=== PATIENT | male | born 1950 | race Caucasian/White ===

== ENCOUNTER 2021-02-04 13:52 | Outpatient (CLI) | payer MEDICARE, SELFPAY ==
[2021-02-04 14:10] VITALS: BP 128/56; PULSE 77; RESP 16; TEMP 36.6; O2SAT 92; BMI 32.1
[2021-02-04] MEDS: 0.9% Saline Lock 10 ML Syringe IV (14:32)
[2021-02-04 15:03] VITALS: BP 115/60; PULSE 69; RESP 16; TEMP 36.9; O2SAT 93
[2021-02-04 16:10] VITALS: BP 111/59; PULSE 69; RESP 16; TEMP 36.9; O2SAT 93
== END 2021-02-04 16:11 | disposition home or self-care (01) ==
LOC: MS3OUT 13:53 → MS3 13:53
PROVIDERS: Referring Provider Nurse Practitioner Adult Health; Visit Provider Nurse Practitioner Adult Health
DX: Z23 Encounter for immunization (principal); U07.1 COVID-19
CPT/HCPCS: J7050; M0243; A4216; Q0244

== ENCOUNTER 2021-02-04 20:10 | Inpatient (IN) | payer MEDICARE, OTHER, SELFPAY ==
[2021-02-04] VITALS (9 sets, daily range): BP systolic 118–137; BP diastolic 60–64; PULSE 68–93; RESP 18–23; TEMP 36.7–37.7; O2SAT 82–92; BMI 32.1; BMI 29.9
--- NOTE | 2021-02-04 20:38 | EKG12_ITS ---
Test Reason : GENERAL Blood Pressure : / mmHG Vent. Rate : 084 BPM Atrial Rate : 084 BPM P-R Int : 188 ms QRS Dur : 108 ms QT Int : 362 ms P-R-T Axes : 017 -25 004 degrees QTc Int : 427 ms Sinus rhythm with occasional Premature ventricular complexes Septal infarct , age undetermined Abnormal ECG Confirmed by BENJAMIN BAZAN, JOSE M ([id number]), assignment desk editor DAKSHA CARRERO ([id number]) on 02/09/2021 10:48:38 AM Referred By: MARY ANN Confirmed By:KATLYN ALEXANDER MD
--- NOTE | 2021-02-04 20:38 | CT_ITS ---
STUDY: CTA CHEST REASON FOR EXAM: Male, 71 years old. dyspnea -- Covid, hypoxia RADIATION DOSAGE (If Supplied By Facility): CTDIvol = ( 15.76 ) mGy, DLP = ( 532.31 ) mGycm TECHNIQUE: The examination was performed with the intravenous administration of IV 100mL Isovue-370. Post-processing of the angiographic images was performed, with multiplanar reformation and 3D reconstruction. Individualized dose optimization techniques were used for this CT. COMPARISON: None. FINDINGS: Adequate density of contrast the pulmonary arteries without significant motion; diagnostic exam. Normal enhancement of the main pulmonary artery and right and left pulmonary arteries. Normal enhancement of the bilateral peripheral pulmonary arteries. There is no demonstrated pulmonary embolism. Heart is normal size. No pericardial effusion. Note of some coronary artery intimal calcifications. Thoracic aorta has intimal calcifications but is normal diameter with no evidence of dissection. There are some mildly prominent right paratracheal lymph nodes measuring up to 1 cm in short axis. No hilar lymphadenopathy. Patchy groundglass attenuation scattered throughout much of the lungs with additional basilar atelectasis. Findings are nonspecific but commonly seen in Covid pneumonia. No pleural effusion. No pneumothorax. There is an exaggerated kyphotic curvature with wedge compression fracture of T9, of unknown acuity. Multilevel degenerative disc and endplate changes thoracic spine are present. No lytic or blastic bone lesion. CT/CTA Chest W/WO Contrast IMPRESSION: No pulmonary embolism. Multifocal ill-defined patchy groundglass attenuation is nonspecific but commonly seen with Covid pneumonia. Mildly prominent right paratracheal lymph nodes measuring up to 9 mm in short axis. These are likely reactive however follow-up CT chest in 3 months should be considered. Electronically Signed: Teo Brandon DO at 22:14 EDT Tel , Service support ,
[2021-02-04 21:06] LABS: Allen Test Positive; Base Excess 2 mmol/L (-2 to +2); Bicarbonate 25.2 mmol/L (22-26); Blood Gas Specimen Type ART; O2 Delivery Device Cannula; PO2 69 mmHG (75-100); SITE L Radial; SO2 95 % (95-99); Total Carbon Dioxide 26 mmol/L; pH 7.49 (7.35-7.45)
[2021-02-04 21:16] LABS: Basophil# 0.03 X10^3/uL; Eosinophil# 0.01 X10^3/uL; Hematocrit 40.9 % (40-54); Hemoglobin 12.8 g/dL (13.0-16.5); Lymphocyte % 90.8 % (19-41); Mean Corp Hgb Conc 31.3 g/dL (32-36); Mean Corpuscular Hgb 29.6 pg (27.0-32.0); Mean Corpuscular Volume 94.7 fL (80-94); Mean Platelet Vol. 10.1 fl (6.2-12.0); Monocyte# 3.93 X10^3/uL; Monocyte% 2.8 % (0-10); NRBC Flagged by Analyzer 0 % (0-5); Neutrophil # 7.98 X10^3/uL (2.7-7.7); Neutrophil % 5.9 % (47-70); POSITIVE COUNT YES; POSITIVE DIFFERENTIAL YES; POSITIVE MORPHOLOGY YES; Platelet Count 85 K/mm3 (150-450); RBC Distribution Width CV 15.7 % (11.6-14.6); RBC Distribution Width SD 53.1 fl (35.1-43.9); Red Blood Count 4.32 M/mm3 (4.6-6.2)
--- NOTE | 2021-02-04 21:26 | ED.RN ---
WBC OF 138.[address] LE[address] BAZAN VERBALIZES UNDERSTANDING
[2021-02-04 21:27] LABS: Differential Indicated SCAN CRITERIA MET
[2021-02-04 21:30] LABS: ALB/GLOB Ratio 0.8 RATIO (0.9-2.4); AST(SGOT) 86 U/L (15-37); Alanine Aminotransfer ALT/SGPT 47 U/L (16-61); Albumin, Serum 2.8 g/dL (3.2-5.0); Alkaline Phosphatase 80 U/L (45-117); Anion Gap 8 (5-15); BUN 21 mg/dL (7-18); BUN/Creat Ratio 16.4 RATIO (10-20); Calcium,Total 8.3 mg/dL (8.5-10.1); Chloride 98 mmol/L (98-107); Creatinine, Serum 1.28 mg/dL (0.70-1.30); EST Glomerular Filtration Rate 59 mL/min (>60); Est Glom Filt Rate - Afr Amer 71 mL/min (>60); Estimated Creatinine Clearance 57.19 ml/min; Globulin 3.6 g/dL (2.2-4.2); Glucose 124 mg/dL (74-106); Potassium 4.9 mmol/L (3.5-5.1); Protein, Total 6.4 g/dL (6.4-8.2); Sodium Level 132 mmol/L (136-145); Troponin-I HS 23 pg/mL (3.0-78.0)
[2021-02-04 21:31] LABS: White Blood Count 138.6 K/mm3 (4.4-11.0)
--- NOTE | 2021-02-04 21:34 | ED.VIS.DYS ---
HPI History of Present Illness Chief Complaint: Shortness of Breath Informant: patient Narrative Narrative: Patient sent down from monoclonal infusion center due to dyspnea with hypoxia. Diagnosed with Covid yesterday. History of asthma and CLL. Denies tobacco. Symptom onset 9 days ago with mild fever cough. Last few days diarrhea. There is slight changes in taste and smell. No Covid vaccination. No Covid infection in the past. Denies any sick contacts however states was diagnosed yesterday also symptoms all started at the same time together. Denies chest or abdominal pain. He reports his pulse ox was low prior to infusion however is able to breathe and bring the oxygen up. He was given the antibody, however afterwards his oxygen went back down to 82. He was sent down to the ED secondary to this. [facility] Medical History Asthma CLL (chronic lymphocytic leukemia) Home Medications NK 02/04/21 [History Last Taken Unknown] Allergy/AdvReac Type Severity Reaction Status Date / Time monosodium glutamate Allergy Severe lip Verified 02/04/21 20:11 swelling strawberry Allergy Severe lip Verified 02/04/21 20:11 swelling grass pollen Allergy Mild watery eyes Verified 02/04/21 20:11 tree and shrub pollen Allergy Mild watery eyes Verified 02/04/21 20:11 Family History (Updated 02/04/21 @ 23:[address] Chelsea Parker DO) Other Asthma Social History (Updated 02/04/21 @ 23:[address] Chelsea Parker DO) Smoking Status: Never smoker alcohol intake: never substance use type: does not use ROS ROS ED Constitutional Constitutional ED: Reports fever(s); Denies chills or sweats Eyes Eyes: Denies change in vision ENT ENT ED: Denies dysphagia or sore throat Cardiovascular Cardiovascular: Denies chest pain, leg edema, palpitations or racing heartbeat Respiratory/Chest Respiratory/Chest: Reports cough and dyspnea; Denies dyspnea on exertion Gastrointestinal Gastrointestinal: Denies abdominal pain, diarrhea, nausea or vomiting Genitourinary Genitourinary ED: Denies dysuria, hematuria or urinary frequency Musculoskeletal Musculoskeletal: Denies back pain, extremity pain or neck pain Integumentary Denies rash or wounds Neurologic Neurologic: Denies headache(s), paresthesias or weakness EXAM Physical Exam Const Vital Signs: 02/04/21 20:11 02/04/21 20:15 02/04/21 20:55 Temperature 98.1 F Temperature Source Temporal Pulse Rate 93 Respiratory Rate 22 H Respiratory Effort Short of Breath Respiratory Pattern Tachypnea Blood Pressure 137/64 H Blood Pressure Mean 88 Pulse Ox 82 92 Oxygen Delivery Method Room Air Nasal Cannula Oxygen Flow Rate (L/min) 6 02/04/21 21:13 02/04/21 22:06 Temperature 98.1 F 99.8 F H Temperature Source Temporal Oral Pulse Rate 77 73 Respiratory Rate 23 H 18 Respiratory Effort Respiratory Pattern Blood Pressure 137/64 H 118/60 Blood Pressure Mean 88 79 Pulse Ox 90 92 Oxygen Delivery Method Nasal Cannula Nasal Cannula Oxygen Flow Rate (L/min) 12 15 Positive well nourished and well developed Constitutional Narrative: Patient on 6 L of oxygen no respiratory distress. No tachypnea. General Appearance ED: well developed and NAD HEENT Reports moist mucous membranes normocephalic and atraumatic Eyes PERRL, EOMs intact bilaterally and conjunctivae normal General Eye ED: Yes normal appearance of both eyes Neck no lymphadenopathy and supple General: Negative for tenderness Chest Wall Chest: Negative for tenderness Resp normal respiratory effort and normal air movement Effort and Inspection: symmetric chest movement; Negative for respiratory distress Cardio regular rate, regular rhythm and no murmurs Peripheral Pulses: pulses 2+ throughout GI normal to inspection, nondistended, normoactive bowel sounds and non-tender Palpation: Negative for guarding or rebound tenderness present Back/Spine no CVA tenderness and no thoracic nor lumbar tenderness Extremity normal to inspection General Extremety ED: Negative for edema or tenderness General Extremity: Negative for edema Neuro oriented x3 and no sensory deficits noted Sensorium / Orientation: awake and alert Skin no rashes or lesions noted and no wounds MDM MDM MDM Narrative Medical decision making narrative: Patient 6 L with good waveforms noted pulse ox down to 85%. Work-up initiated to rule out PE with his Covid history. He was placed on high flow oxygen ABG obtained. ABG per respiratory obtain right when he switched him to 15 L of high flow oxygen noted PaO2 of 69. This likely not as accurate secondary to obtaining right when high flow was placed. However clinically I do feel he is hypoxic with Covid history. He is started on Decadron. Per patient and daughter on the phone they would not want the remdesivir antiviral treatment in the hospital. He understands that he will need to be admitted. Patient is white count 138 with history of CLL. Reports typically in the 50s. He is managed naturally per patient. Hemoglobin 12.8. Lactic acid 1.2. CT scan negative for PE however multilobar Covid pneumonia findings. He is on 15 L high flow oxygen pulse ox in the 90s he is in not in any current respiratory distress. Discussed with patient goals of care and plans if he decompensates. At this time he states he did not want ventilation however is okay with noninvasive pressure and would reevaluate if he gets worsen. He discussed this with his family over the phone. He stated he would like to try to avoid ventilation in hopes that the antibiotics will kick in. This was relayed to hospitalist team. I spoke with Dr. Parker, bedside. Due to limited bed availability in the region, he will be placed in PCU stepdown. For continued management. Lab Data Attestation: I reviewed the patient's lab results. Labs: Laboratory Results - last 24 hr 02/04/21 02/04/21 02/04/21 20:43 20:43 20:43 WBC 138.6 H* RBC 4.32 L Hgb 12.8 L Hct 40.9 MCV 94.7 H MCH 29.6 MCHC 31.3 L RDW Std Deviation 53.1 H RDW Coeff of Laila 15.7 H Plt Count 85 L MPV 10.1 Immature Gran % (Auto) 0.500 Neut % (Auto) 5.9 L Lymph % (Auto) 90.[address] [place] % (Auto) 2.8 Eos % (Auto) 0.0 Baso % (Auto) 0.0 Absolute Neuts (auto) 8.0 H Absolute Lymphs (auto) 125.90 H Nucleated RBC % 0 Differential Comment SCANNED Diff Path Review May foll D-Dimer Quant (PE/DVT) 1.70 H* Sodium 132 L Potassium 4.9 Chloride 98 Carbon Dioxide 26.0 Anion Gap 8 BUN 21 H Creatinine 1.28 Estim Creat Clear Calc 57.19 Est GFR (MDRD) Af Amer 71 Est GFR (MDRD) Non-Af 59 L BUN/Creatinine Ratio 16.4 Glucose 124 H Lactic Acid Calcium 8.3 L Total Bilirubin 0.80 AST 86 H ALT 47 Alkaline Phosphatase 80 Troponin I High Sens 23 C-React Prot Ext Range 84.70 H Total Protein 6.4 Albumin 2.8 L Globulin 3.6 Albumin/Globulin Ratio 0.8 L 02/04/21 20:43 WBC RBC Hgb Hct MCV MCH MCHC RDW Std Deviation RDW Coeff of Laila Plt Count MPV Immature Gran % (Auto) Neut % (Auto) Lymph % (Auto) [place] % (Auto) Eos % (Auto) Baso % (Auto) Absolute Neuts (auto) Absolute Lymphs (auto) Nucleated RBC % Differential Comment Diff Path Review D-Dimer Quant (PE/DVT) Sodium Potassium Chloride Carbon Dioxide Anion Gap BUN Creatinine Estim Creat Clear Calc Est GFR (MDRD) Af Amer Est GFR (MDRD) Non-Af BUN/Creatinine Ratio Glucose Lactic Acid 1.2 Calcium Total Bilirubin AST ALT Alkaline Phosphatase Troponin I High Sens C-React Prot Ext Range Total Protein Albumin Globulin Albumin/Globulin Ratio ABG Data ABG results: ABG 02/04/21 21:02 Specimen Type ART Sample Site L Radial pH 7.49 H Bicarbonate Actual 25.2 Total CO2 26 Base Excess 2 O2 Saturation 95 ABG pCO2 33.0 L ABG pO2 69 L Iain Test Positive O2 Delivery Device Cannula Liter Flow 15.0 Radiography Diagnostic Testing: Clinical Impression(s) from Imaging Studies Chest CTA 02/04/21 20:38 IMPRESSION: No pulmonary embolism. Multifocal ill-defined patchy groundglass attenuation is nonspecific but commonly seen with Covid pneumonia. Mildly prominent right paratracheal lymph nodes measuring up to 9 mm in short axis. These are likely reactive however follow-up CT chest in 3 months should be considered. Electronically Signed: Teo Brandon DO at 22:14 EDT Tel , Service support , Critical Care Time Critical Care Time: Yes Critical care time (excluding procedures): Discussing w/Patient &/or Family/Grill Associate, Discussing w/Consultants, Arranging Admission or Transfer, Performing Direct Patient Care at Bedside and - (45 minutes) Discharge Plan Dx/Rx/DC Orders Clinical Impression: COVID-19, Pneumonia due to COVID-19 virus, History of chronic lymphocytic leukemia Disposition Disposition: Acute Care Hospital [facility] Discharge Date/Time: 02/04/21 23:24
[2021-02-04 21:44] LABS: Lactic Acid 1.2 mmol/L (0.4-1.9)
[2021-02-04 21:47] LABS: Differential Comment SCANNED
--- NOTE | 2021-02-04 21:56 | PCM.HP.STD ---
HPI - General HPI Narrative DON MADERA, is a 71 WM who presented to the emergency department at [facility] on 02/04/2021 with a chief complaint of shortness of breath. The patient was diagnosed with COVID-19 on 02/03/2021 and symptoms started on 01/26/2021. He had been referred for monoclonal antibody infusion which was done earlier today but became hypoxic following his infusion was therefore sent to the emergency department. He has a past medical history of asthma and CLL. His symptoms at onset were mild fever, diarrhea, slight change in taste and smell. He denies any known sick contacts however reports that his was also diagnosed yesterday with Covid and his symptoms started at the same time as hers did. Evidently his pulse ox was low prior to infusion but he was able to breathe ambient air and obtain oxygen saturations greater than 92% therefore he was given monoclonal antibodies however his oxygen saturations decreased to 82% afterwards. In the emergency department he was afebrile with stable hemodynamics, slightly tachypneic and his pulse ox was 82% on room air and he required 12 L of heated high flow nasal cannula to obtain an oxygen saturation of 90% or greater. His CBC shows a markedly elevated white count that is consistent with CLL, mild anemia, and thrombocytopenia with a platelet count of 85,000. He had an elevated D-dimer at 1.7 and therefore a CTA was performed this showed no PE, multifocal patchy groundglass infiltrates and a mildly prominent right paratracheal lymph node that measures 9 mm. An ABG was obtained and showed a pH of 7.45 a PCO2 of 33 a PO2 of 69 with an oxygen saturation of 95% on 15 L heated high flow nasal cannula. His CMP showed mild hyponatremia at 132 and mild transaminitis with an AST elevation 86, his ALT was within normal limits, his CRP was markedly elevated at 84.7 and a troponin was obtained and was normal.He was given Decadron 6 mg times x 1 dose in the emergency department and we were requested to evaluate the patient for admission. He will be admitted to PCU stepdown given his tenuous oxygenation status. [facility] Medical History Asthma CLL (chronic lymphocytic leukemia) Home Medications NK 02/04/21 [History Last Taken Unknown] Allergy/AdvReac Type Severity Reaction Status Date / Time monosodium glutamate Allergy Severe lip Verified 02/04/21 20:11 swelling strawberry Allergy Severe lip Verified 02/04/21 20:11 swelling grass pollen Allergy Mild watery eyes Verified 02/04/21 20:11 tree and shrub pollen Allergy Mild watery eyes Verified 02/04/21 20:11 Family History (Updated 02/04/21 @ 23:[address] Chelsea Parker DO) Other Asthma Social History (Updated 02/04/21 @ 23:[address] Chelsea Parker DO) Smoking Status: Never smoker alcohol intake: never substance use type: does not use ROS Constitutional Constitutional: Reports anorexia, chills and fatigue; Denies change in weight, fever(s), malaise, night sweats, weakness or other Eyes Eyes: Denies blurry vision, change in eye color, change in vision, discharge from eye(s), double vision, erythema, eye pain, loss of vision or other ENT HEENT: Denies abnormal hearing, dysphagia, ear pain, epistaxis, headache(s), hearing loss, nasal congestion, nasal discharge, post nasal drip, sinus pressure, sore throat or other Cardiovascular Cardiovascular: Denies chest pain, claudication, dyspnea on exertion, edema, lightheadedness, orthopnea, palpitations, paroxysmal nocturnal dyspnea, rapid heart rate, syncope or other Respiratory/Chest Respiratory/Chest: Reports cough, dyspnea and shortness of breath with exertion; Denies excessive phlegm production, hemoptysis, productive cough, shortness of breath at rest, wheezing or other Gastrointestinal Gastrointestinal: Reports diarrhea; Denies abdominal pain, coffee ground emesis, constipation, dyspepsia, hematemesis, hematochezia, loose stools, melena, nausea, vomiting or other Genitourinary Genitourinary: Denies burning urination, difficulty urinating, dysuria, hematuria, nocturia, urinary frequency, urinary hesitancy, urinary incontinence, urinary urgency or other Musculoskeletal Musculoskeletal: Denies arthralgias, back pain, joint pain, joint stiffness, joint swelling, myalgias, neck pain or other Neurologic Neurologic: Denies abnormal gait, abnormal speech, confusion, disequilibrium, dizziness, focal weakness, headache(s), numbness, paresthesias, seizure-like activity, seizures, syncope, tingling, tremor(s) or other Psychiatric Psychiatric: Denies anxiety, depression, homicidal ideation, suicidal ideation or other Endocrine Endocrinology: Denies change in body appearance, cold intolerance, excessive sweating, heat intolerance, polydipsia, polyuria or other Hematologic/Lymphatic Hematologic/Lymphatic: Denies anemia, easy bleeding, easy bruising, lymphadenopathy or other Allergic/Immunologic Allergic/Immunologic: Denies rhinitis, hives, eczemia, asthma or other Vital Signs Vital Signs Vital Signs: 02/04/21 20:11 02/04/21 20:15 02/04/21 20:55 Temperature 98.1 F Temperature Source Temporal Pulse Rate 93 Respiratory Rate 22 H Respiratory Effort Short of Breath Respiratory Pattern Tachypnea Blood Pressure 137/64 H Blood Pressure Mean 88 Pulse Ox 82 92 Oxygen Delivery Method Room Air Nasal Cannula Oxygen Flow Rate (L/min) 6 02/04/21 21:13 Temperature 98.1 F Temperature Source Temporal Pulse Rate 77 Respiratory Rate 23 H Respiratory Effort Respiratory Pattern Blood Pressure 137/64 H Blood Pressure Mean 88 Pulse Ox 90 Oxygen Delivery Method Nasal Cannula Oxygen Flow Rate (L/min) 12 Weight Weight: 104.326 kg Body Mass Index (BMI) 32.1 Physical Exam Const alert, oriented x3 and no apparent distress Constitutional Narrative: Older white male sitting up in bed, appears comfortable, nontoxic, dyspnea with conversation and mildly diaphoretic General Appearance: cooperative HEENT normocephalic, head/scalp atraumatic, hearing grossly normal bilaterally and moist oral mucous membranes HEENT Narrative: Mallampati 2, no thrush, good dentition Eyes PERRL, EOMs intact bilaterally and conjunctivae normal Eyes Narrative: No scleral icterus Neck no lymphadenopathy, supple and no JVD Neck Narrative: Trachea midline, no thyroid enlargement noted Resp normal respiratory effort, no retractions and no use of accessory muscles Resp Narrative: Diminished with few scattered crackles, dyspneic with conversation Auscultation: Negative for crackles, rales, rhonchi or wheezes Cardio regular rate, regular rhythm, S1 normal heart sound, S2 normal heart sound, no murmurs, no rub, no gallops, no clicks and no JVD GI normal to inspection, nondistended, normoactive bowel sounds, soft to palpation, non-tender and non-distended Extremity normal to inspection and no clubbing, cyanosis or edema Peripheral Pulses: Yes pulses 2+ throughout Skin no rashes or lesions noted, no wounds, skin turgor normal, no jaundice, no petechiae and no mottling Neuro oriented x3, CN's II-XII intact bilaterally, moves all extremities and no focal motor deficits Sensorium / Orientation: awake, alert, oriented to person, oriented to place and oriented to time Speech: speech normal Motor Exam: strength 5/5 throughout Psych affect normal Results Lab / Micro Data Attestation: I reviewed the patient's lab results. Result Diagrams: 02/04/21 20:43 02/04/21 20:43 Labs: Laboratory Results - last 24 hr 02/04/21 20:43: WBC 138.6 H*, RBC 4.32 L, Hgb 12.8 L, Hct 40.9, MCV 94.7 H, MCH 29.6, MCHC 31.3 L, RDW Std Deviation 53.1 H, RDW Coeff of Laila 15.7 H, Plt Count 85 L, MPV 10.1, Immature Gran % (Auto) 0.500, Neut % (Auto) 5.9 L, Lymph % (Auto) 90.8 H, [place] % (Auto) 2.8, Eos % (Auto) 0.0, Baso % (Auto) 0.0, Absolute Neuts (auto) 8.0 H, Absolute Lymphs (auto) 125.90 H, Nucleated RBC % 0, Differential Comment SCANNED, Diff Path Review August02/04/21 20:43: D-Dimer Quant (PE/DVT) 1.70 H* 02/04/21 20:43: Sodium 132 L, Potassium 4.9, Chloride 98, Carbon Dioxide 26.0, Anion Gap 8, BUN 21 H, Creatinine 1.28, Estim Creat Clear Calc 57.19, Est GFR (MDRD) Af Amer 71, Est GFR (MDRD) Non-Af 59 L, BUN/Creatinine Ratio 16.4, Glucose 124 H, Calcium 8.3 L, Total Bilirubin 0.80, AST 86 H, ALT 47, Alkaline Phosphatase 80, Troponin I High Sens 23, C-React Prot Ext Range 84.70 H, Total Protein 6.4, Albumin 2.8 L, Globulin 3.6, Albumin/Globulin Ratio 0.8 L 02/04/21 20:43: Lactic Acid 1.2 ABG Data ABG results: ABG 02/04/21 21:02 Specimen Type ART Sample Site L Radial pH 7.49 H Bicarbonate Actual 25.2 Total CO2 26 Base Excess 2 O2 Saturation 95 ABG pCO2 33.0 L ABG pO2 69 L Iain Test Positive O2 Delivery Device Cannula Liter Flow 15.0 Assessment & Plan Assessment/Plan (1) Acute respiratory failure with hypoxia: (2) Hyponatremia: (3) COVID-19: (4) Transaminitis: (5) Elevated d-dimer: (6) Thrombocytopenia: PLAN: Acute hypoxic respiratory failure secondary to COVID-19 pneumonia -Symptom onset 01/26/2021 and therefore will need to be in quarantine until 02/15/2021 -Nonvaccinated -Received monoclonal antibody on 02/04/2021 prior to coming to the ED -Was on room air earlier today and now on 12 L heated high flow nasal cannula -Start Decadron 6 mg daily x10 days day 1 10 -Patient/family do not want remdesivir -may need infectious disease for consideration of dosing baricitinib if pt would like to pursue (he would like to discuss with his daughter first) -Patient currently on 8 heated high flow but I do anticipate he may decompensate and require air Vo/NIV/ET tube -Check sputum culture -Check strep pneumo and Legionella antigens -Pulmonary toilet -I-S/Pep therapy -Prone positioning is able -Lovenox 40 mg twice daily -As needed diuresis as needed/required/tolerated -Consult pulmonary Elevated D-dimer -CTA of the chest was performed and shows marked patchy bilateral infiltrates consistent with viral pneumonia but no pulmonary embolus -Likely related to COVID-19 infection Hyponatremia -Suspect related to Covid infection -Mild at this time -Monitor Mild transaminitis -AST is elevated this time with a normal ALT -Continue to monitor CLL -White count is markedly elevated at 138.6 thousand -Baseline is unknown but I suspect it is close to this -Patient follows with oncology -Current therapy is naturopathic Mild anemia -Baseline unknown -Currently 12.8 -Monitor daily Thrombocytopenia -Baseline unknown therefore it is unclear if this is acute or chronic -May be related to COVID-19 infection -Monitor daily DVT prophylaxis -Lovenox 40 mg twice daily -SCDs CODE STATUS -Full code at this time per discussion with patient in the emergency department and he would discuss further with family Charges/Coding Visit Charges Inpatient E&M: 81101 Init Hosp L3
[2021-02-04] MEDS: dexAMETHasone 4 MG Tablet 6 MG PO (22:06)
--- NOTE | 2021-02-04 23:51 | PCS.PANDOC ---
PANDEMIC DOCUMENTATION INITIATED: Date: 12/15/2020 Time: 190
[2021-02-05] VITALS (15 sets, daily range): BP systolic 106–130; BP diastolic 56–78; PULSE 55–73; RESP 14–23; TEMP 36.4–37.9; O2SAT 91–96
[2021-02-05 06:51] LABS: Hematocrit 39.9 % (40-54); Hemoglobin 12.7 g/dL (13.0-16.5); Mean Corp Hgb Conc 31.8 g/dL (32-36); Mean Corpuscular Hgb 30.2 pg (27.0-32.0); Mean Corpuscular Volume 94.8 fL (80-94); Mean Platelet Vol. 10.4 fl (6.2-12.0); POSITIVE COUNT YES; Platelet Count 82 K/mm3 (150-450); RBC Distribution Width CV 15.7 % (11.6-14.6); Red Blood Count 4.21 M/mm3 (4.6-6.2)
[2021-02-05 07:01] LABS: Scan Indicated on CBC? Y/N YES- FLAGS NOTED
[2021-02-05 07:22] LABS: Phosphorus 5.4 mg/dL (2.5-4.9)
[2021-02-05 07:32] LABS: ALB/GLOB Ratio 0.7 RATIO (0.9-2.4); AST(SGOT) 76 U/L (15-37); Alanine Aminotransfer ALT/SGPT 42 U/L (16-61); Albumin, Serum 2.5 g/dL (3.2-5.0); Alkaline Phosphatase 76 U/L (45-117); Anion Gap 6 (5-15); BUN 24 mg/dL (7-18); BUN/Creat Ratio 19.5 RATIO (10-20); Calcium,Total 8.1 mg/dL (8.5-10.1); Chloride 99 mmol/L (98-107); Creatinine, Serum 1.23 mg/dL (0.70-1.30); EST Glomerular Filtration Rate 62 mL/min (>60); Est Glom Filt Rate - Afr Amer 75 mL/min (>60); Estimated Creatinine Clearance 59.52 ml/min; Globulin 3.5 g/dL (2.2-4.2); Glucose 139 mg/dL (74-106); Magnesium 2.5 mg/dL (1.6-2.6); Potassium 4.7 mmol/L (3.5-5.1); Sodium Level 133 mmol/L (136-145); Thyroid Stim Hormone (TSH) 0.34 uIU/mL (0.358-3.74)
[2021-02-05] MEDS: Enoxaparin 40 MG/0.4 ML Syringe SC ×2 (09:01→21:14)
[2021-02-05] MEDS: dexAMETHasone 4 MG Tablet 6 MG PO (09:02)
--- NOTE | 2021-02-05 12:09 | PN.HOSP_ITS ---
Subjective Subjective Patient is a 71-year-old gentleman unvaccinated against COVID-19 who presented with progressive shortness of breath. Symptoms started on 01/26/2021. Had received monoclonal antibody on 02/04/2021 however due to worsening symptoms presented to the emergency department Objective Data Objective Data Vital Signs: Vital Signs Temp Pulse Resp BP Pulse Ox 100.2 F H 71 20 H 122/70 H 92 02/05/21 08:54 02/05/21 08:54 02/05/21 08:54 02/05/21 08:54 02/05/21 08:54 Oxygen Flow Rate (L/min) 15 Oxygen Delivery Method Nasal Cannula Weight: 97.6 kg Body Mass Index (BMI) 29.9 Intake & Output: Intake and Output for Last 24 Hours 02/03/21 02/04/21 02/05/21 23:59 23:59 23:59 Intake Total 300 / 300 Balance 300 / 300 Lab / Micro Data Result Diagrams: 02/05/21 06:06 02/05/21 06:06 Labs: Laboratory Results - last 24 hr 02/04/21 20:43: WBC 138.6 H*, RBC 4.32 L, Hgb 12.8 L, Hct 40.9, MCV 94.7 H, MCH 29.6, MCHC 31.3 L, RDW Std Deviation 53.1 H, RDW Coeff of Laila 15.7 H, Plt Count 85 L, MPV 10.1, Immature Gran % (Auto) 0.500, Neut % (Auto) 5.9 L, Lymph % (Auto) 90.8 H, [place] % (Auto) 2.8, Eos % (Auto) 0.0, Baso % (Auto) 0.0, Absolute Neuts (auto) 8.0 H, Absolute Lymphs (auto) 125.90 H, Nucleated RBC % 0, Differential Comment SCANNED, Diff Path Review August02/04/21 20:43: D-Dimer Quant (PE/DVT) 1.70 H* 02/04/21 20:43: Sodium 132 L, Potassium 4.9, Chloride 98, Carbon Dioxide 26.0, Anion Gap 8, BUN 21 H, Creatinine 1.28, Estim Creat Clear Calc 57.19, Est GFR (MDRD) Af Amer 71, Est GFR (MDRD) Non-Af 59 L, BUN/Creatinine Ratio 16.4, Glucose 124 H, Calcium 8.3 L, Total Bilirubin 0.80, AST 86 H, ALT 47, Alkaline Phosphatase 80, Troponin I High Sens 23, C-React Prot Ext Range 84.70 H, Total Protein 6.4, Albumin 2.8 L, Globulin 3.6, Albumin/Globulin Ratio 0.8 L 02/04/21 20:43: Lactic Acid 1.2 02/05/21 06:06: WBC 139.0 H*, RBC 4.21 L, Hgb 12.7 L, Hct 39.9 L, MCV 94.8 H, MCH 30.2, MCHC 31.8 L, RDW Std Deviation 54.0 H, RDW Coeff of Laila 15.7 H, Plt Count 82 L, MPV 10.4, Differential Comment COMMENT, Diff Path Review August02/05/21 06:06: Sodium 133 L, Potassium 4.7, Chloride 99, Carbon Dioxide 28.0, Anion Gap 6, BUN 24 H, Creatinine 1.23, Estim Creat Clear Calc 59.52, Est GFR (MDRD) Af Amer 75, Est GFR (MDRD) Non-Af 62, BUN/Creatinine Ratio 19.5, Glucose 139 H, Calcium 8.1 L, Magnesium 2.5, Total Bilirubin 0.70, AST 76 H, ALT 42, Alkaline Phosphatase 76, Total Protein 6.0 L, Albumin 2.5 L, Globulin 3.5, Albumin/Globulin Ratio 0.7 L, TSH 0.34 L 02/05/21 06:06: Phosphorus 5.4 H Micro: Microbiology 02/05/21 02:47 Urine, Clean Catch Legionella Antigen - Final 02/05/21 02:47 Urine, Clean Catch Streptococcus pneumoniae Antigen (M - F inal ABG Data ABG results: ABG 02/04/21 21:02 Specimen Type ART Sample Site L Radial pH 7.49 H Bicarbonate Actual 25.2 Total CO2 26 Base Excess 2 O2 Saturation 95 ABG pCO2 33.0 L ABG pO2 69 L Iain Test Positive O2 Delivery Device Cannula Liter Flow 15.0 Radiography Diagnostic Testing: Radiology Impression Chest CTA 02/04/21 20:38 IMPRESSION: No pulmonary embolism. Multifocal ill-defined patchy groundglass attenuation is nonspecific but commonly seen with Covid pneumonia. Mildly prominent right paratracheal lymph nodes measuring up to 9 mm in short axis. These are likely reactive however follow-up CT chest in 3 months should be considered. Electronically Signed: Teo Brandon, at 22:14 EDT Tel , Service support , Physical Exam Narrative GENERAL: cooperative dyspneic at rest HEENT: Atraumatic; EYES; Anicteric, Normal Conjunctiva NECK; supple, normal thyroid, RESPIRATORY: Diminished to auscultation CARDIOVASCULAR: Regular S1 S2, GI: soft, normoactive bowel sounds, : No Renal angle tenderness; EXTREMITIES: No edema, no clubbing, MUSCULOSKELETAL: no muscle waisting NEURO: Awake; no lateralizing signs. SKIN: No Rash PSYCH; Flat affect Assessment & Plan Assessment/Plan (1) Acute respiratory failure with hypoxia: (2) Hyponatremia: (3) COVID-19: (4) Transaminitis: (5) Elevated d-dimer: (6) Thrombocytopenia: PLAN: Patient is a 71-year-old gentleman unvaccinated against COVID-19 who presented with progressive shortness of breath. Symptoms started on 01/26/2021. Had received monoclonal antibody on 02/04/2021 however due to worsening symptoms presented to the emergency department 1. Acute hypoxic respiratory failure ?Secondary to SARS-CoV-2 pneumonia. Admitted to regular nursing follow-up placed on supplemental oxygen currently on high high flow oxygen 15 L. Patient was also started on Decadron. Offered remdesivir which patient did decline. 2. Elevated D-dimer ?Secondary to SARS-CoV-2 pneumonia CTA of the chest obtained was negative for PE 3. 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 Acute transaminitis ?Secondary to SARS-CoV-2 AST slightly elevated 5. Chronic lymphocytic leukemia ?WBC count on admission was 138. Plan is for patient to follow-up with oncology following discharge 6. Anemia - Secondary to chronic disorder monitoring H&H and transfuse if patient becomes symptomatic or hemoglobin falls below 7 7. Thrombocytopenia ?The appears to be some chronicity we will continue to monitor 8. Obesity with BMI of 30.0 ?Weight loss advised 9. DVT prophylaxis ?Lovenox 40 mg SC twice daily Advance planning; did discuss with the patient and family regarding advanced directives as well as CODE STATUS. Did explain the various scenarios involved ( FULL CODE, DNR CCA, DNR CCA with no intubation, and DNR CC and what each meant) patient elected full code with CPR and intubation if warranted. Order was placed. Time spent on discussion 18 minutes. Charges/Coding Visit Charges Inpatient E&M: 60146 Init Hosp L3 Procedures Hospitalists Procedures: 43578 Advncd Care Plan 30 Min
--- NOTE | 2021-02-05 13:37 | EX.PCM.CONCC ---
Assessment & Plan Assessment/Plan (1) Acute respiratory failure with hypoxia: (2) Pneumonia due to COVID-19 virus: PLAN: RECOMMENDATIONS: 1. Wean supplemental oxygen as tolerated to maintain saturations at or above 90%. 2. Continue Decadron to complete 10-day treatment course. 3. Patient refused remdesivir. 4. Obtain infectious diseases consultation. 5. Continue Lovenox twice daily as ordered. 6. Utilize Lasix as needed to maintain euvolemic state. 7. Given rapidity of decompensation, will start empiric antimicrobials. IMPRESSIONS: 1. Acute hypoxemic respiratory failure secondary to COVID-19 pneumonia The patient has noted worsening in his respiratory status after testing positive for COVID-19 pneumonia on February 03. Although offered to him, the patient subsequently refused remdesivir. Given further respiratory decompensation, recommended empiric initiation of antimicrobials. The patient will be continued on supplemental oxygen to maintain saturations at or above 90%. Decadron will be continued to complete a 10-day treatment course. Lovenox twice daily will also be continued. Infectious diseases consultation is pending. Awake prone positioning was encouraged. IV Lasix can be utilized as needed to maintain euvolemic state. 2. History of CLL/anemia/thrombocytopenia/obesity Complicates care, management, recovery and prognosis. Continue home medications as indicated. This note was generated with [employer] dictation software. It may contain incorrect words, spelling, and punctuation that were not noted in checking the note before signing. HPI Consult Data Date of Consult: 02/06/21 HPI Narrative Reason for Consultation: Acute hypoxemic respiratory failure secondary to COVID-19 pneumonia HPI Narrative: The patient is a 71-year-old male, with a history as outlined below, who presented to the emergency department on February 04 with worsening dyspnea. The patient reported that his symptoms initially began on January 26. He subsequently was diagnosed with COVID-19 pneumonia on February 03. The patient was referred for monoclonal antibody infusion, but became hypoxemic, despite having received the treatment. The patient is unvaccinated. On presentation to the emergency department, the patient was noted to have a low-grade fever but was otherwise hemodynamically stable. Laboratory evaluation revealed an elevated white blood cell count 238,000. Platelet count was low at 85,000. D-dimer was elevated at 1.7. Chemistry profile was notable for a sodium of 132 and BUN of 21. CRP was elevated at 84. CTA chest showed no evidence for pulmonary embolism. Bilateral groundglass changes were noted. The patient was started on twice daily Lovenox along with Decadron. He was admitted to the progressive care unit for further management. [facility] Medical History Asthma CLL (chronic lymphocytic leukemia) Home Medications NK 02/04/21 [History Last Taken Unknown] Allergy/AdvReac Type Severity Reaction Status Date / Time monosodium glutamate Allergy Severe lip Verified 02/04/21 20:11 swelling strawberry Allergy Severe lip Verified 02/04/21 20:11 swelling grass pollen Allergy Mild watery eyes Verified 02/04/21 20:11 tree and shrub pollen Allergy Mild watery eyes Verified 02/04/21 20:11 Family History (Updated 02/04/21 @ 23:[address] Chelsea Parker DO) Other Asthma Social History (Updated 02/04/21 @ 23:[address] Chelsea Parker DO) Smoking Status: Never smoker alcohol intake: never substance use type: does not use ROS Constitutional Constitutional: Reports chills and fatigue Eyes Eyes: Denies blurry vision or change in vision ENT HEENT: Denies dizziness, dysphagia, loss taste/smell or nasal congestion Cardiovascular Cardiovascular: Denies chest pain or dizziness Respiratory/Chest Respiratory/Chest: Reports cough and dyspnea Gastrointestinal Gastrointestinal: Reports diarrhea; Denies nausea or vomiting Genitourinary Genitourinary: Denies difficulty urinating Musculoskeletal Musculoskeletal: Denies arthralgias or back pain Integumentary Integumentary: Denies lesions, rash or skin ulcer Neurologic Neurologic: Denies abnormal gait or abnormal speech Psychiatric Psychiatric: Denies anxiety or depression Endocrine Endocrinology: Reports fatigue Hematologic/Lymphatic Hematologic/Lymphatic: Denies easy bleeding or easy bruising Physical Exam Const alert and no apparent distress General Appearance: cooperative HEENT normocephalic and head/scalp atraumatic Eyes PERRL, EOMs intact bilaterally and conjunctivae normal Neck supple General: trachea midline Chest inspection of chest normal Resp Effort and Inspection: tachypneic Auscultation: diminished lung sounds; Negative for rales, rhonchi or wheezes Cardio regular rate and regular rhythm GI normal to inspection, nondistended, normoactive bowel sounds Extremity no clubbing, cyanosis or edema Skin no rashes or lesions noted Neuro CN's II-XII intact bilaterally, moves all extremities and no focal motor deficits Psych cooperative and affect normal Lab / Micro Data Result Diagrams: 02/06/21 06:45 02/06/21 06:45 Labs: Laboratory Results - last 24 hr 02/04/21 20:43: WBC 138.6 H*, RBC 4.32 L, Hgb 12.8 L, Hct 40.9, MCV 94.7 H, MCH 29.6, MCHC 31.3 L, RDW Std Deviation 53.1 H, RDW Coeff of Laila 15.7 H, Plt Count 85 L, MPV 10.1, Immature Gran % (Auto) 0.500, Neut % (Auto) 5.9 L, Lymph % (Auto) 90.8 H, [place] % (Auto) 2.8, Eos % (Auto) 0.0, Baso % (Auto) 0.0, Absolute Neuts (auto) 8.0 H, Absolute Lymphs (auto) 125.90 H, Nucleated RBC % 0, Differential Comment SCANNED, Diff Path Review August02/04/21 20:43: D-Dimer Quant (PE/DVT) 1.70 H* 02/04/21 20:43: Sodium 132 L, Potassium 4.9, Chloride 98, Carbon Dioxide 26.0, Anion Gap 8, BUN 21 H, Creatinine 1.28, Estim Creat Clear Calc 57.19, Est GFR (MDRD) Af Amer 71, Est GFR (MDRD) Non-Af 59 L, BUN/Creatinine Ratio 16.4, Glucose 124 H, Calcium 8.3 L, Total Bilirubin 0.80, AST 86 H, ALT 47, Alkaline Phosphatase 80, Troponin I High Sens 23, C-React Prot Ext Range 84.70 H, Total Protein 6.4, Albumin 2.8 L, Globulin 3.6, Albumin/Globulin Ratio 0.8 L 02/04/21 20:43: Lactic Acid 1.2 02/05/21 06:06: WBC 139.0 H*, RBC 4.21 L, Hgb 12.7 L, Hct 39.9 L, MCV 94.8 H, MCH 30.2, MCHC 31.8 L, RDW Std Deviation 54.0 H, RDW Coeff of Laila 15.7 H, Plt Count 82 L, MPV 10.4, Differential Comment COMMENT, Diff Path Review August02/05/21 06:06: Sodium 133 L, Potassium 4.7, Chloride 99, Carbon Dioxide 28.0, Anion Gap 6, BUN 24 H, Creatinine 1.23, Estim Creat Clear Calc 59.52, Est GFR (MDRD) Af Amer 75, Est GFR (MDRD) Non-Af 62, BUN/Creatinine Ratio 19.5, Glucose 139 H, Calcium 8.1 L, Magnesium 2.5, Total Bilirubin 0.70, AST 76 H, ALT 42, Alkaline Phosphatase 76, Total Protein 6.0 L, Albumin 2.5 L, Globulin 3.5, Albumin/Globulin Ratio 0.7 L, TSH 0.34 L 02/05/21 06:06: Phosphorus 5.4 H Micro: Microbiology 02/05/21 02:47 Urine, Clean Catch Legionella Antigen - Final 02/05/21 02:47 Urine, Clean Catch Streptococcus pneumoniae Antigen (M - Final ABG Data ABG results: ABG 02/04/21 21:02 Specimen Type ART Sample Site L Radial pH 7.49 H Bicarbonate Actual 25.2 Total CO2 26 Base Excess 2 O2 Saturation 95 ABG pCO2 33.0 L ABG pO2 69 L Iain Test Positive O2 Delivery Device Cannula Liter Flow 15.0 Radiology Impression Chest CTA 02/04/21 20:38 IMPRESSION: No pulmonary embolism. Multifocal ill-defined patchy groundglass attenuation is nonspecific but commonly seen with Covid pneumonia. Mildly prominent right paratracheal lymph nodes measuring up to 9 mm in short axis. These are likely reactive however follow-up CT chest in 3 months should be considered. Electronically Signed: Teo Brandon DO at 22:14 EDT Tel , Service support , Charges/Coding Visit Charges Inpatient E&M: 12314 Init Hosp L3
--- NOTE | 2021-02-05 13:55 | CASEMGMT ---
SONIDO PETERS assessment: Initial transition planning/care coordination assessment. RN LORRAINE introduced self and role at [facility], pt voices understanding and consents to assessment. Pt is on 15L with no distress and speaks in full sentences. Pt is A/Ox4 and answers all questions appropriately. Pt states is COVID + and they both received monoclonal antibodies yesterday. Pt states both he and ended up in [facility] ED after infusions. Pt's was sent home on oxygen. Pt states no concerns getting groceries/resources once home. Pt was not vaccinated for COVID. Pt tested positive at [facility] in [place]. Care providers, pharmacy, and demographics verified. Presentation: Pt arrived to ED COVID + and with sat of 82%-pt w/ hx CLL Admitting dx: Acute hypoxic resp failure secondary to COVID 19 PCP: Ne[facility] Specialists: Pt states no current specialists. Preferred Pharmacy: [facility] [address] Insurance: [employer] A/B, [employer] Prescription Benefit: Yes Living Will/HPOA: Pt states does not have LW/HPOA and declines AD info. LNOK: Mary Grace Wilhelm, ; Taylor Wilhelm, daughter Living Arrangements: Pt states lives with in 2 story home and states no concerns at home. Pt is independent with ADL's. Transportation: Pt states drives self and states no transportation concerns. DME/HHC: Pt states no current DME or need for any DME. Pt states would like [employer] for DME company, if qualifies for home oxygen at discharge. Pt states no hx of HHC or SNF. Pt states no concerns with going home at time of discharge. Pt is retired. Pt states does not smoke cigarettes or drink ETOH. Pt voices no further concerns/needs. CM to follow for home oxygen need and any further discharge planning/needs. Advised pt to ask for CM if any further questions/concerns/needs arise, voices understanding. Pt Goal: Home Plan: Home, pending home O2 testing. [place] SONIDO PETERS
[2021-02-05 14:22] LABS: Pathologist Review Reviewed
--- NOTE | 2021-02-05 16:16 | CHAPLAIN ---
Type of Pastoral Visit ___ Initial Visit ___ Follow-up Visit ___ On-call Visit ___ General Patient Visit ___ Spiritual Assessment ___ Family Conference ___ Bereavement ___ Rapid Response ___ Code Blue _x__ Other (describe below) Pastoral Care Referral From _x__ Patient ___ Family ___ Nurse ___ Physician ___ Sas Clinical Programmer ___ Guardian Ad Litem ___ Other (describe below) Sacrament/Intervention _x__ Active listening ___ Anointing ___ Lutheran ___ Bereavement ___ Communion ___ Luana exploration ___ ___ Life review ___ Prayer ___ Reconciliation ___ Sacrament of Sick ___ Supportive presence ___ Wedding ___ Other (describe below) Pastoral Comments phone call made into this isolation room; pt is able to answer the phone and talk; pt is welcoming of spiritual care support but does have the RN in room at this time and is doing activity
[2021-02-05 17:50] LABS: M R Staph aureus DNA By PCR Negative (Negative); Probe Check PASS; Specimen Processing Control PASS
[2021-02-06] VITALS (17 sets, daily range): BP systolic 107–141; BP diastolic 55–85; PULSE 46–62; RESP 12–28; TEMP 36.4–36.8; O2SAT 90–97
[2021-02-06 07:31] LABS: Hematocrit 38.7 % (40-54); Hemoglobin 12.4 g/dL (13.0-16.5); Mean Corpuscular Hgb 30.2 pg (27.0-32.0); Mean Corpuscular Volume 94.2 fL (80-94); Mean Platelet Vol. 10.2 fl (6.2-12.0); POSITIVE COUNT YES; Platelet Count 93 K/mm3 (150-450); RBC Distribution Width CV 15.6 % (11.6-14.6); RBC Distribution Width SD 52.6 fl (35.1-43.9); Red Blood Count 4.11 M/mm3 (4.6-6.2); White Blood Count 144.2 K/mm3 (4.4-11.0)
[2021-02-06 07:32] LABS: Scan Indicated on CBC? Y/N YES- FLAGS NOTED
[2021-02-06 07:43] LABS: ALB/GLOB Ratio 0.7 RATIO (0.9-2.4); AST(SGOT) 65 U/L (15-37); Alanine Aminotransfer ALT/SGPT 38 U/L (16-61); Albumin, Serum 2.4 g/dL (3.2-5.0); Alkaline Phosphatase 77 U/L (45-117); Anion Gap 8 (5-15); BUN 32 mg/dL (7-18); BUN/Creat Ratio 25.2 RATIO (10-20); Chloride 100 mmol/L (98-107); Creatinine, Serum 1.27 mg/dL (0.70-1.30); EST Glomerular Filtration Rate 60 mL/min (>60); Est Glom Filt Rate - Afr Amer 72 mL/min (>60); Estimated Creatinine Clearance 57.64 ml/min; Globulin 3.4 g/dL (2.2-4.2); Glucose 117 mg/dL (74-106); Potassium 4.7 mmol/L (3.5-5.1); Protein, Total 5.8 g/dL (6.4-8.2); Sodium Level 133 mmol/L (136-145)
--- NOTE | 2021-02-06 07:46 | PN.HOSP_ITS ---
Subjective Subjective Patient oxygen requirement deteriorated resulting in patient being placed on BiPAP Objective Data Objective Data Vital Signs: Vital Signs Temp Pulse Resp BP Pulse Ox 98.3 F 52 L 18 127/72 H 93 02/06/21 06:27 02/06/21 06:53 02/06/21 06:27 02/06/21 06:27 02/06/21 06:27 Oxygen Flow Rate (L/min) 15 Oxygen Delivery Method Bi-pap Weight: 97.6 kg Body Mass Index (BMI) 29.9 Intake & Output: Intake and Output for Last 24 Hours 02/04/21 02/05/21 02/06/21 23:59 23:59 23:59 Intake Total 930 / 930 150 / 150 Output Total 300 / 300 750 / 750 Balance 630 / 630 -600 / -600 Lab / Micro Data Result Diagrams: 02/06/21 06:45 02/06/21 06:45 Labs: Laboratory Results - last 24 hr 02/04/21 20:43: Diff Path Review Reviewed 02/05/21 06:06: Differential Comment COMMENT, Diff Path Review May 02/05/21 16:20: MRSA (PCR) Negative 02/06/21 06:45: WBC 144.2 H*, RBC 4.11 L, Hgb 12.4 L, Hct 38.7 L, MCV 94.2 H, MCH 30.2, MCHC 32.0, RDW Std Deviation 52.6 H, RDW Coeff of Laila 15.6 H, Plt Count 93 L, MPV 10.2 02/06/21 06:45: Sodium 133 L, Potassium 4.7, Chloride 100, Carbon Dioxide 25.0, Anion Gap 8, BUN 32 H, Creatinine 1.27, Estim Creat Clear Calc 57.64, Est GFR (MDRD) Af Amer 72, Est GFR (MDRD) Non-Af 60, BUN/Creatinine Ratio 25.2 H, Gluc ose 117 H, Calcium 8.0 L, Total Bilirubin 0.90, AST 65 H, ALT 38, Alkaline Phosphatase 77, Total Protein 5.8 L, Albumin 2.4 L, Globulin 3.4, Albumin/Globulin Ratio 0.7 L Micro: Microbiology 02/05/21 02:47 Urine, Clean Catch Legionella Antigen - Final 02/05/21 02:47 Urine, Clean Catch Streptococcus pneumoniae Antigen (M - Final Physical Exam Narrative GENERAL: cooperative dyspneic at rest HEENT: Atraumatic; EYES; Anicteric, Normal Conjunctiva NECK; supple, normal thyroid, RESPIRATORY: Diminished to auscultation CARDIOVASCULAR: Regular S1 S2, GI: soft, normoactive bowel sounds, : No Renal angle tenderness; EXTREMITIES: No edema, no clubbing, MUSCULOSKELETAL: no muscle waisting NEURO: Awake; no lateralizing signs. SKIN: No Rash PSYCH; Flat affect Assessment & Plan Assessment/Plan (1) Acute respiratory failure with hypoxia: (2) Hyponatremia: (3) COVID-19: (4) Transaminitis: (5) Elevated d-dimer: (6) Thrombocytopenia: PLAN: Patient is a 71-year-old gentleman unvaccinated against COVID-19 who presented with progressive shortness of breath. Symptoms started on 01/26/2021. Had received monoclonal antibody on 02/04/2021 however due to worsening symptoms presented to the emergency department 1. Acute hypoxic respiratory failure ?Secondary to SARS-CoV-2 pneumonia. Admitted to regular nursing follow-up placed on supplemental oxygen currently on high high flow oxygen 15 L. Patient was also started on Decadron. Offered remdesivir which patient did decline. -02/06/2021;Patient oxygen requirement deteriorated resulting in patient being placed on BiPAP. Consult was also placed infectious disease patient may require baricitinib in view of rapidly deteriorating respiratory status 2. Elevated D-dimer ?Secondary to SARS-CoV-2 pneumonia CTA of the chest obtained was negative for PE 3. 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 Acute transaminitis ?Secondary to SARS-CoV-2 AST slightly elevated 5. Chronic lymphocytic leukemia ?WBC count on admission was 138. Plan is for patient to follow-up with oncology following discharge 6. Anemia - Secondary to chronic disorder monitoring H&H and transfuse if patient becomes symptomatic or hemoglobin falls below 7 7. Thrombocytopenia ?The appears to be some chronicity we will continue to monitor 8. Obesity with BMI of 30.0 ?Weight loss advised 9. DVT prophylaxis ?Lovenox 40 mg SC twice daily Charges/Coding Visit Charges Inpatient E&M: 21677 Subs Hosp L3
[2021-02-06 08:04] LABS: Differential Comment S
[2021-02-06] MEDS: Enoxaparin 40 MG/0.4 ML Syringe SC ×2 (08:51→20:51)
[2021-02-06] MEDS: dexAMETHasone 4 MG Tablet 6 MG PO (08:52)
[2021-02-06 14:29] LABS: Pathologist Review Reviewed
--- NOTE | 2021-02-06 16:21 | PCM.CONS.GEN ---
Assessment & Plan Assessment/Plan (1) Pneumonia due to COVID-19 virus: PLAN: Sx started 01/26. Unvaccinated. Recommend 20 days isolation, vaccine once out of iso. On dex. Reviewed EUA and risks/benefits, will start baricitinib. Did receive monoclonal Abs prior to admit. CT neg for PE. Will follow, thank you (2) History of chronic lymphocytic leukemia: (3) Acute respiratory failure with hypoxia: HPI Consult Data Date of Consult: 02/06/21 HPI Narrative HPI Narrative: DON MADERA, is a 71 M who presented 02/04 with sx since 01/26 with cough, SOB, not feeling well. also sick, recovering. Unvaccinated. Did get Ab infusion. Came to ED, admitted on dex, zosyn. Worsening O2. Full ROS performed and neg except as noted above. [facility] Medical History Asthma CLL (chronic lymphocytic leukemia) Home Medications NK 02/04/21 [History Last Taken Unknown] Allergy/AdvReac Type Severity Reaction Status Date / Time monosodium glutamate Allergy Severe lip Verified 02/04/21 20:11 swelling strawberry Allergy Severe lip Verified 02/04/21 20:11 swelling grass pollen Allergy Mild watery eyes Verified 02/04/21 20:11 tree and shrub pollen Allergy Mild watery eyes Verified 02/04/21 20:11 Family History (Updated 02/04/21 @ 23:[address] Chelsea Parker DO) Other Asthma Social History (Updated 02/04/21 @ 23:[address] Chelsea Parker DO) Smoking Status: Never smoker alcohol intake: never substance use type: does not use Physical Exam Const alert and oriented x3 General Appearance: cooperative Exam Limitations: no limitations HEENT normocephalic and head/scalp atraumatic Neck supple and No nodes Resp Auscultation: diminished lung sounds GI normal to inspection, nondistended, normoactive bowel sounds Extremity no clubbing, cyanosis or edema Skin no rashes or lesions noted Neuro CN's II-XII intact bilaterally Lab / Micro Data Result Diagrams: 02/06/21 06:45 02/06/21 06:45 Labs: Laboratory Results - last 24 hr 02/05/21 06:06: Diff Path Review Reviewed 02/05/21 16:20: MRSA (PCR) Negative 02/06/21 06:45: WBC 144.2 H*, RBC 4.11 L, Hgb 12.4 L, Hct 38.7 L, MCV 94.2 H, MCH 30.2, MCHC 32.0, RDW Std Deviation 52.6 H, RDW Coeff of Laila 15.6 H, Plt Count 93 L, MPV 10.2, Differential Comment S 02/06/21 06:45: Sodium 133 L, Potassium 4.7, Chloride 100, Carbon Dioxide 25.0, Anion Gap 8, BUN 32 H, Creatinine 1.27, Estim Creat Clear Calc 57.64, Est GFR (MDRD) Af Amer 72, Est GFR (MDRD) Non-Af 60, BUN/Creatinine Ratio 25.2 H, Glucose 117 H, Calcium 8.0 L, Total Bilirubin 0.90, AST 65 H, ALT 38, Alkaline Phosphatase 77, Total Protein 5.8 L, Albumin 2.4 L, Globulin 3.4, Albumin/Globulin Ratio 0.7 L
[2021-02-06] MEDS: Acetaminophen 325 MG Tablet 650 MG PO (20:51)
[2021-02-06] MEDS: 0.9% Saline Lock 10 ML Syringe IV (20:54)
[2021-02-07] VITALS (13 sets, daily range): BP systolic 111–132; BP diastolic 59–82; PULSE 45–85; RESP 12–25; TEMP 36.3–36.8; O2SAT 87–95
[2021-02-07] MEDS: 0.9% Saline Lock 10 ML Syringe IV (05:45)
[2021-02-07 07:21] LABS: Hematocrit 38.2 % (40-54); Hemoglobin 11.9 g/dL (13.0-16.5); Mean Corp Hgb Conc 31.2 g/dL (32-36); Mean Corpuscular Hgb 29.8 pg (27.0-32.0); Mean Corpuscular Volume 95.5 fL (80-94); Mean Platelet Vol. 9.6 fl (6.2-12.0); POSITIVE COUNT YES; Platelet Count 102 K/mm3 (150-450); RBC Distribution Width CV 15.6 % (11.6-14.6); RBC Distribution Width SD 53.8 fl (35.1-43.9)
[2021-02-07 07:35] LABS: Scan Indicated on CBC? Y/N YES- FLAGS NOTED; White Blood Count 126.4 K/mm3 (4.4-11.0)
[2021-02-07 07:49] LABS: ALB/GLOB Ratio 0.7 RATIO (0.9-2.4); AST(SGOT) 56 U/L (15-37); Alanine Aminotransfer ALT/SGPT 37 U/L (16-61); Albumin, Serum 2.3 g/dL (3.2-5.0); Alkaline Phosphatase 71 U/L (45-117); BUN 31 mg/dL (7-18); BUN/Creat Ratio 25.8 RATIO (10-20); Chloride 101 mmol/L (98-107); EST Glomerular Filtration Rate 64 mL/min (>60); Est Glom Filt Rate - Afr Amer 77 mL/min (>60); Estimated Creatinine Clearance 61.01 ml/min; Globulin 3.4 g/dL (2.2-4.2); Glucose 107 mg/dL (74-106); Protein, Total 5.7 g/dL (6.4-8.2); Sodium Level 134 mmol/L (136-145)
[2021-02-07 07:50] LABS: Anion Gap 6 (5-15)
--- NOTE | 2021-02-07 08:13 | PCM.PN.HOSP ---
Subjective Subjective Patient was seen by infectious disease started on baricitinib the day prior Objective Data Objective Data Vital Signs: Vital Signs Temp Pulse Resp BP Pulse Ox 98.2 F 50 L 22 H 119/65 92 02/07/21 04:00 02/07/21 07:56 02/07/21 07:56 02/07/21 04:00 02/07/21 07:56 Oxygen Flow Rate (L/min) 15 Oxygen Delivery Method Nasal Cannula Weight: 97.6 kg Body Mass Index (BMI) 29.9 Intake & Output: Intake and Output for Last 24 Hours 02/05/21 02/06/21 02/07/21 23:59 23:59 23:59 Intake Total 930 / 930 1150 / 1390 530 / 530 Output Total 300 / 300 1350 / 1650 650 / 650 Balance 630 / 630 -200 / -260 -120 / -120 Lab / Micro Data Result Diagrams: 02/07/21 06:52 02/07/21 06:52 Labs: Laboratory Results - last 24 hr 02/05/21 06:06: Diff Path Review Reviewed 02/06/21 06:45: Diff Path Review May 02/07/21 06:52: WBC 126.4 H*, RBC 4.00 L, Hgb 11.9 L, Hct 38.2 L, MCV 95.5 H, MCH 29.8, MCHC 31.2 L, RDW Std Deviation 53.8 H, RDW Coeff of Laila 15.6 H, Plt Count 102 L, MPV 9.6 02/07/21 06:52: Sodium 134 L, Potassium 5.0, Chloride 101, Carbon Dioxide 27.0, Anion Gap 6, BUN 31 H, Creatinine 1.20, Estim Creat Clear Calc 61.01, Est GFR (MDRD) Af Amer 77, Est GFR (MDRD) Non-Af 64, BUN/Creatinine Ratio 25.8 H, Glucose 107 H, Calcium 8.0 L, Total Bilirubin 0.80, AST 56 H, ALT 37, Alkaline Phosphatase 71, Total Protein 5.7 L, Albumin 2.3 L, Globulin 3.4, Albumin/Globulin Ratio 0.7 L Micro: Microbiology 02/04/21 20:50 Blood Culture (Wb) - Anticubital Right Blood Culture - Preliminary No growth in 48 hours. 02/04/21 20:43 Blood Culture (Wb) - Anticubital Left Blood Culture - Preliminary No growth in 48 hours. 02/05/21 02:47 Urine, Clean Catch Legionella Antigen - Final 02/05/21 02:47 Urine, Clean Catch Streptococcus pneumoniae Antigen (M - Final Physical Exam Narrative GENERAL: on bipap HEENT: Atraumatic; EYES; Anicteric, Normal Conjunctiva NECK; supple, normal thyroid, RESPIRATORY: Diminished to auscultation CARDIOVASCULAR: Regular S1 S2, GI: soft, normoactive bowel sounds, : No Renal angle tenderness; EXTREMITIES: No edema, no clubbing, MUSCULOSKELETAL: no muscle waisting NEURO: Awake; no lateralizing signs. SKIN: No Rash PSYCH; Flat affect Const alert, oriented x3 and no apparent distress Constitutional Narrative: Older white male sitting up in bed, appears comfortable, nontoxic, dyspnea with conversation and mildly diaphoretic General Appearance: cooperative HEENT normocephalic, head/scalp atraumatic, hearing grossly normal bilaterally and moist oral mucous membranes Eyes PERRL, EOMs intact bilaterally and conjunctivae normal Eyes Narrative: No scleral icterus Neck no lymphadenopathy, supple and no JVD Neck Narrative: Trachea midline, no thyroid enlargement noted Resp normal respiratory effort, no retractions and no use of accessory muscles Resp Narrative: Diminished with few scattered crackles, dyspneic with conversation Auscultation: Negative for crackles, rales, rhonchi or wheezes Cardio regular rate, regular rhythm, S1 normal heart sound, S2 normal heart sound, no murmurs, no rub, no gallops, no clicks and no JVD GI normal to inspection, nondistended, normoactive bowel sounds, soft to palpation, non-tender and non-distended Extremity normal to inspection and no clubbing, cyanosis or edema Skin no rashes or lesions noted, no wounds, skin turgor normal, no jaundice, no petechiae and no mottling Neuro oriented x3, CN's II-XII intact bilaterally, moves all extremities and no focal motor deficits Sensorium / Orientation: awake, alert, oriented to person, oriented to place and oriented to time Speech: speech normal Motor Exam: strength 5/5 throughout Psych affect normal Assessment & Plan Assessment/Plan (1) Acute respiratory failure with hypoxia: (2) Hyponatremia: (3) COVID-19: (4) Transaminitis: (5) Elevated d-dimer: (6) Thrombocytopenia: PLAN: Patient is a 71-year-old gentleman unvaccinated against COVID-19 who presented with progressive shortness of breath. Symptoms started on 01/26/2021. Had received monoclonal antibody on 02/04/2021 however due to worsening symptoms presented to the emergency department 1. Acute hypoxic respiratory failure ?Secondary to SARS-CoV-2 pneumonia. Admitted to regular nursing follow-up placed on supplemental oxygen currently on high high flow oxygen 15 L. Patient was also started on Decadron. Offered remdesivir which patient did decline. -02/06/2021;Patient oxygen requirement deteriorated resulting in patient being placed on BiPAP. Consult was also placed infectious disease patient may require baricitinib in view of rapidly deteriorating respiratory status -02/07/2021; Patient was seen by infectious disease started on baricitinib the day prior 2. Elevated D-dimer ?Secondary to SARS-CoV-2 pneumonia CTA of the chest obtained was negative for PE 3. 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 Acute transaminitis ?Secondary to SARS-CoV-2 AST slightly elevated 5. Chronic lymphocytic leukemia ?WBC count on admission was 138. Plan is for patient to follow-up with oncology following discharge 6. Anemia - Secondary to chronic disorder monitoring H&H and transfuse if patient becomes symptomatic or hemoglobin falls below 7 7. Thrombocytopenia ?The appears to be some chronicity we will continue to monitor 8. Obesity with BMI of 30.0 ?Weight loss advised 9. DVT prophylaxis ?Lovenox 40 mg SC twice daily Charges/Coding Visit Charges Inpatient E&M: 38263 Subs Hosp L3
--- NOTE | 2021-02-07 08:42 | PN.CC_ITS ---
Assessment & Plan Assessment/Plan (1) Acute respiratory failure with hypoxia: (2) Pneumonia due to COVID-19 virus: PLAN: RECOMMENDATIONS: 1. Wean supplemental oxygen as tolerated to maintain saturations at or above 90%. 2. Continue Decadron to complete 10-day treatment course. 3. Patient refused remdesivir. 4. Continue baricitinib per ID recommendations. 5. Continue Lovenox twice daily as ordered. 6. Utilize Lasix as needed to maintain euvolemic state. 7. Continue empiric antimicrobials. IMPRESSIONS: 1. Acute hypoxemic respiratory failure secondary to COVID-19 pneumonia The patient has noted worsening in his respiratory status after testing positive for COVID-19 pneumonia on February 03. Although offered to him, the patient subsequently refused remdesivir. Given further respiratory decompensation, empiric antimicrobials were initiated. The patient will be continued on supplemental oxygen to maintain saturations at or above 90%. Decadron will be continued to complete a 10-day treatment course. Lovenox twice daily will also be continued. Baricitinib will be continued per ID recommendations. Awake prone positioning was encouraged. IV Lasix can be utilized as needed to maintain euvolemic state. 2. History of CLL/anemia/thrombocytopenia/obesity Complicates care, management, recovery and prognosis. Continue home medications as indicated. This note was generated with [employer] dictation software. It may contain incorrect words, spelling, and punctuation that were not noted in checking the note before signing. Subjective Subjective The patient was seen and examined at the bedside this morning. Events from the last 24 hours have been reviewed. The patient is currently afebrile, hemodynamically stable and maintaining appropriate oxygen saturations on BiPAP with an FiO2 requirement of 50%. The patient appears comfortable this morning and denies any overt dyspnea. He is currently documented to be overall net even for the hospitalization. The patient remains on empiric antimicrobials along with prophylactic Lovenox, Decadron and baricitinib. He did refuse remdesivir therapy. Liver and renal function are stable. Objective Data Objective Data The patient's most recent lab work, culture data and imaging studies have all been personally reviewed. Strep and urine Legionella antigens were negative. Blood cultures have demonstrated no growth to date. Vital Signs: Vital Signs Temp Pulse Resp BP Pulse Ox 98.2 F 50 L 22 H 119/65 92 02/07/21 04:00 02/07/21 07:56 02/07/21 07:56 02/07/21 04:00 02/07/21 07:56 Oxygen Flow Rate (L/min) 15 Oxygen Delivery Method Nasal Cannula Weight: 97.6 kg Body Mass Index (BMI) 29.9 Intake & Output: Intake and Output for Last 24 Hours 02/05/21 02/06/21 02/07/21 23:59 23:59 23:59 Intake Total 930 / 930 1150 / 1390 530 / 530 Output Total 300 / 300 1350 / 1650 650 / 650 Balance 630 / 630 -200 / -260 -120 / -120 Lab / Micro Data Attestation: I reviewed the patient's lab results. Result Diagrams: 02/07/21 06:52 02/07/21 06:52 Labs: Laboratory Results - last 24 hr 02/05/21 06:06: Diff Path Review Reviewed 02/06/21 06:45: Diff Path Review May 02/07/21 06:52: WBC 126.4 H*, RBC 4.00 L, Hgb 11.9 L, Hct 38.2 L, MCV 95.5 H, MCH 29.8, MCHC 31.2 L, RDW Std Deviation 53.8 H, RDW Coeff of Laila 15.6 H, Plt Count 102 L, MPV 9.6 02/07/21 06:52: Sodium 134 L, Potassium 5.0, Chloride 101, Carbon Dioxide 27.0, Anion Gap 6, BUN 31 H, Creatinine 1.20, Estim Creat Clear Calc 61.01, Est GFR (MDRD) Af Amer 77, Est GFR (MDRD) Non-Af 64, BUN/Creatinine Ratio 25.8 H, Glucose 107 H, Calcium 8.0 L, Total Bilirubin 0.80, AST 56 H, ALT 37, Alkaline Phosphatase 71, Total Protein 5.7 L, Albumin 2.3 L, Globulin 3.4, Albumin/Glob ulin Ratio 0.7 L Micro: Microbiology 02/04/21 20:50 Blood Culture (Wb) - Anticubital Right Blood Culture - Preliminary No growth in 48 hours. 02/04/21 20:43 Blood Culture (Wb) - Anticubital Left Blood Culture - Preliminary No growth in 48 hours. 02/05/21 02:47 Urine, Clean Catch Legionella Antigen - Final 02/05/21 02:47 Urine, Clean Catch Streptococcus pneumoniae Antigen (M - Final Physical Exam Const alert and no apparent distress General Appearance: cooperative, comfortable and on BiPAP Nutritional Appearance: obese HEENT normocephalic and head/scalp atraumatic Eyes PERRL, EOMs intact bilaterally and conjunctivae normal Neck supple General: trachea midline Chest inspection of chest normal Resp no use of accessory muscles Effort and Inspection: able to speak in complete sentences and tachypneic Auscultation: diminished lung sounds; Negative for rales, rhonchi or wheezes Cardio S1 normal heart sound and S2 normal heart sound Rate: bradycardia GI normal to inspection, nondistended, normoactive bowel sounds Extremity no clubbing, cyanosis or edema Skin no rashes or lesions noted Neuro CN's II-XII intact bilaterally, moves all extremities and no focal motor deficits Psych cooperative and affect normal Charges/Coding Visit Charges Inpatient E&M: 81026 Subs Hosp L2
[2021-02-07 09:03] LABS: Differential Comment SCANNED
[2021-02-07] MEDS: Enoxaparin 40 MG/0.4 ML Syringe SC ×2 (09:12→20:27)
[2021-02-07] MEDS: dexAMETHasone 4 MG Tablet 6 MG PO (09:12)
[2021-02-07] MEDS: Senna/Docusate Sodium 1 Tablet 2 TABLET PO (15:21)
[2021-02-07] MEDS: guaiFENesin 10 ML UDC (200MG/10ML) PO (23:47)
[2021-02-07] MEDS: Acetaminophen 325 MG Tablet 650 MG PO (23:56)
[2021-02-08] VITALS (19 sets, daily range): BP systolic 113–134; BP diastolic 50–98; PULSE 64–101; RESP 12–48; TEMP 35.7–37.9; O2SAT 73–95
[2021-02-08] MEDS: Acetaminophen 325 MG Tablet 650 MG PO (05:56)
[2021-02-08] MEDS: guaiFENesin 10 ML UDC (200MG/10ML) PO ×2 (05:56→21:44)
[2021-02-08] MEDS: 0.9% Saline Lock 10 ML Syringe IV ×2 (05:57→23:08)
[2021-02-08 06:00] LABS: Hematocrit 36.3 % (40-54); Hemoglobin 11.6 g/dL (13.0-16.5); Mean Corpuscular Hgb 30.1 pg (27.0-32.0); Mean Platelet Vol. 9.4 fl (6.2-12.0); POSITIVE COUNT YES; Platelet Count 118 K/mm3 (150-450); RBC Distribution Width CV 15.4 % (11.6-14.6); RBC Distribution Width SD 52.2 fl (35.1-43.9); Red Blood Count 3.86 M/mm3 (4.6-6.2); White Blood Count 135.6 K/mm3 (4.4-11.0)
[2021-02-08 06:21] LABS: ALB/GLOB Ratio 0.8 RATIO (0.9-2.4); AST(SGOT) 78 U/L (15-37); Alanine Aminotransfer ALT/SGPT 51 U/L (16-61); Albumin, Serum 2.4 g/dL (3.2-5.0); Alkaline Phosphatase 79 U/L (45-117); Anion Gap 7 (5-15); BUN 28 mg/dL (7-18); BUN/Creat Ratio 20.4 RATIO (10-20); Calcium,Total 7.8 mg/dL (8.5-10.1); Chloride 100 mmol/L (98-107); Creatinine, Serum 1.37 mg/dL (0.70-1.30); EST Glomerular Filtration Rate 55 mL/min (>60); Est Glom Filt Rate - Afr Amer 66 mL/min (>60); Estimated Creatinine Clearance 53.44 ml/min; Globulin 3.1 g/dL (2.2-4.2); Glucose 92 mg/dL (74-106); Potassium 4.8 mmol/L (3.5-5.1); Protein, Total 5.5 g/dL (6.4-8.2); Sodium Level 131 mmol/L (136-145)
[2021-02-08 06:33] LABS: Scan Indicated on CBC? Y/N YES- FLAGS NOTED
--- NOTE | 2021-02-08 07:32 | PCM.PN.INT ---
Assessment & Plan Assessment/Plan (1) Acute respiratory failure with hypoxia: (2) Pneumonia due to COVID-19 virus: PLAN: RECOMMENDATIONS: 1. Wean supplemental oxygen as tolerated to maintain saturations at or above 90%. 2. Continue Decadron to complete 10-day treatment course. 3. Patient refused remdesivir. 4. Continue baricitinib per ID recommendations. 5. Continue Lovenox twice daily as ordered. 6. Utilize Lasix as needed to maintain euvolemic state. 7. Continue empiric antimicrobials. IMPRESSIONS: 1. Acute hypoxemic respiratory failure secondary to COVID-19 pneumonia The patient has noted worsening in his respiratory status after testing positive for COVID-19 pneumonia on February 03. Although offered to him, the patient subsequently refused remdesivir. Given further respiratory decompensation, empiric antimicrobials were initiated. The patient will be continued on supplemental oxygen to maintain saturations at or above 90%. Decadron will be continued to complete a 10-day treatment course. Lovenox twice daily will also be continued. Baricitinib will be continued per ID recommendations. Awake prone positioning was encouraged. IV Lasix can be utilized as needed to maintain euvolemic state. 2. History of CLL/anemia/thrombocytopenia/obesity Complicates care, management, recovery and prognosis. Continue home medications as indicated. This note was generated with [email or web address] dictation software. It may contain incorrect words, spelling, and punctuation that were not noted in checking the note before signing. Subjective Subjective The patient was seen and examined at the bedside this morning. Events from the last 24 hours have been reviewed. The patient is currently afebrile, hemodynamically stable and maintaining appropriate oxygen saturations on BiPAP with an FiO2 requirement of 55%. The patient was able to be maintained on a high flow nasal cannula at 15 L/min throughout the day yesterday. The patient is currently documented to be overall net +900 mL for the hospital admission. The patient remains on empiric antimicrobials along with prophylactic Lovenox, Decadron and baricitinib. He did refuse remdesivir therapy. Objective Data Objective Data The patient's most recent lab work, culture data and imaging studies have all been personally reviewed. Strep and urine Legionella antigens were negative. Blood cultures have demonstrated no growth to date. Vital Signs: Vital Signs Temp Pulse Resp BP Pulse Ox 98.8 F 82 22 H 129/64 H 93 10/10/21 05:35 02/08/21 05:35 02/08/21 05:35 02/08/21 05:35 02/08/21 05:35 Oxygen Flow Rate (L/min) 15 Oxygen Delivery Method Bi-pap Weight: 97.6 kg Body Mass Index (BMI) 29.9 Intake & Output: Intake and Output for Last 24 Hours 02/06/21 02/07/21 02/08/21 23:59 23:59 23:59 Intake Total 1150 / 1390 1590 / 1830 770 / 770 Output Total 1350 / 1650 900 / 1650 1000 / 1000 Balance -200 / -260 690 / 180 -230 / -230 Lab / Micro Data Attestation: I reviewed the patient's lab results. Result Diagrams: 02/08/21 05:03 02/08/21 05:03 Labs: Laboratory Results - last 24 hr 02/07/21 06:52: WBC 126.4 H*, RBC 4.00 L, Hgb 11.9 L, Hct 38.2 L, MCV 95.5 H, MCH 29.8, MCHC 31.2 L, RDW Std Deviation 53.8 H, RDW Coeff of Laila 15.6 H, Plt Count 102 L, MPV 9.6, Differential Comment SCANNED, Diff Path Review August02/07/21 06:52: Sodium 134 L, Potassium 5.0, Chloride 101, Carbon Dioxide 27.0, Anion Gap 6, BUN 31 H, Creatinine 1.20, Estim Creat Clear Calc 61.01, Est GFR (MDRD) Af Amer 77, Est GFR (MDRD) Non-Af 64, BUN/Creatinine Ratio 25.8 H, Glucose 107 H, Calcium 8.0 L, Total Bilirubin 0.80, AST 56 H, ALT 37, Alkaline Phosphatase 71, Total Protein 5.7 L, Albumin 2.3 L, Globulin 3.4, Albumin/Globulin Ratio 0.7 L 02/08/21 05:03: WBC 135.6 H*, RBC 3.86 L, Hgb 11.6 L, Hct 36.3 L, MCV 94.0, MCH 30.1, MCHC 32.0, RDW Std Deviation 52.2 H, RDW Coeff of Laila 15.4 H, Plt Count 118 L, MPV 9.4 02/08/21 05:03: Sodium 131 L, Potassium 4.8, Chloride 100, Carbon Dioxide 24.0, Anion Gap 7, BUN 28 H, Creatinine 1.37 H, Estim Creat Clear Calc 53.44, Est GFR (MDRD) Af Amer 66, Est GFR (MDRD) Non-Af 55 L, BUN/Creatinine Ratio 20.4 H, Glucose 92, Calcium 7.8 L, Total Bilirubin 1.20 H, AST 78 H, ALT 51, Alkaline Phosphatase 79, Total Protein 5.5 L, Albumin 2.4 L, Globulin 3.1, Albumin/Globulin Ratio 0.8 L Micro: Microbiology 02/04/21 20:50 Blood Culture (Wb) - Anticubital Right Blood Culture - Preliminary No growth in 48 hours. 02/04/21 20:43 Blood Culture (Wb) - Anticubital Left Blood Culture - Preliminary No growth in 48 hours. 02/05/21 02:47 Urine, Clean Catch Legionella Antigen - Final 02/05/21 02:47 Urine, Clean Catch Streptococcus pneumoniae Antigen (M - Final Physical Exam Const alert and no apparent distress General Appearance: cooperative, comfortable and on BiPAP Nutritional Appearance: obese HEENT normocephalic and head/scalp atraumatic Eyes PERRL, EOMs intact bilaterally and conjunctivae normal Neck supple General: trachea midline Chest inspection of chest normal Resp no use of accessory muscles Effort and Inspection: able to speak in complete sentences and tachypneic Auscultation: diminished lung sounds; Negative for rales, rhonchi or wheezes Cardio S1 normal heart sound and S2 normal heart sound Rate: bradycardia GI normal to inspection, nondistended, normoactive bowel sounds Extremity no clubbing, cyanosis or edema Skin no rashes or lesions noted Neuro CN's II-XII intact bilaterally, moves all extremities and no focal motor deficits Psych cooperative and affect normal Charges/Coding Visit Charges Inpatient E&M: 05769 Subs Hosp L2
--- NOTE | 2021-02-08 08:19 | PN.HOSP_ITS ---
Subjective Subjective Patient seen. Has been weaned off BiPAP and currently on airvo Objective Data Objective Data Vital Signs: Vital Signs Temp Pulse Resp BP Pulse Ox 96.3 F L 71 22 H 125/57 H 92 02/08/21 07:46 02/08/21 08:04 02/08/21 08:04 02/08/21 07:46 02/08/21 08:04 Oxygen Flow Rate (L/min) 15 Oxygen Delivery Method Bi-pap Weight: 97.6 kg Body Mass Index (BMI) 29.9 Intake & Output: Intake and Output for Last 24 Hours 02/06/21 02/07/21 02/08/21 23:59 23:59 23:59 Intake Total 1150 / 1390 1590 / 1830 770 / 770 Output Total 1350 / 1650 900 / 1650 1000 / 1000 Balance -200 / -260 690 / 180 -230 / -230 Lab / Micro Data Result Diagrams: 02/08/21 05:03 02/08/21 05:03 Labs: Laboratory Results - last 24 hr 02/07/21 06:52: Differential Comment SCANNED, Diff Path Review [facility] 02/08/21 05:03: WBC 135.6 H*, RBC 3.86 L, Hgb 11.6 L, Hct 36.3 L, MCV 94.0, MCH 30.1, MCHC 32.0, RDW Std Deviation 52.2 H, RDW Coeff of Laila 15.4 H, Plt Count 118 L, MPV 9.4, Diff Path Review [facility] 02/08/21 05:03: Sodium 131 L, Potassium 4.8, Chloride 100, Carbon Dioxide 24.0, Anion Gap 7, BUN 28 H, Creatinine 1.37 H, Estim Creat Clear Calc 53.44, Est GFR (MDRD) Af Amer 66, Est GFR (MDRD) Non-Af 55 L, BUN/Creatinine Ratio 20.4 H, Glucose 92, Calcium 7.8 L, Total Bilirubin 1.20 H, AST 78 H, ALT 51, Alkaline Phosphatase 79, Total Protein 5.5 L, Albumin 2.4 L, Globulin 3.1, Albumin/Globulin Ratio 0.8 L Micro: Microbiology 02/04/21 20:50 Blood Culture (Wb) - Anticubital Right Blood Culture - Preliminary No growth in 48 hours. 02/04/21 20:43 Blood Culture (Wb) - Anticubital Left Blood Culture - Preliminary No growth in 48 hours. 02/05/21 02:47 Urine, Clean Catch Legionella Antigen - Final 02/05/21 02:47 Urine, Clean Catch Streptococcus pneumoniae Antigen (M - Final Physical Exam Narrative GENERAL: Appears dyspneic at rest HEENT: Atraumatic; EYES; Anicteric, Normal Conjunctiva NECK; supple, normal thyroid, RESPIRATORY: Diminished to auscultation CARDIOVASCULAR: Regular S1 S2, GI: soft, normoactive bowel sounds, : No Renal angle tenderness; EXTREMITIES: No edema, no clubbing, MUSCULOSKELETAL: no muscle waisting NEURO: Awake; no lateralizing signs. SKIN: No Rash PSYCH; Flat affect Assessment & Plan Assessment/Plan (1) Acute respiratory failure with hypoxia: (2) Hyponatremia: (3) COVID-19: (4) Transaminitis: (5) Elevated d-dimer: (6) Thrombocytopenia: PLAN: Patient is a 71-year-old gentleman unvaccinated against COVID-19 who presented with progressive shortness of breath. Symptoms started on 01/26/2021. Had received monoclonal antibody on 02/04/2021 however due to worsening symptoms presented to the emergency department 1. Acute hypoxic respiratory failure ?Secondary to SARS-CoV-2 pneumonia. Admitted to regular nursing follow-up placed on supplemental oxygen currently on high high flow oxygen 15 L. Patient was also started on Decadron. Offered remdesivir which patient did decline. -02/06/2021;Patient oxygen requirement deteriorated resulting in patient being placed on BiPAP. Consult was also placed infectious disease patient may require baricitinib in view of rapidly deteriorating respiratory status -02/07/2021; Patient was seen by infectious disease started on baricitinib the day prior -02/08/2021;Patient seen. Has been weaned off BiPAP and currently on airvo 2. Elevated D-dimer ?Secondary to SARS-CoV-2 pneumonia CTA of the chest obtained was negative for PE 3. 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 Acute transaminitis ?Secondary to SARS-CoV-2 AST slightly elevated 5. Chronic lymphocytic leukemia ?WBC count on admission was 138. Plan is for patient to follow-up with oncology following discharge 6. Anemia - Secondary to chronic disorder monitoring H&H and transfuse if patient becomes symptomatic or hemoglobin falls below 7 7. Thrombocytopenia ?The appears to be some chronicity we will continue to monitor 8. Obesity with BMI of 30.0 ?Weight loss advised 9. DVT prophylaxis ?Lovenox 40 mg SC twice daily Charges/Coding Visit Charges Inpatient E&M: 85463 Subs Hosp L2
[2021-02-08] MEDS: dexAMETHasone 4 MG Tablet 6 MG PO (09:10)
[2021-02-08] MEDS: Enoxaparin 40 MG/0.4 ML Syringe SC ×2 (09:10→21:41)
[2021-02-08] MEDS: Senna/Docusate Sodium 1 Tablet 2 TABLET PO (09:10)
[2021-02-08] MEDS: LORazepam 1 MG Tablet PO (21:44)
[2021-02-08] MEDS: LORazepam 2 MG/ML Syringe IV (23:08)
--- NOTE | 2021-02-08 23:32 | NURSING ---
Went into room to assist primary RN, pt anxious and coughing, hypoxic on 15 L. Unable to get a good pulse ox reading d/t pt's cold hands, however it did show sats in the 60-70s once hand was warmed up. Placed pt on nonrebreather over top of the 15 L highflow NC, unsuccessful in increasing O2 sats. Pt agreeable to trying the BIPAP although he was still coughing a lot. Pt eventually came up to 88-92% on 100% BIPAP. RT in room and changed BIPAP settings. MD called and verbal order for ativan 2 mg IV x1 given d/t anxiety.
[2021-02-09] VITALS (23 sets, daily range): BP systolic 97–137; BP diastolic 51–76; PULSE 69–90; RESP 12–40; TEMP 36.4–39; O2SAT 84–98
[2021-02-09] MEDS: 0.9% Saline Lock 10 ML Syringe IV ×3 (04:39→14:09)
[2021-02-09] MEDS: Acetaminophen 650 MG Suppository RC (05:27)
--- NOTE | 2021-02-09 07:00 | NURSING ---
Mary Grace called and updated about patient fall.
[2021-02-09 07:30] LABS: Hematocrit 32.2 % (40-54); Hemoglobin 10.5 g/dL (13.0-16.5); Mean Corp Hgb Conc 32.6 g/dL (32-36); Mean Corpuscular Hgb 30.3 pg (27.0-32.0); Mean Corpuscular Volume 93.1 fL (80-94); Mean Platelet Vol. 9.6 fl (6.2-12.0); POSITIVE COUNT YES; Platelet Count 112 K/mm3 (150-450); RBC Distribution Width CV 15.4 % (11.6-14.6); RBC Distribution Width SD 51.2 fl (35.1-43.9); Red Blood Count 3.46 M/mm3 (4.6-6.2)
[2021-02-09 07:50] LABS: Scan Indicated on CBC? Y/N YES- FLAGS NOTED
[2021-02-09 08:05] LABS: ALB/GLOB Ratio 0.7 RATIO (0.9-2.4); AST(SGOT) 84 U/L (15-37); Alanine Aminotransfer ALT/SGPT 60 U/L (16-61); Albumin, Serum 2.1 g/dL (3.2-5.0); Alkaline Phosphatase 70 U/L (45-117); Anion Gap 9 (5-15); BUN 25 mg/dL (7-18); BUN/Creat Ratio 18.4 RATIO (10-20); Calcium,Total 7.7 mg/dL (8.5-10.1); Chloride 98 mmol/L (98-107); Creatinine, Serum 1.36 mg/dL (0.70-1.30); EST Glomerular Filtration Rate 55 mL/min (>60); Est Glom Filt Rate - Afr Amer 67 mL/min (>60); Estimated Creatinine Clearance 53.83 ml/min; Globulin 3.1 g/dL (2.2-4.2); Glucose 97 mg/dL (74-106); Potassium 4.2 mmol/L (3.5-5.1); Protein, Total 5.2 g/dL (6.4-8.2); Sodium Level 131 mmol/L (136-145)
[2021-02-09] MEDS: Enoxaparin 40 MG/0.4 ML Syringe SC ×2 (10:04→21:44)
[2021-02-09] MEDS: dexAMETHasone 4 MG Tablet 6 MG PO (12:13)
[2021-02-09 12:42] LABS: Pathologist Review Reviewed
[2021-02-09 12:42] LABS: Pathologist Review Reviewed
[2021-02-09 13:04] LABS: Pathologist Review Reviewed
[2021-02-09 13:16] LABS: Pathologist Review Reviewed
[2021-02-09 13:17] LABS: White Blood Count 92.8 K/mm3 (4.4-11.0)
--- NOTE | 2021-02-09 13:25 | RAD_ITS ---
STUDY: X-RAY CHEST REASON FOR EXAM: Male, 71 years old. SOB TECHNIQUE: Single AP portable view of the chest. COMPARISON: Comparison is made with prior CTA of the chest dated 02/04/2021. FINDINGS: EKG electrodes are seen. Bilateral pulmonary infiltrates worse in the right upper lobe and left lower lobe. There is no demonstrated pleural abnormality. Normal size heart. Normal mediastinum and veronica. Normal visualized pulmonary arteries. There is atherosclerotic calcification of the aortic arch with tortuosity. There are diffuse degenerative changes of the visualized thoracic spine. Normal visualized ribs, clavicles, and shoulders. There is no demonstrated abnormality of the visualized soft tissue structures of the upper abdomen. RAD/Chest 1 View (Portable) IMPRESSION: Bilateral pulmonary infiltrates worse in the right upper and left lower lobes. Follow-up is recommended. Electronically Signed: Antonio Trent MD at 13:45 EDT , Service support ,
[2021-02-09 13:36] LABS: Allen Test Positive; Base Excess 0 mmol/L (-2 to +2); Bicarbonate 23.2 mmol/L (22-26); Blood Gas Specimen Type ART; FI02 100; Mode BiLevel; O2 Delivery Device BiPAP; PEEP 8; PO2 52 mmHG (75-100); RR 12; SITE R Brach; SO2 90 % (95-99); Total Carbon Dioxide 24 mmol/L; pCO2 30.3 mmHg (35-45); pH 7.49 (7.35-7.45)
[2021-02-09] MEDS: Furosemide 40 MG/4 ML Vial IV (14:09)
--- NOTE | 2021-02-09 14:11 | PN.CC_ITS ---
Assessment & Plan Assessment/Plan (1) Acute respiratory failure with hypoxia: (2) Pneumonia due to COVID-19 virus: PLAN: RECOMMENDATIONS: 1. Wean supplemental oxygen as tolerated to maintain saturations at or above 90%. 2. Continue Decadron to complete 10-day treatment course. 3. Patient refused remdesivir. 4. Continue baricitinib per ID recommendations. 5. Continue Lovenox twice daily as ordered. 6. Challenge with diuretics 7. Continue empiric antimicrobials. IMPRESSIONS: 1. Acute hypoxemic respiratory failure secondary to COVID-19 pneumonia The patient has noted worsening in his respiratory status after testing positive for COVID-19 pneumonia on February 03. Although offered to him, the patient subsequently refused remdesivir. Given further respiratory decompensation, empiric antimicrobials were initiated. The patient will be continued on supplemental oxygen to maintain saturations at or above 90%. Dec adron will be continued to complete a 10-day treatment course. Lovenox twice daily will also be continued. Baricitinib will be continued per ID recommendations. Awake prone positioning was encouraged. ABG shows adequate oxygenation ventilation on the current settings. Lack of breaks from BiPAP is concerning, but patient likely does not need to come in the intensive care unit at this time. We will continue to follow closely. Patient is a full code. 2. History of CLL/anemia/thrombocytopenia/obesity Complicates care, management, recovery and prognosis. Continue home medications as indicated. This note was generated with [employer] dictation software. It may contain incorrect words, spelling, and punctuation that were not noted in checking the note before signing. Subjective Subjective Patient with significant decompensation in oxygenation over the last 24 hours. Overnight, patient went from requiring 55% FiO2 1200% FiO2. Patient has not been able to come off of BiPAP so far today. Patient had a chest x-ray and ABG ordered just prior to my arrival. Objective Data Objective Data Vital Signs: Vital Signs Temp Pulse Resp BP Pulse Ox 36.6 C 89 28 H 121/76 H 86 02/09/21 12:00 02/09/21 13:29 02/09/21 13:29 02/09/21 12:00 02/09/21 13:29 Oxygen Flow Rate (L/min) 15 Oxygen Delivery Method Bi-pap Weight: 97.6 kg Body Mass Index (BMI) 29.9 Intake & Output: Intake and Output for Last 24 Hours 02/07/21 02/08/21 02/09/21 23:59 23:59 23:59 Intake Total 1590 / 1830 1430 / 1430 160 / 160 Output Total 900 / 1650 1850 / 1850 300 / 300 Balance 690 / 180 -420 / -420 -140 / -140 Lab / Micro Data Result Diagrams: 02/09/21 06:50 02/09/21 06:50 Labs: Laboratory Results - last 24 hr 02/06/21 06:45: Diff Path Review Reviewed 02/07/21 06:52: Diff Path Review Reviewed 02/08/21 05:03: Diff Path Review Reviewed 02/09/21 06:50: WBC 92.8 H*, RBC 3.46 L, Hgb 10.5 L, Hct 32.2 L, MCV 93.1, MCH 30.3, MCHC 32.6, RDW Std Deviation 51.2 H, RDW Coeff of Laila 15.4 H, Plt Count 112 L, MPV 9.6, Differential Comment , Diff Path Review Reviewed 02/09/21 06:50: Sodium 131 L, Potassium 4.2, Chloride 98, Carbon Dioxide 24.0, Anion Gap 9, BUN 25 H, Creatinine 1.36 H, Estim Creat Clear Calc 53.83, Est GFR (MDRD) Af Amer 67, Est GFR (MDRD) Non-Af 55 L, BUN/Creatinine Ratio 18.4, Glucose 97, Calcium 7.7 L, Total Bilirubin 1.20 H, AST 84 H, ALT 60, Alkaline Phosphatase 70, Total Protein 5.2 L, Albumin 2.1 L, Globulin 3.1, Albumin/Globulin Ratio 0.7 L Micro: Microbiology 02/04/21 20:50 Blood Culture (Wb) - Anticubital Right Blood Culture - Preliminary No growth in 48 hours. 02/04/21 20:43 Blood Culture (Wb) - Anticubital Left Blood Culture - Preliminary No growth in 48 hours. 02/05/21 02:47 Urine, Clean Catch Legionella Antigen - Final 02/05/21 02:47 Urine, Clean Catch Streptococcus pneumoniae Antigen (M - Final ABG Data ABG results: ABG 02/09/21 13:32 Specimen Type ART Sample Site R Brach pH 7.49 H Bicarbonate Actual 23.2 Total CO2 24 Base Excess 0 O2 Saturation 90 L O2 % 100 ABG pCO2 30.3 L ABG pO2 52 L Iain Test Positive Respiration Rate 12 O2 Delivery Device BiPAP Vent Mode BiLevel POC PEEP 8 Clinical Comments Radiography Diagnostic Testing: Radiology Impression Chest X-Ray 02/09/21 13:25 IMPRESSION: Bilateral pulmonary infiltrates worse in the right upper and left lower lobes. Follow-up is recommended. Electronically Signed: Antonio Trent MD at 13:45 EDT , Service support , Physical Exam Const alert and no apparent distress General Appearance: cooperative, comfortable and on BiPAP Nutritional Appearance: obese HEENT normocephalic and head/scalp atraumatic Eyes PERRL, EOMs intact bilaterally and conjunctivae normal Neck supple General: trachea midline Chest inspection of chest normal Chest: symmetrical chest wall rise; Negative for crepitus Resp no use of accessory muscles Effort and Inspection: tachypneic; Negative for able to speak in complete sentences Auscultation: diminished lung sounds; Negative for rales, rhonchi or wheezes Cardio S1 normal heart sound and S2 normal heart sound Rate: bradycardia GI normal to inspection, nondistended, normoactive bowel sounds Extremity no clubbing, cyanosis or edema Skin no rashes or lesions noted Neuro CN's II-XII intact bilaterally, moves all extremities and no focal motor deficits Psych cooperative and affect normal Charges/Coding Visit Charges Inpatient E&M: 31091 Subs Hosp L3
--- NOTE | 2021-02-09 14:18 | PCM.PN.ID ---
Physical Exam Narrative On bipap, no fever Const Constitutional Narrative: ill appearing Orientation / Consciousness: lethargic Resp Auscultation: diminished lung sounds Cardio regular rate and regular rhythm GI normal to inspection, nondistended, normoactive bowel sounds Skin no rashes or lesions noted ID ID: Route of nutrition/ use of supplements: [] Nutritional Intake: [] IV Site: [] Grimes Catheter: [] Assessment & Plan Assessment/Plan (1) Pneumonia due to COVID-19 virus: PLAN: Sx started 01/26. Unvaccinated. Recommend 20 days isolation, vaccine once out of iso. On dex. Cont baricitinib. Did receive monoclonal Abs prior to admit. CT neg for PE. Cxs neg, will stop zosyn today. Will follow (2) History of chronic lymphocytic leukemia: (3) Acute respiratory failure with hypoxia:
--- NOTE | 2021-02-09 17:52 | PN.HOSP_ITS ---
Subjective Subjective Follow-up on acute respiratory failure/acute COVID-19 pneumonia: Patient was seen and examined. He remains relatively hypoxic on BiPAP, FiO2 100%. Repeat chest x-ray shows bilateral pulmonary infiltrates, worsening ABG showed respiratory alkalosis Objective Data Objective Data Vital Signs: Vital Signs Temp Pulse Resp BP Pulse Ox 98.1 F 72 31 H 119/65 95 02/09/21 17:00 02/09/21 17:00 02/09/21 17:00 02/09/21 17:00 02/09/21 17:00 Oxygen Flow Rate (L/min) 15 Oxygen Delivery Method Bi-pap Weight: 97.6 kg Body Mass Index (BMI) 29.9 Intake & Output: Intake and Output for Last 24 Hours 02/07/21 02/08/21 02/09/21 23:59 23:59 23:59 Intake Total 1590 / 1830 1430 / 1430 160 / 160 Output Total 900 / 1650 1850 / 1850 300 / 300 Balance 690 / 180 -420 / -420 -140 / -140 Lab / Micro Data Result Diagrams: 02/09/21 06:50 02/09/21 06:50 Labs: Laboratory Results - last 24 hr 02/06/21 06:45: Diff Path Review Reviewed 02/07/21 06:52: Diff Path Review Reviewed 02/08/21 05:03: Diff Path Review Reviewed 02/09/21 06:50: WBC 92.8 H*, RBC 3.46 L, Hgb 10.5 L, Hct 32.2 L, MCV 93.1, MCH 30.3, MCHC 32.6, RDW Std Deviation 51.2 H, RDW Coeff of Laila 15.4 H, Plt Count 112 L, MPV 9.6, Differential Comment , Diff Path Review Reviewed 02/09/21 06:50: Sodium 131 L, Potassium 4.2, Chloride 98, Carbon Dioxide 24.0, Anion Gap 9, BUN 25 H, Creatinine 1.36 H, Estim Creat Clear Calc 53.83, Est GFR (MDRD) Af Amer 67, Est GFR (MDRD) Non-Af 55 L, BUN/Creatinine Ratio 18.4, Glucose 97, Calcium 7.7 L, Total Bilirubin 1.20 H, AST 84 H, ALT 60, Alkaline Phosphatase 70, Total Protein 5.2 L, Albumin 2.1 L, Globulin 3.1, Albumin/Globulin Ratio 0.7 L Micro: Microbiology 02/04/21 20:50 Blood Culture (Wb) - Anticubital Right Blood Culture - Preliminary No growth in 48 hours. 02/04/21 20:43 Blood Culture (Wb) - Anticubital Left Blood Culture - Preliminary No growth in 48 hours. 02/05/21 02:47 Urine, Clean Catch Legionella Antigen - Final 02/05/21 02:47 Urine, Clean Catch Streptococcus pneumoniae Antigen (M - Final ABG Data ABG results: ABG 02/09/21 13:32 Specimen Type ART Sample Site R Brach pH 7.49 H Bicarbonate Actual 23.2 Total CO2 24 Base Excess 0 O2 Saturation 90 L O2 % 100 ABG pCO2 30.3 L ABG pO2 52 L Iain Test Positive Respiration Rate 12 O2 Delivery Device BiPAP Vent Mode BiLevel POC PEEP 8 Clinical Comments Radiography Diagnostic Testing: Radiology Impression Chest X-Ray 02/09/21 13:25 IMPRESSION: Bilateral pulmonary infiltrates worse in the right upper and left lower lobes. Follow-up is recommended. Electronically Signed: Antonio Trent MD at 13:45 EDT , Service support , Physical Exam Narrative Physical exam: General: Alert, Oriented x3, Cooperative, on BiPAP HEENT: Atraumatic Oral: Moist Mucosa Neck: Supple Lungs: Diminished to auscultation Cardiovascular: HS I+II, regular, no murmurs Abdomen: Bowel Sounds Present, Soft, Non Tender Extremities: No edema Assessment & Plan Assessment/Plan (1) Pneumonia due to COVID-19 virus: (2) Acute respiratory failure with hypoxia: (3) Hyponatremia: (4) History of chronic lymphocytic leukemia: (5) COVID-19: (6) Transaminitis: (7) Elevated d-dimer: (8) Thrombocytopenia: PLAN: 1. Acute hypoxic respiratory failure secondary to acute COVID-19 pneumonia, worsening Patient is currently on BiPAP. Continue on Decadron and Baracitinib Junior Marketing Associate following 2. Elevated D-dimer, acute PE ruled out 3. 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 Acute transaminitis secondary to COVID-19 infection, improving Will trend 5. Rest of his chronic medical conditions appear to be stable Charges/Coding Visit Charges Inpatient E&M: 55558 Subs Hosp L3
[2021-02-10] VITALS (23 sets, daily range): BP systolic 108–151; BP diastolic 54–69; PULSE 57–80; RESP 12–31; TEMP 36.6–38.1; O2SAT 89–97
[2021-02-10] MEDS: Acetaminophen 325 MG Tablet 650 MG PO (00:49)
[2021-02-10 07:58] LABS: Absolute Neutrophil Count 8.4 X10^3/uL (2.0-7.7); Basophil# 0.01 X10^3/uL; Eosinophil# 0.02 X10^3/uL; Hematocrit 33.7 % (40-54); Hemoglobin 10.6 g/dL (13.0-16.5); Lymphocyte % 87.3 % (19-41); Mean Corp Hgb Conc 31.5 g/dL (32-36); Mean Corpuscular Hgb 30.2 pg (27.0-32.0); Mean Platelet Vol. 9.7 fl (6.2-12.0); Monocyte# 1.35 X10^3/uL; Monocyte% 1.7 % (0-10); NRBC Flagged by Analyzer 0 % (0-5); Neutrophil # 8.41 X10^3/uL (2.7-7.7); Neutrophil % 10.6 % (47-70); POSITIVE COUNT YES; POSITIVE DIFFERENTIAL YES; POSITIVE MORPHOLOGY YES; Platelet Count 107 K/mm3 (150-450); RBC Distribution Width CV 15.5 % (11.6-14.6); RBC Distribution Width SD 53.4 fl (35.1-43.9); Red Blood Count 3.51 M/mm3 (4.6-6.2)
[2021-02-10] MEDS: Ipratropium/Albuterol Sulfate 3 ML AMPUL.NEB INHALATION ×4 (08:00→19:42)
[2021-02-10 08:01] LABS: Differential Indicated SCAN CRITERIA MET; White Blood Count 79.7 K/mm3 (4.4-11.0)
[2021-02-10 08:24] LABS: ALB/GLOB Ratio 0.6 RATIO (0.9-2.4); AST(SGOT) 60 U/L (15-37); Alanine Aminotransfer ALT/SGPT 50 U/L (16-61); Alkaline Phosphatase 66 U/L (45-117); Anion Gap 8 (5-15); BUN 36 mg/dL (7-18); BUN/Creat Ratio 29.3 RATIO (10-20); Calcium,Total 7.8 mg/dL (8.5-10.1); Chloride 98 mmol/L (98-107); Creatinine, Serum 1.23 mg/dL (0.70-1.30); EST Glomerular Filtration Rate 62 mL/min (>60); Est Glom Filt Rate - Afr Amer 75 mL/min (>60); Estimated Creatinine Clearance 59.52 ml/min; Globulin 3.4 g/dL (2.2-4.2); Glucose 115 mg/dL (74-106); Potassium 4.5 mmol/L (3.5-5.1); Protein, Total 5.4 g/dL (6.4-8.2); Sodium Level 132 mmol/L (136-145)
[2021-02-10 08:39] LABS: Atypical Lymphocyte 3+ %
[2021-02-10 08:40] LABS: Hypochromasia 1+; Platelet Estimate SLT DEC (ADEQ)
[2021-02-10] MEDS: dexAMETHasone 4 MG Tablet 6 MG PO (09:08)
[2021-02-10] MEDS: Enoxaparin 40 MG/0.4 ML Syringe SC ×2 (09:14→22:00)
--- NOTE | 2021-02-10 10:35 | PN.CC_ITS ---
Assessment & Plan Assessment/Plan (1) Acute respiratory failure with hypoxia: (2) Pneumonia due to COVID-19 virus: PLAN: RECOMMENDATIONS: 1. Wean supplemental oxygen as tolerated to maintain saturations at or above 90%. 2. Continue Decadron to complete 10-day treatment course. 3. Patient refused remdesivir. 4. Continue baricitinib per ID recommendations. 5. Continue Lovenox twice daily as ordered. 6. Challenge with diuretics again today 7. Continue empiric antimicrobials. IMPRESSIONS: 1. Acute hypoxemic respiratory failure secondary to COVID-19 pneumonia The patient has noted worsening in his respiratory status after testing positive for COVID-19 pneumonia on February 03. Although offered to him, the patient subsequently refused remdesivir. Given further respiratory decompensation, empiric antimicrobials were initiated. The patient will be continued on supplemental oxygen to maintain saturations at or above 90%. Decadron will be continued to complete a 10-day treatment course. Lovenox twice daily will also be continued. Baricitinib will be continued per ID recommendations. Awake prone positioning was encouraged. Previous ABG shows adequate oxygenation ventilation on the current settings. Patient has been on the BiPAP for a day and a half at this point. If patient makes it to 3 days, would seriously consider intubation if patient wishes to be aggressive. We will continue to follow closely. Patient is a full code. 2. History of CLL/anemia/thrombocytopenia/obesity Complicates care, management, recovery and prognosis. Continue home medications as indicated. This note was generated with [employer] dictation software. It may contain incorrect words, spelling, and punctuation that were not noted in checking the note before signing. Subjective Subjective Patient did okay overnight. Patient has remained on BiPAP for most of the time. Patient did spike a fever overnight, but tolerated this well. Patient is much more comfortable this morning and states he does not feel dyspneic at rest, but does get dyspneic with minimal exertion. Objective Data Objective Data Vital Signs: Vital Signs Temp Pulse Resp BP Pulse Ox 36.7 C 66 24 H 123/56 H 89 02/10/21 08:00 02/10/21 10:26 02/10/21 10:26 02/10/21 08:00 02/10/21 10:26 Oxygen Flow Rate (L/min) 15 Oxygen Delivery Method Bi-pap Weight: 97.6 kg Body Mass Index (BMI) 29.9 Intake & Output: Intake and Output for Last 24 Hours 02/08/21 02/09/21 02/10/21 23:59 23:59 23:59 Intake Total 1430 / 1430 400 / 500 280 / 280 Output Total 1850 / 1850 850 / 1050 500 / 500 Balance -420 / -420 -450 / -550 -220 / -220 Lab / Micro Data Result Diagrams: 02/10/21 07:38 02/10/21 07:38 Labs: Laboratory Results - last 24 hr 02/06/21 06:45: Diff Path Review Reviewed 02/07/21 06:52: Diff Path Review Reviewed 02/08/21 05:03: Diff Path Review Reviewed 02/09/21 06:50: WBC 92.8 H*, Diff Path Review Reviewed 02/10/21 07:38: WBC 79.7 H*, RBC 3.51 L, Hgb 10.6 L, Hct 33.7 L, MCV 96.0 H, MCH 30.2, MCHC 31.5 L, RDW Std Deviation 53.4 H, RDW Coeff of Laila 15.5 H, Plt Count 107 L, MPV 9.7, Immature Gran % (Auto) 0.400, Neut % (Auto) 10.6 L, Lymph % (Auto) 87.3 H, [place] % (Auto) 1.7, Eos % (Auto) 0.0, Baso % (Auto) 0.0, Absolute Neuts (auto) 8.4 H, Absolute Lymphs (auto) 69.60 H, Nucleated RBC % 0, Diff Path Review May foll, Atypical Lymphocytes 3+, Platelet Estimate SLT DEC, Hypochromasia 1+ 02/10/21 07:38: Sodium 132 L, Potassium 4.5, Chloride 98, Carbon Dioxide 26.0, Anion Gap 8, BUN 36 H, Creatinine 1.23, Estim Creat Clear Calc 59.52, Est GFR (MDRD) Af Amer 75, Est GFR (MDRD) Non-Af 62, BUN/Creatinine Ratio 29.3 H, Glucose 115 H, Calcium 7.8 L, Total Bilirubin 0.90, AST 60 H, ALT 50, Alkaline Phosphatase 66, Total Protein 5.4 L, Albumin 2.0 L, Globulin 3.4, Albumin/Globulin Ratio 0.6 L Micro: Microbiology 02/04/21 20:50 Blood Culture (Wb) - Anticubital Right Blood Culture - Final No growth in 5 days. 02/04/21 20:43 Blood Culture (Wb) - Anticubital Left Blood Culture - Final No growth in 5 days. 02/05/21 02:47 Urine, Clean Catch Legionella Antigen - Final 02/05/21 02:47 Urine, Clean Catch Streptococcus pneumoniae Antigen (M - Final ABG Data ABG results: ABG 02/09/21 13:32 Specimen Type ART Sample Site R Brach pH 7.49 H Bicarbonate Actual 23.2 Total CO2 24 Base Excess 0 O2 Saturation 90 L O2 % 100 ABG pCO2 30.3 L ABG pO2 52 L Iain Test Positive Respiration Rate 12 O2 Delivery Device BiPAP Vent Mode BiLevel POC PEEP 8 Clinical Comments Radiography Diagnostic Testing: Radiology Impression Chest X-Ray 02/09/21 13:25 IMPRESSION: Bilateral pulmonary infiltrates worse in the right upper and left lower lobes. Follow-up is recommended. Electronically Signed: Antonio Trent MD at 13:45 EDT , Service support , Physical Exam Const alert and no apparent distress General Appearance: cooperative, comfortable and on BiPAP Nutritional Appearance: obese HEENT normocephalic and head/scalp atraumatic Eyes PERRL, EOMs intact bilaterally and conjunctivae normal Neck supple General: trachea midline Chest inspection of chest normal Chest: symmetrical chest wall rise; Negative for crepitus Resp no use of accessory muscles Effort and Inspection: able to speak in complete sentences; Negative for tachypneic Auscultation: diminished lung sounds; Negative for rales, rhonchi or wheezes Cardio S1 normal heart sound and S2 normal heart sound Rate: bradycardia GI normal to inspection, nondistended, normoactive bowel sounds Extremity no clubbing, cyanosis or edema Skin no rashes or lesions noted Neuro CN's II-XII intact bilaterally, moves all extremities and no focal motor deficits Psych cooperative and affect normal Charges/Coding Visit Charges Inpatient E&M: 54088 Subs Hosp L3
[2021-02-10] MEDS: 0.9% Saline Lock 10 ML Syringe IV ×2 (11:59→17:16)
[2021-02-10] MEDS: Furosemide 40 MG/4 ML Vial IV ×2 (11:59→17:15)
[2021-02-10 13:29] LABS: Pathologist Review Reviewed
--- NOTE | 2021-02-10 16:04 | PN.HOSP_ITS ---
Subjective Subjective Patient remains on BiPAP. FiO2 decreased from 100% to 95%. No other acute events overnight. Objective Data Objective Data Vital Signs: Vital Signs Temp Pulse Resp BP Pulse Ox 98.2 F 70 18 133/60 H 93 02/10/21 12:00 02/10/21 15:27 02/10/21 15:27 02/10/21 12:00 02/10/21 15:27 Oxygen Flow Rate (L/min) 15 Oxygen Delivery Method Bi-pap Weight: 97.6 kg Body Mass Index (BMI) 29.9 Intake & Output: Intake and Output for Last 24 Hours 02/08/21 02/09/21 02/10/21 23:59 23:59 23:59 Intake Total 1430 / 1430 400 / 500 400 / 400 Output Total 1850 / 1850 850 / 1050 700 / 700 Balance -420 / -420 -450 / -550 -300 / -300 Lab / Micro Data Result Diagrams: 02/10/21 07:38 02/10/21 07:38 Labs: Laboratory Results - last 24 hr 02/10/21 07:38: WBC 79.7 H*, RBC 3.51 L, Hgb 10.6 L, Hct 33.7 L, MCV 96.0 H, MCH 30.2, MCHC 31.5 L, RDW Std Deviation 53.4 H, RDW Coeff of Laila 15.5 H, Plt Count 107 L, MPV 9.7, Immature Gran % (Auto) 0.400, Neut % (Auto) 10.6 L, Lymph % (Auto) 87.3 H, [place] % (Auto) 1.7, Eos % (Auto) 0.0, Baso % (Auto) 0.0, Absolute Neuts (auto) 8.4 H, Absolute Lymphs (auto) 69.60 H, Nucleated RBC % 0, Diff Path Review Reviewed, Atypical Lymphocytes 3+, Platelet Estimate SLT DEC, Hypoch romasia 1+ 02/10/21 07:38: Sodium 132 L, Potassium 4.5, Chloride 98, Carbon Dioxide 26.0, Anion Gap 8, BUN 36 H, Creatinine 1.23, Estim Creat Clear Calc 59.52, Est GFR (MDRD) Af Amer 75, Est GFR (MDRD) Non-Af 62, BUN/Creatinine Ratio 29.3 H, Glucose 115 H, Calcium 7.8 L, Total Bilirubin 0.90, AST 60 H, ALT 50, Alkaline Phosphatase 66, Total Protein 5.4 L, Albumin 2.0 L, Globulin 3.4, Albumin/Globulin Ratio 0.6 L Micro: Microbiology 02/04/21 20:50 Blood Culture (Wb) - Anticubital Right Blood Culture - Final No growth in 5 days. 02/04/21 20:43 Blood Culture (Wb) - Anticubital Left Blood Culture - Final No growth in 5 days. 02/05/21 02:47 Urine, Clean Catch Legionella Antigen - Final 02/05/21 02:47 Urine, Clean Catch Streptococcus pneumoniae Antigen (M - Final Physical Exam Narrative Physical exam: General: Alert, Oriented x3, Cooperative, on BiPAP HEENT: Atraumatic Oral: Moist Mucosa Neck: Supple Lungs: Diminished to auscultation Cardiovascular: HS I+II, regular, no murmurs Abdomen: Bowel Sounds Present, Soft, Non Tender Extremities: No edema Assessment & Plan Assessment/Plan (1) Pneumonia due to COVID-19 virus: (2) Acute respiratory failure with hypoxia: (3) Hyponatremia: (4) History of chronic lymphocytic leukemia: (5) COVID-19: (6) Transaminitis: (7) Elevated d-dimer: (8) Thrombocytopenia: PLAN: 1. Acute hypoxic respiratory failure secondary to acute COVID-19 pneumonia, worsening Patient remains on BiPAP. Continue on Decadron and Baracitinib [employer]ice following 2. Elevated D-dimer, acute PE ruled out 3. 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 Acute transaminitis secondary to COVID-19 infection, improving Will trend 5. Rest of his chronic medical conditions appear to be stable Charges/Coding Visit Charges Inpatient E&M: 21343 Subs Hosp L3
[2021-02-11] VITALS (23 sets, daily range): BP systolic 124–143; BP diastolic 63–79; PULSE 62–88; RESP 11–27; TEMP 36.1–36.9; O2SAT 90–97
[2021-02-11] MEDS: Ipratropium/Albuterol Sulfate 3 ML AMPUL.NEB INHALATION ×4 (07:07→20:19)
[2021-02-11] MEDS: dexAMETHasone 4 MG Tablet 6 MG PO (08:29)
[2021-02-11] MEDS: Enoxaparin 40 MG/0.4 ML Syringe SC ×2 (08:30→21:07)
[2021-02-11 08:48] LABS: Absolute Lymphocyte Count 68.78 X10^3/uL (0.83-4.51); Absolute Neutrophil Count 9.3 X10^3/uL (2.0-7.7); Basophil# 0.02 X10^3/uL; Eosinophil# 0.01 X10^3/uL; Hematocrit 37.2 % (40-54); Hemoglobin 11.3 g/dL (13.0-16.5); Lymphocyte # 68.78 X10^3/ul (0.83-4.51); Lymphocyte % 86.4 % (19-41); Mean Corp Hgb Conc 30.4 g/dL (32-36); Mean Corpuscular Hgb 29.8 pg (27.0-32.0); Mean Corpuscular Volume 98.2 fL (80-94); Mean Platelet Vol. 10.2 fl (6.2-12.0); Monocyte% 1.3 % (0-10); NRBC Flagged by Analyzer 0 % (0-5); Neutrophil # 9.27 X10^3/uL (2.7-7.7); Neutrophil % 11.6 % (47-70); POSITIVE COUNT YES; POSITIVE DIFFERENTIAL YES; POSITIVE MORPHOLOGY YES; Platelet Count 115 K/mm3 (150-450); RBC Distribution Width CV 15.4 % (11.6-14.6); RBC Distribution Width SD 54.4 fl (35.1-43.9); Red Blood Count 3.79 M/mm3 (4.6-6.2)
[2021-02-11 09:00] LABS: Differential Indicated SCAN CRITERIA MET; White Blood Count 79.6 K/mm3 (4.4-11.0)
[2021-02-11 09:16] LABS: ALB/GLOB Ratio 0.6 RATIO (0.9-2.4); AST(SGOT) 54 U/L (15-37); Alanine Aminotransfer ALT/SGPT 50 U/L (16-61); Albumin, Serum 2.2 g/dL (3.2-5.0); Alkaline Phosphatase 71 U/L (45-117); Anion Gap 9 (5-15); BUN 39 mg/dL (7-18); Calcium,Total 8.3 mg/dL (8.5-10.1); Chloride 95 mmol/L (98-107); Creatinine, Serum 1.22 mg/dL (0.70-1.30); EST Glomerular Filtration Rate 62 mL/min (>60); Est Glom Filt Rate - Afr Amer 76 mL/min (>60); Estimated Creatinine Clearance 60.01 ml/min; Globulin 3.7 g/dL (2.2-4.2); Glucose 114 mg/dL (74-106); Potassium 4.3 mmol/L (3.5-5.1); Protein, Total 5.9 g/dL (6.4-8.2); Sodium Level 132 mmol/L (136-145)
[2021-02-11 10:27] LABS: Differential Comment SCANNED; Reactive Lymphocyte 1+
--- NOTE | 2021-02-11 13:32 | PN.CC_ITS ---
Assessment & Plan Assessment/Plan (1) Acute respiratory failure with hypoxia: (2) Pneumonia due to COVID-19 virus: PLAN: RECOMMENDATIONS: 1. Wean supplemental oxygen as tolerated to maintain saturations at or above 90%. 2. Continue Decadron to complete 10-day treatment course (02/15/2021). 3. Patient refused remdesivir. 4. Continue baricitinib per ID recommendations (02/19/2021). 5. Continue Lovenox twice daily as ordered. 6. Challenge with diuretics again today 7. Continue empiric antimicrobials. 8. Consider using Airvo to facilitate nutrition IMPRESSIONS: 1. Acute hypoxemic respiratory failure secondary to COVID-19 pneumonia The patient has noted worsening in his respiratory status after testing positive for COVID-19 pneumonia on February 03. Although offered to him, the patient subsequently refused remdesivir. Given further respiratory decompensation, empiric antimicrobials were initiated. The patient will be continued on supplemental oxygen to maintain saturations at or above 90%. Decadron will be continued to complete a 10-day treatment course. Lovenox twice daily will also be continued. Baricitinib will be continued per ID recommendations. Awake prone positioning was encouraged. Previous ABG shows adequate oxygenation ventilation on the current settings. Patient has been on the BiPAP for 2 and a half at this point. Could attempt to use Airvo to facilitate nutrition. Lack of nutrition will likely lead to deterioration moving forward. We will continue to follow closely. Patient is a full code. 2. History of CLL/anemia/thrombocytopenia/obesity Complicates care, management, recovery and prognosis. Continue home medications as indicated. This note was generated with [employer] dictation software. It may contain incorrect words, spelling, and punctuation that were not noted in checking the note before signing. Subjective Subjective Patient has done okay over the last 24 hours. Patient states he has not attempted to come off of BiPAP, but feels stronger compared to previous. Patient does state that he feels hungry. Patient has had some cough. Objective Data Objective Data Vital Signs: Vital Signs Temp Pulse Resp BP Pulse Ox 36.9 C 69 22 H 125/69 H 96 02/11/21 13:00 02/11/21 13:00 02/11/21 13:00 02/11/21 13:00 02/11/21 13:00 Oxygen Flow Rate (L/min) 15 Oxygen Delivery Method Bi-pap Weight: 97.6 kg Body Mass Index (BMI) 29.9 Intake & Output: Intake and Output for Last 24 Hours 02/09/21 02/10/21 02/11/21 23:59 23:59 23:59 Intake Total 400 / 500 520 / 580 740 / 740 Output Total 850 / 1050 1000 / 1000 600 / 600 Balance -450 / -550 -480 / -420 140 / 140 Lab / Micro Data Result Diagrams: 02/11/21 08:18 02/11/21 08:18 Labs: Laboratory Results - last 24 hr 02/11/21 08:18: WBC 79.6 H*, RBC 3.79 L, Hgb 11.3 L, Hct 37.2 L, MCV 98.2 H, MCH 29.8, MCHC 30.4 L, RDW Std Deviation 54.4 H, RDW Coeff of Laila 15.4 H, Plt Count 115 L, MPV 10.2, Immature Gran % (Auto) 0.700, Neut % (Auto) 11.6 L, Lymph % (Auto) 86.4 H, [place] % (Auto) 1.3, Eos % (Auto) 0.0, Baso % (Auto) 0.0, Absolute Neuts (auto) 9.3 H, Absolute Lymphs (auto) 68.78 H, Nucleated RBC % 0, Differential Comment SCANNED, Diff Path Review May foll, Reactive Lymphocytes 1+ 02/11/21 08:18: Sodium 132 L, Potassium 4.3, Chloride 95 L, Carbon Dioxide 28.0, Anion Gap 9, BUN 39 H, Creatinine 1.22, Estim Creat Clear Calc 60.01, Est GFR (MDRD) Af Amer 76, Est GFR (MDRD) Non-Af 62, BUN/Creatinine Ratio 32.0 H, Glucose 114 H, Calcium 8.3 L, Total Bilirubin 0.90, AST 54 H, ALT 50, Alkaline Phosphatase 71, Total Protein 5.9 L, Albumin 2.2 L, Globulin 3.7, Albumin/Globulin Ratio 0.6 L Micro: Microbiology 02/04/21 20:50 Blood Culture (Wb) - Anticubital Right Blood Culture - Final No growth in 5 days. 02/04/21 20:43 Blood Culture (Wb) - Anticubital Left Blood Culture - Final No growth in 5 days. 02/05/21 02:47 Urine, Clean Catch Legionella Antigen - Final 02/05/21 02:47 Urine, Clean Catch Streptococcus pneumoniae Antigen (M - Final Physical Exam Const alert and no apparent distress General Appearance: cooperative, comfortable and on BiPAP Nutritional Appearance: obese HEENT normocephalic and head/scalp atraumatic Eyes PERRL, EOMs intact bilaterally and conjunctivae normal Neck supple General: trachea midline Chest inspection of chest normal Chest: symmetrical chest wall rise; Negative for crepitus Resp no use of accessory muscles Effort and Inspection: able to speak in complete sentences; Negative for tachypneic Auscultation: diminished lung sounds; Negative for rales, rhonchi or wheezes Cardio S1 normal heart sound and S2 normal heart sound Rate: bradycardia GI normal to inspection, nondistended, normoactive bowel sounds Extremity no clubbing, cyanosis or edema Skin no rashes or lesions noted Neuro CN's II-XII intact bilaterally, moves all extremities and no focal motor deficits Psych cooperative and affect normal Charges/Coding Visit Charges Inpatient E&M: 60419 Subs Hosp L3
[2021-02-11] MEDS: Furosemide 40 MG/4 ML Vial IV (13:59)
[2021-02-11] MEDS: 0.9% Saline Lock 10 ML Syringe IV (14:00)
--- NOTE | 2021-02-11 17:07 | PN.HOSP_ITS ---
Subjective Subjective Follow-up on acute respiratory failure/acute COVID-19 pneumonia: Patient was seen and examined. His oxygen requirements has improved. Currently on able. He feels much improved now that he could eat. Objective Data Objective Data Vital Signs: Vital Signs Temp Pulse Resp BP Pulse Ox 98.3 F 86 20 H 134/65 H 94 02/11/21 15:00 02/11/21 15:46 02/11/21 15:46 02/11/21 15:00 02/11/21 15:00 Oxygen Flow Rate (L/min) 15 Oxygen Delivery Method Airvo Weight: 97.6 kg Body Mass Index (BMI) 29.9 Intake & Output: Intake and Output for Last 24 Hours 02/09/21 02/10/21 02/11/21 23:59 23:59 23:59 Intake Total 400 / 500 520 / 580 740 / 740 Output Total 850 / 1050 1000 / 1000 600 / 600 Balance -450 / -550 -480 / -420 140 / 140 Lab / Micro Data Result Diagrams: 02/11/21 08:18 02/11/21 08:18 Labs: Laboratory Results - last 24 hr 02/11/21 08:18: WBC 79.6 H*, RBC 3.79 L, Hgb 11.3 L, Hct 37.2 L, MCV 98.2 H, MCH 29.8, MCHC 30.4 L, RDW Std Deviation 54.4 H, RDW Coeff of Laila 15.4 H, Plt Count 115 L, MPV 10.2, Immature Gran % (Auto) 0.700, Neut % (Auto) 11.6 L, Lymph % (Auto) 86.4 H, [place] % (Auto) 1.3, Eos % (Auto) 0.0, Baso % (Auto) 0.0, Absolute Neuts (auto) 9.3 H, Absolute Lymphs (auto) 68.78 H, Nucleated RBC % 0, Differential Comment SCANNED, Diff Path Review August, Reactive Lymphocytes 1+ 02/11/21 08:18: Sodium 132 L, Potassium 4.3, Chloride 95 L, Carbon Dioxide 28.0, Anion Gap 9, BUN 39 H, Creatinine 1.22, Estim Creat Clear Calc 60.01, Est GFR (MDRD) Af Amer 76, Est GFR (MDRD) Non-Af 62, BUN/Creatinine Ratio 32.0 H, Glucose 114 H, Calcium 8.3 L, Total Bilirubin 0.90, AST 54 H, ALT 50, Alkaline P hosphatase 71, Total Protein 5.9 L, Albumin 2.2 L, Globulin 3.7, Albumin/Globulin Ratio 0.6 L Micro: Microbiology 02/04/21 20:50 Blood Culture (Wb) - Anticubital Right Blood Culture - Final No growth in 5 days. 02/04/21 20:43 Blood Culture (Wb) - Anticubital Left Blood Culture - Final No growth in 5 days. 02/05/21 02:47 Urine, Clean Catch Legionella Antigen - Final 02/05/21 02:47 Urine, Clean Catch Streptococcus pneumoniae Antigen (M - Final Physical Exam Narrative Physical exam: General: Alert, Oriented x3, Cooperative, on Airvo HEENT: Atraumatic Oral: Moist Mucosa Neck: Supple Lungs: Diminished to auscultation Cardiovascular: HS I+II, regular, no murmurs Abdomen: Bowel Sounds Present, Soft, Non Tender Extremities: No edema Assessment & Plan Assessment/Plan (1) Pneumonia due to COVID-19 virus: (2) Acute respiratory failure with hypoxia: (3) Hyponatremia: (4) History of chronic lymphocytic leukemia: (5) COVID-19: (6) Transaminitis: (7) Elevated d-dimer: (8) Thrombocytopenia: PLAN: 1. Acute hypoxic respiratory failure secondary to acute COVID-19 pneumonia, appears to be improving Continue on Airvo. 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 Elevated D-dimer, acute PE ruled out 3. 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 Acute transaminitis secondary to COVID-19 infection, improving Will trend 5. Rest of his chronic medical conditions appear to be stable Charges/Coding Visit Charges Inpatient E&M: 52992 Subs Hosp L3
[2021-02-12] VITALS (16 sets, daily range): BP systolic 117–136; BP diastolic 61–71; PULSE 60–97; RESP 12–24; TEMP 36.6–37.2; O2SAT 91–97
[2021-02-12] MEDS: Sodium Chloride 0.65% 1 SPRAY SPRAY.BTL 2 SPRAY NASAL (05:54)
[2021-02-12] MEDS: Ipratropium/Albuterol Sulfate 3 ML AMPUL.NEB INHALATION ×4 (07:18→19:42)
[2021-02-12 07:54] LABS: ALB/GLOB Ratio 0.6 RATIO (0.9-2.4); AST(SGOT) 47 U/L (15-37); Alanine Aminotransfer ALT/SGPT 54 U/L (16-61); Albumin, Serum 2.2 g/dL (3.2-5.0); Alkaline Phosphatase 68 U/L (45-117); Anion Gap 7 (5-15); BUN 36 mg/dL (7-18); BUN/Creat Ratio 29.3 RATIO (10-20); Calcium,Total 8.3 mg/dL (8.5-10.1); Chloride 95 mmol/L (98-107); Creatinine, Serum 1.23 mg/dL (0.70-1.30); EST Glomerular Filtration Rate 62 mL/min (>60); Est Glom Filt Rate - Afr Amer 75 mL/min (>60); Estimated Creatinine Clearance 59.52 ml/min; Globulin 3.7 g/dL (2.2-4.2); Glucose 114 mg/dL (74-106); Potassium 4.5 mmol/L (3.5-5.1); Protein, Total 5.9 g/dL (6.4-8.2); Sodium Level 133 mmol/L (136-145)
[2021-02-12] MEDS: dexAMETHasone 4 MG Tablet 6 MG PO (10:02)
[2021-02-12] MEDS: Enoxaparin 40 MG/0.4 ML Syringe SC ×2 (10:03→22:11)
--- NOTE | 2021-02-12 10:12 | PN.CC_ITS ---
Assessment & Plan Assessment/Plan (1) Acute respiratory failure with hypoxia: (2) Pneumonia due to COVID-19 virus: PLAN: RECOMMENDATIONS: 1. Wean supplemental oxygen as tolerated to maintain saturations at or above 90%. 2. Continue Decadron to complete 10-day treatment course (02/15/2021). 3. Patient refused remdesivir. 4. Continue baricitinib per ID recommendations (02/19/2021). 5. Continue Lovenox twice daily as ordered. 6. Challenge with diuretics again today 7. Continue empiric antimicrobials. 8. Use Airvo to facilitate nutrition at a minimum IMPRESSIONS: 1. Acute hypoxemic respiratory failure secondary to COVID-19 pneumonia The patient has noted worsening in his respiratory status after testing positive for COVID-19 pneumonia on February 03. Although offered to him, the patient subsequently refused remdesivir. Given further respiratory decompensation, empiric antimicrobials were initiated. The patient will be continued on supplemental oxygen to maintain saturations at or above 90%. Decadron will be continued to complete a 10-day treatment course. Lovenox twice daily will also be continued. Baricitinib will be continued per ID recommendations. Awake prone positioning was encouraged. Patient is slowly improving. We will continue with diuretics as tolerated. Stressed to the patient the importance of continued nutrition. Status is still significantly guarded as he is still requiring significant FiO2 through Airvo. 2. History of CLL/anemia/thrombocytopenia/obesity Complicates care, management, recovery and prognosis. Continue home medications as indicated. This note was generated with [employer] dictation software. It may contain incorrect words, spelling, and punctuation that were not noted in checking the note before signing. Subjective Subjective Patient appears much improved today compared to yesterday. Patient with little conversational dyspnea despite being on Airvo therapy. Patient states that he has an appetite and is planning on having breakfast. Patient denies any chest pain. Patient does have dyspnea on exertion. Objective Data Objective Data Vital Signs: Vital Signs Temp Pulse Resp BP Pulse Ox 37.2 C 73 20 H 136/61 H 92 02/12/21 09:00 02/12/21 09:00 02/12/21 09:00 02/12/21 09:00 02/12/21 09:00 Oxygen Flow Rate (L/min) 15 Oxygen Delivery Method Airvo Weight: 97.6 kg Body Mass Index (BMI) 29.9 Intake & Output: Intake and Output for Last 24 Hours 02/10/21 02/11/21 02/12/21 23:59 23:59 23:59 Intake Total 520 / 580 1580 / 1580 500 / 500 Output Total 1000 / 1000 1999 / 1999 600 / 600 Balance -480 / -420 -420 / -420 -100 / -100 Lab / Micro Data Result Diagrams: 02/11/21 08:18 02/12/21 06:46 Labs: Laboratory Results - last 24 hr 02/11/21 08:18: Differential Comment SCANNED, Diff Path Review August, Reactive Lymphocytes 1+ 02/12/21 06:46: Sodium 133 L, Potassium 4.5, Chloride 95 L, Carbon Dioxide 31.0, Anion Gap 7, BUN 36 H, Creatinine 1.23, Estim Creat Clear Calc 59.52, Est GFR (MDRD) Af Amer 75, Est GFR (MDRD) Non-Af 62, BUN/Creatinine Ratio 29.3 H, Glucose 114 H, Calcium 8.3 L, Total Bilirubin 0.80, AST 47 H, ALT 54, Alkaline Phosphatase 68, Total Protein 5.9 L, Albumin 2.2 L, Globulin 3.7, Albumin/Globulin Ratio 0.6 L Micro: Microbiology 02/04/21 20:50 Blood Culture (Wb) - Anticubital Right Blood Culture - Final No growth in 5 days. 02/04/21 20:43 Blood Culture (Wb) - Anticubital Left Blood Culture - Final No growth in 5 days. 02/05/21 02:47 Urine, Clean Catch Legionella Antigen - Final 02/05/21 02:47 Urine, Clean Catch Streptococcus pneumoniae Antigen (M - Final Physical Exam Const alert and no apparent distress Constitutional Narrative: On Airvo General Appearance: cooperative and comfortable Nutritional Appearance: obese HEENT normocephalic and head/scalp atraumatic Eyes PERRL, EOMs intact bilaterally and conjunctivae normal Neck supple General: trachea midline Chest inspection of chest normal Chest: symmetrical chest wall rise; Negative for crepitus Resp no use of accessory muscles Effort and Inspection: able to speak in complete sentences; Negative for tachypneic Auscultation: diminished lung sounds; Negative for rales, rhonchi or wheezes Cardio S1 normal heart sound and S2 normal heart sound Rate: bradycardia GI normal to inspection, nondistended, normoactive bowel sounds Extremity no clubbing, cyanosis or edema Skin no rashes or lesions noted Neuro CN's II-XII intact bilaterally, moves all extremities and no focal motor deficits Psych cooperative and affect normal Charges/Coding Visit Charges Inpatient E&M: 20278 Subs Hosp L3
--- NOTE | 2021-02-12 11:08 | PCM.PN.ID ---
Physical Exam Narrative Feeling better today, no fever, no n/v/d. Const alert and no apparent distress General Appearance: cooperative Resp clear to auscultation bilaterally Auscultation: diminished lung sounds Cardio regular rate and regular rhythm GI normal to inspection, nondistended, normoactive bowel sounds Extremity no clubbing, cyanosis or edema Skin no rashes or lesions noted ID ID: Route of nutrition/ use of supplements: [] Nutritional Intake: [] IV Site: [] Grimes Catheter: [] Assessment & Plan Assessment/Plan (1) Pneumonia due to COVID-19 virus: PLAN: Sx started 01/26. Unvaccinated. Recommend 20 days isolation, vaccine after 90 days due to receipt of monoclonal Abs. On dex. Cont baricitinib. CT neg for PE. Cxs neg. O2 improved. Will follow (2) History of chronic lymphocytic leukemia: (3) Acute respiratory failure with hypoxia:
[2021-02-12] MEDS: Furosemide 40 MG/4 ML Vial IV (13:09)
[2021-02-12] MEDS: 0.9% Saline Lock 10 ML Syringe IV (13:09)
--- NOTE | 2021-02-12 13:56 | PCM.PN.HOSP ---
Subjective Subjective Follow-up on acute respiratory failure/acute COVID-19 pneumonia Patient was seen and examined. He is slowly improving, currently on Airvo. Able to have some nutrition. Objective Data Objective Data Vital Signs: Vital Signs Temp Pulse Resp BP Pulse Ox 98.9 F 85 20 H 136/61 H 92 02/12/21 09:00 02/12/21 11:30 02/12/21 11:30 02/12/21 09:00 02/12/21 09:00 Oxygen Flow Rate (L/min) 15 Oxygen Delivery Method Airvo Weight: 97.6 kg Body Mass Index (BMI) 29.9 Intake & Output: Intake and Output for Last 24 Hours 02/10/21 02/11/21 02/12/21 23:59 23:59 23:59 Intake Total 520 / 580 1580 / 1580 880 / 880 Output Total 1000 / 1000 1999 / 1999 900 / 900 Balance -480 / -420 -420 / -420 -20 / -20 Lab / Micro Data Result Diagrams: 02/11/21 08:18 02/12/21 06:46 Labs: Laboratory Results - last 24 hr 02/12/21 06:46: Sodium 133 L, Potassium 4.5, Chloride 95 L, Carbon Dioxide 31.0, Anion Gap 7, BUN 36 H, Creatinine 1.23, Estim Creat Clear Calc 59.52, Est GFR (MDRD) Af Amer 75, Est GFR (MDRD) Non-Af 62, BUN/Creatinine Ratio 29.3 H, Glucose 114 H, Calcium 8.3 L, Total Bilirubin 0.80, AST 47 H, ALT 54, Alkaline Phosphatase 68, Total Protein 5.9 L, Albumin 2.2 L, Globulin 3.7, Albumin/Globulin Ratio 0.6 L Micro: Microbiology 02/12/21 10:00 Sputum, Expectorated/Coughed Gram Stain - Final 02/04/21 20:50 Blood Culture (Wb) - Anticubital Right Blood Culture - Final No growth in 5 days. 02/04/21 20:43 Blood Culture (Wb) - Anticubital Left Blood Culture - Final No growth in 5 days. 02/05/21 02:47 Urine, Clean Catch Legionella Antigen - Final 02/05/21 02:47 Urine, Clean Catch Streptococcus pneumoniae Antigen (M - Final Physical Exam Narrative Physical exam: General: Alert, Oriented x3, Cooperative, on Airvo HEENT: Atraumatic Oral: Moist Mucosa Neck: Supple Lungs: Diminished to auscultation Cardiovascular: HS I+II, regular, no murmurs Abdomen: Bowel Sounds Present, Soft, Non Tender Extremities: No edema Assessment & Plan Assessment/Plan (1) Pneumonia due to COVID-19 virus: (2) Acute respiratory failure with hypoxia: (3) Hyponatremia: (4) History of chronic lymphocytic leukemia: (5) COVID-19: (6) Transaminitis: (7) Elevated d-dimer: (8) Thrombocytopenia: PLAN: 1. Acute hypoxic respiratory failure secondary to acute COVID-19 pneumonia, appears to be improving Continue on Airvo. 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 Elevated D-dimer, acute PE ruled out 3. 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 Acute transaminitis secondary to COVID-19 infection, improving 5. Rest of his chronic medical conditions appear to be stable Charges/Coding Visit Charges Inpatient E&M: 76983 Subs Hosp L3
[2021-02-13] VITALS (20 sets, daily range): BP systolic 110–135; BP diastolic 61–73; PULSE 57–89; RESP 12–28; TEMP 36.3–38.7; O2SAT 80–98
[2021-02-13 07:13] LABS: Absolute Lymphocyte Count 53.94 X10^3/uL (0.83-4.51); Absolute Neutrophil Count 9.4 X10^3/uL (2.0-7.7); Basophil# 0.02 X10^3/uL; Eosinophil# 0.01 X10^3/uL; Hematocrit 35.4 % (40-54); Hemoglobin 11.4 g/dL (13.0-16.5); Lymphocyte # 53.94 X10^3/ul (0.83-4.51); Lymphocyte % 83.4 % (19-41); Mean Corp Hgb Conc 32.2 g/dL (32-36); Mean Corpuscular Hgb 30.4 pg (27.0-32.0); Mean Corpuscular Volume 94.4 fL (80-94); Monocyte# 0.97 X10^3/uL; Monocyte% 1.5 % (0-10); NRBC Flagged by Analyzer 0 % (0-5); Neutrophil # 9.39 X10^3/uL (2.7-7.7); Neutrophil % 14.6 % (47-70); POSITIVE COUNT YES; POSITIVE DIFFERENTIAL YES; POSITIVE MORPHOLOGY YES; Platelet Count 153 K/mm3 (150-450); RBC Distribution Width CV 14.9 % (11.6-14.6); RBC Distribution Width SD 50.8 fl (35.1-43.9); Red Blood Count 3.75 M/mm3 (4.6-6.2)
[2021-02-13 07:24] LABS: Differential Indicated SCAN CRITERIA MET; White Blood Count 64.7 K/mm3 (4.4-11.0)
[2021-02-13 07:48] LABS: ALB/GLOB Ratio 0.6 RATIO (0.9-2.4); AST(SGOT) 68 U/L (15-37); Alanine Aminotransfer ALT/SGPT 74 U/L (16-61); Albumin, Serum 2.2 g/dL (3.2-5.0); Alkaline Phosphatase 65 U/L (45-117); Anion Gap 8 (5-15); BUN 33 mg/dL (7-18); BUN/Creat Ratio 29.7 RATIO (10-20); Calcium,Total 8.3 mg/dL (8.5-10.1); Chloride 92 mmol/L (98-107); Creatinine, Serum 1.11 mg/dL (0.70-1.30); EST Glomerular Filtration Rate 70 mL/min (>60); Est Glom Filt Rate - Afr Amer 84 mL/min (>60); Estimated Creatinine Clearance 65.95 ml/min; Globulin 3.6 g/dL (2.2-4.2); Glucose 94 mg/dL (74-106); Potassium 4.3 mmol/L (3.5-5.1); Protein, Total 5.8 g/dL (6.4-8.2); Sodium Level 131 mmol/L (136-145)
[2021-02-13] MEDS: Ipratropium/Albuterol Sulfate 3 ML AMPUL.NEB INHALATION ×4 (07:51→19:36)
[2021-02-13 09:35] LABS: Pathologist Review Reviewed
[2021-02-13] MEDS: dexAMETHasone 4 MG Tablet 6 MG PO (10:08)
[2021-02-13] MEDS: Enoxaparin 40 MG/0.4 ML Syringe SC ×2 (10:10→23:08)
[2021-02-13] MEDS: 0.9% Saline Lock 10 ML Syringe IV (10:11)
[2021-02-13] MEDS: Furosemide 40 MG/4 ML Vial IV (10:12)
[2021-02-13] MEDS: Acetaminophen 325 MG Tablet 650 MG PO (10:20)
--- NOTE | 2021-02-13 10:20 | PCM.PN.INT ---
Assessment & Plan Assessment/Plan (1) Acute respiratory failure with hypoxia: (2) Pneumonia due to COVID-19 virus: PLAN: RECOMMENDATIONS: 1. Wean supplemental oxygen as tolerated to maintain saturations at or above 90%. 2. Continue Decadron to complete 10-day treatment course (02/15/2021). 3. Patient refused remdesivir. 4. Continue baricitinib per ID recommendations (02/19/2021). 5. Continue Lovenox twice daily as ordered. 6. Challenge with diuretics again today 7. Continue empiric antimicrobials. 8. Use Airvo to facilitate nutrition at a minimum. Continue BiPAP with sleep. IMPRESSIONS: 1. Acute hypoxemic respiratory failure secondary to COVID-19 pneumonia The patient has noted worsening in his respiratory status after testing positive for COVID-19 pneumonia on February 03. Although offered to him, the patient subsequently refused remdesivir. Given further respiratory decompensation, empiric antimicrobials were initiated. The patient will be continued on supplemental oxygen to maintain saturations at or above 90%. Decadron will be continued to complete a 10-day treatment course. Lovenox twice daily will also be continued. Baricitinib will be continued per ID recommendations. Awake prone positioning was encouraged. Patient is slowly improving with diuretics. Stressed to the patient the importance of continued nutrition. Status is still significantly guarded as he is still requiring significant FiO2 through Airvo. 2. History of CLL/anemia/thrombocytopenia/obesity Complicates care, management, recovery and prognosis. Continue home medications as indicated. This note was generated with [employer] dictation software. It may contain incorrect words, spelling, and punctuation that were not noted in checking the note before signing. Subjective Subjective Patient states he did well over the last 24 hours. Patient subjectively is having less shortness of breath and tolerating Airvo. Patient was able to finish breakfast, but readily admits that he does not have a great appetite. Patient believes the Ensure clear is too sweet to take too much. Objective Data Objective Data Vital Signs: Vital Signs Temp Pulse Resp BP Pulse Ox 38.7 C H 89 18 135/61 H 95 02/13/21 09:00 02/13/21 09:00 02/13/21 09:00 02/13/21 09:00 02/13/21 09:00 Oxygen Flow Rate (L/min) 15 Oxygen Delivery Method Airvo Weight: 97.6 kg Body Mass Index (BMI) 29.9 Intake & Output: Intake and Output for Last 24 Hours 02/11/21 02/12/21 02/13/21 23:59 23:59 23:59 Intake Total 1580 / 1580 1260 / 1260 240 / 240 Output Total 1999 675 / 675 Balance -420 / -420 -790 / -790 -435 / -435 Lab / Micro Data Result Diagrams: 02/13/21 06:10 02/13/21 06:10 Labs: Laboratory Results - last 24 hr 02/11/21 08:18: Diff Path Review Reviewed 02/13/21 06:10: WBC 64.7 H*, RBC 3.75 L, Hgb 11.4 L, Hct 35.4 L, MCV 94.4 H, MCH 30.4, MCHC 32.2 D, RDW Std Deviation 50.8 H, RDW Coeff of Laila 14.9 H, Plt Count 153, MPV 10.0, Immature Gran % (Auto) 0.500, Neut % (Auto) 14.6 L, Lymph % (Auto) 83.4 H, [place] % (Auto) 1.5, Eos % (Auto) 0.0, Baso % (Auto) 0.0, Absolute Neuts (auto) 9.4 H, Absolute Lymphs (auto) 53.94 H, Nucleated RBC % 0, Differential Comment COMMENT, Diff Path Review May 02/13/21 06:10: Sodium 131 L, Potassium 4.3, Chloride 92 L, Carbon Dioxide 31.0, Anion Gap 8, BUN 33 H, Creatinine 1.11, Estim Creat Clear Calc 65.95, Est GFR (MDRD) Af Amer 84, Est GFR (MDRD) Non-Af 70, BUN/Creatinine Ratio 29.7 H, Glucose 94, Calcium 8.3 L, Total Bilirubin 1.00, AST 68 H, ALT 74 H, Alkaline Phosphatase 65, Total Protein 5.8 L, Albumin 2.2 L, Globulin 3.6, Albumin/Globulin Ratio 0.6 L Micro: Microbiology 02/12/21 10:00 Sputum, Expectorated/Coughed Gram Stain - Final 02/04/21 20:50 Blood Culture (Wb) - Anticubital Right Blood Culture - Final No growth in 5 days. 02/04/21 20:43 Blood Culture (Wb) - Anticubital Left Blood Culture - Final No growth in 5 days. 02/05/21 02:47 Urine, Clean Catch Legionella Antigen - Final 02/05/21 02:47 Urine, Clean Catch Streptococcus pneumoniae Antigen (M - Final Physical Exam Const alert and no apparent distress Constitutional Narrative: On Airvo at 85% General Appearance: cooperative and comfortable Nutritional Appearance: obese HEENT normocephalic and head/scalp atraumatic Eyes PERRL, EOMs intact bilaterally and conjunctivae normal Neck supple General: trachea midline Chest inspection of chest normal Chest: symmetrical chest wall rise; Negative for crepitus Resp no use of accessory muscles Effort and Inspection: able to speak in complete sentences; Negative for tachypneic Auscultation: diminished lung sounds; Negative for rales, rhonchi or wheezes Cardio S1 normal heart sound and S2 normal heart sound Rate: bradycardia GI normal to inspection, nondistended, normoactive bowel sounds Extremity no clubbing, cyanosis or edema Skin no rashes or lesions noted Neuro CN's II-XII intact bilaterally, moves all extremities and no focal motor deficits Psych cooperative and affect normal Charges/Coding Visit Charges Inpatient E&M: 70799 Subs Hosp L3
[2021-02-14] VITALS (20 sets, daily range): BP systolic 111–124; BP diastolic 61–74; PULSE 56–89; RESP 12–27; TEMP 36.4–36.8; O2SAT 90–98
--- NOTE | 2021-02-14 02:02 | NURSING ---
family brought in care package, karen with head char filter tank tender was in it. given to patient
[2021-02-14 07:42] LABS: Absolute Lymphocyte Count 49.46 X10^3/uL (0.83-4.51); Basophil# 0.02 X10^3/uL; Hematocrit 35.2 % (40-54); Hemoglobin 11.3 g/dL (13.0-16.5); Lymphocyte # 49.46 X10^3/ul (0.83-4.51); Lymphocyte % 81.6 % (19-41); Mean Corp Hgb Conc 32.1 g/dL (32-36); Mean Corpuscular Hgb 30.4 pg (27.0-32.0); Mean Corpuscular Volume 94.6 fL (80-94); Mean Platelet Vol. 9.7 fl (6.2-12.0); Monocyte# 0.73 X10^3/uL; Monocyte% 1.2 % (0-10); NRBC Flagged by Analyzer 0 % (0-5); Neutrophil # 10.01 X10^3/uL (2.7-7.7); Neutrophil % 16.6 % (47-70); POSITIVE COUNT YES; POSITIVE DIFFERENTIAL YES; POSITIVE MORPHOLOGY YES; Platelet Count 156 K/mm3 (150-450); RBC Distribution Width CV 14.9 % (11.6-14.6); RBC Distribution Width SD 51.2 fl (35.1-43.9); Red Blood Count 3.72 M/mm3 (4.6-6.2); White Blood Count 60.6 K/mm3 (4.4-11.0)
[2021-02-14] MEDS: Ipratropium/Albuterol Sulfate 3 ML AMPUL.NEB INHALATION ×4 (07:47→18:49)
[2021-02-14 07:51] LABS: Differential Indicated SCAN CRITERIA MET
[2021-02-14 08:08] LABS: ALB/GLOB Ratio 0.6 RATIO (0.9-2.4); AST(SGOT) 66 U/L (15-37); Alanine Aminotransfer ALT/SGPT 84 U/L (16-61); Albumin, Serum 2.2 g/dL (3.2-5.0); Alkaline Phosphatase 70 U/L (45-117); Anion Gap 6 (5-15); BUN 29 mg/dL (7-18); BUN/Creat Ratio 28.7 RATIO (10-20); Calcium,Total 8.1 mg/dL (8.5-10.1); Chloride 90 mmol/L (98-107); Creatinine, Serum 1.01 mg/dL (0.70-1.30); EST Glomerular Filtration Rate 78 mL/min (>60); Est Glom Filt Rate - Afr Amer 94 mL/min (>60); Estimated Creatinine Clearance 72.48 ml/min; Globulin 3.5 g/dL (2.2-4.2); Glucose 93 mg/dL (74-106); Potassium 3.9 mmol/L (3.5-5.1); Protein, Total 5.7 g/dL (6.4-8.2); Sodium Level 128 mmol/L (136-145)
[2021-02-14] MEDS: dexAMETHasone 4 MG Tablet 6 MG PO (08:19)
[2021-02-14] MEDS: Enoxaparin 40 MG/0.4 ML Syringe SC ×2 (08:20→20:42)
[2021-02-14] MEDS: Sodium Chloride 0.65% 1 SPRAY SPRAY.BTL 2 SPRAY NASAL (08:21)
[2021-02-14] MEDS: 0.9% Saline Lock 10 ML Syringe IV ×2 (08:31→17:11)
[2021-02-14] MEDS: Furosemide 40 MG/4 ML Vial IV ×2 (08:31→17:11)
[2021-02-14] MEDS: Potassium Chloride Oral Tablet 20 MEQ 40 MEQ PO (08:31)
--- NOTE | 2021-02-14 08:49 | PN.CC_ITS ---
Assessment & Plan Assessment/Plan (1) Acute respiratory failure with hypoxia: (2) Pneumonia due to COVID-19 virus: PLAN: RECOMMENDATIONS: 1. Wean supplemental oxygen as tolerated to maintain saturations at or above 90%. 2. Continue Decadron to complete 10-day treatment course (02/15/2021). 3. Patient refused remdesivir. 4. Continue baricitinib per ID recommendations (02/19/2021). 5. Continue Lovenox twice daily as ordered. 6. Challenge with diuretics again at higher dose with goal 7. Continue empiric antimicrobials. 8. Use Airvo to facilitate nutrition at a minimum. Continue BiPAP with sleep/rescue. IMPRESSIONS: 1. Acute hypoxemic respiratory failure secondary to COVID-19 pneumonia The patient has noted worsening in his respiratory status after testing positive for COVID-19 pneumonia on February 03. Although offered to him, the patient subsequently refused remdesivir. Given further respiratory decompen sation, empiric antimicrobials were initiated. The patient will be continued on supplemental oxygen to maintain saturations at or above 90%. Decadron will be continued to complete a 10-day treatment course. Lovenox twice daily will also be continued. Baricitinib will be continued per ID recommendations. Awake prone positioning was encouraged. Patient is slowly improving with diuretics. Stress ed to the patient the importance of continued nutrition. Status is still significantly guarded as he is still requiring significant FiO2 through Airvo. 2. History of CLL/anemia/thrombocytopenia/obesity Complicates care, management, recovery and prognosis. Continue home medications as indicated. This note was generated with [employer] dictation software. It may contain incorrect words, spelling, and punctuation that were not noted in checking the note before signing. Subjective Subjective Patient did well overnight. Patient continues to have a cough, but feels stronger compared to yesterday. No chest pain is reported. Patient was able to get into the chair yesterday. Patient does report it takes him 30 minutes or so to recover from activity or coughing jags. Objective Data Objective Data Vital Signs: Vital Signs Temp Pulse Resp BP Pulse Ox 36.8 C 71 19 H 124/64 H 92 02/14/21 08:00 02/14/21 08:00 02/14/21 08:00 02/14/21 08:00 02/14/21 08:00 Oxygen Flow Rate (L/min) 60 Oxygen Delivery Method Airvo Weight: 97.6 kg Body Mass Index (BMI) 29.9 Intake & Output: Intake and Output for Last 24 Hours 02/12/21 02/13/21 02/14/21 23:59 23:59 23:59 Intake Total 1260 / 1260 850 / 1090 480 / 480 Output Total 2049 / 2049 1375 / 1675 1000 / 1000 Balance -790 / -790 -525 / -585 -520 / -520 Lab / Micro Data Result Diagrams: 02/14/21 06:55 02/14/21 06:55 Labs: Laboratory Results - last 24 hr 02/11/21 08:18: Diff Path Review Reviewed 02/14/21 06:55: WBC 60.6 H*, RBC 3.72 L, Hgb 11.3 L, Hct 35.2 L, MCV 94.6 H, MCH 30.4, MCHC 32.1, RDW Std Deviation 51.2 H, RDW Coeff of Laila 14.9 H, Plt Count 156, MPV 9.7, Immature Gran % (Auto) 0.600, Neut % (Auto) 16.6 L, Lymph % (Auto) 81.6 H, [place] % (Auto) 1.2, Eos % (Auto) 0.0, Baso % (Auto) 0.0, Absolute Neuts (auto) 10.0 H, Absolute Lymphs (auto) 49.46 H, Nucleated RBC % 0, Diff Path Review May 02/14/21 06:55: Sodium 128 L, Potassium 3.9, Chloride 90 L, Carbon Dioxide 32.0, Anion Gap 6, BUN 29 H, Creatinine 1.01, Estim Creat Clear Calc 72.48, Est GFR (MDRD) Af Amer 94, Est GFR (MDRD) Non-Af 78, BUN/Creatinine Ratio 28.7 H, Glucose 93, Calcium 8.1 L, Total Bilirubin 0.90, AST 66 H, ALT 84 H, Alkaline Phosphatase 70, Total Protein 5.7 L, Albumin 2.2 L, Globulin 3.5, Albumin/Globulin Ratio 0.6 L Micro: Microbiology 02/12/21 10:00 Sputum, Expectorated/Coughed Gram Stain - Final 02/12/21 10:00 Sputum, Expectorated/Coughed Respiratory Culture - Final Presumptive C albicans 02/04/21 20:50 Blood Culture (Wb) - Anticubital Right Blood Culture - Final No growth in 5 days. 02/04/21 20:43 Blood Culture (Wb) - Anticubital Left Blood Culture - Final No growth in 5 days. 02/05/21 02:47 Urine, Clean Catch Legionella Antigen - Final 02/05/21 02:47 Urine, Clean Catch Streptococcus pneumoniae Antigen (M - Final Physical Exam Const alert and no apparent distress Constitutional Narrative: On Airvo at 85% General Appearance: cooperative and comfortable Nutritional Appearance: obese HEENT normocephalic and head/scalp atraumatic Eyes PERRL, EOMs intact bilaterally and conjunctivae normal Neck supple General: trachea midline Chest inspection of chest normal Chest: symmetrical chest wall rise; Negative for crepitus Resp no use of accessory muscles Effort and Inspection: able to speak in complete sentences; Negative for tachypneic Auscultation: diminished lung sounds; Negative for rales, rhonchi or wheezes Cardio S1 normal heart sound and S2 normal heart sound Rate: bradycardia GI normal to inspection, nondistended, normoactive bowel sounds Extremity no clubbing, cyanosis or edema Skin no rashes or lesions noted Neuro CN's II-XII intact bilaterally, moves all extremities and no focal motor de ficits Psych cooperative and affect normal Charges/Coding Visit Charges Inpatient E&M: 25460 Subs Hosp L3
--- NOTE | 2021-02-14 15:48 | PCM.PN.HOSP ---
Subjective Subjective Patient was seen and examined. Patient appears improved. Currently on 10 L of oxygen. Objective Data Objective Data Vital Signs: Vital Signs Temp Pulse Resp BP Pulse Ox 98.3 F 68 18 111/68 94 02/14/21 15:00 02/14/21 15:44 02/14/21 15:44 02/14/21 15:00 02/14/21 15:44 Oxygen Flow Rate (L/min) 2 Oxygen Delivery Method Airvo Weight: 97.6 kg Body Mass Index (BMI) 29.9 Intake & Output: Intake and Output for Last 24 Hours 02/12/21 02/13/21 02/14/21 23:59 23:59 23:59 Intake Total 1260 / 1260 850 / 1090 930 / 930 Output Total 2049 / 2049 1375 / 1675 1800 / 1800 Balance -790 / -790 -525 / -585 -870 / -870 Lab / Micro Data Result Diagrams: 02/14/21 06:55 02/14/21 06:55 Labs: Laboratory Results - last 24 hr 02/14/21 06:55: WBC 60.6 H*, RBC 3.72 L, Hgb 11.3 L, Hct 35.2 L, MCV 94.6 H, MCH 30.4, MCHC 32.1, RDW Std Deviation 51.2 H, RDW Coeff of Laila 14.9 H, Plt Count 156, MPV 9.7, Immature Gran % (Auto) 0.600, Neut % (Auto) 16.6 L, Lymph % (Auto) 81.6 H, [place] % (Auto) 1.2, Eos % (Auto) 0.0, Baso % (Auto) 0.0, Absolute Neuts (auto) 10.0 H, Absolute Lymphs (auto) 49.46 H, Nucleated RBC % 0, Diff Path Review August02/14/21 06:55: Sodium 128 L, Potassium 3.9, Chloride 90 L, Carbon Dioxide 32.0, Anion Gap 6, BUN 29 H, Creatinine 1.01, Estim Creat Clear Calc 72.48, Est GFR (MDRD) Af Amer 94, Est GFR (MDRD) Non-Af 78, BUN/Creatinine Ratio 28.7 H, Glucose 93, Calcium 8.1 L, Total Bilirubin 0.90, AST 66 H, ALT 84 H, Alkaline Phosphatase 70, Total Protein 5.7 L, Albumin 2.2 L, Globulin 3.5, Albumin/Globulin Ratio 0.6 L Micro: Microbiology 02/12/21 10:00 Sputum, Expectorated/Coughed Gram Stain - Final 02/12/21 10:00 Sputum, Expectorated/Coughed Respiratory Culture - Final Presumptive C albicans 02/04/21 20:50 Blood Culture (Wb) - Anticubital Right Blood Culture - Final No growth in 5 days. 02/04/21 20:43 Blood Culture (Wb) - Anticubital Left Blood Culture - Final No growth in 5 days. 02/05/21 02:47 Urine, Clean Catch Legionella Antigen - Final 02/05/21 02:47 Urine, Clean Catch Streptococcus pneumoniae Antigen (M - Final Physical Exam Narrative Physical exam: General: Alert, Oriented x3, Cooperative, on 10L oxygen HEENT: Atraumatic Oral: Moist Mucosa Neck: Supple Lungs: Diminished to auscultation Cardiovascular: HS I+II, regular, no murmurs Abdomen: Bowel Sounds Present, Soft, Non Tender Extremities: No edema Assessment & Plan Assessment/Plan (1) Pneumonia due to COVID-19 virus: (2) Acute respiratory failure with hypoxia: (3) Hyponatremia: (4) History of chronic lymphocytic leukemia: (5) COVID-19: (6) Transaminitis: (7) Elevated d-dimer: (8) Thrombocytopenia: PLAN: 1. Acute hypoxic respiratory failure secondary to acute COVID-19 pneumonia, improving Continue on 10L. 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 Elevated D-dimer, acute PE ruled out 3. 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 Acute transaminitis secondary to COVID-19 infection, improving 5. Rest of his chronic medical conditions appear to be stable Charges/Coding Visit Charges Inpatient E&M: 45162 Subs Hosp L3
[2021-02-15] VITALS (20 sets, daily range): BP systolic 101–119; BP diastolic 57–76; PULSE 59–88; RESP 12–24; TEMP 36.3–36.6; O2SAT 91–98
[2021-02-15] MEDS: Ipratropium/Albuterol Sulfate 3 ML AMPUL.NEB INHALATION ×4 (07:50→19:06)
[2021-02-15 08:16] LABS: Absolute Lymphocyte Count 58.32 X10^3/uL (0.83-4.51); Absolute Neutrophil Count 13.9 X10^3/uL (2.0-7.7); Basophil# 0.01 X10^3/uL; Hematocrit 39.1 % (40-54); Hemoglobin 12.6 g/dL (13.0-16.5); Lymphocyte # 58.32 X10^3/ul (0.83-4.51); Lymphocyte % 78.9 % (19-41); Mean Corp Hgb Conc 32.2 g/dL (32-36); Mean Corpuscular Hgb 30.3 pg (27.0-32.0); Mean Platelet Vol. 9.2 fl (6.2-12.0); Monocyte# 1.27 X10^3/uL; Monocyte% 1.7 % (0-10); NRBC Flagged by Analyzer 0 % (0-5); Neutrophil # 13.89 X10^3/uL (2.7-7.7); Neutrophil % 18.8 % (47-70); POSITIVE COUNT YES; POSITIVE DIFFERENTIAL YES; POSITIVE MORPHOLOGY YES; Platelet Count 196 K/mm3 (150-450); RBC Distribution Width CV 14.8 % (11.6-14.6); RBC Distribution Width SD 50.6 fl (35.1-43.9); Red Blood Count 4.16 M/mm3 (4.6-6.2); White Blood Count 73.9 K/mm3 (4.4-11.0)
[2021-02-15 08:19] LABS: Differential Indicated SCAN CRITERIA MET
[2021-02-15] MEDS: Enoxaparin 40 MG/0.4 ML Syringe SC ×2 (08:22→20:35)
[2021-02-15] MEDS: guaiFENesin 10 ML UDC (200MG/10ML) PO (08:22)
[2021-02-15] MEDS: dexAMETHasone 4 MG Tablet 6 MG PO (08:22)
[2021-02-15] MEDS: Sodium Chloride 0.65% 1 SPRAY SPRAY.BTL 2 SPRAY NASAL ×2 (08:24→20:40)
--- NOTE | 2021-02-15 08:24 | PN.CC_ITS ---
Assessment & Plan Assessment/Plan (1) Acute respiratory failure with hypoxia: (2) Pneumonia due to COVID-19 virus: PLAN: RECOMMENDATIONS: 1. Wean supplemental oxygen as tolerated to maintain saturations at or above 90%. 2. Patient should complete Decadron course today (02/15/2021). 3. Patient refused remdesivir. 4. Continue baricitinib per ID recommendations (02/19/2021). 5. Continue Lovenox twice daily as ordered. 6. Challenge with diuretics again at higher dose with goal 7. Continue empiric antimicrobials. 8. Use Airvo/nasal cannula to facilitate nutrition at a minimum. Continue BiPAP with sleep/rescue. IMPRESSIONS: 1. Acute hypoxemic respiratory failure secondary to COVID-19 pneumonia The patient has noted worsening in his respiratory status after testing positive for COVID-19 pneumonia on February 03. Although offered to him, the patient subsequently refused remdesivir. Given further respiratory de compensation, empiric antimicrobials were initiated. The patient will be continued on supplemental oxygen to maintain saturations at or above 90%. Decadron will be continued to complete a 10-day treatment course. Lovenox twice daily will also be continued. Baricitinib will be continued per ID rec ommendations. Awake prone positioning was encouraged. Patient is slowly improving with diuretics. Stressed to the patient the importance of continued nutrition. 2. History of CLL/anemia/thrombocytopenia/obesity Complicates care, management, recovery and prognosis. Continue home medications as indicated. This note was generated with [employer] dictation software. It may contain incorrect words, spelling, and punctuation that were not noted in checking the note before signing. Subjective Subjective Patient doing okay from a respiratory standpoint. Patient has been on nasal cannula intermittently. Patient still desaturates with eating in conversation. Patient tolerating BiPAP with sleep. Objective Data Objective Data Vital Signs: Vital Signs Temp Pulse Resp BP Pulse Ox 36.6 C 67 18 119/67 91 02/15/21 03:00 02/15/21 07:53 02/15/21 07:53 02/15/21 03:00 02/15/21 07:53 Oxygen Flow Rate (L/min) 15 Oxygen Delivery Method Nasal Cannula Weight: 97.6 kg Body Mass Index (BMI) 29.9 Intake & Output: Intake and Output for Last 24 Hours 02/13/21 02/14/2121 23:59 23:59 23:59 Intake Total 850 / 1090 1330 / 1450 240 / 240 Output Total 1375 / 1675 2200 / 2350 250 / 250 Balance -525 / -585 -870 / -900 -10 10 Lab / Micro Data Result Diagrams: 02/15/21 07:56 02/14/21 06:55 Labs: Laboratory Results - last 24 hr 02/15/21 07:56: WBC 73.9 H*, RBC 4.16 L, Hgb 12.6 L, Hct 39.1 L, MCV 94.0, MCH 30.3, MCHC 32.2, RDW Std Deviation 50.6 H, RDW Coeff of Laila 14.8 H, Plt Count 196, MPV 9.2, Immature Gran % (Auto) 0.600, Neut % (Auto) 18.8 L, Lymph % (Auto) 78.9 H, [place] % (Auto) 1.7, Eos % (Auto) 0.0, Baso % (Auto) 0.0, Absolute Neuts (auto) 13.9 H, Absolute Lymphs (auto) 58.32 H, Nucleated RBC % 0 Micro: Microbiology 02/12/21 10:00 Sputum, Expectorated/Coughed Gram Stain - Final 02/12/21 10:00 Sputum, Expectorated/Coughed Respiratory Culture - Final Presumptive C albicans 02/04/21 20:50 Blood Culture (Wb) - Anticubital Right Blood Culture - Final No growth in 5 days. 02/04/21 20:43 Blood Culture (Wb) - Anticubital Left Blood Culture - Final No growth in 5 days. 02/05/21 02:47 Urine, Clean Catch Legionella Antigen - Final 02/05/21 02:47 Urine, Clean Catch Streptococcus pneumoniae Antigen (M - Final Physical Exam Const alert and no apparent distress Constitutional Narrative: On nasal cannula General Appearance: cooperative and comfortable Nutritional Appearance: obese HEENT normocephalic and head/scalp atraumatic Eyes PERRL, EOMs intact bilaterally and conjunctivae normal Neck supple General: trachea midline Chest inspection of chest normal Chest: symmetrical chest wall rise; Negative for crepitus Resp no use of accessory muscles Effort and Inspection: able to speak in complete sentences; Negative for tachypneic Auscultation: diminished lung sounds; Negative for rales, rhonchi or wheezes Cardio S1 normal heart sound and S2 normal heart sound Rate: bradycardia GI normal to inspection, nondistended, normoactive bowel sounds Extremity no clubbing, cyanosis or edema Skin no rashes or lesions noted Neuro CN's II-XII intact bilaterally, moves all extremities and no focal motor deficits Psych cooperative and affect normal Charges/Coding Visit Charges Inpatient E&M: 63846 Subs Hosp L3
[2021-02-15 08:30] LABS: ALB/GLOB Ratio 0.7 RATIO (0.9-2.4); AST(SGOT) 58 U/L (15-37); Alanine Aminotransfer ALT/SGPT 87 U/L (16-61); Albumin, Serum 2.5 g/dL (3.2-5.0); Alkaline Phosphatase 74 U/L (45-117); Anion Gap 7 (5-15); BUN 31 mg/dL (7-18); BUN/Creat Ratio 27.9 RATIO (10-20); Calcium,Total 8.5 mg/dL (8.5-10.1); Chloride 88 mmol/L (98-107); Creatinine, Serum 1.11 mg/dL (0.70-1.30); EST Glomerular Filtration Rate 70 mL/min (>60); Est Glom Filt Rate - Afr Amer 84 mL/min (>60); Estimated Creatinine Clearance 65.95 ml/min; Globulin 3.7 g/dL (2.2-4.2); Glucose 92 mg/dL (74-106); Potassium 4.1 mmol/L (3.5-5.1); Protein, Total 6.2 g/dL (6.4-8.2); Sodium Level 128 mmol/L (136-145)
[2021-02-15 08:55] LABS: Atypical Lymphocyte 2+ %
--- NOTE | 2021-02-15 11:55 | CPS ---
pt's FIO2 decreased on Airvo to 92%. Saturation 95%
--- NOTE | 2021-02-15 15:33 | PCM.PN.HOSP ---
Subjective Subjective Follow-up on acute hypoxic respiratory failure/acute COVID-19 pneumonia: Patient was seen and examined. He had worsening oxygenation issues this morning. He is back on airVo. Objective Data Objective Data Vital Signs: Vital Signs Temp Pulse Resp BP Pulse Ox 97.4 F L 69 18 119/67 95 02/15/21 15:00 02/15/21 15:00 02/15/21 15:00 02/15/21 15:00 02/15/21 15:00 Oxygen Flow Rate (L/min) 15 Oxygen Delivery Method Airvo Weight: 97.6 kg Body Mass Index (BMI) 29.9 Intake & Output: Intake and Output for Last 24 Hours 02/13/21 02/14/21 02/15/21 23:59 23:59 23:59 Intake Total 850 / 1090 1330 / 1450 740 / 740 Output Total 1375 / 1675 2200 / 2350 950 / 950 Balance -525 / -585 -870 / -900 -210 / -210 Lab / Micro Data Result Diagrams: 02/15/21 07:56 02/15/21 07:56 Labs: Laboratory Results - last 24 hr 02/15/21 07:56: WBC 73.9 H*, RBC 4.16 L, Hgb 12.6 L, Hct 39.1 L, MCV 94.0, MCH 30.3, MCHC 32.2, RDW Std Deviation 50.6 H, RDW Coeff of Laila 14.8 H, Plt Count 196, MPV 9.2, Immature Gran % (Auto) 0.600, Neut % (Auto) 18.8 L, Lymph % (Auto) 78.9 H, [place] % (Auto) 1.7, Eos % (Auto) 0.0, Baso % (Auto) 0.0, Absolute Neuts (auto) 13.9 H, Absolute Lymphs (auto) 58.32 H, Nucleated RBC % 0, Diff Path Review May foll, Atypical Lymphocytes 2+ 02/15/21 07:56: Sodium 128 L, Potassium 4.1, Chloride 88 L, Carbon Dioxide 33.0 H, Anion Gap 7, BUN 31 H, Creatinine 1.11, Estim Creat Clear Calc 65.95, Est GFR (MDRD) Af Amer 84, Est GFR (MDRD) Non-Af 70, BUN/Creatinine Ratio 27.9 H, Glucose 92, Calcium 8.5, Total Bilirubin 1.00, AST 58 H, ALT 87 H, Alkaline Phosphatase 74, Total Protein 6.2 L, Albumin 2.5 L, Globulin 3.7, Albumin/Globulin Ratio 0.7 L Micro: Microbiology 02/12/21 10:00 Sputum, Expectorated/Coughed Gram Stain - Final 02/12/21 10:00 Sputum, Expectorated/Coughed Respiratory Culture - Final Presumptive C albicans 02/04/21 20:50 Blood Culture (Wb) - Anticubital Right Blood Culture - Final No growth in 5 days. 02/04/21 20:43 Blood Culture (Wb) - Anticubital Left Blood Culture - Final No growth in 5 days. 02/05/21 02:47 Urine, Clean Catch Legionella Antigen - Final 02/05/21 02:47 Urine, Clean Catch Streptococcus pneumoniae Antigen (M - Final Physical Exam Narrative Physical exam: General: Alert, Oriented x3, Cooperative, on Airvo HEENT: Atraumatic Oral: Moist Mucosa Neck: Supple Lungs: Diminished to auscultation Cardiovascular: HS I+II, regular, no murmurs Abdomen: Bowel Sounds Present, Soft, Non Tender Extremities: No edema Psych affect normal Assessment & Plan Assessment/Plan (1) Pneumonia due to COVID-19 virus: (2) Acute respiratory failure with hypoxia: (3) Hyponatremia: (4) History of chronic lymphocytic leukemia: (5) COVID-19: (6) Transaminitis: (7) Elevated d-dimer: (8) Thrombocytopenia: PLAN: 1. Acute hypoxic respiratory failure secondary to acute COVID-19 pneumonia, improving On Airvo now. 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 Elevated D-dimer, acute PE ruled out 3. 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 Acute transaminitis secondary to COVID-19 infection, improving 5. Rest of his chronic medical conditions appear to be stable Summary: 71-year-old who was admitted on 02/04/21 with shortness of breath with symptoms started on 01/26/21. Patient received monoclonal antibody body infusion but got hypoxic and was sent to the emergency room. His hospital course has been long and tortuous. He is currently on BiPAP/Airvo. Pulmonology and ID are consulted Charges/Coding Visit Charges Inpatient E&M: 11599 Subs Hosp L3
--- NOTE | 2021-02-15 16:08 | CPS ---
airvo decreased FIO2 to 75%. pt taina well
[2021-02-16] VITALS (33 sets, daily range): BP systolic 103–135; BP diastolic 62–81; PULSE 64–99; RESP 12–28; TEMP 36.4–36.8; O2SAT 88–99
[2021-02-16] MEDS: Ipratropium/Albuterol Sulfate 3 ML AMPUL.NEB INHALATION ×4 (07:30→19:29)
[2021-02-16 09:26] LABS: Pathologist Review Reviewed
--- NOTE | 2021-02-16 09:34 | NURSING ---
Report called to nurse Ma for pt transfer to ICU.
--- NOTE | 2021-02-16 09:36 | NURSING ---
This nurse updated pt family ( Mary Grace) of pt transfer to ICU bed 7.
--- NOTE | 2021-02-16 09:45 | PN.CC_ITS ---
Assessment & Plan Assessment/Plan (1) Acute respiratory failure with hypoxia: (2) Pneumonia due to COVID-19 virus: PLAN: RECOMMENDATIONS: 1. Continue noninvasive positive pressure ventilatory support and wean FiO2 to maintain oxygen saturations at or above 90%. 2. Continue baricitinib per ID recommendations (02/19/2021). 3. Obtain repeat chest x-ray. 4. Recheck D-dimer and procalcitonin. 5. Continue Lovenox twice daily as ordered. IMPRESSIONS: 1. Acute hypoxemic respiratory failure secondary to COVID-19 pneumonia The patient has noted worsening in his respiratory status after testing positive for COVID-19 pneumonia on February 03. Although offered to him, the patient subsequently refused remdesivir. Given further respiratory decompensation, empiric antimicrobials were initiated. The patient has since completed a treatment course of Decadron and remains on baricitinib. IV diuretics will be continued to maintain euvolemic state, as tolerated by hemodynamics and renal function. For now, the patient will be maintained on BiPAP, with FiO2 weaned to maintain saturations at or above 90%. 2. History of CLL/anemia/thrombocytopenia/obesity Complicates care, management, recovery and prognosis. Continue home medications as indicated. TIME: 34 minutes of critical care time, independent of procedures, was spent addressing the patient's acute hypoxemic respiratory failure secondary to COVID- 19 pneumonia, review of all data and collaboration with care team. ([id number]) Subjective Subjective The patient was seen and examined at the bedside this morning. Events from the last 24 hours have been reviewed. The patient is currently afebrile, hemodynamically stable and maintaining appropriate oxygen saturations on BiPAP with an FiO2 requirement of 100%. The patient apparently got up to use the restroom this morning and readily desaturated. He did not recover and was subsequently transferred to the medical intensive care unit. On arrival to the ICU, the patient was noted to be tachypneic with marginal oxygen saturations, despite an FiO2 of 100%. He is currently documented to be overall net -3.2 L for the hospitalization. If you recall, the patient did refuse remdesivir but did receive empiric antimicrobials along with Lovenox, Decadron and baricitinib. Objective Data Objective Data The patient's most recent lab work, culture data and imaging studies have all been personally reviewed. Vital Signs: Vital Signs Temp Pulse Resp BP Pulse Ox 97.7 F L 66 22 H 135/80 H 90 02/16/21 09:00 02/16/21 09:00 02/16/21 09:00 02/16/21 09:00 02/16/21 09:00 Oxygen Flow Rate (L/min) 60 Oxygen Delivery Method Bi-pap Weight: 97.6 kg Body Mass Index (BMI) 29.9 Intake & Output: Intake and Output for Last 24 Hours 02/14/21 02/15/21 02/16/21 23:59 23:59 23:59 Intake Total 1330 / 1450 1600 / 1600 120 / 120 Output Total 2200 / 2350 1850 / 1850 300 / 300 Balance -870 / -900 -250 / -250 -180 / -180 Lab / Micro Data Attestation: I reviewed the patient's lab results. Result Diagrams: 02/17/21 05:15 02/17/21 05:15 Labs: Laboratory Results - last 24 hr 02/13/21 06:10: Diff Path Review Reviewed Micro: Microbiology 02/12/21 10:00 Sputum, Expectorated/Coughed Gram Stain - Final 02/12/21 10:00 Sputum, Expectorated/Coughed Respiratory Culture - Final Presumptive C albicans 02/04/21 20:50 Blood Culture (Wb) - Anticubital Right Blood Culture - Final No growth in 5 days. 02/04/21 20:43 Blood Culture (Wb) - Anticubital Left Blood Culture - Final No growth in 5 days. 02/05/21 02:47 Urine, Clean Catch Legionella Antigen - Final 02/05/21 02:47 Urine, Clean Catch Streptococcus pneumoniae Antigen (M - Final Physical Exam Const alert General Appearance: cooperative and on BiPAP HEENT normocephalic and head/scalp atraumatic Eyes PERRL, EOMs intact bilaterally and conjunctivae normal Neck supple General: trachea midline Chest inspection of chest normal Resp Effort and Inspection: tachypneic Auscultation: diminished lung sounds; Negative for rales, rhonchi or wheezes Cardio regular rate and regular rhythm GI normal to inspection, nondistended, normoactive bowel sounds Extremity no clubbing, cyanosis or edema Skin no rashes or lesions noted Neuro moves all extremities and no focal motor deficits Psych cooperative and affect normal Charges/Coding Procedures Hospitalists Procedures: [id number] [facility] 1[facility] H[facility]
--- NOTE | 2021-02-16 11:39 | PN.HOSP_ITS ---
Subjective Subjective Patient seen and examined. HE was emergently transferred to the ICU today after he became hypoxic. He was on BiPAP at time of review and said he felt like his breathing was improving. However with a little exertion with talking, his saturation dropped to the mid 80s even on BiPAP. Review of systems otherwise negative. Objective Data Objective Data Vital Signs: Vital Signs Temp Pulse Resp BP Pulse Ox 97.7 F L 84 25 H 135/80 H 89 02/16/21 09:00 02/16/21 10:31 02/16/21 10:31 02/16/21 09:00 02/16/21 10:27 Oxygen Flow Rate (L/min) 60 Oxygen Delivery Method Bi-pap Weight: 215 lb 2.738 oz Body Mass Index (BMI) 29.9 Intake & Output: Intake and Output for Last 24 Hours 02/14/21 02/15/21 02/16/21 23:59 23:59 23:59 Intake Total 1330 / 1450 1600 / 1600 120 / 120 Output Total 2200 / 2350 1850 / 1850 300 / 300 Balance -870 / -900 -250 / -250 -180 / -180 Lab / Micro Data Result Diagrams: 02/15/21 07:56 02/15/21 07:56 Labs: Laboratory Results - last 24 hr 02/13/21 06:10: Diff Path Review Reviewed Micro: Microbiology 02/12/21 10:00 Sputum, Expectorated/Coughed Gram Stain - Final 02/12/21 10:00 Sputum, Expectorated/Coughed Respiratory Culture - Final Presumptive C albicans 02/04/21 20:50 Blood Culture (Wb) - Anticubital Right Blood Culture - Final No growth in 5 days. 02/04/21 20:43 Blood Culture (Wb) - Anticubital Left Blood Culture - Final No growth in 5 days. 02/05/21 02:47 Urine, Clean Catch Legionella Antigen - Final 02/05/21 02:47 Urine, Clean Catch Streptococcus pneumoniae Antigen (M - Final Physical Exam Const alert, oriented x3 and no apparent distress Exam Limitations: no limitations HEENT head/scalp atraumatic and moist oral mucous membranes Head and Scalp: normocephalic Eyes EOMs intact bilaterally and conjunctivae normal Neck no lymphadenopathy Resp Resp Narrative: tachypneic, diminished breath sounds bibasally, no wheezes or crackles. On BIPAP Cardio regular rate, regular rhythm, S1 normal heart sound, S2 normal heart sound and no murmurs GI normal to inspection, nondistended, normoactive bowel sounds, soft to palpation, non-tender and non-distended Extremity normal to inspection, full ROM and no clubbing, cyanosis or edema Peripheral Pulses: Yes pulses 2+ throughout Skin no rashes or lesions noted Neuro oriented x3, CN's II-XII intact bilaterally and moves all extremities Sensorium / Orientation: awake Psych affect normal Assessment & Plan Assessment/Plan (1) Pneumonia due to COVID-19 virus: (2) Acute respiratory failure with hypoxia: PLAN: #Acute hypoxic respiratory failure due to COVID 19 pneumonia * emergently transferred to the ICU today as he became hypoxic when using the bathroom, dropping into the 70s systolic * now on BIPAP * critical care on board * on baricitinib and decadron. On breathing treatment with bronchodilators * titrate oxygen to maintain sats >90% * critical care and ID on board * #History of CLL: stable. WBC elevated at 73.9. Follow up with oncology on outpatient basis #Elevated D dimer: CTA was negative for PE. Likely due to ashely infection #THrombocytopenia: resolved. Platelets are 196 today DVT prophylaxis: lovenox CODE STATUS: Full code * I did clarify with patient about his CODE STATUS today as he was transferred to the ICU. Patient was initially reluctant about getting intubated if needed and said he did not really care for it. I explained to him that intubation would only be done if he absolutely needed and after thinking about it, patient gave his assent to be intubated if needed and to also have CPR if needed. Total [id number] time 16 minutes. Charges/Coding Visit Charges Inpatient E&M: 98066 [facility] Hosp L3
[2021-02-16] MEDS: 0.9% Saline Lock 10 ML Syringe IV ×2 (12:38→14:50)
[2021-02-16] MEDS: Enoxaparin 40 MG/0.4 ML Syringe SC ×2 (12:38→21:06)
--- NOTE | 2021-02-16 14:27 | RAD_ITS ---
STUDY: X-RAY CHEST REASON FOR EXAM: Male, 71 years old. Respiratory Failure . Hypoxia. TECHNIQUE: Single AP portable view of the chest. COMPARISON: Comparison is made with prior study dated 02/09/2021. FINDINGS: EKG electrodes are seen. Persistent infiltrate in the right upper lobe although this has improved as compared to prior study. Worsening infiltration in the left lower lobe. Stable increased markings in the right lower lobe. There is no demonstrated pleural abnormality. Normal size heart. Normal mediastinum and veronica. Normal visualized pulmonary arteries. Normal visualized aortic arch and descending thoracic aorta. There are diffuse degenerative changes of the visualized thoracic spine. Normal visualized ribs, clavicles, and shoulders. There is no demonstrated abnormality of the visualized soft tissue structures of the upper abdomen. RAD/Chest 1 View (Portable) IMPRESSION: Worsening infiltrate in the left lower lobe. Persistent infiltrate in the right lower lobe. Mild improved aeration of the right upper lobe. Electronically Signed: Antonio Trent MD at 15:09 EDT , Service support ,
--- NOTE | 2021-02-16 14:27 | PCM.PN.ID ---
Physical Exam Narrative Sleeping, on bipap, no fever Const no apparent distress Resp Auscultation: diminished lung sounds Cardio regular rate and regular rhythm GI normal to inspection, nondistended, normoactive bowel sounds Skin no rashes or lesions noted ID ID: Route of nutrition/ use of supplements: [] Nutritional Intake: [] IV Site: [] [place] Catheter: [] Assessment & Plan Assessment/Plan (1) Pneumonia due to COVID-19 virus: PLAN: Sx started 01/26. Unvaccinated. Recommend 20 days isolation, vaccine after 90 days due to receipt of monoclonal Abs. Completed dex. Cont baricitinib. CT neg for PE. Cxs neg. O2 worsened, now in icu. Will follow (2) History of chronic lymphocytic leukemia: (3) Acute respiratory failure with hypoxia:
[2021-02-16 15:34] LABS: D-Dimer Quantitative (DVT/PE) 2.57 FEU/ug/m (0.27-0.49)
[2021-02-16 15:36] LABS: Pathologist Review Reviewed
[2021-02-16 15:36] LABS: Pathologist Review Reviewed
[2021-02-16 15:53] LABS: Procalcitonin 1.41 ng/mL (0.00-0.09)
[2021-02-16] MEDS: Sodium Chloride 0.65% 1 SPRAY SPRAY.BTL 2 SPRAY NASAL (18:12)
[2021-02-17] VITALS (35 sets, daily range): BP systolic 89–127; BP diastolic 49–89; PULSE 64–85; RESP 10–25; TEMP 36.3–36.8; O2SAT 88–98
[2021-02-17 05:20] LABS: Absolute Lymphocyte Count 46.21 X10^3/uL (0.83-4.51); Absolute Neutrophil Count 9.7 X10^3/uL (2.0-7.7); Basophil# 0.03 X10^3/uL; Basophil% 0.1 % (0-1); Eosinophil# 0.02 X10^3/uL; Hematocrit 35.2 % (40-54); Hemoglobin 11.7 g/dL (13.0-16.5); Lymphocyte # 46.21 X10^3/ul (0.83-4.51); Lymphocyte % 81.8 % (19-41); Mean Corp Hgb Conc 33.2 g/dL (32-36); Mean Corpuscular Hgb 30.6 pg (27.0-32.0); Mean Corpuscular Volume 92.1 fL (80-94); Mean Platelet Vol. 9.4 fl (6.2-12.0); Monocyte# 0.27 X10^3/uL; Monocyte% 0.5 % (0-10); NRBC Flagged by Analyzer 0 % (0-5); Neutrophil # 9.71 X10^3/uL (2.7-7.7); Neutrophil % 17.2 % (47-70); POSITIVE COUNT YES; POSITIVE DIFFERENTIAL YES; POSITIVE MORPHOLOGY YES; Platelet Count 188 K/mm3 (150-450); RBC Distribution Width CV 14.9 % (11.6-14.6); RBC Distribution Width SD 49.8 fl (35.1-43.9); Red Blood Count 3.82 M/mm3 (4.6-6.2); White Blood Count 56.5 K/mm3 (4.4-11.0)
[2021-02-17 05:25] LABS: Differential Indicated SCAN CRITERIA MET
[2021-02-17 05:35] LABS: Anion Gap 7 (5-15); BUN 27 mg/dL (7-18); BUN/Creat Ratio 26.5 RATIO (10-20); Calcium,Total 8.1 mg/dL (8.5-10.1); Chloride 90 mmol/L (98-107); Creatinine, Serum 1.02 mg/dL (0.70-1.30); EST Glomerular Filtration Rate 77 mL/min (>60); Est Glom Filt Rate - Afr Amer 93 mL/min (>60); Estimated Creatinine Clearance 71.77 ml/min; Glucose 96 mg/dL (74-106); Potassium 4.2 mmol/L (3.5-5.1); Sodium Level 128 mmol/L (136-145)
[2021-02-17 05:40] LABS: Anisocytosis 1+
[2021-02-17] MEDS: Ipratropium/Albuterol Sulfate 3 ML AMPUL.NEB INHALATION ×4 (07:12→19:01)
--- NOTE | 2021-02-17 07:21 | PCM.PN.INT ---
Assessment & Plan Assessment/Plan (1) Acute respiratory failure with hypoxia: (2) Pneumonia due to COVID-19 virus: PLAN: RECOMMENDATIONS: 1. Continue combination of heated high flow throughout the day and BiPAP at night. 2. Goal to wean FiO2 to maintain oxygen saturations at or above 90%. 3. Continue baricitinib per ID recommendations (02/19/2021). 4. Continue Lovenox twice daily. 5. Continue bronchodilator therapy. 6. Encourage incentive spirometer use and mobilize patient as tolerated. IMPRESSIONS: 1. Acute hypoxemic respiratory failure secondary to COVID-19 pneumonia The patient has noted worsening in his respiratory status after testing positive for COVID-19 pneumonia on February 03. Although offered to him, the patient subsequently refused remdesivir. Given further respiratory decompensation, empiric antimicrobials were initiated. The patient has since completed a treatment course of Decadron and remains on baricitinib. IV diuretics will be continued to maintain euvolemic state, as tolerated by hemodynamics and renal function. Attempt to mobilize patient today and encourage incentive spirometer use. 2. History of CLL/anemia/thrombocytopenia/obesity Complicates care, management, recovery and prognosis. Continue home medications as indicated. This note was generated with [employer] dictation software. It may contain incorrect words, spelling, and punctuation that were not noted in checking the note before signing. Subjective Subjective The patient was seen and examined at the bedside this morning. Events from the last 24 hours have been reviewed. The patient is currently afebrile, hemodynamically stable and maintaining appropriate oxygen saturations on BiPAP with an FiO2 requirement of 50%. Yesterday, the patient was able to be weaned to Airvo heated high flow oxygen with an FiO2 requirement of 60% and flow rate of 60 L/min. The patient was placed back on BiPAP for overnight support. He is currently documented to be overall net -3.4 L for the hospitalization. The patient remains on twice daily Lovenox and baricitinib. Objective Data Objective Data The patient's most recent lab work, culture data and imaging studies have all been personally reviewed. Vital Signs: Vital Signs Temp Pulse Resp BP Pulse Ox 98.1 F 72 18 114/64 93 02/17/21 04:00 02/17/21 07:12 02/17/21 07:12 02/17/21 07:00 02/17/21 07:12 Oxygen Flow Rate (L/min) 60 Oxygen Delivery Method Bi-pap Weight: 85.6 kg Body Mass Index (BMI) 29.9 Intake & Output: Intake and Output for Last 24 Hours 02/15/21 02/16/21 02/17/21 23:59 23:59 23:59 Intake Total 1600 / 1600 270 / 630 360 / 360 Output Total 1850 / 1850 650 / 1000 350 / 350 Balance -250 / -250 -380 / -370 Lab / Micro Data Attestation: I reviewed the patient's lab results. Result Diagrams: 02/17/21 05:15 02/17/21 05:15 Labs: Laboratory Results - last 24 hr 02/13/21 06:10: Diff Path Review Reviewed 02/14/21 06:55: Diff Path Review Reviewed 02/15/21 07:56: Diff Path Review Reviewed 02/16/21 14:55: D-Dimer Quant (PE/DVT) 2.57 H* 02/16/21 14:55: Procalcitonin 1.41 H 02/17/21 05:15: WBC 56.5 H*, RBC 3.82 L, Hgb 11.7 L, Hct 35.2 L, MCV 92.1, MCH 30.6, MCHC 33.2, RDW Std Deviation 49.8 H, RDW Coeff of Laila 14.9 H, Plt Count 188, MPV 9.4, Immature Gran % (Auto) 0.400, Neut % (Auto) 17.2 L, Lymph % (Auto) 81.8 H, [place] % (Auto) 0.5, Eos % (Auto) 0.0, Baso % (Auto) 0.1, Absolute Neuts (auto) 9.7 H, Absolute Lymphs (auto) 46.21 H, Nucleated RBC % 0, Diff Path Review May foll, Anisocytosis 1+ 02/17/21 05:15: Sodium 128 L, Potassium 4.2, Chloride 90 L, Carbon Dioxide 31.0, Anion Gap 7, BUN 27 H, Creatinine 1.02, Estim Creat Clear Calc 71.77, Est GFR (MDRD) Af Amer 93, Est GFR (MDRD) Non-Af 77, BUN/Creatinine Ratio 26.5 H, Glucose 96, Calcium 8.1 L Micro: Microbiology 02/12/21 10:00 Sputum, Expectorated/Coughed Gram Stain - Final 02/12/21 10:00 Sputum, Expectorated/Coughed Respiratory Culture - Final Presumptive C albicans 02/04/21 20:50 Blood Culture (Wb) - Anticubital Right Blood Culture - Final No growth in 5 days. 02/04/21 20:43 Blood Culture (Wb) - Anticubital Left Blood Culture - Final No growth in 5 days. 02/05/21 02:47 Urine, Clean Catch Legionella Antigen - Final 02/05/21 02:47 Urine, Clean Catch Streptococcus pneumoniae Antigen (M - Final Radiography Diagnostic Testing: Radiology Impression Chest X-Ray 02/16/21 14:27 IMPRESSION: Worsening infiltrate in the left lower lobe. Persistent infiltrate in the right lower lobe. Mild improved aeration of the right upper lobe. Electronically Signed: Antonio Trent MD at 15:09 EDT , Service support , Physical Exam Const alert and no apparent distress Constitutional Narrative: Currently tolerating Airvo heated high flow General Appearance: cooperative HEENT normocephalic and head/scalp atraumatic Eyes PERRL, EOMs intact bilaterally and conjunctivae normal Neck supple General: trachea midline Chest inspection of chest normal Resp Effort and Inspection: Negative for labored Auscultation: diminished lung sounds; Negative for rales, rhonchi or wheezes Cardio regular rate and regular rhythm GI normal to inspection, nondistended, normoactive bowel sounds Extremity no clubbing, cyanosis or edema Skin no rashes or lesions noted Neuro moves all extremities and no focal motor deficits Psych cooperative and affect normal Charges/Coding Visit Charges Inpatient E&M: 63627 Subs Hosp L3
[2021-02-17] MEDS: Enoxaparin 40 MG/0.4 ML Syringe SC ×2 (09:29→22:10)
--- NOTE | 2021-02-17 10:19 | PN.HOSP_ITS ---
Subjective Subjective Patient seen and examined. Was on air Vo. He felt his breathing was getting better. He was eating breakfast and had no active complaints. Review of systems otherwise negative. Review of systems otherwise negative. Objective Data Objective Data Vital Signs: Vital Signs Temp Pulse Resp BP Pulse Ox 98.1 F 74 20 H 127/66 H 93 02/17/21 04:00 02/17/21 09:59 02/17/21 09:59 02/17/21 09:00 02/17/21 09:59 Oxygen Flow Rate (L/min) 60 Oxygen Delivery Method Airvo Weight: 188 lb 11.451 oz Body Mass Index (BMI) 29.9 Intake & Output: Intake and Output for Last 24 Hours 02/15/21 02/16/21 02/17/21 23:59 23:59 23:59 Intake Total 1600 / 1600 270 / 630 720 / 720 Output Total 1850 / 1850 650 / 1000 800 / 800 Balance -250 / -250 -380 / -370 -80 / -80 Lab / Micro Data Result Diagrams: 02/17/21 05:15 02/17/21 05:15 Labs: Laboratory Results - last 24 hr 02/14/21 06:55: Diff Path Review Reviewed 02/15/21 07:56: Diff Path Review Reviewed 02/16/21 14:55: D-Dimer Quant (PE/DVT) 2.57 H* 02/16/21 14:55: Procalcitonin 1.41 H 02/17/21 05:15: WBC 56.5 H*, RBC 3.82 L, Hgb 11.7 L, Hct 35.2 L, MCV 92.1, MCH 30.6, MCHC 33.2, RDW Std Deviation 49.8 H, RDW Coeff of Laila 14.9 H, Plt Count 188, MPV 9.4, Immature Gran % (Auto) 0.400, Neut % (Auto) 17.2 L, Lymph % (Auto) 81.8 H, [place] % (Auto) 0.5, Eos % (Auto) 0.0, Baso % (Auto) 0.1, Absolute Neuts (auto) 9.7 H, Absolute Lymphs (auto) 46.21 H, Nucleated RBC % 0, Diff Path Review May foll, Anisocytosis 1+ 02/17/21 05:15: Sodium 128 L, Potassium 4.2, Chloride 90 L, Carbon Dioxide 31.0, Anion Gap 7, BUN 27 H, Creatinine 1.02, Estim Creat Clear Calc 71.77, Est GFR (MDRD) Af Amer 93, Est GFR (MDRD) Non-Af 77, BUN/Creatinine Ratio 26.5 H, Glucose 96, Calcium 8.1 L Micro: Microbiology 02/12/21 10:00 Sputum, Expectorated/Coughed Gram Stain - Final 02/12/21 10:00 Sputum, Expectorated/Coughed Respiratory Culture - Final Presumptive C albicans 02/04/21 20:50 Blood Culture (Wb) - Anticubital Right Blood Culture - Final No growth in 5 days. 02/04/21 20:43 Blood Culture (Wb) - Anticubital Left Blood Culture - Final No growth in 5 days. 02/05/21 02:47 Urine, Clean Catch Legionella Antigen - Final 02/05/21 02:47 Urine, Clean Catch Streptococcus pneumoniae Antigen (M - Final Radiography Diagnostic Testing: Radiology Impression Chest X-Ray 02/16/21 14:27 IMPRESSION: Worsening infiltrate in the left lower lobe. Persistent infiltrate in the right lower lobe. Mild improved aeration of the right upper lobe. Electronically Signed: Antonio Trent MD at 15:09 EDT , Service support , Physical Exam Const alert, oriented x3 and no apparent distress General Appearance: cooperative Exam Limitations: no limitations HEENT normocephalic, head/scalp atraumatic, hearing grossly normal bilaterally and moist oral mucous membranes Eyes PERRL, EOMs intact bilaterally and conjunctivae normal Eyes Narrative: No scleral icterus Neck no lymphadenopathy, supple and no JVD Resp normal respiratory effort, no retractions and no use of accessory muscles Resp Narrative: tachypneic, diminished breath sounds bibasally, no wheezes or crackles. On AirVo Auscultation: Negative for crackles, rales, rhonchi or wheezes Cardio regular rate, regular rhythm, S1 normal heart sound, S2 normal heart sound, no murmurs, no rub, no gallops, no clicks and no JVD GI normal to inspection, nondistended, normoactive bowel sounds, soft to palpation, non-tender and non-distended Extremity normal to inspection, full ROM and no clubbing, cyanosis or edema Peripheral Pulses: Yes pulses 2+ throughout Skin no rashes or lesions noted, no wounds, skin turgor normal, no jaundice, no petechiae and no mottling Neuro oriented x3, CN's II-XII intact bilaterally, moves all extremities and no focal motor deficits Sensorium / Orientation: awake, alert, oriented to person, oriented to place and oriented to time Speech: speech normal Motor Exam: strength 5/5 throughout Psych affect normal Assessment & Plan Assessment/Plan (1) Pneumonia due to COVID-19 virus: (2) Acute respiratory failure with hypoxia: PLAN: #Acute hypoxic respiratory failure due to COVID 19 pneumonia * on AirVo today. Feels better. * critical care on board * on baricitinib and decadron. On breathing treatment with bronchodilators * titrate oxygen to maintain sats >90% * critical care and ID on board * #History of CLL: stable. WBC today is 56.5. Follow up with oncology on outpatient basis #Elevated D dimer: CTA was negative for PE. Likely due to covid infection #THrombocytopenia: resolved. Platelets are 188 today #HYponatremia: Na is 128; this is chronic. Will monitor DVT prophylaxis: lovenox CODE STATUS: Full code * Charges/Coding Visit Charges Inpatient E&M: 59180 Subs Hosp L3
[2021-02-17 13:52] LABS: Pathologist Review Reviewed
[2021-02-18] VITALS (24 sets, daily range): BP systolic 101–120; BP diastolic 56–69; PULSE 64–93; RESP 12–24; TEMP 36.6–37.1; O2SAT 91–98
[2021-02-18] MEDS: Ipratropium/Albuterol Sulfate 3 ML AMPUL.NEB INHALATION ×4 (07:09→19:02)
--- NOTE | 2021-02-18 07:28 | PN.HOSP_ITS ---
Subjective Subjective Patient seen and examined. He remains on Airvo with FiO2 of 60. He is on baricitinib. He has no complaints. REivew of systems otherwise negative. He is in cumulative negative balance by 4.4L. Objective Data Objective Data Vital Signs: Vital Signs Temp Pulse Resp BP Pulse Ox 97.9 F 68 16 114/66 94 02/18/21 04:00 02/18/21 07:00 02/18/21 07:00 02/18/21 07:00 02/18/21 07:00 Oxygen Flow Rate (L/min) 50 Oxygen Delivery Method Airvo Weight: 189 lb 9.561 oz Body Mass Index (BMI) 29.9 Intake & Output: Intake and Output for Last 24 Hours 02/16/21 02/17/21 02/18/21 23:59 23:59 23:59 Intake Total 270 / 630 720 / 720 120 / 120 Output Total 650 / 1000 800 / 800 1000 / 1000 Balance -380 / -370 -80 / -80 -880 / -880 Medical Nutrition Assessment Dietitian: Malnutrition Criteria Met Start: 02/17/21 12:3 8 Freq: Status: Active Protocol: Document 02/17/21 12:38 AG (Rec: 02/17/21 12:38 [id number]) Nutrition Malnutrition Evidence of Malnutrition Exists Yes Malnutrition (severe): Acute Illness/Injury Evidenced By Suboptimal Energy Intake ( Severe),Weight Loss (Severe) Intake Problem Inadequate Oral Intake Etiology related to decreased appetite; BiPAP support Signs/Symptoms as evidenced by PO intake < ~ 50% at meals Status Active Problem Clinical Problem Acute Disease or Injury Related Malnutrition Etiology severe, acute malnutrition r/t inadequate energy intake w/ increased nutrient needs d/t resp. failure Signs/Symptoms as evidenced by estimated PO intake meeting <50% of estimated energy needs >5 days ; unintentional wt loss of 26. 5#/12.3% < 2 weeks Status Active Problem Recommendation Dietitian Recommendations/Changes Continue Regular Diet as ordered with pt preferences for gluten-free and no milk. Will continue 240ml apple ensure clear TID w/ meals as tolerated. Lab / Micro Data Result Diagrams: 02/18/21 04:00 02/18/21 04:00 Labs: Laboratory Results - last 24 hr 02/17/21 05:15: Diff Path Review Reviewed Micro: Microbiology 02/12/21 10:00 Sputum, Expectorated/Coughed Gram Stain - Final 02/12/21 10:00 Sputum, Expectorated/Coughed Respiratory Culture - Final Presumptive C albicans 02/04/21 20:50 Blood Culture (Wb) - Anticubital Right Blood Culture - Final No growth in 5 days. 02/04/21 20:43 Blood Culture (Wb) - Anticubital Left Blood Culture - Final No growth in 5 days. 02/05/21 02:47 Urine, Clean Catch Legionella Antigen - Final 02/05/21 02:47 Urine, Clean Catch Streptococcus pneumoniae Antigen (M - Final Physical Exam Const alert, oriented x3 and no apparent distress General Appearance: cooperative Exam Limitations: no limitations HEENT normocephalic, head/scalp atraumatic, hearing grossly normal bilaterally and moist oral mucous membranes Head and Scalp: normocephalic Eyes PERRL, EOMs intact bilaterally and conjunctivae normal Neck no lymphadenopathy, supple and no JVD Resp Resp Narrative: tachypneic, diminished breath sounds bibasally, no wheezes or crackles. On AirVo Auscultation: Negative for crackles, rales, rhonchi or wheezes Cardio regular rate, regular rhythm, S1 normal heart sound, S2 normal heart sound, no murmurs, no rub, no gallops, no clicks and no JVD GI normal to inspection, nondistended, normoactive bowel sounds, soft to palpation, non-tender and non-distended Extremity normal to inspection, full ROM and no clubbing, cyanosis or edema Peripheral Pulses: Yes pulses 2+ throughout Skin no rashes or lesions noted, no wounds, skin turgor normal, no jaundice, no petechiae and no mottling Neuro oriented x3, CN's II-XII intact bilaterally, moves all extremities and no focal motor deficits Sensorium / Orientation: awake, alert, oriented to person, oriented to place and oriented to time Speech: speech normal Motor Exam: strength 5/5 throughout Psych affect normal Assessment & Plan Assessment/Plan (1) Pneumonia due to COVID-19 virus: (2) Acute respiratory failure with hypoxia: PLAN: #Acute hypoxic respiratory failure due to COVID 19 pneumonia * remains on AirVo today * critical care on board * on baricitinib and decadron. On breathing treatment with bronchodilators * titrate oxygen to maintain sats >90% * critical care and ID on board * #History of CLL: stable. WBC today is pending. Follow up with oncology on outpatient basis #Elevated D dimer: CTA was negative for PE. Likely due to covid infection #THrombocytopenia: resolved. Platelets are 188 today #Hyponatremia:chronic, will monitor. DVT prophylaxis: lovenox CODE STATUS: Full code * Charges/Coding Visit Charges Inpatient E&M: 63258 Subs Hosp L3
[2021-02-18 07:52] LABS: Absolute Lymphocyte Count 42.07 X10^3/uL (0.83-4.51); Absolute Neutrophil Count 12.2 X10^3/uL (2.0-7.7); Basophil# 0.05 X10^3/uL; Basophil% 0.1 % (0-1); Eosinophil# 0.03 X10^3/uL; Eosinophils% 0.1 % (0-5); Hematocrit 35.2 % (40-54); Hemoglobin 11.7 g/dL (13.0-16.5); Lymphocyte # 42.07 X10^3/ul (0.83-4.51); Lymphocyte % 76.5 % (19-41); Mean Corp Hgb Conc 33.2 g/dL (32-36); Mean Corpuscular Hgb 31.5 pg (27.0-32.0); Mean Corpuscular Volume 94.9 fL (80-94); Mean Platelet Vol. 10.4 fl (6.2-12.0); Monocyte# 0.33 X10^3/uL; Monocyte% 0.6 % (0-10); NRBC Flagged by Analyzer 0 % (0-5); Neutrophil # 12.23 X10^3/uL (2.7-7.7); Neutrophil % 22.2 % (47-70); POSITIVE COUNT YES; POSITIVE DIFFERENTIAL YES; POSITIVE MORPHOLOGY YES; Platelet Count 195 K/mm3 (150-450); RBC Distribution Width CV 15.1 % (11.6-14.6); RBC Distribution Width SD 51.8 fl (35.1-43.9); Red Blood Count 3.71 M/mm3 (4.6-6.2)
[2021-02-18 07:59] LABS: Differential Indicated SCAN CRITERIA MET
[2021-02-18 08:00] LABS: Anion Gap 7 (5-15); BUN 24 mg/dL (7-18); BUN/Creat Ratio 23.3 RATIO (10-20); Calcium,Total 8.3 mg/dL (8.5-10.1); Chloride 89 mmol/L (98-107); Creatinine, Serum 1.03 mg/dL (0.70-1.30); EST Glomerular Filtration Rate 76 mL/min (>60); Est Glom Filt Rate - Afr Amer 92 mL/min (>60); Estimated Creatinine Clearance 71.08 ml/min; Glucose 89 mg/dL (74-106); Potassium 4.4 mmol/L (3.5-5.1); Sodium Level 128 mmol/L (136-145)
--- NOTE | 2021-02-18 08:10 | PCM.PN.INT ---
Assessment & Plan Assessment/Plan (1) Acute respiratory failure with hypoxia: (2) Pneumonia due to COVID-19 virus: PLAN: RECOMMENDATIONS: 1. Continue combination of heated high flow throughout the day and BiPAP at night. 2. Goal to wean FiO2 to maintain oxygen saturations at or above 90%. 3. Continue baricitinib per ID recommendations (02/19/2021). 4. Continue Lovenox twice daily. 5. Continue bronchodilator therapy. 6. Encourage incentive spirometer use and mobilize patient as tolerated. IMPRESSIONS: 1. Acute hypoxemic respiratory failure secondary to COVID-19 pneumonia The patient has noted worsening in his respiratory status after testing positive for COVID-19 pneumonia on February 03. Although offered to him, the patient subsequently refused remdesivir. Given further respiratory decompensation, empiric antimicrobials were initiated. The patient has since completed a treatment course of Decadron and remains on baricitinib. IV diuretics can be continued to maintain euvolemic state, as tolerated by hemodynamics and renal function. Attempt to mobilize patient today and encourage incentive spirometer use. For now, the patient will be continued on heated high flow oxygen throughout the day and BiPAP at night. Wean FiO2 to maintain oxygen saturations at or above 90%. 2. History of CLL/anemia/thrombocytopenia/obesity Complicates care, management, recovery and prognosis. Continue home medications as indicated. This note was generated with [employer] dictation software. It may contain incorrect words, spelling, and punctuation that were not noted in checking the note before signing. Subjective Subjective The patient was seen and examined at the bedside this morning. Events from the last 24 hours have been reviewed. The patient is currently afebrile, hemodynamically stable and maintaining appropriate oxygen saturations on Airvo heated high flow oxygen with an FiO2 requirement of 60% and flow rate of 50 L/min. The patient once again tolerated BiPAP overnight. He is currently documented to be overall net -4.4 L for the hospital admission. The patient remains on twice daily Lovenox and baricitinib. Objective Data Objective Data The patient's most recent lab work, culture data and imaging studies have all been personally reviewed. Vital Signs: Vital Signs Temp Pulse Resp BP Pulse Ox 97.9 F 67 16 114/66 94 02/18/21 04:00 02/18/21 07:39 02/18/21 07:00 02/18/21 07:00 02/18/21 07:00 Oxygen Flow Rate (L/min) 50 Oxygen Delivery Method Airvo Weight: 86 kg Body Mass Index (BMI) 29.9 Intake & Output: Intake and Output for Last 24 Hours 02/16/21 02/17/21 02/18/21 23:59 23:59 23:59 Intake Total 270 / 630 720 / 720 120 / 120 Output Total 650 / 1000 800 / 800 1000 / 1000 Balance -380 / -370 -80 / -80 -880 / -880 Medical Nutrition Assessment Dietitian: Malnutrition Criteria Met Start: 02/17/21 12:38 Freq: Status: Active Protocol: Document 02/17/21 12:38 AG (Rec: 02/17/21 12:38 [id number]) Nutrition Malnutrition Evidence of Malnutrition Exists Yes Malnutrition (severe): Acute Illness/Injury Evidenced By Suboptimal Energy Intake ( Severe),Weight Loss (Severe) Intake Problem Inadequate Oral Intake Etiology related to decreased appetite; BiPAP support Signs/Symptoms as evidenced by PO intake < ~ 50% at meals Status Active Problem Clinical Problem Acute Disease or Injury Related Malnutrition Etiology severe, acute malnutrition r/t inadequate energy intake w/ increased nutrient needs d/t resp. failure Signs/Symptoms as evidenced by estimated PO intake meeting <50% of estimated energy needs >5 days ; unintentional wt loss of 26. 5#/12.3% < 2 weeks Status Active Problem Recommendation Dietitian Recommendations/Changes Continue Regular Diet as ordered with pt preferences for gluten-free and no milk. Will continue 240ml apple ensure clear TID w/ meals as tolerated. Lab / Micro Data Attestation: I reviewed the patient's lab results. Result Diagrams: 02/18/21 04:00 02/18/21 04:00 Labs: Laboratory Results - last 24 hr 02/17/21 05:15: Diff Path Review Reviewed 02/18/21 04:00: WBC 55.0 H*, RBC 3.71 L, Hgb 11.7 L, Hct 35.2 L, MCV 94.9 H, MCH 31.5, MCHC 33.2, RDW Std Deviation 51.8 H, RDW Coeff of Laila 15.1 H, Plt Count 195, MPV 10.4, Immature Gran % (Auto) 0.500, Neut % (Auto) 22.2 L, Lymph % (Auto) 76.5 H, [place] % (Auto) 0.6, Eos % (Auto) 0.1, Baso % (Auto) 0.1, Absolute Neuts (auto) 12.2 H, Absolute Lymphs (auto) 42.07 H, Nucleated RBC % 0 02/18/21 04:00: Sodium 128 L, Potassium 4.4, Chloride 89 L, Carbon Dioxide 32.0, Anion Gap 7, BUN 24 H, Creatinine 1.03, Estim Creat Clear Calc 71.08, Est GFR (MDRD) Af Amer 92, Est GFR (MDRD) Non-Af 76, BUN/Creatinine Ratio 23.3 H, Glucose 89, Calcium 8.3 L Micro: Microbiology 02/12/21 10:00 Sputum, Expectorated/Coughed Gram Stain - Final 02/12/21 10:00 Sputum, Expectorated/Coughed Respiratory Culture - Final Presumptive C albicans 02/04/21 20:50 Blood Culture (Wb) - Anticubital Right Blood Culture - Final No growth in 5 days. 02/04/21 20:43 Blood Culture (Wb) - Anticubital Left Blood Culture - Final No growth in 5 days. 02/05/21 02:47 Urine, Clean Catch Legionella Antigen - Final 02/05/21 02:47 Urine, Clean Catch Streptococcus pneumoniae Antigen (M - Final Physical Exam Const alert and no apparent distress Constitutional Narrative: Currently tolerating Airvo heated high flow General Appearance: cooperative HEENT normocephalic and head/scalp atraumatic Eyes PERRL, EOMs intact bilaterally and conjunctivae normal Neck supple General: trachea midline Chest inspection of chest normal Resp Effort and Inspection: Negative for labored Auscultation: diminished lung sounds; Negative for rales, rhonchi or wheezes Cardio regular rate and regular rhythm GI normal to inspection, nondistended, normoactive bowel sounds Extremity no clubbing, cyanosis or edema Skin no rashes or lesions noted Neuro moves all extremities and no focal motor deficits Psych cooperative and affect normal Charges/Coding Visit Charges Inpatient E&M: 92112 Subs Hosp L3
[2021-02-18] MEDS: Enoxaparin 40 MG/0.4 ML Syringe SC ×2 (10:55→20:28)
[2021-02-18] MEDS: Furosemide 40 MG/4 ML Vial IV (10:55)
[2021-02-18 15:19] LABS: AST(SGOT) 61 U/L (15-37); Alanine Aminotransfer ALT/SGPT 73 U/L (16-61); Albumin, Serum 2.4 g/dL (3.2-5.0); Alkaline Phosphatase 72 U/L (45-117); Bilirubin, Direct 0.33 mg/dL (0.00-0.30); Globulin 2.9 g/dL (2.2-4.2); Protein, Total 5.3 g/dL (6.4-8.2)
[2021-02-19] VITALS (18 sets, daily range): BP systolic 104–117; BP diastolic 55–68; PULSE 64–89; RESP 15–23; TEMP 36.6–37.4; O2SAT 92–96
[2021-02-19 06:10] LABS: Absolute Lymphocyte Count 42.98 X10^3/uL (0.83-4.51); Absolute Neutrophil Count 8.9 X10^3/uL (2.0-7.7); Basophil# 0.05 X10^3/uL; Basophil% 0.1 % (0-1); Eosinophil# 0.04 X10^3/uL; Eosinophils% 0.1 % (0-5); Hematocrit 33.7 % (40-54); Lymphocyte # 42.98 X10^3/ul (0.83-4.51); Mean Corp Hgb Conc 32.6 g/dL (32-36); Mean Corpuscular Hgb 30.2 pg (27.0-32.0); Mean Corpuscular Volume 92.6 fL (80-94); Mean Platelet Vol. 9.7 fl (6.2-12.0); Monocyte% 2.8 % (0-10); NRBC Flagged by Analyzer 0 % (0-5); Neutrophil # 8.94 X10^3/uL (2.7-7.7); Neutrophil % 16.6 % (47-70); POSITIVE COUNT YES; POSITIVE DIFFERENTIAL YES; POSITIVE MORPHOLOGY YES; Platelet Count 194 K/mm3 (150-450); RBC Distribution Width CV 14.7 % (11.6-14.6); RBC Distribution Width SD 49.5 fl (35.1-43.9); Red Blood Count 3.64 M/mm3 (4.6-6.2); White Blood Count 53.7 K/mm3 (4.4-11.0)
[2021-02-19 06:42] LABS: Anion Gap 7 (5-15); BUN 25 mg/dL (7-18); BUN/Creat Ratio 23.8 RATIO (10-20); Calcium,Total 7.8 mg/dL (8.5-10.1); Chloride 90 mmol/L (98-107); Creatinine, Serum 1.05 mg/dL (0.70-1.30); EST Glomerular Filtration Rate 74 mL/min (>60); Est Glom Filt Rate - Afr Amer 90 mL/min (>60); Estimated Creatinine Clearance 69.72 ml/min; Glucose 98 mg/dL (74-106); Potassium 3.8 mmol/L (3.5-5.1); Sodium Level 128 mmol/L (136-145)
[2021-02-19 06:54] LABS: Differential Indicated SCAN CRITERIA MET
[2021-02-19] MEDS: Ipratropium/Albuterol Sulfate 3 ML AMPUL.NEB INHALATION ×4 (07:02→19:13)
[2021-02-19 07:12] LABS: Anisocytosis 1+
[2021-02-19 07:13] LABS: Atypical Lymphocyte 3+ %
[2021-02-19] MEDS: Sodium Chloride 0.65% 1 SPRAY SPRAY.BTL 2 SPRAY NASAL (07:52)
[2021-02-19] MEDS: guaiFENesin 10 ML UDC (200MG/10ML) PO (07:54)
[2021-02-19] MEDS: Enoxaparin 40 MG/0.4 ML Syringe SC ×2 (08:36→21:23)
--- NOTE | 2021-02-19 11:14 | PN.HOSP_ITS ---
Subjective Subjective Patient seen and examined. He remains on air Vo. He was transferred out of the ICU to the PCU yesterday. He has no complaints. Review of systems otherwise negative. He has otherwise remained hemodynamically stable. Objective Data Objective Data Vital Signs: Vital Signs Temp Pulse Resp BP Pulse Ox 98.7 F 64 17 106/55 L 96 02/19/21 07:50 02/19/21 07:50 02/19/21 07:50 02/19/21 07:50 02/19/21 07:50 Oxygen Flow Rate (L/min) 50 Oxygen Delivery Method Airvo Weight: 184 lb 15.485 oz Body Mass Index (BMI) 29.9 Intake & Output: Intake and Output for Last 24 Hours 02/17/21 02/18/21 02/19/21 23:59 23:59 23:59 Intake Total 720 / 720 760 / 760 240 / 240 Output Total 800 / 800 3250 / 3250 Balance -80 / -80 -2490 / -2490 240 / 240 Medical Nutrition Assessment Dietitian: Malnutrition Criteria Met Start: 02/17/21 12:38 Freq: Status: Active Protocol: Document 02/17/21 12:38 AG (Rec: 02/17/21 12:38 AG [id number]) Nutrition Malnutrition Evidence of Malnutrition Exists Yes Malnutrition (severe): Acute Illness/Injury Evidenced By Suboptimal Energy Intake ( Severe),Weight Loss (Severe) Intake Problem Inadequate Oral Intake Etiology related to decreased appetite; BiPAP support Signs/Symptoms as evidenced by PO intake < ~ 50% at meals Status Active Problem Clinical Problem Acute Disease or Injury Related Malnutrition Etiology severe, acute malnutrition r/t inadequate energy intake w/ increased nutrient needs d/t resp. failure Signs/Symptoms as evidenced by estimated PO intake meeting <50% of estimated energy needs >5 days ; unintentional wt loss of 26. 5#/12.3% < 2 weeks Status Active Problem Recommendation Dietitian Recommendations/Changes Continue Regular Diet as ordered with pt preferences for gluten-free and no milk. Will continue 240ml apple ensure clear TID w/ meals as tolerated. Lab / Micro Data Result Diagrams: 02/19/21 05:50 02/19/21 05:50 Labs: Laboratory Results - last 24 hr 02/18/21 04:00: Total Bilirubin 1.20 H, Direct Bilirubin 0.33 H, AST 61 H, ALT 73 H, Alkaline Phosphatase 72, Total Protein 5.3 L, Albumin 2.4 L, Globulin 2.9 02/19/21 05:50: WBC 53.7 H*, RBC 3.64 L, Hgb 11.0 L, Hct 33.7 L, MCV 92.6, MCH 30.2, MCHC 32.6, RDW Std Deviation 49.5 H, RDW Coeff of Laila 14.7 H, Plt Count 194, MPV 9.7, Immature Gran % (Auto) 0.400, Neut % (Auto) 16.6 L, Lymph % (Auto) 80.0 H, [place] % (Auto) 2.8, Eos % (Auto) 0.1, Baso % (Auto) 0.1, Absolute Neuts (auto) 8.9 H, Absolute Lymphs (auto) 42.98 H, Nucleated RBC % 0, Diff Path Review May foll, Atypical Lymphocytes 3+, Anisocytosis 1+ 02/19/21 05:50: Sodium 128 L, Potassium 3.8, Chloride 90 L, Carbon Dioxide 31.0, Anion Gap 7, BUN 25 H, Creatinine 1.05, Estim Creat Clear Calc 69.72, Est GFR (MDRD) Af Amer 90, Est GFR (MDRD) Non-Af 74, BUN/Creatinine Ratio 23.8 H, Glucose 98, Calcium 7.8 L Micro: Microbiology 02/12/21 10:00 Sputum, Expectorated/Coughed Gram Stain - Final 02/12/21 10:00 Sputum, Expectorated/Coughed Respiratory Culture - Final Presumptive C albicans 02/04/21 20:50 Blood Culture (Wb) - Anticubital Right Blood Culture - Final No growth in 5 days. 02/04/21 20:43 Blood Culture (Wb) - Anticubital Left Blood Culture - Final No growth in 5 days. 02/05/21 02:47 Urine, Clean Catch Legionella Antigen - Final 02/05/21 02:47 Urine, Clean Catch Streptococcus pneumoniae Antigen (M - Final Physical Exam Const alert, oriented x3 and no apparent distress General Appearance: cooperative Exam Limitations: no limitations HEENT normocephalic, head/scalp atraumatic, hearing grossly normal bilaterally and moist oral mucous membranes Head and Scalp: normocephalic Eyes PERRL, EOMs intact bilaterally and conjunctivae normal Eyes Narrative: No scleral icterus Neck no lymphadenopathy, supple and no JVD Resp normal respiratory effort, no retractions and no use of accessory muscles Resp Narrative: tachypneic, diminished breath sounds bibasally, no wheezes or crackles. On AirVo Auscultation: Negative for crackles, rales, rhonchi or wheezes Cardio regular rate, regular rhythm, S1 normal heart sound, S2 normal heart sound, no murmurs, no rub, no gallops, no clicks and no JVD GI normal to inspection, nondistended, normoactive bowel sounds, soft to palpation, non-tender and non-distended Extremity normal to inspection, full ROM and no clubbing, cyanosis or edema Peripheral Pulses: Yes pulses 2+ throughout Skin no rashes or lesions noted, no wounds, skin turgor normal, no jaundice, no petechiae and no mottling Neuro oriented x3, CN's II-XII intact bilaterally, moves all extremities and no focal motor deficits Sensorium / Orientation: awake, alert, oriented to person, oriented to place and oriented to time Speech: speech normal Motor Exam: strength 5/5 throughout Psych affect normal Assessment & Plan Assessment/Plan (1) Pneumonia due to COVID-19 virus: (2) Acute respiratory failure with hypoxia: PLAN: #Acute hypoxic respiratory failure due to COVID 19 pneumonia * still remains on AirVO * critical care on board * on baricitinib and decadron. On breathing treatment with bronchodilators * titrate oxygen to maintain sats >90% * critical care and ID on board * #History of CLL: stable. WBC 53.7. Follow up with oncology on outpatient basis #Elevated D dimer: CTA was negative for PE. Likely due to covid infection. On lovenox 30mg bid. #THrombocytopenia: resolved. Platelets are 194 today #Hyponatremia:chronic, will monitor. DVT prophylaxis: lovenox CODE STATUS: Full code * Charges/Coding Visit Charges Inpatient E&M: 12388 Subs Hosp L2
[2021-02-19 14:00] LABS: Pathologist Review Reviewed
[2021-02-19 14:03] LABS: Pathologist Review Reviewed
[2021-02-19] MEDS: 0.9% Saline Lock 10 ML Syringe IV (21:26)
[2021-02-20] VITALS (20 sets, daily range): BP systolic 105–122; BP diastolic 57–63; PULSE 60–101; RESP 12–23; TEMP 36.5–37.1; O2SAT 90–96
--- NOTE | 2021-02-20 00:47 | NURSING ---
Patient resting in recliner with legs elevated and airvo on this nurse offered to assisted to bed and put on bipap. Patient stated he wore the airvo all night last night provided education on switching from the airvo to the bipap. Patient also stated no being ready to get in the bed reminded him to off load pressure off coccyx while in recliner. Reminded patient that he can use call light if he changes his mind.
[2021-02-20 06:44] LABS: Absolute Neutrophil Count 6.2 X10^3/uL (2.0-7.7); Basophil% 0.2 % (0-1); Eosinophil# 0.06 X10^3/uL; Eosinophils% 0.1 % (0-5); Hematocrit 34.8 % (40-54); Hemoglobin 11.1 g/dL (13.0-16.5); Lymphocyte % 83.5 % (19-41); Mean Corp Hgb Conc 31.9 g/dL (32-36); Mean Corpuscular Hgb 30.2 pg (27.0-32.0); Mean Corpuscular Volume 94.6 fL (80-94); Mean Platelet Vol. 9.8 fl (6.2-12.0); Monocyte% 2.2 % (0-10); NRBC Flagged by Analyzer 0 % (0-5); Neutrophil # 6.18 X10^3/uL (2.7-7.7); Neutrophil % 13.7 % (47-70); POSITIVE COUNT YES; POSITIVE DIFFERENTIAL YES; POSITIVE MORPHOLOGY YES; Platelet Count 169 K/mm3 (150-450); RBC Distribution Width CV 15.2 % (11.6-14.6); RBC Distribution Width SD 52.1 fl (35.1-43.9); Red Blood Count 3.68 M/mm3 (4.6-6.2); White Blood Count 45.4 K/mm3 (4.4-11.0)
[2021-02-20 06:52] LABS: Differential Indicated SCAN CRITERIA MET
[2021-02-20] MEDS: Ipratropium/Albuterol Sulfate 3 ML AMPUL.NEB INHALATION ×4 (06:53→18:50)
[2021-02-20 07:05] LABS: Anion Gap 4 (5-15); BUN 23 mg/dL (7-18); BUN/Creat Ratio 21.7 RATIO (10-20); Calcium,Total 8.3 mg/dL (8.5-10.1); Chloride 94 mmol/L (98-107); Creatinine, Serum 1.06 mg/dL (0.70-1.30); EST Glomerular Filtration Rate 73 mL/min (>60); Est Glom Filt Rate - Afr Amer 89 mL/min (>60); Estimated Creatinine Clearance 69.06 ml/min; Glucose 101 mg/dL (74-106); Potassium 4.3 mmol/L (3.5-5.1); Sodium Level 131 mmol/L (136-145)
[2021-02-20 07:16] LABS: Differential Comment SCANNED; Smudge Cells 1+
[2021-02-20] MEDS: Enoxaparin 40 MG/0.4 ML Syringe SC ×2 (09:53→21:07)
--- NOTE | 2021-02-20 10:13 | PN.CC_ITS ---
Assessment & Plan Assessment/Plan (1) Acute respiratory failure with hypoxia: (2) Pneumonia due to COVID-19 virus: PLAN: RECOMMENDATIONS: 1. Continue to wean supplemental oxygen to maintain saturations at or above 90%. 2. Continue scheduled Lovenox and bronchodilators. 3. Lasix, as needed, to maintain euvolemic state. 4. Encourage incentive spirometer use and mobilize patient as tolerated. 5. Perform walking oximetry study prior to consideration for discharge home. 6. Given improving oxygenation status, will sign off. Please call with any additional questions. IMPRESSIONS: 1. Acute hypoxemic respiratory failure secondary to COVID-19 pneumonia The patient has noted worsening in his respiratory status after testing positive for COVID-19 pneumonia on February 03. Although offered to him, the patient subsequently refused remdesivir. Given further respiratory decompensation, empiric antimicrobials were initiated. The patient has since completed a treatment course of Decadron and baricitinib. IV diuretics can be continued to maintain euvolemic state, as tolerated by hemodynamics and renal function. Attempt to mobilize patient today and encourage incentive spirometer use. Continue supplemental oxygen to maintain saturations at or above 90%. 2. History of CLL/anemia/thrombocytopenia/obesity Complicates care, management, recovery and prognosis. Continue home medications as indicated. This note was generated with [employer] dictation software. It may contain incorrect words, spelling, and punctuation that were not noted in checking the note before signing. Subjective Subjective The patient was seen and examined at the bedside this morning. Events from the last 24 hours have been reviewed. The patient is currently afebrile, hemodynamically stable and maintaining appropriate oxygen saturations on 7 L/min via nasal cannula. The patient is currently documented to be overall net -6.2 L for the hospital admission. He remains on twice daily Lovenox and scheduled bronchodilators. Objective Data Objective Data The patient's most recent lab work, culture data and imaging studies have all been personally reviewed. Vital Signs: Vital Signs Temp Pulse Resp BP Pulse Ox 97.9 F 91 19 H 106/62 91 02/20/21 09:57 02/20/21 09:57 02/20/21 09:57 02/20/21 09:57 02/20/21 09:57 Oxygen Flow Rate (L/min) 7 Oxygen Delivery Method Nasal Cannula Weight: 83.779 kg Body Mass Index (BMI) 29.9 Intake & Output: Intake and Output for Last 24 Hours 02/18/21 02/19/21 02/20/21 23:59 23:59 23:59 Intake Total 760 / 760 1140 / 1140 Output Total 3250 / 3250 1325 / 1325 Balance -2490 / -2490 -185 / -185 Medical Nutrition Assessment Dietitian: Malnutrition Criteria Met Start: 02/17/21 12:38 Freq: Status: Active Protocol: Document 02/17/21 12:38 (Rec: 02/17/21 12:38 [id number]) Nutrition Malnutrition Evidence of Malnutrition Exists Yes Malnutrition (severe): Acute Illness/Injury Evidenced By Suboptimal Energy Intake ( Severe),Weight Loss (Severe) Intake Problem Inadequate Oral Intake Etiology related to decreased appetite; BiPAP support Signs/Symptoms as evidenced by PO intake < ~ 50% at meals Status Active Problem Clinical Problem Acute Disease or Injury Related Malnutrition Etiology severe, acute malnutrition r/t inadequate energy intake w/ increased nutrient needs d/t resp. failure Signs/Symptoms as evidenced by estimated PO intake meeting <50% of estimated energy needs >5 days ; unintentional wt loss of 26. 5#/12.3% < 2 weeks Status Active Problem Recommendation Dietitian Recommendations/Changes Continue Regular Diet as ordered with pt preferences for gluten-free and no milk. Will continue 240ml apple ensure clear TID w/ meals as tolerated. Lab / Micro Data Attestation: I reviewed the patient's lab results. Result Diagrams: 02/20/21 05:25 02/20/21 05:25 Labs: Laboratory Results - last 24 hr 02/18/21 04:00: Diff Path Review Reviewed 02/19/21 05:50: Diff Path Review Reviewed 02/20/21 05:25: WBC 45.4 H*, RBC 3.68 L, Hgb 11.1 L, Hct 34.8 L, MCV 94.6 H, MCH 30.2, MCHC 31.9 L, RDW Std Deviation 52.1 H, RDW Coeff of Laila 15.2 H, Plt Count 169, MPV 9.8, Immature Gran % (Auto) 0.300, Neut % (Auto) 13.7 L, Lymph % (Auto) 83.5 H, [place] % (Auto) 2.2, Eos % (Auto) 0.1, Baso % (Auto) 0.2, Absolute Neuts (auto) 6.2, Absolute Lymphs (auto) 37.90 H, Nucleated RBC % 0, Differential Comment SCANNED, Diff Path Review May foll, Smudge Cells 1+ H 02/20/21 05:25: Sodium 131 L, Potassium 4.3, Chloride 94 L, Carbon Dioxide 33.0 H, Anion Gap 4 L, BUN 23 H, Creatinine 1.06, Estim Creat Clear Calc 69.06, Est GFR (MDRD) Af Amer 89, Est GFR (MDRD) Non-Af 73, BUN/Creatinine Ratio 21.7 H, Glucose 101, Calcium 8.3 L Micro: Microbiology 02/12/21 10:00 Sputum, Expectorated/Coughed Gram Stain - Final 02/12/21 10:00 Sputum, Expectorated/Coughed Respiratory Culture - Final Presumptive C albicans 02/04/21 20:50 Blood Culture (Wb) - Anticubital Right Blood Culture - Final No growth in 5 days. 02/04/21 20:43 Blood Culture (Wb) - Anticubital Left Blood Culture - Final No growth in 5 days. 02/05/21 02:47 Urine, Clean Catch Legionella Antigen - Final 02/05/21 02:47 Urine, Clean Catch Streptococcus pneumoniae Antigen (M - Final Physical Exam Const alert and no apparent distress General Appearance: cooperative HEENT normocephalic and head/scalp atraumatic Eyes PERRL, EOMs intact bilaterally and conjunctivae normal Neck supple General: trachea midline Chest inspection of chest normal Resp Effort and Inspection: Negative for labored Auscultation: diminished lung sounds; Negative for rales, rhonchi or wheezes Cardio regular rate and regular rhythm GI normal to inspection, nondistended, normoactive bowel sounds Extremity no clubbing, cyanosis or edema Skin no rashes or lesions noted Neuro moves all extremities and no focal motor deficits Psych cooperative and affect normal Charges/Coding Visit Charges Inpatient E&M: 48311 Subs Hosp L2
--- NOTE | 2021-02-20 11:11 | PN.HOSP_ITS ---
Subjective Subjective Patient seen and examined. He has been weaned off AIrVO and was on 7L of oxygen by nasal canula at time of review. He had no active complaints and review of systems is otherwise negative. Objective Data Objective Data Vital Signs: Vital Signs Temp Pulse Resp BP Pulse Ox 97.9 F 73 19 H 106/62 91 02/20/21 09:57 02/20/21 11:00 02/20/21 09:57 02/20/21 09:57 02/20/21 09:57 Oxygen Flow Rate (L/min) 7 Oxygen Delivery Method Nasal Cannula Weight: 184 lb 11.2 oz Body Mass Index (BMI) 29.9 Intake & Output: Intake and Output for Last 24 Hours 02/18/21 02/19/21 02/20/21 23:59 23:59 23:59 Intake Total 760 / 760 1140 / 1140 Output Total 3250 / 3250 1325 / 1325 Balance -2490 / -2490 -185 / -185 Medical Nutrition Assessment Dietitian: Malnutrition Criteria Met Start: 02/17/21 12:38 Freq: Status: Active Protocol: Document 02/17/21 12:38 AG (Rec: 02/17/21 12:38 AG [id number]) Nutrition Malnutrition Evidence of Malnutrition Exists Yes Malnutrition (severe): Acute Illness/Injury Evidenced By Suboptimal Energy Intake ( Severe),Weight Loss (Severe) Intake Problem Inadequate Oral Intake Etiology related to decreased appetite; BiPAP support Signs/Symptoms as evidenced by PO intake < ~ 50% at meals Status Active Problem Clinical Problem Acute Disease or Injury Related Malnutrition Etiology severe, acute malnutrition r/t inadequate energy intake w/ increased nutrient needs d/t resp. failure Signs/Symptoms as evidenced by estimated PO intake meeting <50% of estimated energy needs >5 days ; unintentional wt loss of 26. 5#/12.3% < 2 weeks Status Active Problem Recommendation Dietitian Recommendations/Changes Continue Regular Diet as ordered with pt preferences for gluten-free and no milk. Will continue 240ml apple ensure clear TID w/ meals as tolerated. Lab / Micro Data Result Diagrams: 02/20/21 05:25 02/20/21 05:25 Labs: Laboratory Results - last 24 hr 02/18/21 04:00: Diff Path Review Reviewed 02/19/21 05:50: Diff Path Review Reviewed 02/20/21 05:25: WBC 45.4 H*, RBC 3.68 L, Hgb 11.1 L, Hct 34.8 L, MCV 94.6 H, MCH 30.2, MCHC 31.9 L, RDW Std Deviation 52.1 H, RDW Coeff of Laila 15.2 H, Plt Count 169, MPV 9.8, Immature Gran % (Auto) 0.300, Neut % (Auto) 13.7 L, Lymph % (Auto) 83.5 H, [place] % (Auto) 2.2, Eos % (Auto) 0.1, Baso % (Auto) 0.2, Absolute Neuts (auto) 6.2, Absolute Lymphs (auto) 37.90 H, Nucleated RBC % 0, Differential Comment SCANNED, Diff Path Review May foll, Smudge Cells 1+ H 02/20/21 05:25: Sodium 131 L, Potassium 4.3, Chloride 94 L, Carbon Dioxide 33.0 H, Anion Gap 4 L, BUN 23 H, Creatinine 1.06, Estim Creat Clear Calc 69.06, Est GFR (MDRD) Af Amer 89, Est GFR (MDRD) Non-Af 73, BUN/Creatinine Ratio 21.7 H, Glucose 101, Calcium 8.3 L Micro: Microbiology 02/12/21 10:00 Sputum, Expectorated/Coughed Gram Stain - Final 02/12/21 10:00 Sputum, Expectorated/Coughed Respiratory Culture - Final Presumptive C albicans 02/04/21 20:50 Blood Culture (Wb) - Anticubital Right Blood Culture - Final No growth in 5 days. 02/04/21 20:43 Blood Culture (Wb) - Anticubital Left Blood Culture - Final No growth in 5 days. 02/05/21 02:47 Urine, Clean Catch Legionella Antigen - Final 02/05/21 02:47 Urine, Clean Catch Streptococcus pneumoniae Antigen (M - Final Physical Exam Const alert, oriented x3 and no apparent distress General Appearance: cooperative Exam Limitations: no limitations HEENT normocephalic, head/scalp atraumatic, hearing grossly normal bilaterally and moist oral mucous membranes Head and Scalp: normocephalic Eyes PERRL, EOMs intact bilaterally and conjunctivae normal Neck no lymphadenopathy, supple and no JVD Neck Narrative: Resp normal respiratory effort, no retractions and no use of accessory muscles Resp Narrative: tachypneic, diminished breath sounds bibasally, no wheezes or crackles. On 7L of oxygen Auscultation: Negative for crackles, rales, rhonchi or wheezes Cardio regular rate, regular rhythm, S1 normal heart sound, S2 normal heart sound, no murmurs, no rub, no gallops, no clicks and no JVD GI normal to inspection, nondistended, normoactive bowel sounds, soft to palpation, non-tender and non-distended Extremity normal to inspection, full ROM and no clubbing, cyanosis or edema Peripheral Pulses: Yes pulses 2+ throughout Skin no rashes or lesions noted, no wounds, skin turgor normal, no jaundice, no pet echiae and no mottling Neuro oriented x3, CN's II-XII intact bilaterally, moves all extremities and no focal motor deficits Sensorium / Orientation: awake, alert, oriented to person, oriented to place and oriented to time Speech: speech normal Motor Exam: strength 5/5 throughout Psych affect normal Assessment & Plan Assessment/Plan (1) Pneumonia due to COVID-19 virus: (2) Acute respiratory failure with hypoxia: PLAN: #Acute hypoxic respiratory failure due to COVID 19 pneumonia * now off AirVO, on 7L of oxygen by nasal canula * critical care on board * On breathing treatment with bronchodilators * completed a course of baricitinib and decadron * titrate oxygen to maintain sats >90% * critical care and ID on board * in cumulative negative balance by 6.2L * #History of CLL: stable. WBC is down to 45.4 today. Follow up with oncology on outpatient basis #Elevated D dimer: CTA was negative for PE. Likely due to covid infection. On lovenox 30mg bid. #THrombocytopenia: resolved. Platelets are 194 today #Hyponatremia:chronic, will monitor.Sodium is 131 DVT prophylaxis: lovenox CODE STATUS: Full code * Charges/Coding Visit Charges Inpatient E&M: 84746 Subs Hosp L2
--- NOTE | 2021-02-20 11:49 | CASEMGMT ---
Pt unsure of need for therapy at discharge. Pt is currently on 7L nc and Green sheet on chart for home oxygen, if pt were to discharge over the w/e. CM to follow PT/OT. Ursula HEAD CM
--- NOTE | 2021-02-20 13:04 | NURSING ---
This RN taking over care at this time
[2021-02-20 15:40] LABS: Pathologist Review Reviewed
--- NOTE | 2021-02-20 21:13 | NURSING ---
PT has bipap on while in bed at this time. O2 65% no concerns voiced at this time. call light within reach.
--- NOTE | 2021-02-20 23:23 | NURSING ---
Patient requested for bipap to be taken off at this time. Provided education on the importance of wear the bipap but patient wants NC on Spo2 96%.
[2021-02-21] VITALS (17 sets, daily range): BP systolic 101–116; BP diastolic 63–69; PULSE 72–98; RESP 16–20; TEMP 36.6–37.1; O2SAT 88–94
[2021-02-21 06:47] LABS: Absolute Lymphocyte Count 32.06 X10^3/uL (0.83-4.51); Absolute Neutrophil Count 6.6 X10^3/uL (2.0-7.7); Basophil# 0.07 X10^3/uL; Basophil% 0.2 % (0-1); Eosinophil# 0.05 X10^3/uL; Eosinophils% 0.1 % (0-5); Hematocrit 32.2 % (40-54); Hemoglobin 10.5 g/dL (13.0-16.5); Lymphocyte # 32.06 X10^3/ul (0.83-4.51); Lymphocyte % 80.8 % (19-41); Mean Corp Hgb Conc 32.6 g/dL (32-36); Mean Corpuscular Hgb 30.8 pg (27.0-32.0); Mean Corpuscular Volume 94.4 fL (80-94); Mean Platelet Vol. 10.1 fl (6.2-12.0); Monocyte# 0.71 X10^3/uL; Monocyte% 1.8 % (0-10); NRBC Flagged by Analyzer 0 % (0-5); Neutrophil # 6.64 X10^3/uL (2.7-7.7); Neutrophil % 16.8 % (47-70); POSITIVE COUNT YES; POSITIVE DIFFERENTIAL YES; POSITIVE MORPHOLOGY YES; Platelet Count 157 K/mm3 (150-450); RBC Distribution Width CV 15.5 % (11.6-14.6); RBC Distribution Width SD 53.1 fl (35.1-43.9); Red Blood Count 3.41 M/mm3 (4.6-6.2)
[2021-02-21 06:53] LABS: Differential Indicated SCAN CRITERIA MET
[2021-02-21 06:56] LABS: White Blood Count 39.7 K/mm3 (4.4-11.0)
[2021-02-21] MEDS: Ipratropium/Albuterol Sulfate 3 ML AMPUL.NEB INHALATION ×4 (07:09→19:45)
[2021-02-21 07:12] LABS: Anion Gap 5 (5-15); BUN 15 mg/dL (7-18); BUN/Creat Ratio 14.7 RATIO (10-20); Calcium,Total 8.2 mg/dL (8.5-10.1); Chloride 94 mmol/L (98-107); Creatinine, Serum 1.02 mg/dL (0.70-1.30); EST Glomerular Filtration Rate 77 mL/min (>60); Est Glom Filt Rate - Afr Amer 93 mL/min (>60); Estimated Creatinine Clearance 71.77 ml/min; Glucose 95 mg/dL (74-106); Potassium 4.1 mmol/L (3.5-5.1); Sodium Level 131 mmol/L (136-145)
[2021-02-21 07:15] LABS: Differential Comment SCANNED
[2021-02-21] MEDS: Enoxaparin 40 MG/0.4 ML Syringe SC ×2 (08:51→21:39)
--- NOTE | 2021-02-21 12:37 | PN.HOSP_ITS ---
Subjective Subjective Patient seen and examined. He has no active complaints today. He feels well and review of stents otherwise negative. His oxygen requirements have however gone up to 12 L of oxygen from 7 L yesterday. Review of systems otherwise negative. Objective Data Objective Data Vital Signs: Vital Signs Temp Pulse Resp BP Pulse Ox 98.1 F 98 16 113/63 88 02/21/21 08:55 02/21/21 11:00 02/21/21 10:25 02/21/21 08:55 02/21/21 10:51 Oxygen Flow Rate (L/min) 12.5 Oxygen Delivery Method Nasal Cannula Weight: 184 lb 11.958 oz Body Mass Index (BMI) 29.9 Intake & Output: Intake and Output for Last 24 Hours 02/19/21 02/20/21 02/21/21 23:59 23:59 23:59 Intake Total 1140 / 1140 1080 / 1080 360 / 360 Output Total 1325 / 1325 800 / 800 625 / 625 Balance -185 / -185 280 / 280 -265 / -265 Medical Nutrition Assessment Dietitian: Malnutrition Criteria Met Start: 02/17/21 12:38 Freq: Status: Active Protocol: Document 02/17/21 12:38 AG (Rec: 02/17/21 12:38 [id number]) Nutrition Malnutrition Evidence of Malnutrition Exists Yes Malnutrition (severe): Acute Illness/Injury Evidenced By Suboptimal Energy Intake ( Severe),Weight Loss (Severe) Intake Problem Inadequate Oral Intake Etiology related to decreased appetite; BiPAP support Signs/Symptoms as evidenced by PO intake < ~ 50% at meals Status Active Problem Clinical Problem Acute Disease or Injury Related Malnutrition Etiology severe, acute malnutrition r/t inadequate energy intake w/ increased nutrient needs d/t resp. failure Signs/Symptoms as evidenced by estimated PO intake meeting <50% of estimated energy needs >5 days ; unintentional wt loss of 26. 5#/12.3% < 2 weeks Status Active Problem Recommendation Dietitian Recommendations/Changes Continue Regular Diet as ordered with pt preferences for gluten-free and no milk. Will continue 240ml apple ensure clear TID w/ meals as tolerated. Lab / Micro Data Result Diagrams: 02/21/21 06:05 02/21/21 06:05 Labs: Laboratory Results - last 24 hr 02/20/21 05:25: Diff Path Review Reviewed 02/21/21 06:05: WBC 39.7 H*, RBC 3.41 L, Hgb 10.5 L, Hct 32.2 L, MCV 94.4 H, MCH 30.8, MCHC 32.6, RDW Std Deviation 53.1 H, RDW Coeff of Laila 15.5 H, Plt Count 157, MPV 10.1, Immature Gran % (Auto) 0.300, Neut % (Auto) 16.8 L, Lymph % (Auto) 80.8 H, [place] % (Auto) 1.8, Eos % (Auto) 0.1, Baso % (Auto) 0.2, Absolute Neuts (auto) 6.6, Absolute Lymphs (auto) 32.06 H, Nucleated RBC % 0, Differential Comment SCANNED, Diff Path Review August02/21/21 06:05: Sodium 131 L, Potassium 4.1, Chloride 94 L, Carbon Dioxide 32.0, Anion Gap 5, BUN 15, Creatinine 1.02, Estim Creat Clear Calc 71.77, Est GFR (MDRD) Af Amer 93, Est GFR (MDRD) Non-Af 77, BUN/Creatinine Ratio 14.7, Glucose 95, Calcium 8.2 L Micro: Microbiology 02/12/21 10:00 Sputum, Expectorated/Coughed Gram Stain - Final 02/12/21 10:00 Sputum, Expectorated/Coughed Respiratory Culture - Final Presumptive C albicans 02/04/21 20:50 Blood Culture (Wb) - Anticubital Right Blood Culture - Final No growth in 5 days. 02/04/21 20:43 Blood Culture (Wb) - Anticubital Left Blood Culture - Final No growth in 5 days. 02/05/21 02:47 Urine, Clean Catch Legionella Antigen - Final 02/05/21 02:47 Urine, Clean Catch Streptococcus pneumoniae Antigen (M - Final Physical Exam Const alert, oriented x3 and no apparent distress General Appearance: cooperative Exam Limitations: no limitations HEENT normocephalic, head/scalp atraumatic, hearing grossly normal bilaterally and moist oral mucous membranes Head and Scalp: normocephalic Eyes PERRL, EOMs intact bilaterally and conjunctivae normal Eyes Narrative: No scleral icterus Neck no lymphadenopathy, supple and no JVD Neck Narrative: Resp normal respiratory effort, no retractions and no use of accessory muscles Resp Narrative: tachypneic, diminished breath sounds bibasally, no wheezes or crackles. On 12L of oxygen Auscultation: Negative for crackles, rales, rhonchi or wheezes Cardio regular rate, regular rhythm, S1 normal heart sound, S2 normal heart sound, no murmurs, no rub, no gallops, no clicks and no JVD GI normal to inspection, nondistended, normoactive bowel sounds, soft to palpation, non-tender and non-distended Extremity normal to inspection, full ROM and no clubbing, cyanosis or edema Peripheral Pulses: Yes pulses 2+ throughout Skin no rashes or lesions noted, no wounds, skin turgor normal, no jaundice, no petechiae and no mottling Neuro oriented x3, CN's II-XII intact bilaterally, moves all extremities and no focal motor deficits Sensorium / Orientation: awake, alert, oriented to person, oriented to place and oriented to time Speech: speech normal Motor Exam: strength 5/5 throughout Psych affect normal Assessment & Plan Assessment/Plan (1) Pneumonia due to COVID-19 virus: (2) Acute respiratory failure with hypoxia: PLAN: #Acute hypoxic respiratory failure due to COVID 19 pneumonia * now on 12L of oxygen today, from 7L yesterday * critical care on board * On breathing treatment with bronchodilators * completed a course of baricitinib and decadron * titrate oxygen to maintain sats >90% * critical care and ID on board * in cumulative negative balance by 6.2L * #History of CLL: stable. WBC is down to 439.7 today. Follow up with oncology on outpatient basis #Elevated D dimer: CTA was negative for PE. On lovenox 30mg bid. #Hyponatremia:chronic, will monitor.Sodium is still 131 today DVT prophylaxis: lovenox CODE STATUS: Full code * Charges/Coding Visit Charges Inpatient E&M: 54138 Subs Hosp L3
[2021-02-22] VITALS (16 sets, daily range): BP systolic 107–116; BP diastolic 54–98; PULSE 68–95; RESP 12–24; TEMP 36.7–36.8; O2SAT 91–96
[2021-02-22 05:24] LABS: Absolute Lymphocyte Count 28.82 X10^3/uL (0.83-4.51); Absolute Neutrophil Count 5.7 X10^3/uL (2.0-7.7); Basophil# 0.09 X10^3/uL; Basophil% 0.2 % (0-1); Eosinophil# 0.17 X10^3/uL; Eosinophils% 0.5 % (0-5); Hematocrit 31.9 % (40-54); Hemoglobin 10.3 g/dL (13.0-16.5); Lymphocyte # 28.82 X10^3/ul (0.83-4.51); Lymphocyte % 79.1 % (19-41); Mean Corp Hgb Conc 32.3 g/dL (32-36); Mean Corpuscular Hgb 30.7 pg (27.0-32.0); Mean Corpuscular Volume 95.2 fL (80-94); Mean Platelet Vol. 9.8 fl (6.2-12.0); Monocyte# 1.51 X10^3/uL; Monocyte% 4.1 % (0-10); NRBC Flagged by Analyzer 0 % (0-5); Neutrophil # 5.74 X10^3/uL (2.7-7.7); Neutrophil % 15.8 % (47-70); POSITIVE COUNT YES; POSITIVE DIFFERENTIAL YES; POSITIVE MORPHOLOGY YES; Platelet Count 138 K/mm3 (150-450); RBC Distribution Width CV 15.5 % (11.6-14.6); RBC Distribution Width SD 53.3 fl (35.1-43.9); Red Blood Count 3.35 M/mm3 (4.6-6.2)
[2021-02-22 05:32] LABS: Differential Indicated SCAN CRITERIA MET; White Blood Count 36.4 K/mm3 (4.4-11.0)
[2021-02-22 05:55] LABS: Anion Gap 5 (5-15); BUN 17 mg/dL (7-18); BUN/Creat Ratio 18.9 RATIO (10-20); Chloride 98 mmol/L (98-107); EST Glomerular Filtration Rate 89 mL/min (>60); Est Glom Filt Rate - Afr Amer 107 mL/min (>60); Estimated Creatinine Clearance 81.34 ml/min; Glucose 96 mg/dL (74-106); Potassium 4.2 mmol/L (3.5-5.1); Sodium Level 133 mmol/L (136-145)
[2021-02-22 06:53] LABS: Differential Comment SCANNED
[2021-02-22] MEDS: Ipratropium/Albuterol Sulfate 3 ML AMPUL.NEB INHALATION ×4 (06:56→20:28)
[2021-02-22] MEDS: Enoxaparin 40 MG/0.4 ML Syringe SC ×2 (08:31→21:02)
--- NOTE | 2021-02-22 10:09 | PN.HOSP_ITS ---
Subjective Subjective Patient seen and examined. He had no complaints. HE was on BIPAP this morning. He had no active complaints and review of systems is otherwise negative. Objective Data Objective Data Vital Signs: Vital Signs Temp Pulse Resp BP Pulse Ox 98.0 F 77 20 H 112/61 94 02/22/21 05:26 02/22/21 07:00 02/22/21 05:26 02/22/21 05:26 02/22/21 05:26 Oxygen Flow Rate (L/min) 60 Oxygen Delivery Method Bi-pap Weight: 184 lb 15.485 oz Body Mass Index (BMI) 29.9 Intake & Output: Intake and Output for Last 24 Hours 02/20/21 02/21/21 02/22/21 23:59 23:59 23:59 Intake Total 1080 / 1080 600 / 600 Output Total 800 / 800 1800 / 1800 0 / 0 Balance 280 / 280 -1200 / -1200 0 / 0 Medical Nutrition Assessment Dietitian: Malnutrition Criteria Met Start: 02/17/21 12:38 Freq: Status: Active Protocol: Document 02/17/21 12:38 AG (Rec: 02/17/21 12:38 [id number]) Nutrition Malnutrition Evidence of Malnutrition Exists Yes Malnutrition (severe): Acute Illness/Injury Evidenced By Suboptimal Energy Intake ( Severe),Weight Loss (Severe) Intake Problem Inadequate Oral Intake Etiology related to decreased appetite; BiPAP support Signs/Symptoms as evidenced by PO intake < ~ 50% at meals Status Active Problem Clinical Problem Acute Disease or Injury Related Malnutrition Etiology severe, acute malnutrition r/t inadequate energy intake w/ increased nutrient needs d/t resp. failure Signs/Symptoms as evidenced by estimated PO intake meeting <50% of estimated energy needs >5 days ; unintentional wt loss of 26. 5#/12.3% < 2 weeks Status Active Problem Recommendation Dietitian Recommendations/Changes Continue Regular Diet as ordered with pt preferences for gluten-free and no milk. Will continue 240ml apple ensure clear TID w/ meals as tolerated. Lab / Micro Data Result Diagrams: 02/22/21 04:45 02/22/21 04:45 Labs: Laboratory Results - last 24 hr 02/22/21 04:45: WBC 36.4 H*, RBC 3.35 L, Hgb 10.3 L, Hct 31.9 L, MCV 95.2 H, MCH 30.7, MCHC 32.3, RDW Std Deviation 53.3 H, RDW Coeff of Laila 15.5 H, Plt Count 138 L, MPV 9.8, Immature Gran % (Auto) 0.300, Neut % (Auto) 15.8 L, Lymph % (Auto) 79.1 H, [place] % (Auto) 4.1, Eos % (Auto) 0.5, Baso % (Auto) 0.2, Absolute Neuts (auto) 5.7, Absolute Lymphs (auto) 28.82 H, Nucleated RBC % 0, Differ ential Comment SCANNED, Diff Path Review August02/22/21 04:45: Sodium 133 L, Potassium 4.2, Chloride 98, Carbon Dioxide 30.0, Anion Gap 5, BUN 17, Creatinine 0.90, Estim Creat Clear Calc 81.34, Est GFR (MDRD) Af Amer 107, Est GFR (MDRD) Non-Af 89, BUN/Creatinine Ratio 18.9, Glucose 96, Calcium 8.0 L Micro: Microbiology 02/12/21 10:00 Sputum, Expectorated/Coughed Gram Stain - Final 02/12/21 10:00 Sputum, Expectorated/Coughed Respiratory Culture - Final Presumptive C albicans 02/04/21 20:50 Blood Culture (Wb) - Anticubital Right Blood Culture - Final No growth in 5 days. 02/04/21 20:43 Blood Culture (Wb) - Anticubital Left Blood Culture - Final No growth in 5 days. 02/05/21 02:47 Urine, Clean Catch Legionella Antigen - Final 02/05/21 02:47 Urine, Clean Catch Streptococcus pneumoniae Antigen (M - Final Physical Exam Const alert, oriented x3 and no apparent distress Constitutional Narrative: Older white male sitting up in bed, appears comfortab le, nontoxic, dyspnea with conversation and mildly diaphoretic General Appearance: cooperative Exam Limitations: no limitations HEENT normocephalic, head/scalp atraumatic, hearing grossly normal bilaterally and moist oral mucous membranes Head and Scalp: normocephalic Eyes PERRL, EOMs intact bilaterally and conjunctivae normal Eyes Narrative: No scleral icterus Neck no lymphadenopathy, supple and no JVD Neck Narrative: Resp normal respiratory effort, no retractions and no use of accessory muscles Resp Narrative: tachypneic, diminished breath sounds bibasally, no wheezes or crackles. On BIPAP today Auscultation: Negative for crackles, rales, rhonchi or wheezes Cardio regular rate, regular rhythm, S1 normal heart sound, S2 normal heart sound, no murmurs, no rub, no gallops, no clicks and no JVD GI normal to inspection, nondistended, normoactive bowel sounds, soft to palpation, non-tender and non-distended Extremity normal to inspection, full ROM and no clubbing, cyanosis or edema Skin no rashes or lesions noted, no wounds, skin turgor normal, no jaundice, no petechiae and no mottling Neuro oriented x3, CN's II-XII intact bilaterally, moves all extremities and no focal motor deficits Sensorium / Orientation: awake, alert, oriented to person, oriented to place and oriented to time Speech: speech normal Motor Exam: strength 5/5 throughout Psych affect normal Assessment & Plan Assessment/Plan (1) Pneumonia due to COVID-19 virus: (2) Acute respiratory failure with hypoxia: PLAN: #Acute hypoxic respiratory failure due to COVID 19 pneumonia * now on BIPAP, from 12L of oxygen yesterday. Respiratory status doesnt seem to be improving much. * critical care on board * On breathing treatment with bronchodilators * completed a course of baricitinib and decadron * titrate oxygen to maintain sats >90% * critical care and ID on board * in cumulative negative balance by 7.14L * #History of CLL: stable. WBC is down to 36 today. Follow up with oncology on outpatient basis #Elevated D dimer: CTA was negative for PE. On lovenox 30mg bid. #Hyponatremia:chronic, will monitor. DVT prophylaxis: lovenox CODE STATUS: Full code * Charges/Coding Visit Charges Inpatient E&M: 53258 Subs Hosp L3
[2021-02-23] VITALS (19 sets, daily range): BP systolic 105–118; BP diastolic 58–71; PULSE 72–107; RESP 12–27; TEMP 35.9–37; O2SAT 90–97
[2021-02-23 06:17] LABS: Absolute Lymphocyte Count 24.32 X10^3/uL (0.83-4.51); Absolute Neutrophil Count 4.6 X10^3/uL (2.0-7.7); Basophil# 0.07 X10^3/uL; Basophil% 0.2 % (0-1); Eosinophil# 0.18 X10^3/uL; Eosinophils% 0.6 % (0-5); Hematocrit 32.9 % (40-54); Hemoglobin 10.4 g/dL (13.0-16.5); Lymphocyte # 24.32 X10^3/ul (0.83-4.51); Lymphocyte % 79.6 % (19-41); Mean Corp Hgb Conc 31.6 g/dL (32-36); Mean Corpuscular Hgb 30.5 pg (27.0-32.0); Mean Corpuscular Volume 96.5 fL (80-94); Mean Platelet Vol. 10.4 fl (6.2-12.0); Monocyte% 4.3 % (0-10); NRBC Flagged by Analyzer 0.1 % (0-5); Neutrophil # 4.58 X10^3/uL (2.7-7.7); POSITIVE COUNT YES; POSITIVE DIFFERENTIAL YES; POSITIVE MORPHOLOGY YES; Platelet Count 131 K/mm3 (150-450); RBC Distribution Width CV 15.7 % (11.6-14.6); RBC Distribution Width SD 54.4 fl (35.1-43.9); Red Blood Count 3.41 M/mm3 (4.6-6.2); White Blood Count 30.5 K/mm3 (4.4-11.0)
[2021-02-23 06:32] LABS: Anion Gap 6 (5-15); BUN 14 mg/dL (7-18); BUN/Creat Ratio 16.1 RATIO (10-20); Calcium,Total 7.9 mg/dL (8.5-10.1); Chloride 99 mmol/L (98-107); Creatinine, Serum 0.87 mg/dL (0.70-1.30); EST Glomerular Filtration Rate 92 mL/min (>60); Est Glom Filt Rate - Afr Amer 112 mL/min (>60); Estimated Creatinine Clearance 84.15 ml/min; Glucose 92 mg/dL (74-106); Potassium 4.1 mmol/L (3.5-5.1); Sodium Level 134 mmol/L (136-145)
[2021-02-23 06:43] LABS: Differential Indicated SCAN CRITERIA MET
[2021-02-23 06:46] LABS: Anisocytosis 1+
[2021-02-23 06:47] LABS: Atypical Lymphocyte 3+ %
[2021-02-23] MEDS: Ipratropium/Albuterol Sulfate 3 ML AMPUL.NEB INHALATION ×4 (07:39→19:29)
[2021-02-23] MEDS: Senna/Docusate Sodium 1 Tablet 2 TABLET PO (07:40)
[2021-02-23] MEDS: Enoxaparin 40 MG/0.4 ML Syringe SC ×2 (08:24→20:49)
[2021-02-23 13:17] LABS: Pathologist Review Reviewed
[2021-02-23 13:17] LABS: Pathologist Review Reviewed
[2021-02-23 13:34] LABS: Pathologist Review Reviewed
--- NOTE | 2021-02-23 14:03 | PN.HOSP_ITS ---
Subjective Subjective Patient seen and examined. He was on 15 L of oxygen by nasal cannula at time of review today. He complained of blocked nostrils and thinks this is contributing to his increased oxygen requirements. Review of systems otherwise negative. Objective Data Objective Data Vital Signs: Vital Signs Temp Pulse Resp BP Pulse Ox 97.8 F 90 16 118/63 94 02/23/21 13:54 02/23/21 13:54 02/23/21 13:54 02/23/21 13:54 02/23/21 13:54 Oxygen Flow Rate (L/min) 2 Oxygen Delivery Method Nasal Cannula Weight: 176 lb 12.972 oz Body Mass Index (BMI) 29.9 Intake & Output: Intake and Output for Last 24 Hours 02/21/21 02/22/21 02/23/21 23:59 23:59 23:59 Intake Total 600 / 600 240 / 720 880 / 880 Output Total 1800 / 1800 250 / 450 900 / 900 Balance -1200 / -1200 -10 / 270 -20 / -20 Medical Nutrition Assessment Dietitian: Malnutrition Criteria Met Start: 02/17/21 12:38 Freq: Status: Active Protocol: Document 02/17/21 12:38 AG (Rec: 02/17/21 12:38 [id number]) Nutrition Malnutrition Evidence of Malnutrition Exists Yes Malnutrition (severe): Acute Illness/Injury Evidenced By Suboptimal Energy Intake ( Severe),Weight Loss (Severe) Intake Problem Inadequate Oral Intake Etiology related to decreased appetite; BiPAP support Signs/Symptoms as evidenced by PO intake < ~ 50% at meals Status Active Problem Clinical Problem Acute Disease or Injury Related Malnutrition Etiology severe, acute malnutrition r/t inadequate energy intake w/ increased nutrient needs d/t resp. failure Signs/Symptoms as evidenced by estimated PO intake meeting <50% of estimated energy needs >5 days ; unintentional wt loss of 26. 5#/12.3% < 2 weeks Status Active Problem Recommendation Dietitian Recommendations/Changes Continue Regular Diet as ordered with pt preferences for gluten-free and no milk. Will continue 240ml apple ensure clear TID w/ meals as tolerated. Lab / Micro Data Result Diagrams: 02/23/21 05:06 02/23/21 05:06 Labs: Laboratory Results - last 24 hr 02/21/21 06:05: Diff Path Review Reviewed 02/22/21 04:45: Diff Path Review Reviewed 02/23/21 05:06: WBC 30.5 H*, RBC 3.41 L, Hgb 10.4 L, Hct 32.9 L, MCV 96.5 H, MCH 30.5, MCHC 31.6 L, RDW Std Deviation 54.4 H, RDW Coeff of Laila 15.7 H, Plt Count 131 L, MPV 10.4, Immature Gran % (Auto) 0.300, Neut % (Auto) 15.0 L, Lymph % (Auto) 79.6 H, [place] % (Auto) 4.3, Eos % (Auto) 0.6, Baso % (Auto) 0.2, Absolute Neuts (auto) 4.6, Absolute Lymphs (auto) 24.32 H, Nucleated RBC % 0.1, Diff Path Review Reviewed, Atypical Lymphocytes 3+, Anisocytosis 1+ 02/23/21 05:06: Sodium 134 L, Potassium 4.1, Chloride 99, Carbon Dioxide 29.0, Anion Gap 6, BUN 14, Creatinine 0.87, Estim Creat Clear Calc 84.15, Est GFR (MDRD) Af Amer 112, Est GFR (MDRD) Non-Af 92, BUN/Creatinine Ratio 16.1, Glucose 92, Calcium 7.9 L Micro: Microbiology 02/12/21 10:00 Sputum, Expectorated/Coughed Gram Stain - Final 02/12/21 10:00 Sputum, Expectorated/Coughed Respiratory Culture - Final Presumptive C albicans 02/04/21 20:50 Blood Culture (Wb) - Anticubital Right Blood Culture - Final No growth in 5 days. 02/04/21 20:43 Blood Culture (Wb) - Anticubital Left Blood Culture - Final No growth in 5 days. 02/05/21 02:47 Urine, Clean Catch Legionella Antigen - Final 02/05/21 02:47 Urine, Clean Catch Streptococcus pneumoniae Antigen (M - Final Physical Exam Const alert, oriented x3 and no apparent distress General Appearance: cooperative Exam Limitations: no limitations HEENT normocephalic, head/scalp atraumatic, hearing grossly normal bilaterally and moist oral mucous membranes Head and Scalp: normocephalic Eyes PERRL, EOMs intact bilaterally and conjunctivae normal Eyes Narrative: No scleral icterus Neck no lymphadenopathy, supple and no JVD Neck Narrative: Resp normal respiratory effort, no retractions and no use of accessory muscles Resp Narrative: diminished breath sounds bibasally, no wheezes or crackles. On 15L of oxygen by nasal canula Auscultation: Negative for crackles, rales, rhonchi or wheezes Cardio regular rate, regular rhythm, S1 normal heart sound, S2 normal heart sound, no murmurs, no rub, no gallops, no clicks and no JVD GI normal to inspection, nondistended, normoactive bowel sounds, soft to palpation, non-tender and non-distended Extremity normal to inspection, full ROM and no clubbing, cyanosis or edema Skin no rashes or lesions noted, no wounds, skin turgor normal, no jaundice, no petechiae and no mottling Neuro oriented x3, CN's II-XII intact bilaterally, moves all extremities and no focal motor deficits Sensorium / Orientation: awake, alert, oriented to person, oriented to place and oriented to time Speech: speech normal Motor Exam: strength 5/5 throughout Psych affect normal Assessment & Plan Assessment/Plan (1) Pneumonia due to COVID-19 virus: (2) Acute respiratory failure with hypoxia: PLAN: #Acute hypoxic respiratory failure due to COVID 19 pneumonia * now on 15L of oxygen by nasal canula * On breathing treatment with bronchodilators * completed a course of baricitinib and decadron * titrate oxygen to maintain sats >90% * critical care and ID on board * in cumulative negative balance by 7.14L * #History of CLL: stable. WBC is down to 30 today. Follow up with oncology on outpatient basis #Elevated D dimer: CTA was negative for PE. On lovenox 30mg bid. #Hyponatremia:chronic, will monitor. DVT prophylaxis: lovenox CODE STATUS: Full code * Charges/Coding Visit Charges Inpatient E&M: 46601 Subs Hosp L3
--- NOTE | 2021-02-23 15:47 | NURSING ---
This RN reviewed all SN charting
[2021-02-23] MEDS: guaiFENesin 10 ML UDC (200MG/10ML) PO (20:50)
[2021-02-24] VITALS (18 sets, daily range): BP systolic 98–110; BP diastolic 57–64; PULSE 71–96; RESP 12–26; TEMP 36.6–37.4; O2SAT 92–98
[2021-02-24] MEDS: Ipratropium/Albuterol Sulfate 3 ML AMPUL.NEB INHALATION ×4 (07:05→19:24)
[2021-02-24 07:28] LABS: Absolute Lymphocyte Count 20.94 X10^3/uL (0.83-4.51); Absolute Neutrophil Count 3.9 X10^3/uL (2.0-7.7); Basophil# 0.06 X10^3/uL; Basophil% 0.2 % (0-1); Eosinophil# 0.23 X10^3/uL; Eosinophils% 0.9 % (0-5); Hematocrit 31.8 % (40-54); Hemoglobin 10.1 g/dL (13.0-16.5); Lymphocyte # 20.94 X10^3/ul (0.83-4.51); Lymphocyte % 78.9 % (19-41); Mean Corp Hgb Conc 31.8 g/dL (32-36); Mean Corpuscular Hgb 30.6 pg (27.0-32.0); Mean Corpuscular Volume 96.4 fL (80-94); Mean Platelet Vol. 10.5 fl (6.2-12.0); Monocyte# 1.35 X10^3/uL; Monocyte% 5.1 % (0-10); NRBC Flagged by Analyzer 0 % (0-5); Neutrophil # 3.86 X10^3/uL (2.7-7.7); Neutrophil % 14.6 % (47-70); POSITIVE DIFFERENTIAL YES; POSITIVE MORPHOLOGY YES; Platelet Count 123 K/mm3 (150-450); RBC Distribution Width CV 15.9 % (11.6-14.6); White Blood Count 26.5 K/mm3 (4.4-11.0)
[2021-02-24 07:33] LABS: Differential Indicated SCAN CRITERIA MET
[2021-02-24 08:02] LABS: Anion Gap 7 (5-15); BUN 14 mg/dL (7-18); BUN/Creat Ratio 18.4 RATIO (10-20); Chloride 98 mmol/L (98-107); Creatinine, Serum 0.76 mg/dL (0.70-1.30); EST Glomerular Filtration Rate 108 mL/min (>60); Est Glom Filt Rate - Afr Amer 130 mL/min (>60); Estimated Creatinine Clearance 73.21 ml/min; Glucose 89 mg/dL (74-106); Sodium Level 134 mmol/L (136-145)
[2021-02-24 08:41] LABS: Differential Comment SCANNED; Reactive Lymphocyte 1+
[2021-02-24] MEDS: Enoxaparin 40 MG/0.4 ML Syringe SC ×2 (08:54→21:35)
--- NOTE | 2021-02-24 13:15 | NURSING ---
This RN assuming care for patient from SONIDO Ma.
[2021-02-24] MEDS: Senna/Docusate Sodium 1 Tablet 2 TABLET PO (16:20)
[2021-02-24] MEDS: Polyethylene Glycol 3350 17 GM PACKET PO (16:20)
--- NOTE | 2021-02-24 16:50 | NURSING ---
Assuming care of patient. Patient alert and oriented. Reps unlabored on 7l high flow oxygen. Sitting in chair without complaint.
--- NOTE | 2021-02-24 18:27 | PN.HOSP_ITS ---
Subjective Subjective Patient was seen and examined today, he is currently requiring 7 L to maintain his pulse ox adequately, patient denies any chills, fever, or chest discomfort. Objective Data Objective Data Vital Signs: Vital Signs Temp Pulse Resp BP Pulse Ox 98.1 F 88 20 H 98/62 92 02/24/21 14:35 02/24/21 15:56 02/24/21 15:56 02/24/21 14:35 02/24/21 14:56 Oxygen Flow Rate (L/min) 7 Oxygen Delivery Method Nasal Cannula Weight: 88 kg Body Mass Index (BMI) 29.9 Intake & Output: Intake and Output for Last 24 Hours 02/22/21 02/23/21 02/24/21 23:59 23:59 23:59 Intake Total 240 / 720 1280 / 1400 780 / 780 Output Total 250 / 450 1200 / 1400 600 / 600 Balance -10 80 / 0 180 / 180 Medical Nutrition Assessment Dietitian: Malnutrition Criteria Met Start: 02/17/21 12:38 Freq: Status: Active Protocol: Document 02/24/21 13:49 AG (Rec: 02/24/21 13:49 AG [id number]) Nutrition Malnutrition Evidence of Malnutrition Exists Yes Malnutrition (severe): Acute Illness/Injury Evidenced By Suboptimal Energy Intake ( Severe),Weight Loss (Severe) Intake Problem Inadequate Oral Intake Etiology related to decreased appetite, resp. failure Signs/Symptoms as evidenced by PO intake < ~ 50% at meals Status Active Problem Clinical Problem Acute Disease or Injury Related Malnutrition Etiology severe, acute malnutrition r/t inadequate energy intake w/ increased nutrient needs d/t resp. failure Signs/Symptoms as evidenced by estimated PO intake meeting <50% of estimated energy needs >5 days ; unintentional wt loss of 9. 6kg/10% < 1 month Status Active Problem Recommendation Dietitian Recommendations/Changes Continue Regular Diet as ordered with pt preferences for gluten-free and no milk. Lab / Micro Data Result Diagrams: 02/24/21 06:30 02/24/21 06:30 Labs: Laboratory Results - last 24 hr 02/24/21 06:30: WBC 26.5 H, RBC 3.30 L, Hgb 10.1 L, Hct 31.8 L, MCV 96.4 H, MCH 30.6, MCHC 31.8 L, RDW Std Deviation 55.0 H, RDW Coeff of Laila 15.9 H, Plt Count 123 L, MPV 10.5, Immature Gran % (Auto) 0.300, Neut % (Auto) 14.6 L, Lymph % (Auto) 78.9 H, [place] % (Auto) 5.1, Eos % (Auto) 0.9, Baso % (Auto) 0.2, Absolute Neuts (auto) 3.9, Absolute Lymphs (auto) 20.94 H, Nucleated RBC % 0, Differential Comment SCANNED, Reactive Lymphocytes 1+ 02/24/21 06:30: Sodium 134 L, Potassium 4.0, Chloride 98, Carbon Dioxide 29.0, Anion Gap 7, BUN 14, Creatinine 0.76, Estim Creat Clear Calc 73.21, Est GFR (MDRD) Af Amer 130, Est GFR (MDRD) Non-Af 108, BUN/Creatinine Ratio 18.4, Glucose 89, Calcium 8.0 L Micro: Microbiology 02/12/21 10:00 Sputum, Expectorated/Coughed Gram Stain - Final 02/12/21 10:00 Sputum, Expectorated/Coughed Respiratory Culture - Final Presumptive C albicans 02/04/21 20:50 Blood Culture (Wb) - Anticubital Right Blood Culture - Final No growth in 5 days. 02/04/21 20:43 Blood Culture (Wb) - Anticubital Left Blood Culture - Final No growth in 5 days. 02/05/21 02:47 Urine, Clean Catch Legionella Antigen - Final 02/05/21 02:47 Urine, Clean Catch Streptococcus pneumoniae Antigen (M - Final Physical Exam Const alert, oriented x3, no apparent distress and healthy appearing General Appearance: cooperative, well kempt and well developed Orientation / Consciousness: awake, oriented to person, oriented to place and oriented to time HEENT normocephalic and moist oral mucous membranes Eyes PERRL, EOMs intact bilaterally and conjunctivae normal Neck nuchal rigidity, supple, no JVD, thyroid normal and no carotid bruits General: trachea midline Resp normal respiratory effort and clear to auscultation bilaterally Auscultation: Negative for rales, rhonchi or wheezes Cardio regular rate, regular rhythm, no murmurs, no rub and no gallops GI normal to inspection, nondistended, normoactive bowel sounds, soft to palpation, non-tender and non-distended Extremity no clubbing, cyanosis or edema Skin no rashes or lesions noted General Skin Exam: no breakdown Neuro oriented x3, CN's II-XII intact bilaterally, no focal motor deficits and no sensory deficits noted Sensorium / Orientation: awake and alert Speech: speech normal Psych thought process normal and affect normal Assessment & Plan Assessment/Plan (1) Pneumonia due to COVID-19 virus: PLAN: 1. COVID-19 pneumonia-patient has received dexamethasone, monoclonal infusion (as an outpatient), baricitinib, and the patient refused remdesivir. #2 acute hypoxic respiratory failure-patient's oxygen will be weaned if we are able #3 history of chronic lymphocytic leukemia #4 severe protein and caloric malnutrition Charges/Coding Visit Charges Inpatient E&M: 39567 Subs Hosp L2
[2021-02-25] VITALS (16 sets, daily range): BP systolic 103–118; BP diastolic 61–76; PULSE 71–100; RESP 12–28; TEMP 36.6–37.6; O2SAT 92–97
[2021-02-25] MEDS: Ipratropium/Albuterol Sulfate 3 ML AMPUL.NEB INHALATION ×4 (06:49→19:36)
[2021-02-25 06:59] LABS: Absolute Neutrophil Count 3.6 X10^3/uL (2.0-7.7); Basophil# 0.04 X10^3/uL; Basophil% 0.2 % (0-1); Eosinophil# 0.22 X10^3/uL; Eosinophils% 0.9 % (0-5); Hematocrit 32.5 % (40-54); Hemoglobin 10.5 g/dL (13.0-16.5); Lymphocyte % 80.8 % (19-41); Mean Corp Hgb Conc 32.3 g/dL (32-36); Mean Corpuscular Volume 95.9 fL (80-94); Monocyte# 0.86 X10^3/uL; Monocyte% 3.5 % (0-10); NRBC Flagged by Analyzer 0 % (0-5); Neutrophil # 3.58 X10^3/uL (2.7-7.7); Neutrophil % 14.4 % (47-70); POSITIVE DIFFERENTIAL YES; POSITIVE MORPHOLOGY YES; Platelet Count 120 K/mm3 (150-450); RBC Distribution Width CV 16.1 % (11.6-14.6); Red Blood Count 3.39 M/mm3 (4.6-6.2); White Blood Count 24.8 K/mm3 (4.4-11.0)
[2021-02-25 07:05] LABS: Differential Indicated SCAN CRITERIA MET
[2021-02-25 07:36] LABS: Anion Gap 7 (5-15); BUN 12 mg/dL (7-18); BUN/Creat Ratio 14.8 RATIO (10-20); Calcium,Total 8.1 mg/dL (8.5-10.1); Chloride 99 mmol/L (98-107); Creatinine, Serum 0.81 mg/dL (0.70-1.30); EST Glomerular Filtration Rate 100 mL/min (>60); Est Glom Filt Rate - Afr Amer 121 mL/min (>60); Estimated Creatinine Clearance 90.38 ml/min; Glucose 95 mg/dL (74-106); Potassium 4.2 mmol/L (3.5-5.1); Sodium Level 133 mmol/L (136-145)
[2021-02-25] MEDS: Enoxaparin 40 MG/0.4 ML Syringe SC ×2 (09:56→20:43)
--- NOTE | 2021-02-25 16:21 | CHAPLAIN ---
Type of Pastoral Visit _x__ Initial Visit ___ Follow-up Visit ___ On-call Visit ___ General Patient Visit ___ Spiritual Assessment ___ Family Conference ___ Bereavement ___ Rapid Response ___ Code Blue ___ Other (describe below) Pastoral Care Referral From _x__ Patient ___ Family ___ Nurse ___ Physician ___ Cnc Programmer ___ Retail Wireless Sales Consultant ___ Other (describe below) Sacrament/Intervention _x__ Active listening ___ Anointing ___ Restorationist ___ Bereavement ___ Communion _x__ Luana exploration ___ _x__ Life review _x__ Prayer ___ Reconciliation ___ Sacrament of Sick _x__ Supportive presence ___ Wedding ___ Other (describe below) Pastoral Comments patient had been in isolation and previous attempt to visit was by phone call; this visit is in person and pt is eager to talk and have listening ears; pt is very talkative and gives much detail about his life, his family, his work, his luana, etc.; pt is tearful at times; good interaction for pt to have company and support; pt welcomes prayer and presence of this note keeper
--- NOTE | 2021-02-25 19:08 | PCM.PN.HOSP ---
Subjective Subjective Patient was seen and examined today, he is currently on 6 L of oxygen via nasal cannula. Patient does not appear dyspneic at rest. Objective Data Objective Data Vital Signs: Vital Signs Temp Pulse Resp BP Pulse Ox 99.6 F H 95 20 H 117/61 94 02/25/21 16:00 02/25/21 16:00 02/25/21 16:00 02/25/21 16:00 02/25/21 16:00 Oxygen Flow Rate (L/min) 6 Oxygen Delivery Method Nasal Cannula Weight: 86.9 kg Body Mass Index (BMI) 29.9 Intake & Output: Intake and Output for Last 24 Hours 02/23/21 02/24/21 02/25/21 23:59 23:59 23:59 Intake Total 1280 / 1400 780 / 780 480 / 480 Output Total 1200 / 1400 600 / 600 900 / 900 Balance 80 / 0 180 / 180 -420 / -420 Medical Nutrition Assessment Dietitian: Malnutrition Criteria Met Start: 02/17/21 12:38 Freq: Status: Active Protocol: Document 02/24/21 13:49 AG (Rec: 02/24/21 13:49 AG [id number]) Nutrition Malnutrition Evidence of Malnutrition Exists Yes Malnutrition (severe): Acute Illness/Injury Evidenced By Suboptimal Energy Intake ( Severe),Weight Loss (Severe) Intake Problem Inadequate Oral Intake Etiology related to decreased appetite, resp. failure Signs/Symptoms as evidenced by PO intake < ~ 50% at meals Status Active Problem Clinical Problem Acute Disease or Injury Related Malnutrition Etiology severe, acute malnutrition r/t inadequate energy intake w/ increased nutrient needs d/t resp. failure Signs/Symptoms as evidenced by estimated PO intake meeting <50% of estimated energy needs >5 days ; unintentional wt loss of 9. 6kg/10% < 1 month Status Active Problem Recommendation Dietitian Recommendations/Changes Continue Regular Diet as ordered with pt preferences for gluten-free and no milk. Lab / Micro Data Result Diagrams: 02/25/21 06:10 02/25/21 06:10 Labs: Laboratory Results - last 24 hr 02/25/21 06:10: WBC 24.8 H, RBC 3.39 L, Hgb 10.5 L, Hct 32.5 L, MCV 95.9 H, MCH 31.0, MCHC 32.3, RDW Std Deviation 56.0 H, RDW Coeff of Laila 16.1 H, Plt Count 120 L, MPV 10.0, Immature Gran % (Auto) 0.200, Neut % (Auto) 14.4 L, Lymph % (Auto) 80.8 H, [place] % (Auto) 3.5, Eos % (Auto) 0.9, Baso % (Auto) 0.2, Absolute Neuts (auto) 3.6, Absolute Lymphs (auto) 20.00 H, Nucleated RBC % 0, Differential Comment 02/25/21 06:10: Sodium 133 L, Potassium 4.2, Chloride 99, Carbon Dioxide 27.0, Anion Gap 7, BUN 12, Creatinine 0.81, Estim Creat Clear Calc 90.38, Est GFR (MDRD) Af Amer 121, Est GFR (MDRD) Non-Af 100, BUN/Creatinine Ratio 14.8, Glucose 95, Calcium 8.1 L Micro: Microbiology 02/12/21 10:00 Sputum, Expectorated/Coughed Gram Stain - Final 02/12/21 10:00 Sputum, Expectorated/Coughed Respiratory Culture - Final Presumptive C albicans 02/04/21 20:50 Blood Culture (Wb) - Anticubital Right Blood Culture - Final No growth in 5 days. 02/04/21 20:43 Blood Culture (Wb) - Anticubital Left Blood Culture - Final No growth in 5 days. 02/05/21 02:47 Urine, Clean Catch Legionella Antigen - Final 02/05/21 02:47 Urine, Clean Catch Streptococcus pneumoniae Antigen (M - Final Physical Exam Const alert, oriented x3 and no apparent distress Constitutional Narrative: Patient appears frail and unwell General Appearance: cooperative, well kempt and well developed Orientation / Consciousness: awake, oriented to person, oriented to place and oriented to time HEENT normocephalic, head/scalp atraumatic and moist oral mucous membranes Head and Scalp: normocephalic Eyes PERRL, EOMs intact bilaterally and conjunctivae normal Neck nuchal rigidity, supple, no JVD, thyroid normal and no carotid bruits General: trachea midline Resp normal respiratory effort, no retractions, no use of accessory muscles and clear to auscultation bilaterally Auscultation: Negative for rales, rhonchi or wheezes Cardio regular rate, regular rhythm, S1 normal heart sound, S2 normal heart sound, no murmurs, no rub and no gallops GI normal to inspection, nondistended, normoactive bowel sounds, soft to palpation, non-tender and non-distended Extremity normal to inspection and no clubbing, cyanosis or edema Skin no rashes or lesions noted General Skin Exam: no breakdown Neuro oriented x3, CN's II-XII intact bilaterally, no focal motor deficits and no sensory deficits noted Sensorium / Orientation: awake and alert Speech: speech normal Psych thought process normal and affect normal Assessment & Plan Assessment/Plan (1) Pneumonia due to COVID-19 virus: PLAN: 1. COVID-19 pneumonia-patient has received dexamethasone, monoclonal infusion (as an outpatient), baricitinib, and the patient refused remdesivir. #2 acute hypoxic respiratory failure-patient's oxygen will be weaned if possible #3 history of chronic lymphocytic leukemia #4 severe protein and caloric malnutrition #5 debility-patient will more than likely need temporary placement in a senior living facility at the time of discharge Charges/Coding Visit Charges Inpatient E&M: 16084 Subs Hosp L2
[2021-02-26] VITALS (18 sets, daily range): BP systolic 106–118; BP diastolic 54–63; PULSE 68–91; RESP 12–20; TEMP 36.4–37.2; O2SAT 92–95
[2021-02-26 06:27] LABS: Absolute Lymphocyte Count 17.36 X10^3/uL (0.83-4.51); Absolute Neutrophil Count 3.6 X10^3/uL (2.0-7.7); Basophil# 0.05 X10^3/uL; Basophil% 0.2 % (0-1); Eosinophil# 0.28 X10^3/uL; Eosinophils% 1.2 % (0-5); Hematocrit 33.9 % (40-54); Hemoglobin 10.7 g/dL (13.0-16.5); Lymphocyte # 17.36 X10^3/ul (0.83-4.51); Lymphocyte % 75.6 % (19-41); Mean Corp Hgb Conc 31.6 g/dL (32-36); Mean Corpuscular Hgb 30.2 pg (27.0-32.0); Mean Corpuscular Volume 95.8 fL (80-94); Mean Platelet Vol. 10.5 fl (6.2-12.0); Monocyte# 1.61 X10^3/uL; NRBC Flagged by Analyzer 0.2 % (0-5); Neutrophil # 3.61 X10^3/uL (2.7-7.7); Neutrophil % 15.7 % (47-70); Platelet Count 101 K/mm3 (150-450); RBC Distribution Width SD 56.7 fl (35.1-43.9); Red Blood Count 3.54 M/mm3 (4.6-6.2)
[2021-02-26 06:33] LABS: Differential Indicated SCAN CRITERIA MET; POSITIVE DIFFERENTIAL YES; POSITIVE MORPHOLOGY YES
[2021-02-26 06:47] LABS: Anion Gap 5 (5-15); BUN 13 mg/dL (7-18); BUN/Creat Ratio 14.5 RATIO (10-20); Chloride 100 mmol/L (98-107); EST Glomerular Filtration Rate 89 mL/min (>60); Est Glom Filt Rate - Afr Amer 108 mL/min (>60); Estimated Creatinine Clearance 81.34 ml/min; Glucose 101 mg/dL (74-106); Potassium 4.1 mmol/L (3.5-5.1); Sodium Level 134 mmol/L (136-145)
[2021-02-26 06:58] LABS: Differential Comment SCANNED
[2021-02-26] MEDS: Ipratropium/Albuterol Sulfate 3 ML AMPUL.NEB INHALATION ×4 (07:25→19:40)
[2021-02-26] MEDS: Enoxaparin 40 MG/0.4 ML Syringe SC ×2 (08:07→21:19)
[2021-02-26 13:27] LABS: Pathologist Review Reviewed
--- NOTE | 2021-02-26 14:15 | CASEMGMT ---
This RN CM to room to discuss d/c plan with pt. Pt states plan is to return home at d/c. CM to follow therapy notes and for home oxygen need. Ursula HEAD CM
--- NOTE | 2021-02-26 19:05 | PN.HOSP_ITS ---
Subjective Subjective Patient was seen and examined today, he is on nasal cannula and appears to be comfortable. His current setting at rest is 5 L, he will have to be walked tomorrow to see if he can maintain his pulse ox on a oxygen setting lower than 6 L. Objective Data Objective Data Vital Signs: Vital Signs Temp Pulse Resp BP Pulse Ox 98.9 F 78 16 110/56 L 94 02/26/21 18:38 02/26/21 18:38 02/26/21 18:38 02/26/21 18:38 02/26/21 18:38 Oxygen Flow Rate (L/min) 5 Oxygen Delivery Method Nasal Cannula Weight: 88.2 kg Body Mass Index (BMI) 29.9 Intake & Output: Intake and Output for Last 24 Hours 02/24/21 02/25/21 02/26/21 23:59 23:59 23:59 Intake Total 780 / 780 480 / 480 480 / 480 Output Total 600 / 600 900 / 900 1100 / 1100 Balance 180 / 180 -420 / -420 -620 / -620 Medical Nutrition Assessment Dietitian: Malnutrition Criteria Met Start: 02/17/21 12:38 Freq: Status: Active Protocol: Document 02/24/21 13:49 AG (Rec: 02/24/21 13:49 [id number]) Nutrition Malnutrition Evidence of Malnutrition Exists Yes Malnutrition (severe): Acute Illness/Injury Evidenced By Suboptimal Energy Intake ( Severe),Weight Loss (Severe) Intake Problem Inadequate Oral Intake Etiology related to decreased appetite, resp. failure Signs/Symptoms as evidenced by PO intake < ~ 50% at meals Status Active Problem Clinical Problem Acute Disease or Injury Related Malnutrition Etiology severe, acute malnutrition r/t inadequate energy intake w/ increased nutrient needs d/t resp. failure Signs/Symptoms as evidenced by estimated PO intake meeting <50% of estimated energy needs >5 days ; unintentional wt loss of 9. 6kg/10% < 1 month Status Active Problem Recommendation Dietitian Recommendations/Changes Continue Regular Diet as ordered with pt preferences for gluten-free and no milk. Lab / Micro Data Result Diagrams: 02/27/21 05:25 02/27/21 05:25 Labs: Laboratory Results - last 24 hr 02/26/21 06:00: WBC 23.0 H, RBC 3.54 L, Hgb 10.7 L, Hct 33.9 L, MCV 95.8 H, MCH 30.2, MCHC 31.6 L, RDW Std Deviation 56.7 H, RDW Coeff of Laila 16.0 H, Plt Count 101 L, MPV 10.5, Immature Gran % (Auto) 0.300, Neut % (Auto) 15.7 L, Lymph % (Auto) 75.6 H, [place] % (Auto) 7.0, Eos % (Auto) 1.2, Baso % (Auto) 0.2, Absolute Neuts (auto) 3.6, Absolute Lymphs (auto) 17.36 H, Nucleated RBC % 0.2, Differential Comment SCANNED, Diff Path Review Reviewed 02/26/21 06:00: Sodium 134 L, Potassium 4.1, Chloride 100, Carbon Dioxide 29.0, Anion Gap 5, BUN 13, Creatinine 0.90, Estim Creat Clear Calc 81.34, Est GFR (MDRD) Af Amer 108, Est GFR (MDRD) Non-Af 89, BUN/Creatinine Ratio 14.5, Glucose 101, Calcium 8.0 L Micro: Microbiology 02/12/21 10:00 Sputum, Expectorated/Coughed Gram Stain - Final 02/12/21 10:00 Sputum, Expectorated/Coughed Respiratory Culture - Final Presumptive C albicans 02/04/21 20:50 Blood Culture (Wb) - Anticubital Right Blood Culture - Final No growth in 5 days. 02/04/21 20:43 Blood Culture (Wb) - Anticubital Left Blood Culture - Final No growth in 5 days. 02/05/21 02:47 Urine, Clean Catch Legionella Antigen - Final 02/05/21 02:47 Urine, Clean Catch Streptococcus pneumoniae Antigen (M - Final Physical Exam Const alert, oriented x3, no apparent distress and healthy appearing General Appearance: cooperative, well kempt and well developed Orientation / Consciousness: awake, oriented to person, oriented to place and oriented to time HEENT normocephalic, head/scalp atraumatic and moist oral mucous membranes Head and Scalp: normocephalic Eyes PERRL, EOMs intact bilaterally and conjunctivae normal Neck nuchal rigidity, supple, no JVD and thyroid normal General: trachea midline Resp normal respiratory effort, no retractions, no use of accessory muscles and clear to auscultation bilaterally Auscultation: Negative for rales, rhonchi or wheezes Cardio regular rate, regular rhythm, S1 normal heart sound, S2 normal heart sound, no m urmurs, no rub and no gallops GI normal to inspection, nondistended, normoactive bowel sounds, soft to palpation, non-tender and non-distended Extremity no clubbing, cyanosis or edema Skin no rashes or lesions noted General Skin Exam: no breakdown Neuro oriented x3, CN's II-XII intact bilaterally, no focal motor deficits and no sensory deficits noted Sensorium / Orientation: awake and alert Speech: speech normal Psych thought process normal and affect normal Assessment & Plan Assessment/Plan (1) Pneumonia due to COVID-19 virus: PLAN: 1. COVID-19 pneumonia-patient has received dexamethasone, monoclonal infusion (as an outpatient), baricitinib, and the patient refused remdesivir. #2 acute hypoxic respiratory failure-patient's oxygen will be weaned if possible, due to his oxygen requirement today, he cannot be discharged home #3 history of chronic lymphocytic leukemia #4 severe protein and caloric malnutrition #5 debility-patient wants to be discharged home, he will not be placed in a [facility] facility Charges/Coding Visit Charges Inpatient E&M: 49610 Subs Hosp L2
[2021-02-27] VITALS (19 sets, daily range): BP systolic 106–114; BP diastolic 54–65; PULSE 76–98; RESP 12–24; TEMP 36.6–37.2; O2SAT 89–98
[2021-02-27 06:24] LABS: Absolute Lymphocyte Count 19.94 X10^3/uL (0.83-4.51); Absolute Neutrophil Count 3.7 X10^3/uL (2.0-7.7); Basophil# 0.08 X10^3/uL; Basophil% 0.3 % (0-1); Eosinophil# 0.32 X10^3/uL; Eosinophils% 1.3 % (0-5); Hematocrit 31.7 % (40-54); Hemoglobin 9.9 g/dL (13.0-16.5); Lymphocyte # 19.94 X10^3/ul (0.83-4.51); Lymphocyte % 78.2 % (19-41); Mean Corp Hgb Conc 31.2 g/dL (32-36); Mean Corpuscular Hgb 30.2 pg (27.0-32.0); Mean Corpuscular Volume 96.6 fL (80-94); Mean Platelet Vol. 10.6 fl (6.2-12.0); Monocyte# 1.38 X10^3/uL; Monocyte% 5.4 % (0-10); NRBC Flagged by Analyzer 0.2 % (0-5); Neutrophil # 3.72 X10^3/uL (2.7-7.7); Neutrophil % 14.6 % (47-70); POSITIVE COUNT YES; POSITIVE DIFFERENTIAL YES; POSITIVE MORPHOLOGY YES; Platelet Count 97 K/mm3 (150-450); RBC Distribution Width CV 16.1 % (11.6-14.6); RBC Distribution Width SD 56.7 fl (35.1-43.9); Red Blood Count 3.28 M/mm3 (4.6-6.2); White Blood Count 25.5 K/mm3 (4.4-11.0)
[2021-02-27 06:34] LABS: Differential Indicated SCAN CRITERIA MET
[2021-02-27] MEDS: Ipratropium/Albuterol Sulfate 3 ML AMPUL.NEB INHALATION ×4 (06:48→19:33)
[2021-02-27 06:50] LABS: Anion Gap 5 (5-15); BUN 15 mg/dL (7-18); BUN/Creat Ratio 17.6 RATIO (10-20); Calcium,Total 7.7 mg/dL (8.5-10.1); Chloride 102 mmol/L (98-107); Creatinine, Serum 0.85 mg/dL (0.70-1.30); EST Glomerular Filtration Rate 94 mL/min (>60); Est Glom Filt Rate - Afr Amer 114 mL/min (>60); Estimated Creatinine Clearance 86.13 ml/min; Glucose 95 mg/dL (74-106); Potassium 3.8 mmol/L (3.5-5.1); Sodium Level 135 mmol/L (136-145)
[2021-02-27 07:07] LABS: Atypical Lymphocyte 1+ %; Differential Comment SCANNED
[2021-02-27] MEDS: Enoxaparin 40 MG/0.4 ML Syringe SC ×2 (11:08→19:49)
--- NOTE | 2021-02-27 15:09 | CASEMGMT ---
Green sheet on chart for home oxygen and WW, pt declines need for any further resources at this time and states /daughter able to assist as needed. Ursula HEAD CM
--- NOTE | 2021-02-27 15:23 | NURSING ---
Read and reviewed SN documentation.
--- NOTE | 2021-02-27 20:19 | PN.HOSP_ITS ---
Subjective Subjective Patient was seen and examined today, he appears comfortable at rest and does not complain of any dyspnea at rest. Patient's oxygen requirement on ambulation however was too high for him to be discharged home today. Objective Data Objective Data Vital Signs: Vital Signs Temp Pulse Resp BP Pulse Ox 97.8 F 86 18 106/61 94 02/27/21 16:48 02/27/21 19:00 02/27/21 16:48 02/27/21 16:48 02/27/21 16:48 Oxygen Flow Rate (L/min) 5 Oxygen Delivery Method Nasal Cannula Weight: 89 kg Body Mass Index (BMI) 29.9 Intake & Output: Intake and Output for Last 24 Hours 02/25/21 02/26/21 02/27/21 23:59 23:59 23:59 Intake Total 480 / 480 480 / 480 980 / 980 Output Total 900 / 900 1100 / 1100 300 / 300 Balance -420 / -420 -620 / -620 680 / 680 Medical Nutrition Assessment Dietitian: Malnutrition Criteria Met Start: 02/17/21 12:38 Freq: Status: Active Protocol: Document 02/24/21 13:49 AG (Rec: 02/24/21 13:49 AG [id number]) Nutrition Malnutrition Evidence of Malnutrition Exists Yes Malnutrition (severe): Acute Illness/Injury Evidenced By Suboptimal Energy Intake ( Severe),Weight Loss (Severe) Intake Problem Inadequate Oral Intake Etiology related to decreased appetite, resp. failure Signs/Symptoms as evidenced by PO intake < ~ 50% at meals Status Active Problem Clinical Problem Acute Disease or Injury Related Malnutrition Etiology severe, acute malnutrition r/t inadequate energy intake w/ increased nutrient needs d/t resp. failure Signs/Symptoms as evidenced by estimated PO intake meeting <50% of estimated energy needs >5 days ; unintentional wt loss of 9. 6kg/10% < 1 month Status Active Problem Recommendation Dietitian Recommendations/Changes Continue Regular Diet as ordered with pt preferences for gluten-free and no milk. Lab / Micro Data Result Diagrams: 02/27/21 05:25 02/27/21 05:25 Labs: Laboratory Results - last 24 hr 02/27/21 05:25: WBC 25.5 H, RBC 3.28 L, Hgb 9.9 L, Hct 31.7 L, MCV 96.6 H, MCH 30.2, MCHC 31.2 L, RDW Std Deviation 56.7 H, RDW Coeff of Laila 16.1 H, Plt Count 97 L, MPV 10.6, Immature Gran % (Auto) 0.200, Neut % (Auto) 14.6 L, Lymph % (Auto) 78.2 H, [place] % (Auto) 5.4, Eos % (Auto) 1.3, Baso % (Auto) 0.3, Absolute Neuts (auto) 3.7, Absolute Lymphs (auto) 19.94 H, Nucleated RBC % 0.2, Differential Comment SCANNED, Atypical Lymphocytes 1+ 02/27/21 05:25: Sodium 135 L, Potassium 3.8, Chloride 102, Carbon Dioxide 28.0, Anion Gap 5, BUN 15, Creatinine 0.85, Estim Creat Clear Calc 86.13, Est GFR (MDRD) Af Amer 114, Est GFR (MDRD) Non-Af 94, BUN/Creatinine Ratio 17.6, Glucose 95, Calcium 7.7 L Micro: Microbiology 02/12/21 10:00 Sputum, Expectorated/Coughed Gram Stain - Final 02/12/21 10:00 Sputum, Expectorated/Coughed Respiratory Culture - Final Presumptive C albicans 02/04/21 20:50 Blood Culture (Wb) - Anticubital Right Blood Culture - Final No growth in 5 days. 02/04/21 20:43 Blood Culture (Wb) - Anticubital Left Blood Culture - Final No growth in 5 days. 02/05/21 02:47 Urine, Clean Catch Legionella Antigen - Final 02/05/21 02:47 Urine, Clean Catch Streptococcus pneumoniae Antigen (M - Final Physical Exam Const alert, oriented x3 and no apparent distress General Appearance: cooperative, well kempt and well developed Orientation / Consciousness: awake, oriented to person, oriented to place and oriented to time HEENT normocephalic and moist oral mucous membranes Eyes PERRL, EOMs intact bilaterally and conjunctivae normal Neck nuchal rigidity, supple, no JVD, thyroid normal and no carotid bruits General: trachea midline Resp normal respiratory effort, no retractions, no use of accessory muscles and clear to auscultation bilaterally Auscultation: Negative for rales, rhonchi or wheezes Cardio regular rate, regular rhythm, no murmurs, no rub and no gallops GI normal to inspection, nondistended, normoactive bowel sounds, soft to palpation, non-tender and non-distended Extremity no clubbing, cyanosis or edema Skin no rashes or lesions noted General Skin Exam: no breakdown Neuro oriented x3, CN's II-XII intact bilaterally, no focal motor deficits and no sensory deficits noted Sensorium / Orientation: awake and alert Speech: speech normal Psych thought process normal and affect normal Assessment & Plan Assessment/Plan (1) Pneumonia due to COVID-19 virus: PLAN: 1. COVID-19 pneumonia-patient has received dexamethasone, monoclonal infusion (as an outpatient), baricitinib, and the patient refused remdesivir. #2 acute hypoxic respiratory failure-patient's oxygen will be weaned if possible, due to his oxygen requirement today, he cannot be discharged home. I talked briefly with the patient's by phone today and she understands this also. #3 history of chronic lymphocytic leukemia #4 severe protein and caloric malnutrition #5 debility-patient wants to be discharged home, he will not be placed in a [place] [facility] facility Charges/Coding Visit Charges Inpatient E&M: 17183 Subs Hosp L2
[2021-02-28] VITALS (14 sets, daily range): BP systolic 107–117; BP diastolic 60–65; PULSE 61–90; RESP 12–25; TEMP 36.4–36.6; O2SAT 89–94
[2021-02-28 06:07] LABS: Absolute Lymphocyte Count 19.99 X10^3/uL (0.83-4.51); Absolute Neutrophil Count 3.2 X10^3/uL (2.0-7.7); Basophil# 0.07 X10^3/uL; Basophil% 0.3 % (0-1); Eosinophil# 0.38 X10^3/uL; Eosinophils% 1.6 % (0-5); Hemoglobin 9.8 g/dL (13.0-16.5); Lymphocyte # 19.99 X10^3/ul (0.83-4.51); Lymphocyte % 81.9 % (19-41); Mean Corp Hgb Conc 31.6 g/dL (32-36); Mean Corpuscular Hgb 30.7 pg (27.0-32.0); Mean Corpuscular Volume 97.2 fL (80-94); Mean Platelet Vol. 10.1 fl (6.2-12.0); Monocyte# 0.74 X10^3/uL; NRBC Flagged by Analyzer 0 % (0-5); Neutrophil # 3.16 X10^3/uL (2.7-7.7); POSITIVE DIFFERENTIAL YES; POSITIVE MORPHOLOGY YES; Platelet Count 103 K/mm3 (150-450); RBC Distribution Width CV 16.2 % (11.6-14.6); RBC Distribution Width SD 57.1 fl (35.1-43.9); Red Blood Count 3.19 M/mm3 (4.6-6.2); White Blood Count 24.4 K/mm3 (4.4-11.0)
[2021-02-28 06:09] LABS: Differential Indicated SCAN CRITERIA MET
[2021-02-28 06:27] LABS: Differential Comment SCANNED
[2021-02-28 06:28] LABS: Atypical Lymphocyte 1+ %
[2021-02-28 06:31] LABS: Anion Gap 4 (5-15); BUN 12 mg/dL (7-18); BUN/Creat Ratio 14.8 RATIO (10-20); Calcium,Total 7.8 mg/dL (8.5-10.1); Chloride 102 mmol/L (98-107); Creatinine, Serum 0.81 mg/dL (0.70-1.30); EST Glomerular Filtration Rate 100 mL/min (>60); Est Glom Filt Rate - Afr Amer 121 mL/min (>60); Estimated Creatinine Clearance 90.38 ml/min; Glucose 99 mg/dL (74-106); Potassium 3.4 mmol/L (3.5-5.1); Sodium Level 136 mmol/L (136-145)
[2021-02-28] MEDS: Ipratropium/Albuterol Sulfate 3 ML AMPUL.NEB INHALATION ×4 (07:37→20:07)
[2021-02-28] MEDS: Senna/Docusate Sodium 1 Tablet 2 TABLET PO (11:35)
[2021-02-28] MEDS: Enoxaparin 40 MG/0.4 ML Syringe SC ×2 (11:35→21:08)
[2021-02-28] MEDS: Polyethylene Glycol 3350 17 GM PACKET PO (11:35)
--- NOTE | 2021-02-28 19:45 | PCM.PN.HOSP ---
Subjective Subjective Patient was seen and examined today, he does not appear to be in any distress at rest. Objective Data Objective Data Vital Signs: Vital Signs Temp Pulse Resp BP Pulse Ox 97.9 F 85 18 115/64 93 02/28/21 16:00 02/28/21 16:00 02/28/21 16:00 02/28/21 16:00 02/28/21 16:00 Oxygen Flow Rate (L/min) [ 10 AMBULATING with Oxygen #1] Oxygen Flow Rate (L/min) [At 5 REST with Oxygen] Oxygen Flow Rate (L/min) 5 Oxygen Delivery Method Nasal Cannula Weight: 89.1 kg Body Mass Index (BMI) 29.9 Intake & Output: Intake and Output for Last 24 Hours 02/26/21 02/27/21 02/28/21 23:59 23:59 23:59 Intake Total 480 / 480 980 / 980 Output Total 1100 / 1100 300 / 300 400 / 400 Balance -620 / -620 680 / 680 -400 / -400 Medical Nutrition Assessment Dietitian: Malnutrition Criteria Met Start: 02/17/21 12:38 Freq: Status: Active Protocol: Document 02/24/21 13:49 AG (Rec: 02/24/21 13:49 AG [id number]) Nutrition Malnutrition Evidence of Malnutrition Exists Yes Malnutrition (severe): Acute Illness/Injury Evidenced By Suboptimal Energy Intake ( Severe),Weight Loss (Severe) Intake Problem Inadequate Oral Intake Etiology related to decreased appetite, resp. failure Signs/Symptoms as evidenced by PO intake < ~ 50% at meals Status Active Problem Clinical Problem Acute Disease or Injury Related Malnutrition Etiology severe, acute malnutrition r/t inadequate energy intake w/ increased nutrient needs d/t resp. failure Signs/Symptoms as evidenced by estimated PO intake meeting <50% of estimated energy needs >5 days ; unintentional wt loss of 9. 6kg/10% < 1 month Status Active Problem Recommendation Dietitian Recommendations/Changes Continue Regular Diet as ordered with pt preferences for gluten-free and no milk. Lab / Micro Data Result Diagrams: 02/28/21 05:20 02/28/21 05:20 Labs: Laboratory Results - last 24 hr 02/28/21 05:20: WBC 24.4 H, RBC 3.19 L, Hgb 9.8 L, Hct 31.0 L, MCV 97.2 H, MCH 30.7, MCHC 31.6 L, RDW Std Deviation 57.1 H, RDW Coeff of Laila 16.2 H, Plt Count 103 L, MPV 10.1, Immature Gran % (Auto) 0.200, Neut % (Auto) 13.0 L, Lymph % (Auto) 81.9 H, [place] % (Auto) 3.0, Eos % (Auto) 1.6, Baso % (Auto) 0.3, Absolute Neuts (auto) 3.2, Absolute Lymphs (auto) 19.99 H, Nucleated RBC % 0, Differential Comment SCANNED, Atypical Lymphocytes 1+ 02/28/21 05:20: Sodium 136, Potassium 3.4 L, Chloride 102, Carbon Dioxide 30.0, Anion Gap 4 L, BUN 12, Creatinine 0.81, Estim Creat Clear Calc 90.38, Est GFR (MDRD) Af Amer 121, Est GFR (MDRD) Non-Af 100, BUN/Creatinine Ratio 14.8, Glucose 99, Calcium 7.8 L Micro: Microbiology 02/12/21 10:00 Sputum, Expectorated/Coughed Gram Stain - Final 02/12/21 10:00 Sputum, Expectorated/Coughed Respiratory Culture - Final Presumptive C albicans 02/04/21 20:50 Blood Culture (Wb) - Anticubital Right Blood Culture - Final No growth in 5 days. 02/04/21 20:43 Blood Culture (Wb) - Anticubital Left Blood Culture - Final No growth in 5 days. 02/05/21 02:47 Urine, Clean Catch Legionella Antigen - Final 02/05/21 02:47 Urine, Clean Catch Streptococcus pneumoniae Antigen (M - Final Physical Exam Const alert, oriented x3, no apparent distress and healthy appearing General Appearance: cooperative, well kempt and well developed Orientation / Consciousness: awake, oriented to person, oriented to place and oriented to time HEENT normocephalic, head/scalp atraumatic and moist oral mucous membranes Head and Scalp: normocephalic Eyes PERRL, EOMs intact bilaterally and conjunctivae normal Neck nuchal rigidity, supple, no JVD, thyroid normal and no carotid bruits General: trachea midline Resp normal respiratory effort, no retractions, no use of accessory muscles and clear to auscultation bilaterally Auscultation: Negative for rales, rhonchi or wheezes Cardio regular rate, regular rhythm, S1 normal heart sound, S2 normal heart sound, no murmurs, no rub and no gallops GI normal to inspection, nondistended, normoactive bowel sounds, soft to palpation, non-tender and non-distended Extremity no clubbing, cyanosis or edema Skin no rashes or lesions noted General Skin Exam: no breakdown Neuro oriented x3, CN's II-XII intact bilaterally, no focal motor deficits and no sensory deficits noted Sensorium / Orientation: awake and alert Speech: speech normal Psych thought process normal and affect normal Assessment & Plan Assessment/Plan (1) Pneumonia due to COVID-19 virus: PLAN: 1. COVID-19 pneumonia-patient has received dexamethasone, monoclonal infusion (as an outpatient), baricitinib, and the patient refused remdesivir. Patient has completed his baricitinib. #2 acute hypoxic respiratory failure-patient's oxygen will be weaned if possible, due to his oxygen requirement today, he cannot be discharged home. #3 history of chronic lymphocytic leukemia #4 severe protein and caloric malnutrition #5 debility-patient wants to be discharged home Charges/Coding Visit Charges Inpatient E&M: 76842 Subs Hosp L2
[2021-03-01] VITALS (13 sets, daily range): BP systolic 104–119; BP diastolic 57–64; PULSE 65–100; RESP 16–20; TEMP 36.5–36.7; O2SAT 82–96
--- NOTE | 2021-03-01 02:06 | CPS ---
pt sleeping in chair comfortably on nasal o2.
[2021-03-01] MEDS: Ipratropium/Albuterol Sulfate 3 ML AMPUL.NEB INHALATION ×3 (07:37→14:53)
[2021-03-01] MEDS: Enoxaparin 40 MG/0.4 ML Syringe SC (09:04)
--- NOTE | 2021-03-01 11:11 | PCM.DC ---
Discharge Instructions Diet Discharge Diet: No restrictions Activity Discharge Activity: Return to Normal Activity Weight Bearing Status: Full weight bearing Lifting Restrictions: with walker Follow Up Care Test Results: Test results from this visit will be discussed in further detail at your follow-up appointment, if applicable. Discharge Plan Admission Admit Date/Time: 02/04/21 22:29 Primary Reason for Your Visit: covid-19 pneumonia Attending Provider: Vladimir Vazquez Consulting Providers: Don Griffin ; David Luna ; Pérez Esteban ; Regina Tiwari MUSIC COORDINATOR Instructions Additional Instructions / Restrictions: Use oxygen at 3 L at rest, use oxygen at 8 L while ambulating or during activity Consider getting the Sukh & Sukh vaccine in 2 months (1 injection) Discharge Orders/Prescriptions Prescriptions: New sodium chloride [Deep Sea Nasal] 0.65 % Aerosol,[place] 2 spray NASAL TID PRN PRN (Reason: NASAL DRYNESS) Qty: 0 RF: 0 Referrals / Follow Up: PHILIP MEDEL [Other] (Follow-up in 2 to 3 weeks) David Luna MD [STAFF PHYSICIAN] - See Referral Note (In 2 weeks, call for an appointment, be sure to tell them that you were hospitalized) Disposition Disposition (needs filled in before D/C Order can be placed): Home, Self Care
--- NOTE | 2021-03-01 17:40 | PCM.DC.SUM ---
Providers Date of Admission: 02/04/21 Date of Discharge: 03/01/21 Primary Care Physician: PHILIP MEDEL Consultations 02/04/21 23:27 Consult: Form Tamping Machine Operator / Pulmonary Medicine Routine Consulting Provider: [facility] Reason for Consult: Acute hypoxic respiratory failure secondary to hypoxia EMERGENT Consult: No Notified: Yes Date Notified: 02/05/21 Time Notified: 06:30 Method of Notification: Text 02/05/21 14:22 Consult: Infectious Disease Routine Consulting Provider: Don Griffin Reason for Consult: COVID PNA EMERGENT Consult: No Notified: Yes Date Notified: 02/05/21 Time Notified: 18:39 Method of Notification: Answering Service Reason For Visit: ACUTE HYPOXIC RESP FAILURE 2NDARY TO COVID 19 Diagnosis Discharge Diagnosis (1) Pneumonia due to COVID-19 virus: Status: Acute Code(s): U07.1 - COVID-19; J12.82 - Pneumonia due to coronavirus disease 2019 Plan: 1. COVID-19 pneumonia #2 acute hypoxic respiratory failure due to COVID-19 pneumonia #3 history of chronic lymphocytic leukemia #4 severe protein and caloric malnutrition #5 debility secondary to COVID-19 pneumonia Medications at Discharge Home Medications sodium chloride [Deep Sea Nasal] 2 spray NASAL TID PRN PRN #0 ml 03/01/21 Hospital Course Operations None Procedures None Summary of Care Provided Minutes Spent on Discharge: 31 Hospital Course: This 71-year-old white male was seen in the emergency room at [facility] with a chief complaint of shortness of breath, he had been at the monoclonal infusion center due to a diagnosis of COVID-19 that was made on 02/03/2021, symptoms started 9 days prior to 02/04/2021. He was noted to be hypoxic at the monoclonal infusion center and sent to the ER for evaluation. He did complete the monoclonal antibody infusion, his oxygen saturation went down to 82 and he was sent to the ER. Work-up in the emergency room included a CT of the chest which showed no pulmonary embolism, multifocal ill defined patchy groundglass attenuation was seen bilaterally. Patient's white blood cell count was elevated at 138.6-he has a history of CLL. Patient required 15 L to maintain his pulse ox in the 90s in the emergency room. Patient was admitted to PCU, he was seen by critical care and infectious diseases, patient refused remdesivir, he did consent to baricitinib however and was treated with baricitinib and Decadron. Patient underwent a lengthy hospital stay and remained on high flow oxygen during his hospital stay. Patient improved and his oxygenation enough to be discharged from the hospital on home oxygen. On 03/01/2021, patient was seen and examined: On examination he appeared in good health and spirits. Vital signs as documented. Skin warm and dry and without overt rashes. Neck without JVD, neck was supple, trachea midline, thyroid was normal. Lungs clear bilaterally, normal air movement was noted. Heart exam notable for regular rhythm, normal sounds and absence of murmurs, rubs or gallops. Abdomen unremarkable and without evidence of organomegaly, masses, or abdominal aortic enlargement. Bowel sounds are present, abdomen is not distended. Extremities nonedematous, no cyanosis was noted, no clubbing was noted. Neuro: Cranial nerves II through XII are grossly intact, no focal motor deficits were noted, sensation to light touch and pinprick intact, motor exam 5/5 throughout. Psych: Patient is alert and oriented x3, he does not appear anxious or depressed, he does not appear agitated. Patient required 3 L of oxygen at rest to maintain his pulse ox above 88%, he required oxygen at 8 L while ambulating to maintain his pulse ox above 88%. This was set up for the patient at home and he was expected to use the oxygen in his home and outside of his home. Patient appears stable for discharge on 03/01/2021, I briefly talked to him about receiving the vaccine for Covid in 2 months-he was undecided whether to be vaccinated against Covid. He said that he did not trust the vaccine. Medical Records Data Medical Nutrition Assessment Dietitian: Malnutrition Criteria Met Start: 02/17/21 12:38 Freq: Status: Active Protocol: Document 02/24/21 13:49 AG (Rec: 02/24/21 13:49 AG [id number]) Nutrition Malnutrition Evidence of Malnutrition Exists Yes Malnutrition (severe): Acute Illness/Injury Evidenced By Suboptimal Energy Intake ( Severe),Weight Loss (Severe) Intake Problem Inadequate Oral Intake Etiology related to decreased appetite, resp. failure Signs/Symptoms as evidenced by PO intake < ~ 50% at meals Status Active Problem Clinical Problem Acute Disease or Injury Related Malnutrition Etiology severe, acute malnutrition r/t inadequate energy intake w/ increased nutrient needs d/t resp. failure Signs/Symptoms as evidenced by estimated PO intake meeting <50% of estimated energy needs >5 days ; unintentional wt loss of 9. 6kg/10% < 1 month Status Active Problem Recommendation Dietitian Recommendations/Changes Continue Regular Diet as ordered with pt preferences for gluten-free and no milk. Weight / BMI Weight Weight: 90.5 kg Body Mass Index (BMI) 29.9 ABG / Lab / Microbiology Data Result Diagrams: 02/28/21 05:20 02/28/21 05:20 Microbiology: Microbiology 02/12/21 10:00 Sputum, Expectorated/Coughed Gram Stain - Final 02/12/21 10:00 Sputum, Expectorated/Coughed Respiratory Culture - Final Presumptive C albicans 02/04/21 20:50 Blood Culture (Wb) - Anticubital Right Blood Culture - Final No growth in 5 days. 02/04/21 20:43 Blood Culture (Wb) - Anticubital Left Blood Culture - Final No growth in 5 days. 02/05/21 02:47 Urine, Clean Catch Legionella Antigen - Final 02/05/21 02:47 Urine, Clean Catch Streptococcus pneumoniae Antigen (M - Final D/C Instructions Discharge Diet: No restrictions Weight Bearing Status: Full weight bearing Meaningful Use Info Meaningful Use Diagnoses (Choose all that apply): None applicable Discharge Plan Admission Admit Date/Time: 02/04/21 22:29 Primary Reason for Your Visit: covid-19 pneumonia Attending Provider: Vladimir Vazquez Consulting Providers: Don Griffin ; David Luna ; Pérez Esteban ; Regina Tiwari IRONER HAND Instructions Additional Instructions / Restrictions: Use oxygen at 3 L at rest, use oxygen at 8 L while ambulating or during activity Consider getting the Sukh & Sukh vaccine in 2 months (1 injection) Discharge Orders/Prescriptions Prescriptions: New sodium chloride [Deep Sea Nasal] 0.65 % Aerosol,[place] 2 spray NASAL TID PRN PRN (Reason: NASAL DRYNESS) Qty: 0 RF: 0 Referrals / Follow Up: PHILIP MEDEL [Other] (Follow-up in 2 to 3 weeks) David Luna MD [STAFF PHYSICIAN] - See Referral Note (In 2 weeks, call for an appointment, be sure to tell them that you were hospitalized) Disposition Disposition (needs filled in before D/C Order can be placed): Home, Self Care Charges/Coding Visit Charges Inpatient E&M: 76987 Disch Hosp
--- NOTE | 2021-03-02 15:34 | CASEMGMT ---
SONIDO PETERS Discharge Follow-up Phone Call: JOSE RAFAEL: Aniket Strata: 3 Call Date: 03/02/21 Discharge Date: 03/01/21 Time of Call: 1530 Duration: 5 min Admitting Diagnosis: Covid. SONIDO PETERS attempted to call patient to complete follow-up phone call after recent hospitalization. No answer voice message left with return contact information.
== END 2021-03-01 17:30 | disposition home or self-care (01) | DRG 177 ==
LOC: ED 22:46 → PCU 23:21 → ICU 02-16 13:17 → PCU 02-18 13:20
PROVIDERS: Internal Medicine; Internal Medicine Critical Care Medicine; Internal Medicine Infectious Disease; Student in an Organized Health Care Education/Training Program; Admitting Provider Internal Medicine; Emergency Provider Emergency Medicine; Visit Provider Internal Medicine
DX: U07.1 COVID-19 (principal); J12.82 Pneumonia due to coronavirus disease 2019; J96.01 Acute respiratory failure with hypoxia; E43 Unspecified severe protein-calorie malnutrition; C91.10 Chronic lymphocytic leukemia of B-cell type not having achieved remission; E22.2 Syndrome of inappropriate secretion of antidiuretic hormone; E87.3 Alkalosis; Z23 Encounter for immunization; J45.909 Unspecified asthma, uncomplicated; R74.01 Elevation of levels of liver transaminase levels; D69.6 Thrombocytopenia, unspecified; D63.8 Anemia in other chronic diseases classified elsewhere; E66.9 Obesity, unspecified; Z28.3 Underimmunization status; Z68.32 Body mass index [BMI] 32.0-32.9, adult; Z68.29 Body mass index [BMI] 29.0-29.9, adult
CPT/HCPCS: 36415; 36600; 71045; 71275; 80048; 80053; 80076; 82803; 83605; 83735; 84100; 84145; 84443; 84484; 85025; 85027; 85379; 86140; 87040; 87070; 87205; 87449; 87641; 93005; 94002; 94003; 94640; 94660; 94667; 94668; 94762; 97110; 97116; 97161; 97164; 97166; 97168; 97530; 97802; 97803; 99251; 99285; J7050; M0243; Q9967; A4216; G0463; J1940; Q0244

== ENCOUNTER 2021-03-17 19:20 | Inpatient (IN) | payer MEDICARE, OTHER, SELFPAY ==
[2021-03-17 19:22] VITALS: BP 137/75; PULSE 99; RESP 18; TEMP 36.6; O2SAT 84; BMI 27.2
--- NOTE | 2021-03-17 19:45 | EKG12_ITS ---
Test Reason : SOB Blood Pressure : / mmHG Vent. Rate : 073 BPM Atrial Rate : 073 BPM P-R Int : 198 ms QRS Dur : 102 ms QT Int : 392 ms P-R-T Axes : 035 -22 -09 degrees QTc Int : 431 ms Normal sinus rhythm Normal ECG Confirmed by ALISSA BAZAN, DENIZ ([id number]), editor farm journal DAKSHA CARRERO ([id number]) on 03/18/2021 1:15:50 PM Referred By: PATIENCE Confirmed By:DENIZ MAXWELL MD
--- NOTE | 2021-03-17 19:46 | EDS_ITS ---
HPI History of Present Illness Chief Complaint: Shortness of Breath Detail of Chief Complaint: Shortness of breath and cough Informant: patient Narrative Narrative: Patient presents to the emergency department complaint of shortness of breath. Patient complains of ongoing cough. Patient states he was admitted 6 weeks ago and spent 4 weeks in the hospital for Covid. Since going home he has been on oxygen at about 5 L at all times. His O2 sat at times with activity will drop down into the 70s and 80s. Patient has had a slightly productive cough. He denies fevers. Patient had a chest x-ray today and some blood work and was called and told to come to the ER because he may have bilateral pneumonia. He denies any chest pain. Patient has history of asthma and history of CLL. [facility] Medical History Asthma CLL (chronic lymphocytic leukemia) Home Medications sodium chloride [Deep Sea Nasal] 2 spray NASAL TID PRN PRN #0 ml 03/01/21 [Rx Last Taken Unknown] Allergy/AdvReac Type Severity Reaction Status Date / Time monosodium glutamate Allergy Severe lip Verified 03/17/21 19:26 swelling strawberry Allergy Severe lip Verified 03/17/21 19:26 swelling grass pollen Allergy Mild watery eyes Verified 03/17/21 19:26 tree and shrub pollen Allergy Mild watery eyes Verified 03/17/21 19:26 Family History (Updated 02/04/21 @ 23:[address] Chelsea Parker DO) Other Asthma Social History (Updated 02/04/21 @ 23:[address] Chelsea Parker DO) Smoking Status: Never smoker alcohol intake: never substance use type: does not use ROS ROS ED Constitutional Constitutional ED: Reports systems reviewed and no addt'l complaints, except as documented; Denies body ache(s), change in weight or chills Eyes Eyes: Denies acute decrease in peripheral vision, change in vision, double vision or loss of vision ENT ENT ED: Reports none; Denies ear pain, lip swelling, loss taste/smell, neck pain, otalgia or sore throat Cardiovascular Cardiovascular: Reports none; Denies abdominal pain, chest pain with activity, leg edema, lightheadedness, palpitations, rapid heart rate or syncope Respiratory/Chest Respiratory/Chest: Reports none, cough and dyspnea; Denies change in mental status, dry cough, hemoptysis, shortness of breath at rest or shortness of breath with exertion Gastrointestinal Gastrointestinal: Reports none; Denies abdominal pain, change in stool character, diarrhea, hematemesis, hematochezia, melena, rectal bleeding or vomiting Genitourinary Genitourinary ED: Reports none; Denies abdominal discomfort, anuria, dysuria, genital pain or polyuria Musculoskeletal Musculoskeletal: Reports none; Denies arthralgias, back pain, difficulty walking, extremity pain, muscle weakness or myalgias Integumentary Reports none; Denies abscess or rash Neurologic Neurologic: Reports none; Denies abnormal gait, confusion, focal weakness, frequent falls, headache(s), loss of vision, numbness, paresthesias, radicular pain, vertigo or weakness Psychiatric Psychiatric: Reports systems reviewed and no addt'l complaints, except as documented and none; Denies behavioral changes, confusion, difficulty concentrating, hallucinations, suicidal ideation, tactile hallucinations or visual hallucinations Endocrine Endocrinology: Denies none, cold intolerance, excessive sweating, fatigue or heat intolerance Hematologic/Lymphatic Hematologic/Lymphatic: Reports none; Denies anemia, easy bleeding or easy bruising Allergic/Immunologic Allergic/Immunologic ED: Denies as per HPI, none, lip swelling, mouth swelling, throat swelling, tongue swelling or hives EXAM Physical Exam Const Vital Signs: 03/17/21 19:22 03/17/21 20:09 03/17/21 21:37 Temperature 97.8 F Temperature Source Temporal Pulse Rate 99 84 70 Respiratory Rate 18 18 17 Blood Pressure 137/75 H 123/69 H 119/77 Blood Pressure Mean 95 87 91 Pulse Ox 84 96 97 Oxygen Delivery Method Room Air Nasal Cannula Nasal Cannula Oxygen Flow Rate (L/min) 4 3 Positive well nourished and well developed General Appearance ED: well developed and NAD HEENT Reports TM's clear and moist mucous membranes normocephalic and atraumatic; Negative for trauma or tenderness Tympanic Membrane ED: Yes TM's clear Eyes PERRL and EOMs intact bilaterally General Eye ED: Negative for pale conjunctiva or scleral icterus Neck no lymphadenopathy, supple and no JVD General: Negative for tenderness Chest Wall inspection of chest normal and palpation of chest normal Chest: Negative for tenderness Resp normal respiratory effort Resp Narrative: Patient with rales in both bases left greater than right. No accessory muscle use or retractions. No conversational dyspnea. Effort and Inspection: Negative for respiratory distress or pain with movement Auscultation: rhonchi; Negative for wheezes or diminished lung sounds Cardio regular rate, regular rhythm, S1 normal heart sound, S2 normal heart sound and no murmurs Peripheral Pulses: pulses 2+ throughout GI normal to inspection, nondistended, normoactive bowel sounds, soft to palpation, non-tender, non-distended and no masses Back/Spine no CVA tenderness and no thoracic nor lumbar tenderness Extremity normal to inspection General Extremety ED: Negative for edema General Extremity: Negative for edema Neuro oriented x3, CN's II-XII intact bilaterally, no sensory deficits noted and gait normal Sensorium / Orientation: awake, alert, oriented to person, oriented to place and oriented to time Motor Exam: strength 5/5 throughout and strength abnormal Psych mental status grossly normal Skin no rashes or lesions noted and no wounds MDM MDM MDM Narrative Medical decision making narrative: IV line established on arrival. Blood cultures ordered. Patient was started on Zosyn as well as vancomycin. CTA was negative for PE however did show bilateral effusions and infiltrates consistent with pneumonia. It is unclear if this is bacterial etiology versus all changes related to recent Covid infection. Case was discussed with hospitalist who will evaluate patient for admission. Lab Data Attestation: I reviewed the patient's lab results. Labs: Laboratory Results - last 24 hr 03/17/21 03/17/21 03/17/21 19:45 20:03 20:03 WBC 18.2 H RBC 4.55 L Hgb 13.4 Hct 44.4 MCV 97.6 H MCH 29.5 MCHC 30.2 L RDW Std Deviation 54.8 H RDW Coeff of Laila 15.3 H Plt Count 106 L MPV 10.2 Immature Gran % (Auto) 0.300 Neut % (Auto) 19.9 L Lymph % (Auto) 72.0 H [place] % (Auto) 6.3 Eos % (Auto) 1.3 Baso % (Auto) 0.2 Absolute Neuts (auto) 3.6 Absolute Lymphs (auto) 13.08 H Nucleated RBC % 0 Differential Comment SCANNED D-Dimer Quant (PE/DVT) 1.30 H* Sodium Potassium Chloride Carbon Dioxide Anion Gap BUN Creatinine Estim Creat Clear Calc Est GFR (MDRD) Af Amer Est GFR (MDRD) Non-Af BUN/Creatinine Ratio Glucose Lactic Acid Calcium B-Natriuretic Peptide 84.3 03/17/21 03/17/21 20:03 20:03 WBC RBC Hgb Hct MCV MCH MCHC RDW Std Deviation RDW Coeff of Laila Plt Count MPV Immature Gran % (Auto) Neut % (Auto) Lymph % (Auto) [place] % (Auto) Eos % (Auto) Baso % (Auto) Absolute Neuts (auto) Absolute Lymphs (auto) Nucleated RBC % Differential Comment D-Dimer Quant (PE/DVT) Sodium 142 Potassium 4.2 Chloride 106 Carbon Dioxide 31.0 Anion Gap 5 BUN 12 Creatinine 1.02 Estim Creat Clear Calc 69.58 Est GFR (MDRD) Af Amer 93 Est GFR (MDRD) Non-Af 77 BUN/Creatinine Ratio 11.8 Glucose 105 Lactic Acid 1.3 Calcium 9.0 B-Natriuretic Peptide Radiography Diagnostic Testing: Clinical Impression(s) from Imaging Studies Chest CTA 03/17/21 20:48 IMPRESSION: 1. No demonstrated pulmonary embolism or arterial dissection. 2. There are bilateral pleural effusions. There is bilateral pneumonia. This is worse. Electronically Signed: Andrew Canas MD at 22:31 EST , Service support , EKG Initial EKG: Attestation: I personally reviewed and interpreted this EKG as follows: Comments: This rhythm with a ventricular rate of 73 bpm with no acute ST segment changes Discharge Plan Triage Chief Complaint: Shortness of Breath ED Provider: Ze Muñoz Dx/Rx/DC Orders Clinical Impression: Pneumonia, Acute respiratory failure with hypoxia Prescriptions: No Action sodium chloride [Deep Sea Nasal] 0.65 % Aerosol,[place] 2 spray NASAL TID PRN PRN (Reason: NASAL DRYNESS) Qty: 0 RF: 0 Referrals: PHILIP MEDEL [Other] Disposition Disposition: Acute Care Hospital [facility]
[2021-03-17 20:09] VITALS: BP 123/69; PULSE 84; RESP 18; O2SAT 96
[2021-03-17] MEDS: 0.9% Normal Saline 1,000 ML 150 ML IV (20:12)
[2021-03-17 20:14] LABS: Absolute Lymphocyte Count 13.08 X10^3/uL (0.83-4.51); Absolute Neutrophil Count 3.6 X10^3/uL (2.0-7.7); Basophil# 0.03 X10^3/uL; Basophil% 0.2 % (0-1); Eosinophil# 0.23 X10^3/uL; Eosinophils% 1.3 % (0-5); Hematocrit 44.4 % (40-54); Hemoglobin 13.4 g/dL (13.0-16.5); Lymphocyte # 13.08 X10^3/ul (0.83-4.51); Mean Corp Hgb Conc 30.2 g/dL (32-36); Mean Corpuscular Hgb 29.5 pg (27.0-32.0); Mean Corpuscular Volume 97.6 fL (80-94); Mean Platelet Vol. 10.2 fl (6.2-12.0); Monocyte# 1.14 X10^3/uL; Monocyte% 6.3 % (0-10); NRBC Flagged by Analyzer 0 % (0-5); Neutrophil # 3.62 X10^3/uL (2.7-7.7); Neutrophil % 19.9 % (47-70); POSITIVE DIFFERENTIAL YES; POSITIVE MORPHOLOGY YES; Platelet Count 106 K/mm3 (150-450); RBC Distribution Width CV 15.3 % (11.6-14.6); RBC Distribution Width SD 54.8 fl (35.1-43.9); Red Blood Count 4.55 M/mm3 (4.6-6.2); White Blood Count 18.2 K/mm3 (4.4-11.0)
[2021-03-17 20:23] LABS: Differential Indicated SCAN CRITERIA MET
[2021-03-17 20:27] LABS: Anion Gap 5 (5-15); BUN 12 mg/dL (7-18); BUN/Creat Ratio 11.8 RATIO (10-20); Chloride 106 mmol/L (98-107); Creatinine, Serum 1.02 mg/dL (0.70-1.30); EST Glomerular Filtration Rate 77 mL/min (>60); Est Glom Filt Rate - Afr Amer 93 mL/min (>60); Estimated Creatinine Clearance 69.58 ml/min; Glucose 105 mg/dL (74-106); Potassium 4.2 mmol/L (3.5-5.1); Sodium Level 142 mmol/L (136-145)
[2021-03-17 20:41] LABS: Lactic Acid 1.3 mmol/L (0.4-1.9)
--- NOTE | 2021-03-17 20:48 | CT_ITS ---
EXAM: CT ANGIOGRAPHY CHEST WITHOUT AND WITH INTRAVENOUS CONTRAST CLINICAL INDICATION: None provided. TECHNIQUE: Helically acquired angiography images were obtained of the chest without and with intravenous contrast. This CT exam was performed using one or more of the following dose reduction techniques: automated exposure control, adjustment of the mA and/or kV according to patient size, and/or use of iterative reconstruction technique. This report was created using [employer] report generation technology. MIP reconstructed images were created and reviewed. CONTRAST: IV 100mL Isovue-370 COMPARISON: 02/04/2021. FINDINGS: PULMONARY ARTERIES: No demonstrated pulmonary embolism or arterial dissection. AORTA: There is atherosclerotic calcification of the aortic arch with tortuosity and elongation of the aortic arch and descending thoracic aorta. Normal in caliber. No evidence of dissection. GREAT VESSELS OF AORTIC ARCH: Unremarkable. Normal in caliber. No evidence of dissection. LUNGS AND PLEURAL SPACES: There are bilateral pleural effusions. There is bilateral pneumonia. There is no demonstrated pleural abnormality. HEART: There are calcifications of the coronary arteries. No pericardial effusion. No signs of right heart strain, ratio of right ventricle to left ventricle measures less than 1. MEDIASTINUM: Normal mediastinum. Normal hilar regions. Normal pulmonary arteries. No mediastinal or hilar adenopathy. Esophagus is unremarkable. No hiatal hernia. THYROID: Unremarkable. No thyroid lesions. BONES/JOINTS: There are degenerative changes of the shoulders. There is no pneumothorax. There are multi-level degenerative changes of the thoracic spine. No suspicious lytic or blastic abnormality. OTHER FINDINGS: History, Signs T Symptoms dyspnea, elevated d-dimer Technologist Notes DYSPNEA, COUGH, DECREASED O2, ON 5 LITERS AT HOME, PT WAS IN ICU FOR [address] COVID [address]/CTA Chest W/WO Contrast IMPRESSION: 1. No demonstrated pulmonary embolism or arterial dissection. 2. There are bilateral pleural effusions. There is bilateral pneumonia. This is worse. Electronically Signed: Andrew Canas MD at 22:31 EST , Service support ,
[2021-03-17 20:49] LABS: Differential Comment SCANNED
[2021-03-17 21:08] LABS: BNP,B-Type NATRIURETIC PEPTIDE 84.3 pg/mL (0-100)
[2021-03-17 21:37] VITALS: BP 119/77; PULSE 70; RESP 17; O2SAT 97
--- NOTE | 2021-03-17 22:43 | HP.PCM.HOS_ITS ---
HPI - General General Date of Admission: 03/17/21 Date of Service: 03/17/21 Chief Complaint: Worsening hypoxia, COVID PNA 6 weeks prior HPI Narrative The patient is a 71 y/o M w/ PMHx: CLL, Asthma, HCM recent prolonged admission 02/04/21-03/01/21 for COVID PNA with acute hypoxic respiratory failure treated with IV decadron as well as baricitinib with refusal per records of remdesivir discharged on 3L NC at rest and 8L NC with activity who re-presents to the [facility] ED on 03/17/21 with history of upon discharge difficulty frequently switching back and forth between his resting and ambulatory oxygen needs therefore he maintained himself in the middle and did not change it even when he was hypoxic with ambulation with progressively worsening dyspnea with his exertions although he did note some improvement with humidification which had not initially been performed by his health care company but given his worsening fatigue and ongoing hypoxia although likely suspected secondary to noncompliance with specific oxygen prescription upon discharge presented for reevaluation. He denies any recent increased productive cough, fevers or chills. Work-up in the ED included T 97.8, heart rate 99, BP 137/75, respiratory rate 18, 84% on room air with improvement to 96% on 4 L nasal cannula, CBC with WBC 18.2, hemoglobin 13.4, platelet 106 with lymphocytosis, coags with D-dimer 1.30, BNP not marked appearing, lactic acid 1.3, BNP 84.3, CTPA with bilateral pleural effusions and worsened bilateral pneumonia with no evidence of PE or arterial dissection, blood culture x2 pending per ED. Of note upon discharge on 02/28/2021 patient WBC 24.4 which is chronically elevated with CLL history. In the ED patient ministered normal saline as well as Zosyn. [facility] Medical History (Updated 03/18/21 @ 00:[address] Hellen Moore MD) Asthma CLL (chronic lymphocytic leukemia) HOCM (hypertrophic obstructive cardiomyopathy) Pneumonia due to COVID-19 virus Home Medications sodium chloride [Deep Sea Nasal] 2 spray NASAL TID PRN PRN #0 ml 03/01/21 [Rx Last Taken Unknown] Allergy/AdvReac Type Severity Reaction Status Date / Time monosodium glutamate Allergy Severe lip Verified 03/17/21 19:26 swelling strawberry Allergy Severe lip Verified 03/17/21 19:26 swelling grass pollen Allergy Mild watery eyes Verified 03/17/21 19:26 tree and shrub pollen Allergy Mild watery eyes Verified 03/17/21 19:26 Family History (Updated 03/18/21 @ 00:[address] Hellen Moore MD) Father Heart disease HCM. Other Asthma other (Denies marked maternal family history including HD, DM, CA.) Surgical History (Updated 03/18/21 @ 00:[address] Hellen Moore MD) H/O hand surgery History of throat surgery Social History (Updated 03/18/21 @ 00:[address] Hellen Moore MD) household members: spouse and children Smoking Status: Never smoker alcohol intake: never substance use type: does not use ROS ROS Narrative Admission Review of Systems: CONSTITUTIONAL: No weight loss, fever, chills, + weakness or fatigue. HEENT: Eyes: No visual loss, blurred vision, double vision or yellow sclerae. Ears, Nose, Throat: No hearing loss, sneezing, congestion, runny nose or sore throat. SKIN: No rash or itching, lesions, wounds. CARDIOVASCULAR: No chest pain, chest pressure or chest discomfort, palpitations, edema, orthopnea, syncopal events. RESPIRATORY: + Primarily exertional dyspnea, No markedly increased cough or sputum, wheezing, hemoptysis. GASTROINTESTINAL: No anorexia, nausea, vomiting or diarrhea, abdominal pain, brett jessica, BRBPR. GENITOURINARY: No dysuria, frequency, urgency or retention. NEUROLOGICAL: No headache, dizziness, syncope, paralysis, ataxia, numbness or tingling in the extremities, focal weakness, change in bowel or bladder control, seizure. MUSCULOSKELETAL: + muscle, back pain, joint pain or stiffness. HEMATOLOGIC: No anemia, bleeding or bruising. LYMPHATICS: No enlarged nodes. No history of splenectomy. PSYCHIATRIC: No history of depression or anxiety. ENDOCRINOLOGIC: No reports of sweating, cold or heat intolerance. No polyuria or polydipsia. ALLERGIES: No history of asthma, hives, eczema or rhinitis. Vital Signs Vital Signs Vital Signs: 03/17/21 19:22 03/17/21 20:09 03/17/21 21:37 Temperature 97.8 F Temperature Source Temporal Pulse Rate 99 84 70 Respiratory Rate 18 18 17 Blood Pressure 137/75 H 123/69 H 119/77 Blood Pressure Mean 95 87 91 Pulse Ox 84 96 97 Oxygen Delivery Method Room Air Nasal Cannula Nasal Cannula Oxygen Flow Rate (L/min) 4 3 Weight Weight: 190 lb Body Mass Index (BMI) 27.2 Physical Exam Narrative Physical Examination: General: Awake, alert, oriented x 3 and cooperative, seated upright in the ED bed in no apparent distress. Skin: Normal color, normal turgor, no icterus, no cyanosis. HEENT: AT/NC, EOMI, PERRLA, mildly dry MM, no carotid bruits or JVD noted. Lungs: Diffusely diminished, greater bases, moderate effort, no rales, ronchi or wheezing. Heart: Regular rate and rhythm; no gallop, rub audible. Abdomen: Soft, overweight, NTTP, ND, normal BS, no HSM. Extremities: No cyanosis, clubbing, or edema. Neurological: Patient awake, alert, oriented as noted, cognitive function intact; pupils equally reactive to light and accommodation, cranial nerves II- XII grossly normal, moving all 4 extremities, no focal deficits, strength moderately globally decreased secondary to acute presentation. Psychiatric: Affect appears fatigued otherwise normal, no acute evidence of depressive or anxiety feelings. Results Lab / Micro Data Result Diagrams: 03/17/21 20:03 03/17/21 20:03 Labs: Laboratory Results - last 24 hr 03/17/21 19:45: B-Natriuretic Peptide 84.3 03/17/21 20:03: WBC 18.2 H, RBC 4.55 L, Hgb 13.4, Hct 44.4, MCV 97.6 H, MCH 29.5, MCHC 30.2 L, RDW Std Deviation 54.8 H, RDW Coeff of Laila 15.3 H, Plt Count 106 L, MPV 10.2, Immature Gran % (Auto) 0.300, Neut % (Auto) 19.9 L, Lymph % (Auto) 72.0 H, [place] % (Auto) 6.3, Eos % (Auto) 1.3, Baso % (Auto) 0.2, Absolute Neuts (auto) 3.6, Absolute Lymphs (auto) 13.08 H, Nucleated RBC % 0, Differential Comment SCANNED 03/17/21 20:03: D-Dimer Quant (PE/DVT) 1.30 H* 03/17/21 20:03: Sodium 142, Potassium 4.2, Chloride 106, Carbon Dioxide 31.0, Anion Gap 5, BUN 12, Creatinine 1.02, Estim Creat Clear Calc 69.58, Est GFR (MDRD) Af Amer 93, Est GFR (MDRD) Non-Af 77, BUN/Creatinine Ratio 11.8, Glucose 105, Calcium 9.0 03/17/21 20:03: Lactic Acid 1.3 Radiology Impression Chest CTA 03/17/21 20:48 IMPRESSION: 1. No demonstrated pulmonary embolism or arterial dissection. 2. There are bilateral pleural effusions. There is bilateral pneumonia. This is worse. Electronically Signed: Andrew Canas MD at 22:31 EST , Service support , Assessment & Plan Assessment/Plan (1) Pneumonia: QUALIFIERS: Laterality: bilateral Lung location: unspecified part of lung Pneumonia type: due to unspecified organism Qualified Code(s): J18.9 - Pneumonia, unspecified organism PLAN: The patient is a 71 y/o M w/ PMHx: CLL, Asthma, HCM recent prolonged admission 02/04/21-03/01/21 for COVID PNA with acute hypoxic respiratory failure treated with IV decadron as well as baricitinib with refusal per records of remdesivir discharged on 3L NC at rest and 8L NC with activity who re-presents to the [facility] ED on 03/17/21 with history of upon discharge difficulty frequently switching back and forth between his resting and ambulatory oxygen needs therefore he maintained himself in the middle and did not change it even when he was hypoxic with ambulation with progressively worsening dyspnea primarily with exertion. 1. Recent BL COVID PNA with Acute Hypoxic Respiratory Failure with questionable ? Superimposed Bacterial PNA, GN/GP organism although Lower suspicion, suspect progressive COVID PNA w/ ongoing Hypoxia secondary to oxygen non-compliance: Will admit to [facility] telemetry, maintain on oxygen with wean as tolerated to home oxygen supplementation (3L NC at rest and 8L NC with activity), continue ATC duonebs, PRN albuterol, maintained on IV Zosyn and Vancomycin with MRSA screen with de-escalation if negative, HOB, IS parameters w/ pending sputum cultures and urine antigens, respiratory viral panel, procalcitonin, CRP, CPK, Ferritin, LDH, hepatic profile. Will request pulmonary evaluation given re-admission and worsened CT as noted. Bld cx x 2 obtained in the ED. 2. HCM: Patient notes his father also had cardiac disease history, not on the routine regimen, will place on aspirin therapy, no echo reported in system, encourage follow-up with cardiology. 3. CLL: Following w/ Oncology, chronically elevated WBC, stable appearing, trend CBC. 4. Chronic Asthma: Not on routine regimen, given #1 will maintain on ATC duonebs and PRN albuterol. 5. DVT Prophylaxis: SCDs, lovenox. 6. CODE status: Patient does not have healthcare power of ip technology transactions attorney nor living will. Discussed CODE status at length including difference between FULL code, DNR-CCA and DNR-CC status. Following discussions about the differences in these status, requested Full Code status. Advanced Care Planning Face to Face Time: 16 minutes. Charges/Coding Visit Charges Inpatient E&M: 75629 Init Hosp L3 Procedures Hospitalists Procedures: 95361 Advncd Care Plan 30 Min
[2021-03-17 23:16] VITALS: BP 113/74; PULSE 74; RESP 18; TEMP 36.4; O2SAT 98
[2021-03-17 23:34] LABS: Procalcitonin 0.05 ng/mL (0.00-0.09)
[2021-03-18] VITALS (19 sets, daily range): BP systolic 107–123; BP diastolic 60–67; PULSE 66–90; RESP 16–24; TEMP 36.4–36.8; O2SAT 90–97; BMI 28.1
--- NOTE | 2021-03-18 00:07 | PCS.PANDOC ---
PANDEMIC DOCUMENTATION INITIATED: Date: 12/15/2020 Time: 190
[2021-03-18 00:13] LABS: AST(SGOT) 17 U/L (15-37); Alanine Aminotransfer ALT/SGPT 19 U/L (16-61); Alkaline Phosphatase 89 U/L (45-117); Bilirubin, Direct 0.13 mg/dL (0.00-0.30); CRP < 2.90 mg/L (0.0-3.0); Ferritin 173 ng/mL (26-388); Globulin 3.9 g/dL (2.2-4.2); LDH 210 U/L (87-241); Magnesium 2.1 mg/dL (1.6-2.6); Protein, Total 6.9 g/dL (6.4-8.2); Troponin-I HS 8 pg/mL (3.0-78.0)
--- NOTE | 2021-03-18 00:31 | PCM.RX.CS ---
Consult Pharmacy has been consulted to manage selected antiobiotic: Vancomycin Type of Consult: New start Suspected Infection: Pneumonia Labs: Sodium 142 mmol/L (136-145) 03/17/21 20:03 Potassium 4.2 mmol/L (3.5-5.1) 03/17/21 20:03 Chloride 106 mmol/L (98-107) 03/17/21 20:03 Carbon Dioxide 31.0 mmol/L (21.0-32.0) 03/17/21 20:03 Anion Gap 5 (5-15) 03/17/21 20:03 BUN 12 mg/dL (7-18) 03/17/21 20:03 Creatinine 1.02 mg/dL (0.70-1.30) 03/17/21 20:03 Est GFR (MDRD) Af Amer 93 mL/min (>60) 03/17/21 20:03 Est GFR (MDRD) Non-Af 77 mL/min (>60) 03/17/21 20:03 BUN/Creatinine Ratio 11.8 RATIO (10-20) 03/17/21 20:03 Glucose 105 mg/dL (74-106) 03/17/21 20:03 Goal Trough: 15-20 mcg/mL Pharmacy Plan for Drug Dosing: NEW START IV VANCOMYCIN Consulting Physician: Dr. Moore Indication: PNA Goal Trough: 15-20 SrCr: 1.02 CrCl: 69ml/min Comments: Had 1250mg IV x11 initial dose in ED 03/17/21 @3081 Vancomcyin Dose: 1000mg IV Q12hr to start 03/18/01 @0800. NOTE: loading dose was ordered for patient. In lieu of administering a supplemental dose, will start scheduled dosing 8hrs from initial dose that was administered. Pending Level: 03/19/21 @0730, prior to 4th total dose of vancomycin per protocol Pharmacy Service will continue to monitor and adjust dosing as required.
[2021-03-18] MEDS: Ipratropium/Albuterol Sulfate 3 ML AMPUL.NEB INHALATION ×5 (00:48→19:19)
[2021-03-18 06:12] LABS: Absolute Lymphocyte Count 10.25 X10^3/uL (0.83-4.51); Basophil# 0.01 X10^3/uL; Basophil% 0.1 % (0-1); Eosinophil# 0.21 X10^3/uL; Eosinophils% 1.4 % (0-5); Hematocrit 35.3 % (40-54); Hemoglobin 10.8 g/dL (13.0-16.5); Lymphocyte # 10.25 X10^3/ul (0.83-4.51); Lymphocyte % 70.6 % (19-41); Mean Corp Hgb Conc 30.6 g/dL (32-36); Mean Corpuscular Hgb 29.3 pg (27.0-32.0); Mean Corpuscular Volume 95.9 fL (80-94); Mean Platelet Vol. 10.2 fl (6.2-12.0); Monocyte# 1.06 X10^3/uL; Monocyte% 7.3 % (0-10); NRBC Flagged by Analyzer 0.1 % (0-5); Neutrophil # 2.95 X10^3/uL (2.7-7.7); Neutrophil % 20.3 % (47-70); POSITIVE COUNT YES; POSITIVE DIFFERENTIAL YES; POSITIVE MORPHOLOGY YES; Platelet Count 92 K/mm3 (150-450); RBC Distribution Width CV 15.2 % (11.6-14.6); RBC Distribution Width SD 53.5 fl (35.1-43.9); Red Blood Count 3.68 M/mm3 (4.6-6.2); White Blood Count 14.5 K/mm3 (4.4-11.0)
[2021-03-18 06:37] LABS: Differential Indicated SCAN CRITERIA MET
[2021-03-18 06:56] LABS: Differential Comment SCANNED
[2021-03-18 07:04] LABS: ALB/GLOB Ratio 0.7 RATIO (0.9-2.4); AST(SGOT) 15 U/L (15-37); Alanine Aminotransfer ALT/SGPT 15 U/L (16-61); Albumin, Serum 2.3 g/dL (3.2-5.0); Alkaline Phosphatase 69 U/L (45-117); Anion Gap 1 (5-15); BUN 13 mg/dL (7-18); BUN/Creat Ratio 13.7 RATIO (10-20); Chloride 110 mmol/L (98-107); Creatinine, Serum 0.95 mg/dL (0.70-1.30); EST Glomerular Filtration Rate 83 mL/min (>60); Est Glom Filt Rate - Afr Amer 101 mL/min (>60); Estimated Creatinine Clearance 74.71 ml/min; Globulin 3.1 g/dL (2.2-4.2); Glucose 96 mg/dL (74-106); Protein, Total 5.4 g/dL (6.4-8.2); Sodium Level 141 mmol/L (136-145)
[2021-03-18 09:27] LABS: Platelet Estimate MOD DEC (ADEQ)
[2021-03-18 09:29] LABS: Reactive Lymphocyte 1+
[2021-03-18] MEDS: Enoxaparin 30 MG/0.3 ML Syringe SC ×2 (10:56→22:23)
[2021-03-18] MEDS: Vancomycin IV 1,000 MG/200 ML BAG 200 MG IV ×2 (10:56→20:21)
--- NOTE | 2021-03-18 11:04 | CASEMGMT ---
Pt was sent home on 3L at rest and 8L w/ exertion at discharge but per notes, pt was keeping O2 at 5L continuous because he did not want to keep changing flow. CM to follow increased home oxygen need. Ursula HEAD CM
--- NOTE | 2021-03-18 11:28 | CASEMGMT ---
Readmission chart review: 02/04-03/01/21 Acute hypoxic resp failure d/t COVID 03/17/21-current Pna, COVID, possible superimposed bacterial pna Pt was here on 02/04/21 getting monoclonal antibx for COVID + test and after d/c'd from monoclonal clinic, pt became hypoxic and was admitted for 25 days. Pt declined Remdisivir and COVID vaccine during admission. Pt is not vaccinated. Pt did complete a course of baricitinib and decadron while admitted. Pt was sent home with WW and on home oxygen 3L at rest and 8L w/ exertion. Pt did schedule f/u appt with Dr. Luna on 03/31/21. Per notes, pt was only wearing 5l nc at home d/t not wanting to constantly change liter flow with movement/exertion and pt returned to [facility] ED on 03/17/21 for increased SOB, low pulse ox. Pt to be instructed on need to change liter flow if order denotes to change for exertion. CM to follow for increased home oxygen need and any further discharge planning/needs. SStsantiago HEAD CM
--- NOTE | 2021-03-18 13:32 | CON.PCM.CC_ITS ---
Assessment & Plan Assessment/Plan (1) Post-COVID syndrome: PLAN: RECOMMENDATIONS: 1. Continue antimicrobials x24 more hours. If cultures remain negative tomorrow, antibiotics can be discontinued. 2. Continue scheduled bronchodilators. 3. Wean supplemental oxygen to maintain saturations at or above 90%. 4. Antitussives as needed. IMPRESSIONS: 1. Chronic hypoxemic respiratory failure with superimposed cough and shortness of breath This is likely secondary to the patient's recent COVID-19 pneumonia. He does appear to have interstitial and fibrotic changes noted on his CTA chest along with crackles on examination. My suspicion for an acute bacterial infection is low. The patient is afebrile without any sputum production. If the patient remains clinically stable over the next 24 hours, antibiotics can be discontinued from my perspective. I explained to the patient that his cough and shortness of breath would likely persist for quite some time given the nature of his disease. 2. History of CLL/anemia/thrombocytopenia Complicates care, management, recovery and prognosis. Continue home medications as indicated. This note was generated with [employer] dictation software. It may contain incorrect words, spelling, and punctuation that were not noted in checking the note before signing. HPI Consult Data Date of Consult: 03/19/21 HPI Narrative Reason for Consultation: Recent Covid pneumonia, respiratory failure, worsen CT HPI Narrative: The patient is a 71-year-old male, with a history as outlined below, who presented to the emergency department on March 17 with shortness of breath and cough. The patient was recently admitted to the hospital February 04, during which time, he was treated for acute hypoxemic respiratory failure secondary to COVID-19 pneumonia. The patient received an empiric course of an timicrobials along with Decadron and a course of baricitinib. At the time of his discharge, the patient was sent home on 3 L/min of oxygen at rest and 8 L/min with exertion. The patient readily admits that he just averaged his oxygen and kept it on 5 L/min with rest and exertion. His cough is dry without any sputum production. On presentation to the emergency department, the patient was noted to be afebrile and hemodynamically stable. He was initially documented to be saturating 96% on 4 L/min. Laboratory evaluation revealed a white blood cell count of 18,000 with a platelet count of 106,000. D-dimer was noted to be 1.3. Chemistry profile was unremarkable. CTA chest showed no evidence for PE. 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 [facility] Medical History (Updated 03/18/21 @ 17:[address] Adarsh Fernandez DO) Asthma CLL (chronic lymphocytic leukemia) HOCM (hypertrophic obstructive cardiomyopathy) Pneumonia due to COVID-19 virus Home Medications sodium chloride [Deep Sea Nasal] 2 spray NASAL TID PRN PRN #0 ml 03/01/21 [Rx Last Taken Unknown] albuterol sulfate 2 puff INHALATION Q6H PRN #6.7 g 03/19/21 [Rx Last Taken Unknown] guaifenesin [Mucinex] 600 mg PO BID #10 tab 03/19/21 [Rx Last Taken Unknown] Allergy/AdvReac Type Severity Reaction Status Date / Time monosodium glutamate Allergy Severe lip Verified 03/17/21 19:26 swelling strawberry Allergy Severe lip Verified 03/17/21 19:26 swelling grass pollen Allergy Mild watery eyes Verified 03/17/21 19:26 tree and shrub pollen Allergy Mild watery eyes Verified 03/17/21 19:26 Family History (Updated 03/18/21 @ 00:[address] Hellen Moore MD) Father Heart disease HCM. Other Asthma Family History other Surgical History H/O hand surgery History of throat surgery Social History (Updated 03/18/21 @ 00:[address] Hellen Moore MD) household members: spouse and children Smoking Status: Never smoker alcohol intake: never substance use type: does not use ROS Constitutional Constitutional: Denies chills, fatigue, fever(s) or headache(s) Eyes Eyes: Denies blurry vision or change in vision ENT HEENT: Denies dysphagia, epistaxis, headache(s) or nasal discharge Cardiovascular Cardiovascular: Reports dyspnea; Denies chest pain or dizziness Respiratory/Chest Respiratory/Chest: Reports cough and dyspnea Gastrointestinal Gastrointestinal: Denies abdominal pain, diarrhea, nausea or vomiting Genitourinary Genitourinary: Denies difficulty urinating Musculoskeletal Musculoskeletal: Denies arthralgias, back pain or joint pain Integumentary Integumentary: Denies lesions Neurologic Neurologic: Denies abnormal gait or abnormal speech Psychiatric Psychiatric: Denies anxiety or depression Endocrine Endocrinology: Denies fatigue or polydipsia Hematologic/Lymphatic Hematologic/Lymphatic: Denies easy bleeding or easy bruising Physical Exam Const alert, oriented x3 and no apparent distress General Appearance: cooperative HEENT normocephalic and head/scalp atraumatic Eyes PERRL, EOMs intact bilaterally and conjunctivae normal Neck supple and no JVD General: trachea midline Chest inspection of chest normal Resp Resp Narrative: Diffuse bilateral crackles present Cardio regular rate and regular rhythm GI normal to inspection, nondistended, normoactive bowel sounds Extremity no clubbing, cyanosis or edema Skin no rashes or lesions noted Neuro CN's II-XII intact bilaterally, moves all extremities and no focal motor deficits Psych cooperative and affect normal Lab / Micro Data Result Diagrams: 03/19/21 07:30 03/19/21 07:30 Labs: Laboratory Results - last 24 hr 03/17/21 19:45: B-Natriuretic Peptide 84.3 03/17/21 20:03: WBC 18.2 H, RBC 4.55 L, Hgb 13.4, Hct 44.4, MCV 97.6 H, MCH 2 9.5, MCHC 30.2 L, RDW Std Deviation 54.8 H, RDW Coeff of Laila 15.3 H, Plt Count 106 L, MPV 10.2, Immature Gran % (Auto) 0.300, Neut % (Auto) 19.9 L, Lymph % (Auto) 72.0 H, Clark % (Auto) 6.3, Eos % (Auto) 1.3, Baso % (Auto) 0.2, Absolute Neuts (auto) 3.6, Absolute Lymphs (auto) 13.08 H, Nucleated RBC % 0, Differential Comment SCANNED 03/17/21 20:03: D-Dimer Quant (PE/DVT) 1.30 H* 03/17/21 20:03: Sodium 142, Potassium 4.2, Chloride 106, Carbon Dioxide 31.0, Anion Gap 5, BUN 12, Creatinine 1.02, Estim Creat Clear Calc 69.58, Est GFR (MDRD) Af Amer 93, Est GFR (MDRD) Non-Af 77, BUN/Creatinine Ratio 11.8, Glucose 105, Calcium 9.0 03/17/21 20:03: Lactic Acid 1.3 03/17/21 20:03: Magnesium 2.1, Ferritin 173, Total Bilirubin 0.30, Direct Bilirubin 0.13, AST 17, ALT 19, Alkaline Phosphatase 89, Lactate Dehydrogenase 210, Troponin I High Sens 8, C-React Prot Ext Range < 2.90, Total Protein 6.9, Albumin 3.0 L, Globulin 3.9 03/17/21 23:05: Procalcitonin 0.05 03/18/21 06:00: WBC 14.5 H, RBC 3.68 L, Hgb 10.8 L, Hct 35.3 L, MCV 95.9 H, MCH 29.3, MCHC 30.6 L, RDW Std Deviation 53.5 H, RDW Coeff of Laila 15.2 H, Plt Count 92 L, MPV 10.2, Immature Gran % (Auto) 0.300, Neut % (Auto) 20.3 L, Lymph % (Auto) 70.6 H, Clark % (Auto) 7.3, Eos % (Auto) 1.4, Baso % (Auto) 0.1, Absolute Neuts (auto) 3.0, Absolute Lymphs (auto) 10.25 H, Nucleated RBC % 0.1, Differential Comment SCANNED, Diff Path Review Not Reportable, Reactive Lymphocytes 1+, Platelet Estimate MOD 03/18/21 06:00: Sodium 141, Potassium 4.0, Chloride 110 H, Carbon Dioxide 30.0, Anion Gap 1 L, BUN 13, Creatinine 0.95, Estim Creat Clear Calc 74.71, Est GFR (MDRD) Af Amer 101, Est GFR (MDRD) Non-Af 83, BUN/Creatinine Ratio 13.7, Glucose 96, Calcium 8.0 L, Total Bilirubin 0.40, AST 15, ALT 15 L, Alkaline Phosphatase 69, Total Protein 5.4 L, Albumin 2.3 L, Globulin 3.1, Albumin/Globulin Ratio 0.7 L Micro: Microbiology 03/18/21 11:17 Urine, Random Legionella Antigen - Final 03/18/21 11:17 Urine, Random Streptococcus pneumoniae Antigen (M - Final 03/18/21 00:40 Mucosa - Nasopharyngeal Respiratory Panel (PCR) - Final Radiology Impression Chest CTA 03/17/21 20:48 IMPRESSION: 1. No demonstrated pulmonary embolism or arterial dissection. 2. There are bilateral pleural effusions. There is bilateral pneumonia. This is worse. Electronically Signed: Andrew Canas MD at 22:31 EST , Service support , Charges/Coding Visit Charges Inpatient E&M: 42102 Init Hosp L3
--- NOTE | 2021-03-18 14:49 | CHAPLAIN ---
Type of Pastoral Visit _x__ Initial Visit ___ Follow-up Visit ___ On-call Visit ___ General Patient Visit ___ Spiritual Assessment ___ Family Conference ___ Bereavement ___ Rapid Response ___ Code Blue ___ Other (describe below) Pastoral Care Referral From _x__ Patient ___ Family ___ Nurse ___ Physician ___ Medical Director/Head Team Physician ___ Counter Server ___ Other (describe below) Sacrament/Intervention _x__ Active listening ___ Anointing ___ Jew ___ Bereavement ___ Communion _x__ Luana exploration ___ _x__ Life review _x__ Prayer ___ Reconciliation ___ Sacrament of Sick _x__ Supportive presence ___ Wedding ___ Other (describe below) Pastoral Comments patient was here previously and 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
[2021-03-18 16:29] LABS: M R Staph aureus DNA By PCR Negative (Negative); Probe Check PASS; Specimen Processing Control PASS
--- NOTE | 2021-03-18 17:26 | PN.HOSP_ITS ---
Subjective Subjective Breathing better today. States that he was basically averaging out his oxygen at home instead of doing the 1 level for rest and 1 level for activity he just averages out in which is using 5 L instead of the 4 and 8 respectively. States that he overall feels better since once he went home. Today when he first went home he was barely able to get up 3 steps and now he has been able to go up a whole flight of stairs only limited by the tubing of his oxygen not being long enough. Objective Data Objective Data Vital Signs: Vital Signs Temp Pulse Resp BP Pulse Ox 36.8 C 81 20 H 111/67 94 03/18/21 14:54 03/18/21 15:06 03/18/21 15:02 03/18/21 14:54 03/18/21 14:54 Oxygen Flow Rate (L/min) 4 Oxygen Delivery Method Nasal Cannula Weight: 89.811 kg Body Mass Index (BMI) 28.1 Intake & Output: Intake and Output for Last 24 Hours 03/16/21 03/17/21 03/18/21 23:59 23:59 23:59 Intake Total 100 / 100 1765 / 1765 Output Total 250 / 250 Balance 100 / 100 1515 / 1515 Medical Nutrition Assessment Dietitian: Malnutrition Criteria Met Start: 03/18/21 15:08 Freq: Status: Active Protocol: Document 03/18/21 15:08 (Rec: 03/18/21 15:08 [id number]) Nutrition Malnutrition Evidence of Malnutrition Exists Yes Malnutrition (moderate): Acute Illness/Injury Evidenced By Suboptimal Energy Intake ( Moderate),Weight Loss (Severe) Clinical Problem Acute Disease or Injury Related Malnutrition Etiology moderate, acute malnutrition r /t inadequate energy intake w/ acute COVID-19 illness Signs/Symptoms as evidenced by unintentional wt loss of 17.2#/8% x 1.5 months, estimated PO intake meeting <75% of estimated nutritional needs x 1 month Status Active Problem Recommendation Dietitian Recommendations/Changes regular diet as ordered Lab / Micro Data Result Diagrams: 03/18/21 06:00 03/18/21 06:00 Labs: Laboratory Results - last 24 hr 03/17/21 19:45: B-Natriuretic Peptide 84.3 03/17/21 20:03: WBC 18.2 H, RBC 4.55 L, Hgb 13.4, Hct 44.4, MCV 97.6 H, MCH 29.5, MCHC 30.2 L, RDW Std Deviation 54.8 H, RDW Coeff of Laila 15.3 H, Plt Count 106 L, MPV 10.2, Immature Gran % (Auto) 0.300, Neut % (Auto) 19.9 L, Lymph % (Auto) 72.0 H, Storey % (Auto) 6.3, Eos % (Auto) 1.3, Baso % (Auto) 0.2, Absolute Neuts (auto) 3.6, Absolute Lymphs (auto) 13.08 H, Nucleated RBC % 0, Differential Comment SCANNED 03/17/21 20:03: D-Dimer Quant (PE/DVT) 1.30 H* 03/17/21 20:03: Sodium 142, Potassium 4.2, Chloride 106, Carbon Dioxide 31.0, Anion Gap 5, BUN 12, Creatinine 1.02, Estim Creat Clear Calc 69.58, Est GFR (MDRD) Af Amer 93, Est GFR (MDRD) Non-Af 77, BUN/Creatinine Ratio 11.8, Glucose 105, Calcium 9.0 03/17/21 20:03: Lactic Acid 1.3 03/17/21 20:03: Magnesium 2.1, Ferritin 173, Total Bilirubin 0.30, Direct Bilirubin 0.13, AST 17, ALT 19, Alkaline Phosphatase 89, Lactate Dehydrogenase 210, Troponin I High Sens 8, C-React Prot Ext Range < 2.90, Total Protein 6.9, Albumin 3.0 L, Globulin 3.9 03/17/21 23:05: Procalcitonin 0.05 03/18/21 06:00: WBC 14.5 H, RBC 3.68 L, Hgb 10.8 L, Hct 35.3 L, MCV 95.9 H, MCH 29.3, MCHC 30.6 L, RDW Std Deviation 53.5 H, RDW Coeff of Laila 15.2 H, Plt Count 92 L, MPV 10.2, Immature Gran % (Auto) 0.300, Neut % (Auto) 20.3 L, Lymph % (Auto) 70.6 H, Storey % (Auto) 7.3, Eos % (Auto) 1.4, Baso % (Auto) 0.1, Absolute Neuts (auto) 3.0, Absolute Lymphs (auto) 10.25 H, Nucleated RBC % 0.1, Differential Comment SCANNED, Diff Path Review Not Reportable, Reactive Lymphocytes 1+, Platelet Estimate MOD 03/18/21 06:00: Sodium 141, Potassium 4.0, Chloride 110 H, Carbon Dioxide 30.0, Anion Gap 1 L, BUN 13, Creatinine 0.95, Estim Creat Clear Calc 74.71, Est GFR (MDRD) Af Amer 101, Est GFR (MDRD) Non-Af 83, BUN/Creatinine Ratio 13.7, Glucose 96, Calcium 8.0 L, Total Bilirubin 0.40, AST 15, ALT 15 L, Alkaline Phosphatase 69, Total Protein 5.4 L, Albumin 2.3 L, Globulin 3.1, Albumin/Globulin Ratio 0.7 L 03/18/21 15:00: MRSA (PCR) Negative Micro: Microbiology 03/18/21 11:17 Urine, Random Legionella Antigen - Final 03/18/21 11:17 Urine, Random Streptococcus pneumoniae Antigen (M - Final 03/18/21 00:40 Mucosa - Nasopharyngeal Respiratory Panel (PCR) - Final Radiography Diagnostic Testing: Radiology Impression Chest CTA 03/17/21 20:48 IMPRESSION: 1. No demonstrated pulmonary embolism or arterial dissection. 2. There are bilateral pleural effusions. There is bilateral pneumonia. This is worse. Electronically Signed: Andrew Canas MD at 22:31 EST , Service support , Physical Exam Const alert Resp normal respiratory effort, no retractions, no use of accessory muscles and clear to auscultation bilaterally Cardio regular rate, regular rhythm, S1 normal heart sound and S2 normal heart sound GI normal to inspection, nondistended, normoactive bowel sounds, soft to palpation, non-tender and non-distended Extremity normal to inspection Assessment & Plan Assessment/Plan (1) Chronic respiratory failure: QUALIFIERS: Respiratory failure complication: hypoxia Qualified Code(s): J96.11 - Chronic respiratory failure with hypoxia (2) Post-COVID syndrome: (3) Pneumonia: QUALIFIERS: Pneumonia type: due to unspecified organism Laterality: bilateral Lung location: unspecified part of lung Qualified Code(s): J18.9 - Pneumonia, unspecified organism PLAN: 1. Chronic respiratory failure * Secondary to severe Covid pneumonia. Also complicated by the fact that patient was not using his oxygen properly at home. He was basically using middle number of 4 to 8 L and just averages out on his math of 5 L. So when he would exert himself he would not be able to catch up for a while. Reeducated the patient about the importance of the oxygen and his need for more oxygen when he exerts himself and to turn that up. He expressed understanding. * Patient is CAT scan is change but this is probably more likely fibrotic changes from his recent Covid pneumonia. Patient was seen by Dr. Esteban, pulmonology, and patient can follow-up with pulmonology services as outpatient. * Continue with empiric antibiotics for now but if cultures are negative then antibiotics can be discontinued. 2. CLL * Complicates overall care and recovery * White count is actually down from where it was last month 3. VTE prophylaxis with enoxaparin Charges/Coding Visit Charges Inpatient E&M: 67426 Subs Hosp L2
[2021-03-19] VITALS (12 sets, daily range): BP systolic 106–138; BP diastolic 52–76; PULSE 68–89; RESP 16–20; TEMP 36.2–37.8; O2SAT 87–97
--- NOTE | 2021-03-19 04:14 | NURSING ---
3:54 am Patient blood sugar 50 given 120ml of orange juice will recheck in 15 minutes. Patient able to response with eyes opening and talking with voice.
[2021-03-19] MEDS: Ipratropium/Albuterol Sulfate 3 ML AMPUL.NEB INHALATION ×3 (06:56→14:46)
[2021-03-19 08:30] LABS: Absolute Lymphocyte Count 11.32 X10^3/uL (0.83-4.51); Absolute Neutrophil Count 3.1 X10^3/uL (2.0-7.7); Basophil# 0.03 X10^3/uL; Basophil% 0.2 % (0-1); Eosinophil# 0.35 X10^3/uL; Eosinophils% 2.3 % (0-5); Hematocrit 36.1 % (40-54); Hemoglobin 11.5 g/dL (13.0-16.5); Lymphocyte # 11.32 X10^3/ul (0.83-4.51); Lymphocyte % 73.1 % (19-41); Mean Corp Hgb Conc 31.9 g/dL (32-36); Mean Corpuscular Hgb 31.3 pg (27.0-32.0); Mean Corpuscular Volume 98.1 fL (80-94); Mean Platelet Vol. 10.5 fl (6.2-12.0); Monocyte# 0.63 X10^3/uL; Monocyte% 4.1 % (0-10); NRBC Flagged by Analyzer 0 % (0-5); Neutrophil # 3.12 X10^3/uL (2.7-7.7); POSITIVE COUNT YES; POSITIVE DIFFERENTIAL YES; POSITIVE MORPHOLOGY YES; Platelet Count 92 K/mm3 (150-450); RBC Distribution Width CV 15.4 % (11.6-14.6); RBC Distribution Width SD 54.5 fl (35.1-43.9); Red Blood Count 3.68 M/mm3 (4.6-6.2); White Blood Count 15.5 K/mm3 (4.4-11.0)
[2021-03-19 08:31] LABS: Differential Indicated SCAN CRITERIA MET
[2021-03-19 08:40] LABS: Vancomycin, Trough Level 12.6 ug/mL (5.0-15.0)
[2021-03-19 08:43] LABS: ALB/GLOB Ratio 0.8 RATIO (0.9-2.4); AST(SGOT) 14 U/L (15-37); Alanine Aminotransfer ALT/SGPT 15 U/L (16-61); Albumin, Serum 2.5 g/dL (3.2-5.0); Alkaline Phosphatase 68 U/L (45-117); Anion Gap 7 (5-15); BUN 10 mg/dL (7-18); Calcium,Total 8.3 mg/dL (8.5-10.1); Chloride 107 mmol/L (98-107); Creatinine, Serum 0.91 mg/dL (0.70-1.30); EST Glomerular Filtration Rate 88 mL/min (>60); Est Glom Filt Rate - Afr Amer 106 mL/min (>60); Estimated Creatinine Clearance 77.99 ml/min; Globulin 3.3 g/dL (2.2-4.2); Glucose 92 mg/dL (74-106); Potassium 3.9 mmol/L (3.5-5.1); Protein, Total 5.8 g/dL (6.4-8.2); Sodium Level 142 mmol/L (136-145)
[2021-03-19] MEDS: Enoxaparin 30 MG/0.3 ML Syringe SC (09:12)
[2021-03-19 09:26] LABS: Platelet Estimate MOD DEC (ADEQ); Reactive Lymphocyte 1+
--- NOTE | 2021-03-19 10:22 | PCM.DC ---
Discharge Instructions Diet Discharge Diet: No restrictions Activity Discharge Activity: Return to Normal Activity (slowly ease back into your normal routine. ) Additional Activity Instructions:: oxygen 2 liters/minute at rest, then increase to 6 liters/minute with any activity. Dressing / Incision Call your doctor if you observe: Fever of 101 or Higher and Shortness of breath Follow Up Care Test Results: Test results from this visit will be discussed in further detail at your follow-up appointment, if applicable. Discharge Plan Admission Admit Date/Time: 03/17/21 22:51 Primary Reason for Your Visit: chronic respiratory failure Attending Provider: Adarsh Fernandez Consulting Providers: Pérez Esteban Discharge Orders/Prescriptions Prescriptions: New albuterol sulfate 90 mcg/actuation HFA aerosol inhaler 2 puff inhalation Q6H PRN (Reason: shortness of breath or wheezing) Qty: 6.7 RF: 0 guaifenesin [Mucinex] 600 mg tablet extended release 12hr 600 mg PO BID Qty: 10 RF: 0 Continued sodium chloride [Deep Sea Nasal] 0.65 % Aerosol,[place] 2 spray NASAL TID PRN PRN (Reason: NASAL DRYNESS) Qty: 0 RF: 0 Referrals / Follow Up: [facility] [Other] - Within 2 Weeks [facility] [Other] David Luna MD [STAFF PHYSICIAN] - 03/31/21 9:15 am Disposition Disposition (needs filled in before D/C Order can be placed): Home, Self Care
--- NOTE | 2021-03-19 10:27 | DS.PCM_ITS ---
Providers Date of Admission: 03/17/21 Date of Discharge: 03/19/21 Primary Care Physician: PHILIP MEDEL Consultations 03/18/21 00:05 Consult: Traffic Police Officer / Pulmonary Medicine Routine Consulting Provider: Pérez Esteban Reason for Consult: Recent COVID PNA, resp failure, represent worsening dyspnea, worsened CT EMERGENT Consult: No MD Notified: Yes Date Notified: 03/17/21 Time Notified: 07:55 Method of Notification: Text Reason For Visit: PNA, COVID, POSSIBLE SUPERIMPOSED BACTERIAL Diagnosis Discharge Diagnosis (1) Chronic respiratory failure: Status: Chronic Code(s): J96.10 - Chronic respiratory failure, unspecified whether with hypoxia or hypercapnia Qualifiers: Respiratory failure complication: hypoxia Qualified Code(s): J96.11 - Chronic respiratory failure with hypoxia (2) Post-COVID syndrome: Status: Acute Code(s): U09.9 - Post COVID-19 condition, unspecified (3) Pneumonia: Status: Acute Code(s): J18.9 - Pneumonia, unspecified organism Qualifiers: Pneumonia type: due to unspecified organism Laterality: bilateral Lung location: unspecified part of lung Qualified Code(s): J18.9 - Pneumonia, unspecified organism Medications at Discharge Home Medications sodium chloride [Deep Sea Nasal] 2 spray NASAL TID PRN PRN #0 ml 03/01/21 albuterol sulfate 2 puff INHALATION Q6H PRN #6.7 g 03/19/21 guaifenesin [Mucinex] 600 mg PO BID #10 tab 03/19/21 Hospital Course Operations None Procedures None Summary of Care Provided Minutes Spent on Discharge: 35 Hospital Course: This is a 71-year-old male presents with shortness of breath. Patient was hospitalized from April 06 to the with COVID-19 pneumonia. Patient was at home and was on oxygen. He was informed to have 4 L at rest and 8 L with activity. The patient took it upon himself to average that out to just have him on 5 L continuous. So the patient would exert himself he would be more short of breath and take time to recover. He was in communication with his PCP who advised admission. It is doubtful that the PCP knew that the patient was actually not following the instructions regards to modifying his oxygen for activity at rest. Patient had fibrotic changes consistent with Covid on his CT. Patient was empirically treated for pneumonia but infectious work-up came back negative. Patient does endorse that he overall feels better when he was at home. He stated at home he would be barely able to get up 3 steps now he can go up a flight of stairs limited only by the length of his oxygen tubing. So it was related to the patient that he needs to modify his oxygen with his activity. We have rechecked him and now he is 2 L at rest and 6 L with activity. Patient is still very adamant about not getting the Covid vaccine. He states th at he is worried about the mRNA vaccine getting into his DNA. I asked him what type of virus COVID-19 is and he did not have an answer for that. I informed him that it is an RNA virus and that it does get in his DNA and he had no further comment. He then went off on a tangent about COVID-19 being a bio weapon. Patient informed that he may have fibrotic changes that may be chronic and that he may never get back to the baseline that he had prior to getting COVID-19. Though I do anticipate improvements is unclear how much he will continue to improve. I did inform him that he is certainly at risk with this chronic changes for bacterial pneumonia and if he does start developing increasing s hortness of breath, fevers or productive sputum that he may be developing a bacterial pneumonia and to notify his primary care provider or come back into the emergency room. Physical Exam Resp normal respiratory effort Resp Narrative: Bibasilar crackles Cardio regular rate, regular rhythm, S1 normal heart sound and S2 normal heart sound GI normal to inspection, nondistended, normoactive bowel sounds, soft to palpation, non-tender and non-distended Medical Records Data Medical Nutrition Assessment Dietitian: Malnutrition Criteria Met Start: 03/18/21 15:08 Freq: Status: Active Protocol: Document 03/18/21 15:08 (Rec: 03/18/21 15:08 [id number]) Nutrition Malnutrition Evidence of Malnutrition Exists Yes Malnutrition (moderate): Acute Illness/Injury Evidenced By Suboptimal Energy Intake ( Moderate),Weight Loss (Severe) Clinical Problem Acute Disease or Injury Related Malnutrition Etiology moderate, acute malnutrition r /t inadequate energy intake w/ acute COVID-19 illness Signs/Symptoms as evidenced by unintentional wt loss of 17.2#/8% x 1.5 months, estimated PO intake meeting <75% of estimated nutritional needs x 1 month Status Active Problem Recommendation Dietitian Recommendations/Changes regular diet as ordered Weight / BMI Weight Weight: 90.5 kg Body Mass Index (BMI) 28.1 ABG / Lab / Microbiology Data Result Diagrams: 03/19/21 07:30 03/19/21 07:30 Laboratory: Laboratory Results - last 24 hr 03/18/21 15:00: MRSA (PCR) Negative 03/19/21 07:30: Vancomycin Trough 12.6 03/19/21 07:30: WBC 15.5 H, RBC 3.68 L, Hgb 11.5 L, Hct 36.1 L, MCV 98.1 H, MCH 31.3, MCHC 31.9 L, RDW Std Deviation 54.5 H, RDW Coeff of Laila 15.4 H, Plt Count 92 L, MPV 10.5, Immature Gran % (Auto) 0.300, Neut % (Auto) 20.0 L, Lymph % (Auto) 73.1 H, [place] % (Auto) 4.1, Eos % (Auto) 2.3, Baso % (Auto) 0.2, Absolute Neuts (auto) 3.1, Absolute Lymphs (auto) 11.32 H, Nucleated RBC % 0, Differen tial Comment COMMENT, Reactive Lymphocytes 1+, Platelet Estimate MOD DEC 03/19/21 07:30: Sodium 142, Potassium 3.9, Chloride 107, Carbon Dioxide 28.0, Anion Gap 7, BUN 10, Creatinine 0.91, Estim Creat Clear Calc 77.99, Est GFR (MDRD) Af Amer 106, Est GFR (MDRD) Non-Af 88, BUN/Creatinine Ratio 11.0, Glucose 92, Calcium 8.3 L, Total Bilirubin 0.40, AST 14 L, ALT 15 L, Alkaline Phosphatase 68, Total Protein 5.8 L, Albumin 2.5 L, Globulin 3.3, Albumi n/Globulin Ratio 0.8 L Microbiology: Microbiology 03/18/21 11:17 Urine, Random Legionella Antigen - Final 03/18/21 11:17 Urine, Random Streptococcus pneumoniae Antigen (M - Final 03/18/21 00:40 Mucosa - Nasopharyngeal Respiratory Panel (PCR) - Final D/C Instructions Discharge Diet: No restrictions Additional Activity Instructions: oxygen 2 liters/minute at rest, then increase to 6 liters/minute with any activity. Call your doctor if you observe: Fever of 101 or Higher and Shortness of breath Meaningful Use Info Meaningful Use Diagnoses (Choose all that apply): None applicable Discharge Plan Admission Admit Date/Time: 03/17/21 22:51 Primary Reason for Your Visit: chronic respiratory failure Attending Provider: Adarsh Fernandez Consulting Providers: Pérez Esteban Discharge Orders/Prescriptions Prescriptions: New albuterol sulfate 90 mcg/actuation HFA aerosol inhaler 2 puff inhalation Q6H PRN (Reason: shortness of breath or wheezing) Qty: 6.7 RF: 0 guaifenesin [Mucinex] 600 mg tablet extended release 12hr 600 mg PO BID Qty: 10 RF: 0 Continued sodium chloride [Deep Sea Nasal] 0.65 % Aerosol,[place] 2 spray NASAL TID PRN PRN (Reason: NASAL DRYNESS) Qty: 0 RF: 0 Referrals / Follow Up: PHILIP MEDEL [Other] - Within 2 Weeks PHILIP MEDEL [Other] David Luna MD [STAFF PHYSICIAN] - 03/31/21 9:15 am Disposition Disposition (needs filled in before D/C Order can be placed): Home, Self Care Charges/Coding Visit Charges Inpatient E&M: 32188 Disch Hosp
--- NOTE | 2021-03-19 11:07 | CASEMGMT ---
SONIDO PETERS NOTE: Pt being discharged home. Ambulatory O2 testing completed. Pt qualifies for O2 @ 2 L/M @ rest and 6 L/M w/exertion. Pt has home O2 thru [employer] for 3 L/M @ rest and 8 L/M w/exertion. SONIDO PETERS to room to talk w/pt. Pt on phone w/ who was on speaker phone. Educated pt and that pt is requiring less O2 than previously and informed of current O2 requirements. Discussed importance of adjusting O2 flow rate to 2 L/M when @ rest and 6 L/M w/exertion, as the body does require more w/exertion. Pt/ voice understanding. Family will bring portable O2 tank in for pt to go home on. Pt/ both deny having any further discharge planning needs. Keith NEWBERRYN RN CM
== END 2021-03-19 17:16 | disposition home or self-care (01) | DRG 197 ==
LOC: ED 22:53 → PCU 23:02
PROVIDERS: Admitting Provider Family Medicine; Emergency Provider Emergency Medicine
DX: J84.10 Pulmonary fibrosis, unspecified (principal); C91.10 Chronic lymphocytic leukemia of B-cell type not having achieved remission; I42.1 Obstructive hypertrophic cardiomyopathy; J90 Pleural effusion, not elsewhere classified; J96.11 Chronic respiratory failure with hypoxia; E44.0 Moderate protein-calorie malnutrition; U09.9 Post COVID-19 condition, unspecified; J45.909 Unspecified asthma, uncomplicated; D64.9 Anemia, unspecified; D69.6 Thrombocytopenia, unspecified; Z68.28 Body mass index [BMI] 28.0-28.9, adult
CPT/HCPCS: 36415; 71275; 80048; 80053; 80076; 80202; 82728; 83605; 83615; 83735; 83880; 84145; 84484; 85025; 85379; 86140; 87040; 87449; 87633; 87641; 93005; 94640; 97161; 97802; 99251; 99285; J7030; J7050; Q9967; G0463

== ENCOUNTER 2021-05-07 12:09 | Outpatient (CLI) | payer MEDICARE, OTHER, SELFPAY ==
[2021-05-07 12:30] VITALS: PULSE 100; PULSE 103; PULSE 64; PULSE 65; PULSE 92; PULSE 95; PULSE 98; O2SAT 86; O2SAT 88; O2SAT 90; O2SAT 91; O2SAT 93
--- NOTE | 2021-05-07 13:05 | CPS ---
Pt was placed on 2 lpm pulse dose at the 2 minute donna. Pt was increased to 3 lpm pulse dose at the 5 minute donna. Pt was able to keep saturation above 90% on 3 lpm pulse dose for remainder of test.
--- NOTE | 2021-05-07 16:51 | PCM.PSN.6M ---
PSN 6 Minute Walk Test 6 Minute Walk Test 6 Minute Walk Test: 6 Minute Walk Test PSN:6-Minute Walk Test Start: 05/07/21 13:01 Freq: Status: Active Protocol: RESP.6MINW Document 05/07/21 12:30 AE (Rec: 05/07/21 13:09 [facility] [id number]) 6 Minute Walk Test Date Performed 05/07/21 Time Performed 12:30 Height 5 ft 11 in Weight: 95.254 kg Weight in Pounds 210.[address]: Shantelle Assistive device used: None Pre-test Oxygen Delivery Method Room Air Pulse Ox (%) 93 Pulse Rate (60-100 beats/min) 64 Dyspnea Taina Scale (0-10) 0 Exertion Taina Scale (6-20) 6 1st minute Oxygen Delivery Method Room Air Pulse Ox (%) 90 Pulse Rate (60-100 beats/min) 92 2nd minute Oxygen Delivery Method Room Air Pulse Ox (%) 86 Pulse Rate (60-100 beats/min) 103 H Dyspnea Taina Scale (0-10) 1 3rd minute Oxygen Flow Rate (L/min) (L/min) 2 Oxygen Delivery Method Nasal Cannula Pulse Ox (%) 91 Pulse Rate (60-100 beats/min) 92 4th minute Oxygen Flow Rate (L/min) (L/min) 2 Oxygen Delivery Method Nasal Cannula Pulse Ox (%) 91 Pulse Rate (60-100 beats/min) 98 5th minute Oxygen Flow Rate (L/min) (L/min) 2 Oxygen Delivery Method Nasal Cannula Pulse Ox (%) 88 Pulse Rate (60-100 beats/min) 100 Dyspnea Taina Scale (0-10) 1 6th minute Oxygen Flow Rate (L/min) (L/min) 3 Oxygen Delivery Method Nasal Cannula Pulse Ox (%) 91 Pulse Rate (60-100 beats/min) 95 Dyspnea Taina Scale (0-10) 1 Exertion Taina Scale (6-20) 11 Post-test Oxygen Flow Rate (L/min) (L/min) 3 Oxygen Delivery Method Nasal Cannula Pulse Ox (%) 93 Pulse Rate (60-100 beats/min) 65 Full Laps Walked 17 Partial Lap, Number of Tiles Walked 0 Total Distance Walked (ft) 1003 05/07/21 13:05 Cardiopulmonary Services by Claribel Donohue Pt was placed on 2 lpm pulse dose at the 2 minute donna. Pt was increased to 3 lpm pulse dose at the 5 minute donna. Pt was able to keep saturation above 90% on 3 lpm pulse dose for remainder of test. Initialized on 05/07/21 13:05 - END OF NOTE Interpretation Interpretation: The patient was noted to be 93% on room air at rest. However, in the second minute, patient desaturated to 86% was placed on 2 L pulse dose. The patient required a maximum of 3 L pulse dose to maintain saturations throughout testing. The patient did have an element of reflexive tachycardia. In total, the patient traveled 1003 feet over the course of 6 minutes with no assistive devices and 2 breaks. These findings are consistent with a respiratory limitation exercise tolerance. Recommendations Recommendations: The patient requires no supplemental oxygen at rest, but should be using 3 L pulse dose with any exertion.
== END 2021-05-07 23:59 | disposition short-term general hospital (02) ==
LOC: PSN 12:13
PROVIDERS: Referring Provider Nurse Practitioner Acute Care; Visit Provider Nurse Practitioner Acute Care
DX: U09.9 Post COVID-19 condition, unspecified (principal)
CPT/HCPCS: 94618

== ENCOUNTER 2021-05-08 10:33 | Outpatient (CLI) | payer MEDICARE, OTHER, SELFPAY ==
--- NOTE | 2021-05-08 15:26 | PFTCOMP ---
COMPLETE PULMONARY FUNCTION TEST INTERPRETATION Brief HPI: Patient is a 71 year old male, currently under the care of Regina Tiwari, who presents to [facility] for complete pulmonary function tests secondary to diagnosis of status post COVID-19. Respiratory therapist reports good effort and reproducible results. Interpretation: Forced expiration spirometry shows no large airways obstructive ventilatory defect with an FEV1 of 69% predicted. There is no significant bronchodilator response by strict ATS criteria. Spirograms are of good quality and plateau normally. The respiratory flow volume loop shows a normal pattern. Lung volumes by body plethysmography show a decreased total lung capacity at 4.69 L, 69% predicted. All other lung volumes are reduced symmetrically. Diffusion capacity by carbon monoxide is at the lower limit of normal at 71% predicted. The airway resistance is normal. No previous pulmonary function tests were available for review. Impression: Moderate restrictive ventilatory defect with a symmetric reduction in diffusion capacity
== END 2021-05-08 23:59 | disposition short-term general hospital (02) ==
LOC: PSN 10:34
PROVIDERS: Referring Provider Nurse Practitioner Acute Care; Visit Provider Nurse Practitioner Acute Care
DX: U09.9 Post COVID-19 condition, unspecified (principal)
CPT/HCPCS: 94060; 94726; 94729

== ENCOUNTER 2021-06-18 08:55 | Outpatient (CLI) | payer MEDICARE, OTHER, SELFPAY ==
[2021-06-18 10:02] LABS: Rheumatoid Factor < 10.0 IU/mL (<15)
[2021-06-19 16:04] LABS: ANTINUCLEAR ANTIBODIES DIRECT Negative (Negative)
[2021-06-20 00:06] LABS: Cytoplasmic Ab (C-ANCA) <1:20 titer (Neg:<1:20)
[2021-06-20 10:16] LABS: Perinuclear Ab (P-ANCA) <1:20 titer (Neg:<1:20)
[2021-06-20 10:17] LABS: CCP IgG Antibodies 8 units (0-19)
== END 2021-06-18 23:59 | disposition home or self-care (01) ==
PROVIDERS: Referring Provider Internal Medicine Critical Care Medicine; Visit Provider Internal Medicine Critical Care Medicine
DX: J98.4 Other disorders of lung (principal)
CPT/HCPCS: 36415; 86038; 86200; 86225; 86235; 86256; 86431

== ENCOUNTER 2021-09-15 09:21 | Emergency (ER) | payer MEDICARE, OTHER, SELFPAY ==
[2021-09-15] VITALS (7 sets, daily range): BP systolic 121–142; BP diastolic 68–80; PULSE 63–73; RESP 16–19; TEMP 36.7–36.8; O2SAT 96–98; BMI 32.0
--- NOTE | 2021-09-15 09:44 | EKG12_ITS ---
Test Reason : CP Blood Pressure : / mmHG Vent. Rate : 066 BPM Atrial Rate : 066 BPM P-R Int : 218 ms QRS Dur : 114 ms QT Int : 406 ms P-R-T Axes : 041 -30 -01 degrees QTc Int : 425 ms Sinus rhythm with sinus arrhythmia with 1st degree A-V block with occasional Premature ventricular co mplexes Left axis deviation Incomplete left bundle branch block Abnormal ECG Confirmed by ALISSA BAZAN, DENIZ ([id number]), communications editor DAKSHA CARRERO ([id number]) on 09/16/2021 10:49:05 AM Referred By: Confirmed By:DENIZ MAXWELL MD
--- NOTE | 2021-09-15 09:45 | EDS_ITS ---
HPI History of Present Illness Chief Complaint: Palpitations Detail of Chief Complaint: Cough Informant: patient and spouse/S.O. Onset/Context/Timing Onset: Weeks Context: Gradual Onset Narrative Narrative: Patient presented to the pulmonary office today for follow-up of cough for the past 2 weeks. He has been on oxygen as needed since having COVID. He and for members developed cough with low-grade fevers a couple weeks ago. Fever is resolved but patient still has significant cough. Testing in the pulmonary office was reportedly unremarkable. They did note irregular heartbeat on auscultation. 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 Patient denies chest pain or palpitations. does bring up the fact that patient has not had a solid bowel movement in a week and a half. He is passing liquid stool and gas. [facility] Medical History Asthma Chronic respiratory failure CLL (chronic lymphocytic leukemia) HOCM (hypertrophic obstructive cardiomyopathy) Pneumonia due to COVID-19 virus Post-COVID syndrome Home Medications albuterol sulfate 2 puff INHALATION Q6H PRN #6.7 g 03/19/21 [Rx Last Taken Unknown] ipratropium 0.5 mg-albuterol 3 mg (2.5 mg base)/3 mL nebulization soln 3 ml INHALATION Q6H PRN 06/18/21 [History Last Taken Unknown] fluticasone propionate 2 spray INTRANASAL DAILY PRN 09/15/21 [History Last Taken Unknown] levofloxacin 750 mg PO DAILY #4 tab 09/15/21 [Rx Last Taken Unknown] magnesium citrate 300 ml PO DAILY PRN #296 ml 09/15/21 [Rx Last Taken Unknown] Allergy/AdvReac Type Severity Reaction Status Date / Time monosodium glutamate Allergy Severe lip Verified 09/15/21 09:29 swelling strawberry Allergy Severe lip Verified 09/15/21 09:29 swelling grass pollen Allergy Mild watery eyes Verified 09/15/21 09:29 tree and shrub pollen Allergy Mild watery eyes Verified 09/15/21 09:29 Family History Father Heart disease HCM. Other Asthma Surgical History H/O hand surgery History of throat surgery Social History household members: spouse and children Smoking Status: Never smoker alcohol intake: never substance use type: does not use ROS ROS ED Constitutional Constitutional ED: Denies chills or fever(s) Eyes Eyes: Denies change in vision ENT ENT ED: Denies sore throat Cardiovascular Cardiovascular: Denies chest pain Respiratory/Chest Respiratory/Chest: Reports cough and dyspnea; Denies sputum Gastrointestinal Gastrointestinal: Reports constipation; Denies abdominal pain, nausea or vomiting Genitourinary Genitourinary ED: Denies dysuria Musculoskeletal Musculoskeletal: Denies back pain Integumentary Denies rash Neurologic Neurologic: Denies headache(s) or weakness Psychiatric Psychiatric: Denies anxiety Allergic/Immunologic Allergic/Immunologic ED: Denies urticaria EXAM Physical Exam Const Vital Signs: 09/15/21 09:22 09/15/21 09:30 09/15/21 09:45 Temperature 98.2 F 98.2 F Temperature Source Oral Oral Pulse Rate 73 73 72 Respiratory Rate 16 16 16 Respiratory Effort Normal Non-Labored Respiratory Pattern Normal Blood Pressure 142/75 H 142/75 H 130/70 H Blood Pressure Mean 97 97 90 Pulse Ox 98 98 97 Oxygen Delivery Method Nasal Cannula Nasal Cannula Oxygen Flow Rate (L/min) 3 3 09/15/21 10:00 09/15/21 10:30 09/15/21 11:00 Temperature 98.0 F Temperature Source Oral Pulse Rate 73 67 63 Respiratory Rate 19 H 17 16 Respiratory Effort Respiratory Pattern Blood Pressure 133/74 H 135/80 H 121/68 H Blood Pressure Mean 93 98 85 Pulse Ox 96 97 96 Oxygen Delivery Method Nasal Cannula Nasal Cannula Oxygen Flow Rate (L/min) 3 3 Positive well nourished and well developed General Appearance ED: well developed HEENT Reports moist mucous membranes Eyes PERRL and EOMs intact bilaterally Neck supple Chest Wall inspection of chest normal and palpation of chest normal Resp normal respiratory effort and clear to auscultation bilaterally Cardio regular rate and regular rhythm GI normal to inspection, nondistended, normoactive bowel sounds and non-tender Palpation: soft Extremity normal to inspection Neuro oriented x3 Sensorium / Orientation: alert Psych mental status grossly normal Skin no rashes or lesions noted MDM MDM MDM Narrative Medical decision making narrative: EKG, chest x-ray, lab work obtained. Abdominal x-ray ordered. Lab Data Attestation: I reviewed the patient's lab results. Labs: Laboratory Results - last 24 hr 09/15/21 09/15/21 09/15/21 10:00 10:00 10:00 WBC 32.0 H* RBC 4.62 Hgb 13.9 Hct 43.7 MCV 94.6 H MCH 30.1 MCHC 31.8 L RDW Std Deviation 53.5 H RDW Coeff of Laila 15.4 H Plt Count 68 L MPV 10.2 Immature Gran % (Auto) 0.300 Neut % (Auto) 13.9 L Lymph % (Auto) 80.0 H [place] % (Auto) 5.0 Eos % (Auto) 0.5 Baso % (Auto) 0.3 Absolute Neuts (auto) 4.4 Absolute Lymphs (auto) 25.59 H Nucleated RBC % 0.1 Differential Comment SCANNED Diff Path Review May foll Reactive Lymphocytes 2+ Sodium 140 Potassium 4.1 Chloride 106 Carbon Dioxide 30.0 Anion Gap 4 L BUN 19 H Creatinine 1.18 Estim Creat Clear Calc 60.15 Est GFR (MDRD) Af Amer 78 Est GFR (MDRD) Non-Af 65 BUN/Creatinine Ratio 16.1 Glucose 99 Calcium 8.7 Troponin I High Sens 7 B-Natriuretic Peptide 129.2 H Radiography Chest X-Ray - ED: 1 View, Read by ED Physician and Chronic Changes Diagnostic Testing: Clinical Impression(s) from Imaging Studies Chest X-Ray 09/15/21 10:25 IMPRESSION: Residual infiltration and/or scarring at the left lung base and right upper lobe. Prominence of the left hilum. Electronically Signed: Antonio Trent MD at 11:11 EDT , KUB X-Ray 09/15/21 10:25 IMPRESSION: Large amount of fecal material is seen throughout the colon worse in the right hemicolon. Electronically Signed: Antonio Trent MD at 11:09 EDT , EKG Initial EKG: Attestation: I personally reviewed and interpreted this EKG as follows: Interpretation: Sinus Rhythm (Sinus at 66 with occasional PVCs. No acute ischemia.) Treatment and Re-Evaluation Narrative: On repeat evaluation patient resting comfortably. Chest x-ray per my interpretation shows chronic changes. There is questionable infiltrate versus scarring at the left lung base in the right upper lobe. Abdominal x-ray does show increased stool in the right. Radiology interpretation also reviewed. Lab work significant for white count of 32 but patient does have underlying CLL. Chemistry studies unremarkable. Troponin negative and BNP 129. Patient will be given magnesium citrate to help treat his constipation. With patient having consistent cough for several weeks I will treat him with a course of Levaquin, first dose given here. Return instructions provided. Discharge Plan Triage Chief Complaint: Palpitations ED Provider: Marlene Phoenix Dx/Rx/DC Orders Clinical Impression: Pneumonia, Constipation Instructions: ED Constipation (Adult), ED Pneumonia (Adult) Prescriptions: New levofloxacin 750 mg tablet 750 mg PO DAILY Qty: 4 RF: 0 magnesium citrate Solution 300 ml PO DAILY PRN (Reason: constipation) Qty: 296 RF: 0 No Action ipratropium-albuterol 0.5 mg-3 mg(2.5 mg base)/3 mL solution for nebulization 3 ml inhalation Q6H PRN (Reason: Shortness Of Breath) RF: 0 albuterol sulfate 90 mcg/actuation HFA aerosol inhaler 2 puff inhalation Q6H PRN (Reason: shortness of breath or wheezing) Qty: 6.7 RF: 0 fluticasone propionate 50 mcg/actuation spray,suspension 2 spray intranasal DAILY PRN (Reason: allergies) RF: 0 Referrals: SIMON MEDEL [Other] - 1 Week Disposition Disposition: Home, Self Care
[2021-09-15 10:15] LABS: Absolute Lymphocyte Count 25.59 X10^3/uL (0.83-4.51); Absolute Neutrophil Count 4.4 X10^3/uL (2.0-7.7); Basophil# 0.09 X10^3/uL; Basophil% 0.3 % (0-1); Eosinophil# 0.15 X10^3/uL; Eosinophils% 0.5 % (0-5); Hematocrit 43.7 % (40-54); Hemoglobin 13.9 g/dL (13.0-16.5); Lymphocyte # 25.59 X10^3/ul (0.83-4.51); Mean Corp Hgb Conc 31.8 g/dL (32-36); Mean Corpuscular Hgb 30.1 pg (27.0-32.0); Mean Corpuscular Volume 94.6 fL (80-94); Mean Platelet Vol. 10.2 fl (6.2-12.0); Monocyte# 1.61 X10^3/uL; NRBC Flagged by Analyzer 0.1 % (0-5); Neutrophil # 4.43 X10^3/uL (2.7-7.7); Neutrophil % 13.9 % (47-70); POSITIVE COUNT YES; POSITIVE DIFFERENTIAL YES; POSITIVE MORPHOLOGY YES; Platelet Count 68 K/mm3 (150-450); RBC Distribution Width CV 15.4 % (11.6-14.6); RBC Distribution Width SD 53.5 fl (35.1-43.9); Red Blood Count 4.62 M/mm3 (4.6-6.2)
[2021-09-15 10:25] LABS: BNP,B-Type NATRIURETIC PEPTIDE 129.2 pg/mL (0-100)
--- NOTE | 2021-09-15 10:25 | RAD_ITS ---
STUDY: X-RAY - ABDOMEN/PELVIS REASON FOR EXAM: Male, 71 years old. Constipation and bloating. TECHNIQUE: Single AP view of the abdomen / pelvis. COMPARISON: None. FINDINGS: Normal visualized lung bases. There is an abundance of fecal material throughout the colon. The visualized liver, spleen and kidneys are grossly normal in size and morphology. Normal soft tissue structures. Mild degenerative changes of the right hip joint. RAD/Abdomen Single View IMPRESSION: Large amount of fecal material is seen throughout the colon worse in the right hemicolon. Electronically Signed: Antonio Trent MD at 11:09 EDT ,
--- NOTE | 2021-09-15 10:25 | RAD_ITS ---
STUDY: X-RAY CHEST REASON FOR EXAM: Male, 71 years old. Sob TECHNIQUE: PA and lateral views of the chest. COMPARISON: Comparison is made with prior study dated 02/16/2021. FINDINGS: EKG electrodes are seen. Since prior study, there has been a marked degree of improved aeration of both lungs. Residual infiltrate and/or scarring is seen in the left lower lobe. Prominence of the left hilar region. There is no demonstrated pleural abnormality. Normal size heart. Normal visualized pulmonary arteries. There is atherosclerotic tortuosity of the aortic arch and descending thoracic aorta. There are diffuse degenerative changes of the visualized thoracic spine. Normal visualized ribs, clavicles, and shoulders. There is no demonstrated abnormality of the visualized soft tissue structures of the upper abdomen. RAD/Chest PA and Lateral IMPRESSION: Residual infiltration and/or scarring at the left lung base and right upper lobe. Prominence of the left hilum. Electronically Signed: Antonio Trent MD at 11:11 EDT ,
[2021-09-15 10:30] LABS: Anion Gap 4 (5-15); BUN 19 mg/dL (7-18); BUN/Creat Ratio 16.1 RATIO (10-20); Calcium,Total 8.7 mg/dL (8.5-10.1); Chloride 106 mmol/L (98-107); Creatinine, Serum 1.18 mg/dL (0.70-1.30); EST Glomerular Filtration Rate 65 mL/min (>60); Est Glom Filt Rate - Afr Amer 78 mL/min (>60); Estimated Creatinine Clearance 60.15 ml/min; Glucose 99 mg/dL (74-106); Potassium 4.1 mmol/L (3.5-5.1); Sodium Level 140 mmol/L (136-145); Troponin-I HS (w/2H Reflex) 7 pg/mL (3.0-78.0)
[2021-09-15 10:35] LABS: Differential Indicated SCAN CRITERIA MET
[2021-09-15 10:58] LABS: Reactive Lymphocyte 2+
[2021-09-15 10:59] LABS: Differential Comment SCANNED
[2021-09-15 12:07] LABS: Reflex Troponin-HS? (from REC) Y
[2021-09-15] MEDS: levoFLOXacin 750 MG Tablet PO (12:46)
[2021-09-17 09:29] LABS: Pathologist Review Reviewed
== END 2021-09-15 12:54 | disposition home or self-care (01) ==
PROVIDERS: Emergency Provider Emergency Medicine; Visit Provider Emergency Medicine
DX: J18.9 Pneumonia, unspecified organism (principal); K59.00 Constipation, unspecified; R06.00 Dyspnea, unspecified; Z79.899 Other long term (current) drug therapy; Z86.16 Personal history of COVID-19; Z99.81 Dependence on supplemental oxygen
CPT/HCPCS: 71046; 74018; 80048; 83880; 84484; 85025; 93005; 99285

== ENCOUNTER → 2021-10-13 | Outpatient (CLI) | payer MEDICARE, OTHER, SELFPAY ==
[2021-10-13 11:46] VITALS: PULSE 100; PULSE 106; PULSE 107; PULSE 108; PULSE 110; PULSE 96; PULSE 98; O2SAT 92; O2SAT 93; O2SAT 94
--- NOTE | 2021-10-14 13:35 | PCM.PSN.6M ---
PSN 6 Minute Walk Test 6 Minute Walk Test 6 Minute Walk Test: 6 Minute Walk Test PSN:6-Minute Walk Test Start: 10/13/21 11:46 Freq: Status: Active Protocol: RESP.6MINW Document 10/13/21 11:46 [facility] (Rec: 10/13/21 11:54 [facility] [id number]) 6 Minute Walk Test Date Performed 10/13/21 Time Performed 11:15 Height 5 ft 11 in Weight: 95.254 kg Weight in Pounds 210.[address]: Pérez Esteban Assistive device used: None Pre-test Oxygen Delivery Method Room Air Pulse Ox (%) 94 Pulse Rate (60-100 beats/min) 98 Dyspnea Taina Scale (0-10) 1 1st minute Oxygen Delivery Method Room Air Pulse Ox (%) 94 Pulse Rate (60-100 beats/min) 100 Dyspnea Taina Scale (0-10) 1 Number of Rests Taken 0 2nd minute Oxygen Delivery Method Room Air Pulse Ox (%) 94 Pulse Rate (60-100 beats/min) 106 H Dyspnea Taina Scale (0-10) 1 Number of Rests Taken 0 3rd minute Oxygen Delivery Method Room Air Pulse Ox (%) 93 Pulse Rate (60-100 beats/min) 107 H Dyspnea Taina Scale (0-10) 2 Number of Rests Taken 0 4th minute Oxygen Delivery Method Room Air Pulse Ox (%) 92 Pulse Rate (60-100 beats/min) 108 H Dyspnea Taina Scale (0-10) 2 Number of Rests Taken 0 5th minute Oxygen Delivery Method Room Air Pulse Ox (%) 93 Pulse Rate (60-100 beats/min) 107 H Dyspnea Taina Scale (0-10) 2 Number of Rests Taken 0 6th minute Oxygen Delivery Method Room Air Pulse Ox (%) 93 Pulse Rate (60-100 beats/min) 110 H Dyspnea Taina Scale (0-10) 2 Number of Rests Taken 0 Post-test Oxygen Delivery Method Room Air Pulse Ox (%) 94 Pulse Rate (60-100 beats/min) 96 Dyspnea Taina Scale (0-10) 1 Full Laps Walked 16 Partial Lap, Number of Tiles Walked 47 Total Distance Walked (ft) 991 Interpretation Interpretation: The patient ambulated 991 feet over the course of 6 minutes beginning on room air without assistive devices. Pretesting oxygen saturation was noted to be 94% on room air. With ambulation, the elly oxygen saturation was 92%. There was no significant exertional oxygen desaturation. Recommendations Recommendations: There is no indication for the use of supplemental oxygen at this time.
== END | disposition home or self-care (01) ==
LOC: PSN 11:14
PROVIDERS: Referring Provider Internal Medicine Critical Care Medicine; Visit Provider Internal Medicine Critical Care Medicine
DX: J96.11 Chronic respiratory failure with hypoxia (principal)
CPT/HCPCS: 94618